=== PATIENT | female | born 1940 | race Caucasian/White ===

== ENCOUNTER → 2018-07-01 09:05 | Outpatient (CLI) | payer OTHER, MEDICAID, SELFPAY ==
[2018-07-01 10:21] LABS: BUN Creatinine Ratio 28.3 (6-22); Blood Urea Nitrogen 17 mg/dL (7-17); Calcium 9.5 mg/dL (8.4-10.2); Carbon Dioxide 27 mmol/L (22-32); Chloride 99 mmol/L (98-107); Estimated Glomerular Filt Rate > 60.0 mL/min (>60); Glucose 92 mg/dL (80-110); HEMOLYSIS < 15 (0-50); Potassium 4.5 mmol/L (3.4-5.1); Sodium 138 mmol/L (137-145)
== END ==
PROVIDERS: PCP Family Medicine; Visit Provider Internal Medicine Cardiovascular Disease
DX: I25.5 Ischemic cardiomyopathy (principal)
CPT/HCPCS: 36415; 80048

== ENCOUNTER → 2018-11-07 07:57 | Outpatient (CLI) | payer OTHER, MEDICAID, SELFPAY ==
[2018-11-07 10:24] LABS: TSH w/ Reflex to FT4 3.47 uIU/mL (0.47-4.68)
== END ==
PROVIDERS: PCP Family Medicine; Visit Provider Family Medicine
DX: R79.89 Other specified abnormal findings of blood chemistry (principal)
CPT/HCPCS: 36415; 84443

== ENCOUNTER → 2018-12-31 06:59 | Outpatient (CLI) | payer OTHER, MEDICAID, SELFPAY ==
[2018-12-31 07:59] LABS: Add Manual Diff / Slide Review NO; Basophils Absolute Auto 0 /uL (0-100); Basophils Percent Auto 0.5 % (0-2); Eosinophils Absolute Auto 100 /uL (0-450); Hematocrit 42.2 % (36-46); Hemoglobin 14.4 g/dL (12.0-16.0); Lymphocytes Absolute Auto 2200 /uL (1100-4500); Lymphocytes Percent Auto 31.4 % (25-40); Mean Corpuscular HGB Conc 34.2 % (30-36); Mean Corpuscular Hemoglobin 31.6 PG (26-34); Mean Corpuscular Volume 92.3 fL (80-100); Monocytes Absolute Auto 500 /uL (0-900); Neutrophils Absolute Auto 4300 /uL (1500-7000); Neutrophils Percent Auto 60.1 % (50-75); Platelet Count 183 X10^3/uL (150-400); Red Blood Cell Count 4.57 X10^6/uL (4.0-5.2); White Blood Cell Count 7.1 X10^3/uL (4.5-11.0)
[2018-12-31 08:35] LABS: Alanine Aminotransferase 16 IU/L (9-52); Albumin Globulin Ratio 1.3 (1.0-2.8); Alkaline Phosphatase 71 U/L (38-126); Aspartate Aminotransferase 23 IU/L (14-36); BUN Creatinine Ratio 26.7 (6-22); Bilirubin Total 0.8 mg/dL (0.2-1.3); Blood Urea Nitrogen 16 mg/dL (7-17); Calcium 9.2 mg/dL (8.4-10.2); Carbon Dioxide 27 mmol/L (22-32); Chloride 98 mmol/L (98-107); Cholesterol 218 mg/dL (140-199); Estimated Glomerular Filt Rate > 60.0 mL/min (>60); Glucose 97 mg/dL (80-110); HDL Cholesterol 73 mg/dL (40-60); HEMOLYSIS < 15 (0-50); LDL Cholesterol Calculated 126 mg/dL (<100); Potassium 4.1 mmol/L (3.4-5.1); Sodium 133 mmol/L (137-145); Triglycerides 94 mg/dL (35-150)
[2018-12-31 10:01] LABS: Creatinine Urine Random 89.6 mg/dL
[2018-12-31 10:02] LABS: Microalbumi Creatinin Ratio Ur 11.1 ug/mg CR (<30)
== END ==
PROVIDERS: PCP Family Medicine; Visit Provider Family Medicine
DX: I10 Essential (primary) hypertension (principal); E03.9 Hypothyroidism, unspecified; E78.00 Pure hypercholesterolemia, unspecified
CPT/HCPCS: 36415; 80053; 80061; 82043; 82570; 85025

== ENCOUNTER → 2019-01-12 11:50 | Outpatient (CLI) | payer OTHER, MEDICAID, SELFPAY ==
[2019-01-12 13:53] LABS: Blood Urea Nitrogen 12 mg/dL (7-17); Calcium 9.2 mg/dL (8.4-10.2); Carbon Dioxide 26 mmol/L (22-32); Chloride 95 mmol/L (98-107); Estimated Glomerular Filt Rate > 60.0 mL/min (>60); Glucose 112 mg/dL (80-110); HEMOLYSIS < 15 (0-50); Potassium 4.1 mmol/L (3.4-5.1); Sodium 129 mmol/L (137-145)
== END ==
PROVIDERS: Family Provider Family Medicine; PCP Family Medicine; Visit Provider Internal Medicine Cardiovascular Disease
DX: I25.5 Ischemic cardiomyopathy (principal); I10 Essential (primary) hypertension
CPT/HCPCS: 36415; 80048

== ENCOUNTER → 2019-01-15 13:20 | Outpatient (CLI) | payer OTHER, MEDICAID, SELFPAY ==
[2019-01-15 14:52] LABS: Blood Urea Nitrogen 15 mg/dL (7-17); Calcium 9.7 mg/dL (8.4-10.2); Carbon Dioxide 26 mmol/L (22-32); Chloride 99 mmol/L (98-107); Estimated Glomerular Filt Rate > 60.0 mL/min (>60); Glucose 90 mg/dL (80-110); HEMOLYSIS < 15 (0-50); Potassium 4.3 mmol/L (3.4-5.1); Sodium 133 mmol/L (137-145)
== END ==
PROVIDERS: PCP Family Medicine; Visit Provider Family Medicine
DX: E87.1 Hypo-osmolality and hyponatremia (principal)
CPT/HCPCS: 36415; 80048

== ENCOUNTER 2019-05-24 08:15 | Outpatient (RCR) | payer OTHER, MEDICAID, SELFPAY ==
--- NOTE | 2019-03-09 08:16 | PT.OIE ---
Current Diagnoses Other symptoms and signs involving the musculoskeletal system (03/18/19) Past Surgical History Status post surgery (10/02/09) Provider Visit Care Team Role Provider Type Debbie Fields DO Attending Provider Non-Staff Primary Care Provider Specialty: Medical Address: [address] [place] [address], [phone] Email: Physical Therapy Initial Evaluation PT-OP-A Visit Information Start: 03/05/19 18:41 Freq: Status: Active Protocol: Document 03/09/19 08:16 LRN (Rec: 03/09/19 08:51 LRN [id number]) Out-Patient Physical Therapy Visit Information Visit Information Visit Type Initial Evaluation Visit Start Time 08:16 Visit Stop Time 08:51 Total Visit Minutes 45 Visit Number 1 Number of WASHER HAND Visits 0 Evaluation Information Evaluation Date 03/09/19 Precautions Precautions Extensive Health history - scoliosis, cystocele with rectocele, ischemic cardiomyopathy, recurrent abdominal hernia (see chart for more details). Pt noted PMH: Arterial disease, chronic back & neck pain, cancer (skin), CHF, history of heart attack, osteopenia, gall bladder surgery, L Hiatal hernia repair with mesh , IBS. PT-OP-B Current Condition Start: 03/05/19 18:41 Freq: Status: Active Protocol: Document 03/09/19 08:16 LRN (Rec: 03/09/19 08:51 LRN [id number]) Current Condition History of Current Condition Onset Date 4 months ago Current Complaints LLE weakness. History of Current Condition Has lost 1.5 in 5 yrs due to scoliosis. Has stopped doing her ex's and her pain has returned and the leg has gotten weak. Had L inguinal hernia surgery with mesh placed ~09/2017, and now has limitations in stretching. Now has bulge to the right of the umbilicus superiorly, denies pain. Ex's in cardiac rehab (uses weights and aerobic ex) 2x/week ujnless having gut problems related to IBS, a couple days per week . Daughter helps with housework. If something drops on the floor she will wait until da comes to clean up. Developmental History Developmental History Progressive worsening of weakness since inguinal hernia repair and mesh placed. Pt thinks because of sacrum going out of place from scoliosis, and core weakness. Treatment Goals Patient/Caregiver Goals Pt goal is to get in/out of the car easier and without assist, and to go up/down stairs holding rail with one hand in stead of 2 hands on a rail sideways. Prior Functional Status Baseline Function- ADL's Modified Independent Baseline Function- Mobility Independent Baseline Function- Gait Independent without assistive device. Baseline Function- Recreation/Hobbies Has done 30' on TM in Cardiac Rehab (1 month ago) Baseline Function- Other Dressing, da helped with socks and shoes. Current Functional Impairments (Reported) Functional Limitations- ADL's Stairs sideways using both hands Assist needed for picking up legs to get into car. Functional Limitations- Mobility/Gait Doesn't walk far because of the feet pain. Personal Factors Other Personal Factors That May Effect Lives alone Therapy/Recovery PT-OP-C Subjective Start: 03/05/19 18:41 Freq: Status: Active Protocol: Document 03/09/19 08:16 LRN (Rec: 03/09/19 08:51 LRN [id number]) Patient Questionnaires Lower Extremity Functional Scale LEFS Score 28 LEFS Impairment 60 to 79% Impaired (Score 17- 31) OP-PT Pain Assessment Location R lateral trunk Pain Location Details R posterolateral trunk Intensity 7 Scale Used Numeric (1 - 10) L upper back Pain Location Details S scapular medial border region Intensity 7 Scale Used Numeric (1 - 10) L sacral region Pain Location Details L SIJ/sacral region Intensity 7 Scale Used Numeric (1 - 10) L groin Pain Location Details L groin Intensity 7 Scale Used Numeric (1 - 10) PT-OP-G Mobility & Gait Start: 03/05/19 18:41 Freq: Status: Active Protocol: Document 03/09/19 08:16 LRN (Rec: 03/10/19 17:47 LRN [id number]) OP Mobility Evaluation Bed Mobility Supine to and from Sit Pt assists L LE with hands. OP Gait Assessment Assistive Devices Assistive Device None Gait Deviations General Gait Pattern Decreased Stride Length Lateral Trunk Lean Narrow Based Gait PT-OP-J Posture/Palpation/Skin Start: 03/05/19 18:41 Freq: Status: Active Protocol: Document 03/09/19 08:16 LRN (Rec: 03/09/19 08:51 LRN [id number]) Posture Evaluation Position Standing Head/C-Spine Posture Forward Head PT-OP-K Range of Motion Start: 03/05/19 18:41 Freq: Status: Active Protocol: Document 03/09/19 08:16 LRN (Rec: 03/10/19 17:47 LRN [id number]) Hip Goniometric Range of Motion Hip Right Passive Testing Position Supine Internal Rotation 45 Left Passive Testing Position Supine Internal Rotation 50 Hip ROM Limitations Hip ROM Limitations Pain Comments Deferred further testing due to back pain following strength testing. PT-OP-M Strength Start: 03/05/19 18:41 Freq: Status: Active Protocol: Document 03/09/19 08:16 LRN (Rec: 03/10/19 17:47 LRN [id number]) Hip Strength Hip Manual Muscle Testing Right Flexion (L2) 1 Trace Extension (S1) 2 Poor Abduction 4 Good Adduction 2 Poor External Rotation 3 Fair Internal Rotation 3 Fair Left Flexion (L2) 4+ Good+ Extension (S1) 2 Poor Abduction 2- Poor- External Rotation 3 Fair Internal Rotation 4 Good Knee Strength Knee Manual Muscle Testing Right Reason Not Measured WFL Left Reason Not Measured WFL Ankle/Foot Strength Ankle and Foot Manual Muscle Testing Right Reason Not Measured WFL Left Reason Not Measured WFL PT-OP-T Assessment and Plan Start: 03/05/19 18:41 Freq: Status: Active Protocol: Document 03/09/19 08:16 LRN (Rec: 03/09/19 08:51 LRN [id number]) Physical Therapy Assessment Rehab Potential Rehabilitation Potential Good Evaluation Complexity Number of Personal Factors/Comorbidities 3 or More Number of Body Systems Impaired 4 or More Clinical Presentation at Evaluation Evolving Impairments Impairments Pain Posture ROM Strength Other Concerns Barriers to Rehabilitation Multiple co-morbidities Goals Three Impairment Pt must descend stairs with side stepping, both hands on same rail Jail Goal (LTG) Pt will be able to descend stairs with step to gait facing forward with use of one hand on a rail. LTG Duration 05/18/19 Two Impairment Decreased hip strength to be able to lift her LLE getting into a car Short Term Goal (STG) Pt will be able to march in place lifting her hip/knee to a 90/90 position. STG Duration 04/19/19 Lehr Stripper Goal (LTG) Pt will be able to lift her LLE independently into a car with mild to moderate difficulty. LTG Duration 05/18/19 One Impairment Pt lacks appropriate self mcfp exercise program (HEP). Jail Goal (LTG) Pt will be independent with a self care HEP. LTG Duration 05/18/19 Assessment Summary Assessment Pt presents with weakness of the hips bilaterally, probably limited due to back. L LE weakness since L inguinal hernia repair. She appears to be having discomfort in the L inguinal region with L leg movement; therefore soft tissue dysfunction is expected . The pt will be limited in her tolerance to exercise due to back pain. I am familiar with this patient and her IBS can be a hindrance to her therapy; therefore progress may be slow. The pt will benefit from skilled physical therapy to improve L hip strength although the right hip demonstrates weakness as well. She will also benefit from core strengthening and manual therapy to the back and L hip in order to progress her in her strengthening program. Physical Therapy Plan Frequency and Duration Frequency of Treatment 2x/Week Plan of Care Start Date 03/09/19 Plan of Care End Date 05/18/19 Therapeutic Interventions Therapeutic Interventions Home Exercise Program Manual Therapy Neuromuscular Re-education Patient/Caregiver Education Self-Care/Home Management Soft Tissue Mobilization Therapeutic Exercises Modalities Cold Pack/Ice Massage Electric Stimulation Hot Packs Next Visit Focus/Plan Next Note Type Treatment Note Next Visit Plan Pt to bring her existing HEP for review. Initiate hip strengthening with caution due to abdominal hernia and s/p L inguinal hernia with mesh. Pt may tolerate standing better than supine due to back pain. Assess hip mobility and address low back/hip pain as needed to facilitate LE strengthening. Use of MH vs cold pack for back pain as needed to end treatment. Minimize use of modalities due to history of cancer, assess use of E-Stim.
--- NOTE | 2019-03-18 17:20 | PT.OTN ---
Current Diagnoses Other symptoms and signs involving the musculoskeletal system (03/18/19) Physical Therapy Treatment Note PT-OP-A Visit Information Start: 03/05/19 18:41 Freq: Status: Active Protocol: Document 03/18/19 17:20 EA (Rec: 03/23/19 13:01 EA [id number]) Out-Patient Physical Therapy Visit Information Visit Information Visit Type Treatment Note Visit Start Time 08:15 Visit Stop Time 09:08 Total Visit Minutes 48 Visit Number 3 PT-OP-B Current Condition Start: 03/05/19 18:41 Freq: Status: Active Protocol: Document 03/09/19 08:16 LRN (Rec: 03/09/19 08:51 LRN [id number]) Current Condition History of Current Condition Onset Date 4 months ago Current Complaints LLE weakness. History of Current Condition Has lost 1.5 in 5 yrs due to scoliosis. Has stopped doing her ex's and her pain has returned and the leg has gotten weak. Had L inguinal hernia surgery with mesh placed ~09/2017, and now has limitations in stretching. Now has bulge to the right of the umbilicus superiorly, denies pain. Ex's in cardiac rehab (uses weights and aerobic ex) 2x/week ujnless having gut problems related to IBS, a couple days per week . Daughter helps with housework. If something drops on the floor she will wait until da comes to clean up. Developmental History Developmental History Progressive worsening of weakness since inguinal hernia repair and mesh placed. Pt thinks because of sacrum going out of place from scoliosis, and core weakness. Treatment Goals Patient/Caregiver Goals Pt goal is to get in/out of the car easier and without assist, and to go up/down stairs holding rail with one hand in stead of 2 hands on a rail sideways. Prior Functional Status Baseline Function- ADL's Modified Independent Baseline Function- Mobility Independent Baseline Function- Gait Independent without assistive device. Baseline Function- Recreation/Hobbies Has done 30' on TM in Cardiac Rehab (1 month ago) Baseline Function- Other Dressing, da helped with socks and shoes. Current Functional Impairments (Reported) Functional Limitations- ADL's Stairs sideways using both hands Assist needed for picking up legs to get into car. Functional Limitations- Mobility/Gait Doesn't walk far because of the feet pain. Personal Factors Other Personal Factors That May Effect Lives alone Therapy/Recovery PT-OP-C Subjective Start: 03/05/19 18:41 Freq: Status: Active Protocol: Document 03/18/19 17:20 EA (Rec: 03/23/19 13:01 EA [id number]) OP-PT Subjective Patient Comments Patient Comments Pt reports compliant with the HEP. PT-OP-G Mobility & Gait Start: 03/05/19 18:41 Freq: Status: Active Protocol: Document 03/09/19 08:16 LRN (Rec: 03/10/19 17:47 LRN [id number]) OP Mobility Evaluation Bed Mobility Supine to and from Sit Pt assists L LE with hands. OP Gait Assessment Assistive Devices Assistive Device None Gait Deviations General Gait Pattern Decreased Stride Length Lateral Trunk Lean Narrow Based Gait PT-OP-J Posture/Palpation/Skin Start: 03/05/19 18:41 Freq: Status: Active Protocol: Document 03/09/19 08:16 LRN (Rec: 03/09/19 08:51 LRN [id number]) Posture Evaluation Position Standing Head/C-Spine Posture Forward Head PT-OP-K Range of Motion Start: 03/05/19 18:41 Freq: Status: Active Protocol: Document 03/09/19 08:16 LRN (Rec: 03/10/19 17:47 LRN [id number]) Hip Goniometric Range of Motion Hip Right Passive Testing Position Supine Internal Rotation 45 Left Passive Testing Position Supine Internal Rotation 50 Hip ROM Limitations Hip ROM Limitations Pain Comments Deferred further testing due to back pain following strength testing. PT-OP-M Strength Start: 03/05/19 18:41 Freq: Status: Active Protocol: Document 03/09/19 08:16 LRN (Rec: 03/10/19 17:47 LRN [id number]) Hip Strength Hip Manual Muscle Testing Right Flexion (L2) 1 Trace Extension (S1) 2 Poor Abduction 4 Good Adduction 2 Poor External Rotation 3 Fair Internal Rotation 3 Fair Left Flexion (L2) 4+ Good+ Extension (S1) 2 Poor Abduction 2- Poor- External Rotation 3 Fair Internal Rotation 4 Good Knee Strength Knee Manual Muscle Testing Right Reason Not Measured WFL Left Reason Not Measured WFL Ankle/Foot Strength Ankle and Foot Manual Muscle Testing Right Reason Not Measured WFL Left Reason Not Measured WFL PT-OP-Q Treatments Start: 03/05/19 18:41 Freq: Status: Active Protocol: Document 03/18/19 17:20 EA (Rec: 03/23/19 13:01 EA [id number]) Cardio Equipment Recumbent Bicycle Duration (Minutes) 5 Resistance 3 Gym Equipment Shuttle Recovery Unilateral Squats Resistance 2.5 cords Reps/Time x 15 reps x 2 Therapeutic Exercises Supine Exercises 4 Supine Exercise Name Bridge with marching Reps/Minutes x 10 reps x 2 sets 3 Supine Exercise Name Partial sit up with SLR Reps/Minutes x 10 reps x 2 sets 2 Supine Exercise Name Bridge with Isomet hip ABD Resistance GTB Reps/Minutes x 10 reps x 2 sets 1 [address] HIP Reps/Minutes x 12 reps x 2 sets Sidelying Exercises 1 Sidelying Exercise Name Clamshell Resistance BTB Reps/Minutes x 15 reps x 2 Standing Exercises 1 Standing Exercise Name Side step squat with heel raises Reps/Minutes x 12 ft length x 2 laps Manual Therapy Treatment Manual Techniques 1 Type Long axis traction Body Position Supine PT-OP-T Assessment and Plan Start: 03/05/19 18:41 Freq: Status: Active Protocol: Document 03/18/19 17:20 EA (Rec: 03/23/19 13:01 EA [id number]) Physical Therapy Assessment Assessment Summary Assessment Pt tolerated exercises well; cues is needed with supine marching and SLR to ensure low back stabilization. Physical Therapy Plan Next Visit Focus/Plan Next Note Type Treatment Note Next Visit Plan cont. with current plan
--- NOTE | 2019-03-22 09:21 | PT.OIE ---
Current Diagnoses Other symptoms and signs involving the musculoskeletal system (03/18/19) Past Surgical History Status post surgery (10/02/09) Provider Visit Care Team Role Provider Type Debbie Fields DO Attending Provider Non-Staff Primary Care Provider Specialty: Medical Address: [address] [place] [address], [phone] Email: Physical Therapy Initial Evaluation PT-OP-A Visit Information Start: 03/05/19 18:41 Freq: Status: Active Protocol: Document 03/09/19 08:16 LRN (Rec: 03/09/19 08:51 LRN [id number]) Out-Patient Physical Therapy Visit Information Visit Information Visit Type Initial Evaluation Visit Start Time 08:16 Visit Stop Time 08:51 Total Visit Minutes 45 Visit Number 1 Number of DIRECTOR OF PUBLIC SAFETY Visits 0 Evaluation Information Evaluation Date 03/09/19 Precautions Precautions Extensive Health history - scoliosis, cystocele with rectocele, ischemic cardiomyopathy, recurrent abdominal hernia (see chart for more details). Pt noted PMH: Arterial disease, chronic back & neck pain, cancer (skin), CHF, history of heart attack, osteopenia, gall bladder surgery, L Hiatal hernia repair with mesh , IBS. PT-OP-B Current Condition Start: 03/05/19 18:41 Freq: Status: Active Protocol: Document 03/09/19 08:16 LRN (Rec: 03/09/19 08:51 LRN [id number]) Current Condition History of Current Condition Onset Date 4 months ago Current Complaints LLE weakness. History of Current Condition Has lost 1.5 in 5 yrs due to scoliosis. Has stopped doing her ex's and her pain has returned and the leg has gotten weak. Had L inguinal hernia surgery with mesh placed ~09/2017, and now has limitations in stretching. Now has bulge to the right of the umbilicus superiorly, denies pain. Ex's in cardiac rehab (uses weights and aerobic ex) 2x/week ujnless having gut problems related to IBS, a couple days per week . Daughter helps with housework. If something drops on the floor she will wait until da comes to clean up. Developmental History Developmental History Progressive worsening of weakness since inguinal hernia repair and mesh placed. Pt thinks because of sacrum going out of place from scoliosis, and core weakness. Treatment Goals Patient/Caregiver Goals Pt goal is to get in/out of the car easier and without assist, and to go up/down stairs holding rail with one hand in stead of 2 hands on a rail sideways. Prior Functional Status Baseline Function- ADL's Modified Independent Baseline Function- Mobility Independent Baseline Function- Gait Independent without assistive device. Baseline Function- Recreation/Hobbies Has done 30' on TM in Cardiac Rehab (1 month ago) Baseline Function- Other Dressing, da helped with socks and shoes. Current Functional Impairments (Reported) Functional Limitations- ADL's Stairs sideways using both hands Assist needed for picking up legs to get into car. Functional Limitations- Mobility/Gait Doesn't walk far because of the feet pain. Personal Factors Other Personal Factors That May Effect Lives alone Therapy/Recovery PT-OP-C Subjective Start: 03/05/19 18:41 Freq: Status: Active Protocol: Document 03/09/19 08:16 LRN (Rec: 03/09/19 08:51 LRN [id number]) Patient Questionnaires Lower Extremity Functional Scale LEFS Score 28 LEFS Impairment 60 to 79% Impaired (Score 17- 31) OP-PT Pain Assessment Location R lateral trunk Pain Location Details R posterolateral trunk Intensity 7 Scale Used Numeric (1 - 10) L upper back Pain Location Details S scapular medial border region Intensity 7 Scale Used Numeric (1 - 10) L sacral region Pain Location Details L SIJ/sacral region Intensity 7 Scale Used Numeric (1 - 10) L groin Pain Location Details L groin Intensity 7 Scale Used Numeric (1 - 10) PT-OP-G Mobility & Gait Start: 03/05/19 18:41 Freq: Status: Active Protocol: Document 03/09/19 08:16 LRN (Rec: 03/10/19 17:47 LRN [id number]) OP Mobility Evaluation Bed Mobility Supine to and from Sit Pt assists L LE with hands. OP Gait Assessment Assistive Devices Assistive Device None Gait Deviations General Gait Pattern Decreased Stride Length Lateral Trunk Lean Narrow Based Gait PT-OP-J Posture/Palpation/Skin Start: 03/05/19 18:41 Freq: Status: Active Protocol: Document 03/09/19 08:16 LRN (Rec: 03/09/19 08:51 LRN [id number]) Posture Evaluation Position Standing Head/C-Spine Posture Forward Head PT-OP-K Range of Motion Start: 03/05/19 18:41 Freq: Status: Active Protocol: Document 03/09/19 08:16 LRN (Rec: 03/10/19 17:47 LRN [id number]) Hip Goniometric Range of Motion Hip Right Passive Testing Position Supine Internal Rotation 45 Left Passive Testing Position Supine Internal Rotation 50 Hip ROM Limitations Hip ROM Limitations Pain Comments Deferred further testing due to back pain following strength testing. PT-OP-M Strength Start: 03/05/19 18:41 Freq: Status: Active Protocol: Document 03/09/19 08:16 LRN (Rec: 03/10/19 17:47 LRN [id number]) Hip Strength Hip Manual Muscle Testing Right Flexion (L2) 1 Trace Extension (S1) 2 Poor Abduction 4 Good Adduction 2 Poor External Rotation 3 Fair Internal Rotation 3 Fair Left Flexion (L2) 4+ Good+ Extension (S1) 2 Poor Abduction 2- Poor- External Rotation 3 Fair Internal Rotation 4 Good Knee Strength Knee Manual Muscle Testing Right Reason Not Measured WFL Left Reason Not Measured WFL Ankle/Foot Strength Ankle and Foot Manual Muscle Testing Right Reason Not Measured WFL Left Reason Not Measured WFL PT-OP-T Assessment and Plan Start: 03/05/19 18:41 Freq: Status: Active Protocol: Document 03/09/19 08:16 LRN (Rec: 03/09/19 08:51 LRN [id number]) Physical Therapy Assessment Rehab Potential Rehabilitation Potential Good Evaluation Complexity Number of Personal Factors/Comorbidities 3 or More Number of Body Systems Impaired 4 or More Clinical Presentation at Evaluation Evolving Impairments Impairments Pain Posture ROM Strength Other Concerns Barriers to Rehabilitation Multiple co-morbidities Goals Three Impairment Pt must descend stairs with side stepping, both hands on same rail Custodial Goal (LTG) Pt will be able to descend stairs with step to gait facing forward with use of one hand on a rail. LTG Duration 05/18/19 Two Impairment Decreased hip strength to be able to lift her LLE getting into a car Short Term Goal (STG) Pt will be able to march in place lifting her hip/knee to a 90/90 position. STG Duration 04/19/19 Oven Unloader Goal (LTG) Pt will be able to lift her LLE independently into a car with mild to moderate difficulty. LTG Duration 05/18/19 One Impairment Pt lacks appropriate self chcf exercise program (HEP). Custodial Goal (LTG) Pt will be independent with a self care HEP. LTG Duration 05/18/19 Assessment Summary Assessment Pt presents with weakness of the hips bilaterally, probably limited due to back. L LE weakness since L inguinal hernia repair. She appears to be having discomfort in the L inguinal region with L leg movement; therefore soft tissue dysfunction is expected . The pt will be limited in her tolerance to exercise due to back pain. I am familiar with this patient and her IBS can be a hindrance to her therapy; therefore progress may be slow. The pt will benefit from skilled physical therapy to improve L hip strength although the right hip demonstrates weakness as well. She will also benefit from core strengthening and manual therapy to the back and L hip in order to progress her in her strengthening program. Physical Therapy Plan Frequency and Duration Frequency of Treatment 2x/Week Plan of Care Start Date 03/09/19 Plan of Care End Date 05/18/19 Therapeutic Interventions Therapeutic Interventions Home Exercise Program Manual Therapy Neuromuscular Re-education Patient/Caregiver Education Self-Care/Home Management Soft Tissue Mobilization Therapeutic Exercises Modalities Cold Pack/Ice Massage Electric Stimulation Hot Packs Next Visit Focus/Plan Next Note Type Treatment Note Next Visit Plan Pt to bring her existing HEP for review. Initiate hip strengthening with caution due to abdominal hernia and s/p L inguinal hernia with mesh. Pt may tolerate standing better than supine due to back pain. Assess hip mobility and address low back/hip pain as needed to facilitate LE strengthening. Use of MH vs cold pack for back pain as needed to end treatment. Minimize use of modalities due to history of cancer, assess use of E-Stim.
--- NOTE | 2019-03-25 13:11 | PT.OTN ---
Current Diagnoses Other symptoms and signs involving the musculoskeletal system (03/25/19) Physical Therapy Treatment Note PT-OP-A Visit Information Start: 03/05/19 18:41 Freq: Status: Active Protocol: Document 03/25/19 10:35 LRN (Rec: 03/25/19 11:30 LRN [id number]) Out-Patient Physical Therapy Visit Information Visit Information Visit Type Treatment Note Visit Start Time 10:35 Visit Stop Time 11:25 Total Visit Minutes 50 Visit Number 4 Evaluation Information Evaluation Date 03/09/19 Precautions Precautions Extensive Health history - scoliosis, cystocele with rectocele, ischemic cardiomyopathy, recurrent abdominal hernia (see chart for more details). Pt noted PMH: Arterial disease, chronic back & neck pain, cancer (skin), CHF, history of heart attack, osteopenia, gall bladder surgery, L Hiatal hernia repair with mesh , IBS. PT-OP-B Current Condition Start: 03/05/19 18:41 Freq: Status: Active Protocol: Document 03/09/19 08:16 LRN (Rec: 03/09/19 08:51 LRN [id number]) Current Condition History of Current Condition Onset Date 4 months ago Current Complaints LLE weakness. History of Current Condition Has lost 1.5 in 5 yrs due to scoliosis. Has stopped doing her ex's and her pain has returned and the leg has gotten weak. Had L inguinal hernia surgery with mesh placed ~09/2017, and now has limitations in stretching. Now has bulge to the right of the umbilicus superiorly, denies pain. Ex's in cardiac rehab (uses weights and aerobic ex) 2x/week ujnless having gut problems related to IBS, a couple days per week . Daughter helps with housework. If something drops on the floor she will wait until da comes to clean up. Developmental History Developmental History Progressive worsening of weakness since inguinal hernia repair and mesh placed. Pt thinks because of sacrum going out of place from scoliosis, and core weakness. Treatment Goals Patient/Caregiver Goals Pt goal is to get in/out of the car easier and without assist, and to go up/down stairs holding rail with one hand in stead of 2 hands on a rail sideways. Prior Functional Status Baseline Function- ADL's Modified Independent Baseline Function- Mobility Independent Baseline Function- Gait Independent without assistive device. Baseline Function- Recreation/Hobbies Has done 30' on TM in Cardiac Rehab (1 month ago) Baseline Function- Other Dressing, da helped with socks and shoes. Current Functional Impairments (Reported) Functional Limitations- ADL's Stairs sideways using both hands Assist needed for picking up legs to get into car. Functional Limitations- Mobility/Gait Doesn't walk far because of the feet pain. Personal Factors Other Personal Factors That May Effect Lives alone Therapy/Recovery PT-OP-C Subjective Start: 03/05/19 18:41 Freq: Status: Active Protocol: Document 03/25/19 10:35 LRN (Rec: 03/25/19 11:30 LRN [id number]) OP-PT Subjective Patient Comments Patient Comments Has gotten a pessary, and had career coordinator; therefore back feels better. PT-OP-G Mobility & Gait Start: 03/05/19 18:41 Freq: Status: Active Protocol: Document 03/09/19 08:16 LRN (Rec: 03/10/19 17:47 LRN [id number]) OP Mobility Evaluation Bed Mobility Supine to and from Sit Pt assists L LE with hands. OP Gait Assessment Assistive Devices Assistive Device None Gait Deviations General Gait Pattern Decreased Stride Length Lateral Trunk Lean Narrow Based Gait PT-OP-J Posture/Palpation/Skin Start: 03/05/19 18:41 Freq: Status: Active Protocol: Document 03/09/19 08:16 LRN (Rec: 03/09/19 08:51 LRN [id number]) Posture Evaluation Position Standing Head/C-Spine Posture Forward Head PT-OP-K Range of Motion Start: 03/05/19 18:41 Freq: Status: Active Protocol: Document 03/25/19 10:35 LRN (Rec: 03/25/19 13:10 LRN [id number]) Hip Goniometric Range of Motion Hip Right Passive Testing Position Supine Internal Rotation 55 External Rotation 85 Left Passive Testing Position Supine Internal Rotation 35 External Rotation 90 PT-OP-M Strength Start: 03/05/19 18:41 Freq: Status: Active Protocol: Document 03/09/19 08:16 LRN (Rec: 03/10/19 17:47 LRN [id number]) Hip Strength Hip Manual Muscle Testing Right Flexion (L2) 1 Trace Extension (S1) 2 Poor Abduction 4 Good Adduction 2 Poor External Rotation 3 Fair Internal Rotation 3 Fair Left Flexion (L2) 4+ Good+ Extension (S1) 2 Poor Abduction 2- Poor- External Rotation 3 Fair Internal Rotation 4 Good Knee Strength Knee Manual Muscle Testing Right Reason Not Measured WFL Left Reason Not Measured WFL Ankle/Foot Strength Ankle and Foot Manual Muscle Testing Right Reason Not Measured WFL Left Reason Not Measured WFL PT-OP-Q Treatments Start: 03/05/19 18:41 Freq: Status: Active Protocol: Document 03/25/19 10:35 LRN (Rec: 03/25/19 11:30 LRN [id number]) Cardio Equipment Recumbent Bicycle Duration (Minutes) 6 Resistance 3 Gym Equipment Shuttle Recovery Bilateral Squats Resistance 75#, 82# Reps/Time 15x, 15x 3 respectively Therapeutic Exercises Supine Exercises 4 Supine Exercise Name Bridge with marching Reps/Minutes x 10 reps x 2 sets 2 Supine Exercise Name Bridge with Isomet hip ABD Resistance GTB Reps/Minutes x 10 reps x 2 sets Sidelying Exercises 1 Sidelying Exercise Name Clamshell Resistance BTB Reps/Minutes x 15 reps x 2 Standing Exercises 1 Standing Exercise Name Side step squat with heel raises Reps/Minutes x 12 ft length x 3 laps Self-Care/Home Management Treatment Education Patient Education Home Exercise Program Activities Self-Care/Home Management Activities HEP Issued & reviewed: Piriformis stretch and I/S written for squat side step ex . PT-OP-T Assessment and Plan Start: 03/05/19 18:41 Freq: Status: Active Protocol: Document 03/25/19 10:35 LRN (Rec: 03/25/19 11:30 LRN [id number]) Physical Therapy Assessment Assessment Summary Assessment Fatigues on bike, but good tolerance on shuttle with legs . Left leg is weaker. Less complaints of back pain with pessary in place. Pt L hip IR mobility is restricted (35 left, 55 right) and very mildly with R hip ER (90 left, 85 right). Not able to complete hip strengthening ex' s due to onset of back pain. Physical Therapy Plan Frequency and Duration Frequency of Treatment 2x/Week Plan of Care Start Date 03/09/19 Plan of Care End Date 05/18/19 Next Visit Focus/Plan Next Note Type Treatment Note Next Visit Plan Cont. with current plans to bring her existing HEP for review & hip strengthening with caution due to abdominal hernia and s/p L inguinal hernia with mesh. Pt may tolerate standing better than supine due to back pain, but currently back pain is well controlled. Address low back/ hip pain as needed to facilitate LE strengthening. Try Long axis LB traction in supine if needed for LBP management. Use of MH vs cold pack for back pain as needed to end treatment. Minimize use of modalities due to history of cancer, assess use of E-Stim.
--- NOTE | 2019-03-30 15:33 | PT.OTN ---
Current Diagnoses Other symptoms and signs involving the musculoskeletal system (03/30/19) Physical Therapy Treatment Note PT-OP-A Visit Information Start: 03/05/19 18:41 Freq: Status: Active Protocol: Document 03/30/19 09:04 LRN (Rec: 03/30/19 09:46 LRN [id number]) Out-Patient Physical Therapy Visit Information Visit Information Visit Type Treatment Note Visit Start Time 09:04 Visit Stop Time 09:43 Total Visit Minutes 39 Visit Number 5 Evaluation Information Evaluation Date 03/09/19 Precautions Precautions Extensive Health history - scoliosis, cystocele with rectocele, ischemic cardiomyopathy, recurrent abdominal hernia (see chart for more details). Pt noted PMH: Arterial disease, chronic back & neck pain, cancer (skin), CHF, history of heart attack, osteopenia, gall bladder surgery, L Hiatal hernia repair with mesh , IBS. PT-OP-B Current Condition Start: 03/05/19 18:41 Freq: Status: Active Protocol: Document 03/09/19 08:16 LRN (Rec: 03/09/19 08:51 LRN [id number]) Current Condition History of Current Condition Onset Date 4 months ago Current Complaints LLE weakness. History of Current Condition Has lost 1.5 in 5 yrs due to scoliosis. Has stopped doing her ex's and her pain has returned and the leg has gotten weak. Had L inguinal hernia surgery with mesh placed ~09/2017, and now has limitations in stretching. Now has bulge to the right of the umbilicus superiorly, denies pain. Ex's in cardiac rehab (uses weights and aerobic ex) 2x/week ujnless having gut problems related to IBS, a couple days per week . Daughter helps with housework. If something drops on the floor she will wait until da comes to clean up. Developmental History Developmental History Progressive worsening of weakness since inguinal hernia repair and mesh placed. Pt thinks because of sacrum going out of place from scoliosis, and core weakness. Treatment Goals Patient/Caregiver Goals Pt goal is to get in/out of the car easier and without assist, and to go up/down stairs holding rail with one hand in stead of 2 hands on a rail sideways. Prior Functional Status Baseline Function- ADL's Modified Independent Baseline Function- Mobility Independent Baseline Function- Gait Independent without assistive device. Baseline Function- Recreation/Hobbies Has done 30' on TM in Cardiac Rehab (1 month ago) Baseline Function- Other Dressing, da helped with socks and shoes. Current Functional Impairments (Reported) Functional Limitations- ADL's Stairs sideways using both hands Assist needed for picking up legs to get into car. Functional Limitations- Mobility/Gait Doesn't walk far because of the feet pain. Personal Factors Other Personal Factors That May Effect Lives alone Therapy/Recovery PT-OP-C Subjective Start: 03/05/19 18:41 Freq: Status: Active Protocol: Document 03/30/19 09:04 LRN (Rec: 03/30/19 09:46 LRN [id number]) OP-PT Subjective Patient Comments Patient Comments Back is feeling better since the pessary was in place and her OMT popped something. PT-OP-G Mobility & Gait Start: 03/05/19 18:41 Freq: Status: Active Protocol: Document 03/09/19 08:16 LRN (Rec: 03/10/19 17:47 LRN [id number]) OP Mobility Evaluation Bed Mobility Supine to and from Sit Pt assists L LE with hands. OP Gait Assessment Assistive Devices Assistive Device None Gait Deviations General Gait Pattern Decreased Stride Length, Lateral Trunk Lean,Narrow Based Gait PT-OP-J Posture/Palpation/Skin Start: 03/05/19 18:41 Freq: Status: Active Protocol: Document 03/09/19 08:16 LRN (Rec: 03/09/19 08:51 LRN [id number]) Posture Evaluation Position Standing Head/C-Spine Posture Forward Head PT-OP-K Range of Motion Start: 03/05/19 18:41 Freq: Status: Active Protocol: Document 03/25/19 10:35 LRN (Rec: 03/25/19 13:10 LRN [id number]) Hip Goniometric Range of Motion Hip Right Passive Testing Position Supine Internal Rotation 55 External Rotation 85 Left Passive Testing Position Supine Internal Rotation 35 External Rotation 90 PT-OP-M Strength Start: 03/05/19 18:41 Freq: Status: Active Protocol: Document 03/09/19 08:16 LRN (Rec: 03/10/19 17:47 LRN [id number]) Hip Strength Hip Manual Muscle Testing Right Flexion (L2) 1 Trace Extension (S1) 2 Poor Abduction 4 Good Adduction 2 Poor External Rotation 3 Fair Internal Rotation 3 Fair Left Flexion (L2) 4+ Good+ Extension (S1) 2 Poor Abduction 2- Poor- External Rotation 3 Fair Internal Rotation 4 Good Knee Strength Knee Manual Muscle Testing Right Reason Not Measured WFL Left Reason Not Measured WFL Ankle/Foot Strength Ankle and Foot Manual Muscle Testing Right Reason Not Measured WFL Left Reason Not Measured WFL PT-OP-Q Treatments Start: 03/05/19 18:41 Freq: Status: Active Protocol: Document 03/30/19 09:04 LRN (Rec: 03/30/19 09:46 LRN [id number]) Cardio Equipment Recumbent Bicycle Duration (Minutes) 7 Resistance 3 Seat Position 1 Gym Equipment Shuttle Recovery Bilateral Squats Resistance 75#, 82#, 100# Reps/Time 15x each respectively Therapeutic Exercises Standing Exercises Step ups Standing Exercise Name 4 step ups front and lateral Side bilateral Equipment Used // bars, 4 step Soleus stretch Standing Exercise Name Soleus stretch on ELVIS Reps/Minutes 10 sec x 6 Ankle DF Standing Exercise Name Ankle DF with feet on ELVIS Reps/Minutes 30x HC stretch on ELVIS Standing Exercise Name Gastroc stretch on ELVIS f/b active ankle DF Forward walking Standing Exercise Name Pushing with toes while walking Equipment Used railing Reps/Minutes 2 lengths of railing Backward walking Standing Exercise Name Backward walking Equipment Used railing Reps/Minutes 2 lengths of railing 1 Standing Exercise Name Side step squat with heel raises Reps/Minutes x 12 ft length x 3 laps PT-OP-T Assessment and Plan Start: 03/05/19 18:41 Freq: Status: Active Protocol: Document 03/30/19 09:04 LRN (Rec: 03/30/19 09:46 LRN [id number]) Physical Therapy Assessment Goals Three Impairment Pt must descend stairs with side stepping, both hands on same rail Utility Gelatin Maker Goal (LTG) Pt will be able to descend stairs with step to gait facing forward with use of one hand on a rail. LTG Duration 05/18/19 Two Impairment Decreased hip strength to be able to lift her LLE getting into a car Short Term Goal (STG) Pt will be able to march in place lifting her hip/knee to a 90/90 position. STG Duration 04/19/19 Utility Gelatin Maker Goal (LTG) Pt will be able to lift her LLE independently into a car with mild to moderate difficulty. LTG Duration 05/18/19 One Impairment Pt lacks appropriate self [facility] exercise program (HEP). Utility Gelatin Maker Goal (LTG) Pt will be independent with a self care HEP. LTG Duration 05/18/19 Assessment Summary Assessment Great tolerance to exercise after pt's OMT practitioner, probably mobilized SIJ in place. Pt had no complaints of back pain after therapy today. She has weakness of the LLE > RLE. Pt tends to look at her feet a lot with ex ; therefore proprioceptive work is needed. Physical Therapy Plan Frequency and Duration Frequency of Treatment 2x/Week Plan of Care Start Date 03/09/19 Plan of Care End Date 05/18/19 Next Visit Focus/Plan Next Note Type Treatment Note Next Visit Plan Add sitting hip flex (and PNF) ex to assist pt in getting in /out of car easier if back pain controlled, and add proprioceptive work with ex's. Review her existing HEP & hip strengthening for appropriate ex to focus and cont, with caution due to abdominal hernia and s/p L inguinal hernia with mesh. Monitor low back/hip pain as needed to facilitate LE strengthening. Minimize use of modalities (heat, ice) due to history of cancer.
--- NOTE | 2019-04-02 11:49 | PT.OTN ---
Current Diagnoses Other symptoms and signs involving the musculoskeletal system (04/02/19) Physical Therapy Treatment Note PT-OP-A Visit Information Start: 03/05/19 18:41 Freq: Status: Active Protocol: Document 04/02/19 10:32 LRN (Rec: 04/02/19 11:16 LRN [id number]) Out-Patient Physical Therapy Visit Information Visit Information Visit Type Treatment Note Visit Start Time 10:33 Visit Stop Time 11:14 Total Visit Minutes 41 Visit Number 6 Number of COMMUNICATION EQUIPMENT MECHANIC Visits 0 Evaluation Information Evaluation Date 03/09/19 Precautions Precautions Extensive Health history - scoliosis, cystocele with rectocele, ischemic cardiomyopathy, recurrent abdominal hernia (see chart for more details). Pt noted PMH: Arterial disease, chronic back & neck pain, cancer (skin), CHF, history of heart attack, osteopenia, gall bladder surgery, L Hiatal hernia repair with mesh , IBS. PT-OP-B Current Condition Start: 03/05/19 18:41 Freq: Status: Active Protocol: Document 03/09/19 08:16 LRN (Rec: 03/09/19 08:51 LRN [id number]) Current Condition History of Current Condition Onset Date 4 months ago Current Complaints LLE weakness. History of Current Condition Has lost 1.5 in 5 yrs due to scoliosis. Has stopped doing her ex's and her pain has returned and the leg has gotten weak. Had L inguinal hernia surgery with mesh placed ~09/2017, and now has limitations in stretching. Now has bulge to the right of the umbilicus superiorly, denies pain. Ex's in cardiac rehab (uses weights and aerobic ex) 2x/week ujnless having gut problems related to IBS, a couple days per week . Daughter helps with housework. If something drops on the floor she will wait until da comes to clean up. Developmental History Developmental History Progressive worsening of weakness since inguinal hernia repair and mesh placed. Pt thinks because of sacrum going out of place from scoliosis, and core weakness. Treatment Goals Patient/Caregiver Goals Pt goal is to get in/out of the car easier and without assist, and to go up/down stairs holding rail with one hand in stead of 2 hands on a rail sideways. Prior Functional Status Baseline Function- ADL's Modified Independent Baseline Function- Mobility Independent Baseline Function- Gait Independent without assistive device. Baseline Function- Recreation/Hobbies Has done 30' on TM in Cardiac Rehab (1 month ago) Baseline Function- Other Dressing, da helped with socks and shoes. Current Functional Impairments (Reported) Functional Limitations- ADL's Stairs sideways using both hands Assist needed for picking up legs to get into car. Functional Limitations- Mobility/Gait Doesn't walk far because of the feet pain. Personal Factors Other Personal Factors That May Effect Lives alone Therapy/Recovery PT-OP-C Subjective Start: 03/05/19 18:41 Freq: Status: Active Protocol: Document 04/02/19 10:32 LRN (Rec: 04/02/19 11:16 LRN [id number]) OP-PT Subjective Patient Comments Patient Comments R hip is feeling good. Having trouble with L shoulder. PT-OP-G Mobility & Gait Start: 03/05/19 18:41 Freq: Status: Active Protocol: Document 03/09/19 08:16 LRN (Rec: 03/10/19 17:47 LRN [id number]) OP Mobility Evaluation Bed Mobility Supine to and from Sit Pt assists L LE with hands. OP Gait Assessment Assistive Devices Assistive Device None Gait Deviations General Gait Pattern Decreased Stride Length, Lateral Trunk Lean,Narrow Based Gait PT-OP-J Posture/Palpation/Skin Start: 03/05/19 18:41 Freq: Status: Active Protocol: Document 03/09/19 08:16 LRN (Rec: 03/09/19 08:51 LRN [id number]) Posture Evaluation Position Standing Head/C-Spine Posture Forward Head PT-OP-K Range of Motion Start: 03/05/19 18:41 Freq: Status: Active Protocol: Document 03/25/19 10:35 LRN (Rec: 03/25/19 13:10 LRN [id number]) Hip Goniometric Range of Motion Hip Right Passive Testing Position Supine Internal Rotation 55 External Rotation 85 Left Passive Testing Position Supine Internal Rotation 35 External Rotation 90 PT-OP-M Strength Start: 03/05/19 18:41 Freq: Status: Active Protocol: Document 03/09/19 08:16 LRN (Rec: 03/10/19 17:47 LRN [id number]) Hip Strength Hip Manual Muscle Testing Right Flexion (L2) 1 Trace Extension (S1) 2 Poor Abduction 4 Good Adduction 2 Poor External Rotation 3 Fair Internal Rotation 3 Fair Left Flexion (L2) 4+ Good+ Extension (S1) 2 Poor Abduction 2- Poor- External Rotation 3 Fair Internal Rotation 4 Good Knee Strength Knee Manual Muscle Testing Right Reason Not Measured WFL Left Reason Not Measured WFL Ankle/Foot Strength Ankle and Foot Manual Muscle Testing Right Reason Not Measured WFL Left Reason Not Measured WFL PT-OP-Q Treatments Start: 03/05/19 18:41 Freq: Status: Active Protocol: Document 04/02/19 10:32 LRN (Rec: 04/02/19 11:16 LRN [id number]) Cardio Equipment Recumbent Bicycle Duration (Minutes) 8 Resistance 3 Seat Position 1 Gym Equipment Shuttle Recovery Bilateral Squats Resistance 100# Reps/Time 10 x 3 Therapeutic Exercises Supine Exercises TA Supine Exercise Name TA training and for reflexive contraction Comments In supine x 2, sidelie. Standing with ex 2 Supine Exercise Name Bridge Reps/Minutes 3 Comments Checked Pelvic alignment Standing Exercises Trunk rotation Standing Exercise Name Trunk rotation Side bilateral Resistance Lev 2 T-Band Manual Therapy Treatment Joint Mobilizations SIJ Joint R SIJ Direction PA Grade II Body Position Prone Self-Care/Home Management Treatment Activities Self-Care/Home Management Activities Reviewed and updated pt's HEP. PT-OP-T Assessment and Plan Start: 03/05/19 18:41 Freq: Status: Active Protocol: Document 04/02/19 10:32 LRN (Rec: 04/02/19 11:16 LRN [id number]) Physical Therapy Assessment Assessment Summary Assessment Much improved tolerance to ex. Pt does not draw in her TA reflexively. Further review of her stretch HEP is needed. Pt doesn't need SIJ correction HEP; therefore removed from her HEP. Physical Therapy Plan Frequency and Duration Frequency of Treatment 2x/Week Plan of Care Start Date 03/09/19 Plan of Care End Date 05/18/19 Therapeutic Interventions Therapeutic Interventions Home Exercise Program,Manual Therapy,Neuromuscular Re- education,Patient/Caregiver Education,Self-Care/Home Management,Soft Tissue Mobilization,Therapeutic Exercises Modalities Cold Pack/Ice Massage,Electric Stimulation,Hot Packs Next Visit Focus/Plan Next Note Type Treatment Note Next Visit Plan Review pt's stretch HEP & work on TA to be reflexive. Add sitting hip flex (and PNF) ex to assist pt in getting in/out of car easier if back pain controlled, and add proprioceptive work with ex's. Review her existing HEP & hip strengthening for appropriate ex to focus and cont, with caution due to abdominal hernia and s/p L inguinal hernia with mesh. Monitor low back/hip pain as needed to facilitate LE strengthening. Minimize use of modalities (heat, ice) due to history of cancer.
--- NOTE | 2019-04-09 10:52 | PT.OTN ---
Current Diagnoses Other symptoms and signs involving the musculoskeletal system (04/09/19) Physical Therapy Treatment Note PT-OP-A Visit Information Start: 03/05/19 18:41 Freq: Status: Active Protocol: Document 04/09/19 09:54 LRN (Rec: 04/09/19 10:47 LRN [id number]) Out-Patient Physical Therapy Visit Information Visit Information Visit Type Treatment Note Visit Start Time 09:54 Visit Stop Time 10:39 Total Visit Minutes 45 Visit Number 7 Number of HOLISTIC SPECIALIST Visits 0 Evaluation Information Evaluation Date 03/09/19 Precautions Precautions Extensive Health history - scoliosis, cystocele with rectocele, ischemic cardiomyopathy, recurrent abdominal hernia (see chart for more details). Pt noted PMH: Arterial disease, chronic back & neck pain, cancer (skin), CHF, history of heart attack, osteopenia, gall bladder surgery, L Hiatal hernia repair with mesh , IBS. PT-OP-B Current Condition Start: 03/05/19 18:41 Freq: Status: Active Protocol: Document 03/09/19 08:16 LRN (Rec: 03/09/19 08:51 LRN [id number]) Current Condition History of Current Condition Onset Date 4 months ago Current Complaints LLE weakness. History of Current Condition Has lost 1.5 in 5 yrs due to scoliosis. Has stopped doing her ex's and her pain has returned and the leg has gotten weak. Had L inguinal hernia surgery with mesh placed ~09/2017, and now has limitations in stretching. Now has bulge to the right of the umbilicus superiorly, denies pain. Ex's in cardiac rehab (uses weights and aerobic ex) 2x/week ujnless having gut problems related to IBS, a couple days per week . Daughter helps with housework. If something drops on the floor she will wait until da comes to clean up. Developmental History Developmental History Progressive worsening of weakness since inguinal hernia repair and mesh placed. Pt thinks because of sacrum going out of place from scoliosis, and core weakness. Treatment Goals Patient/Caregiver Goals Pt goal is to get in/out of the car easier and without assist, and to go up/down stairs holding rail with one hand in stead of 2 hands on a rail sideways. Prior Functional Status Baseline Function- ADL's Modified Independent Baseline Function- Mobility Independent Baseline Function- Gait Independent without assistive device. Baseline Function- Recreation/Hobbies Has done 30' on TM in Cardiac Rehab (1 month ago) Baseline Function- Other Dressing, da helped with socks and shoes. Current Functional Impairments (Reported) Functional Limitations- ADL's Stairs sideways using both hands Assist needed for picking up legs to get into car. Functional Limitations- Mobility/Gait Doesn't walk far because of the feet pain. Personal Factors Other Personal Factors That May Effect Lives alone Therapy/Recovery PT-OP-C Subjective Start: 03/05/19 18:41 Freq: Status: Active Protocol: Document 04/09/19 09:54 LRN (Rec: 04/09/19 10:47 LRN [id number]) OP-PT Subjective Patient Comments Patient Comments Pt reports her pessary is out of position and has more back pain today. OK to do therapy and ex's. PT-OP-G Mobility & Gait Start: 03/05/19 18:41 Freq: Status: Active Protocol: Document 03/09/19 08:16 LRN (Rec: 03/10/19 17:47 LRN [id number]) OP Mobility Evaluation Bed Mobility Supine to and from Sit Pt assists L LE with hands. OP Gait Assessment Assistive Devices Assistive Device None Gait Deviations General Gait Pattern Decreased Stride Length, Lateral Trunk Lean,Narrow Based Gait PT-OP-J Posture/Palpation/Skin Start: 03/05/19 18:41 Freq: Status: Active Protocol: Document 03/09/19 08:16 LRN (Rec: 03/09/19 08:51 LRN [id number]) Posture Evaluation Position Standing Head/C-Spine Posture Forward Head PT-OP-K Range of Motion Start: 03/05/19 18:41 Freq: Status: Active Protocol: Document 03/25/19 10:35 LRN (Rec: 03/25/19 13:10 LRN [id number]) Hip Goniometric Range of Motion Hip Right Passive Testing Position Supine Internal Rotation 55 External Rotation 85 Left Passive Testing Position Supine Internal Rotation 35 External Rotation 90 PT-OP-M Strength Start: 03/05/19 18:41 Freq: Status: Active Protocol: Document 03/09/19 08:16 LRN (Rec: 03/10/19 17:47 LRN [id number]) Hip Strength Hip Manual Muscle Testing Right Flexion (L2) 1 Trace Extension (S1) 2 Poor Abduction 4 Good Adduction 2 Poor External Rotation 3 Fair Internal Rotation 3 Fair Left Flexion (L2) 4+ Good+ Extension (S1) 2 Poor Abduction 2- Poor- External Rotation 3 Fair Internal Rotation 4 Good Knee Strength Knee Manual Muscle Testing Right Reason Not Measured WFL Left Reason Not Measured WFL Ankle/Foot Strength Ankle and Foot Manual Muscle Testing Right Reason Not Measured WFL Left Reason Not Measured WFL PT-OP-Q Treatments Start: 03/05/19 18:41 Freq: Status: Active Protocol: Document 04/09/19 09:54 LRN (Rec: 04/09/19 10:47 LRN [id number]) Therapeutic Exercises Supine Exercises Lateral Hip stretch Supine Exercise Name Lateral hip stretch Side bilateral Reps/Minutes 3' Fig 4 stretch Supine Exercise Name Fig 4 stretch Side bilateral Reps/Minutes 4' BKFO Supine Exercise Name BKFO Side bilateral Reps/Minutes 15x SAQ Supine Exercise Name SAQ Side bilateral Reps/Minutes 15 x 2 TA Supine Exercise Name TA training and for reflexive contraction Reps/Minutes 15' Comments Practiced in sup, sidelie, standing 3 Supine Exercise Name Hip flex (SLR) Reps/Minutes x 10 reps x 2 sets 1 Supine Exercise Name Hip AD Side bilateral Reps/Minutes 10x Sidelying Exercises Lateral hip stretch Sidelying Exercise Name TFL/Lateral hip stretch with foot behind other foot Side bilateral 1 Sidelying Exercise Name Clamshell Reps/Minutes 10x Standing Exercises TA reflexive ex Standing Exercise Name Burns ex for reflexive TA contraction Reps/Minutes 2' Self-Care/Home Management Treatment Education Patient Education Home Exercise Program Activities Self-Care/Home Management Activities Reviewed and reissued updated ex's of all of pt's HEP except for hands/knees. PT-OP-T Assessment and Plan Start: 03/05/19 18:41 Freq: Status: Active Protocol: Document 04/09/19 09:54 LRN (Rec: 04/09/19 10:47 LRN [id number]) Physical Therapy Assessment Assessment Summary Assessment Pt is not able to draw in her TA reflexively in supine, but is able in sidelie and standing, possibly due to weakness in shortened range. Pt having more difficulty moving due to sharp SI/back pain. Physical Therapy Plan Frequency and Duration Frequency of Treatment 2x/Week Plan of Care Start Date 03/09/19 Plan of Care End Date 05/18/19 Next Visit Focus/Plan Next Note Type Treatment Note Next Visit Plan Review 4 pt HEP for appropriateness. Work on TA to be reflexive. Add sitting hip flex (and PNF) ex to assist pt in getting in/out of car easier if back pain controlled, and add proprioceptive work with ex's. Cont, with caution due to abdominal hernia and s/p L inguinal hernia with mesh. Monitor low back/hip pain as needed to facilitate LE strengthening. Minimize use of modalities (heat, ice) due to history of cancer.
--- NOTE | 2019-04-22 14:44 | PT.OTN ---
Current Diagnoses Other symptoms and signs involving the musculoskeletal system (04/22/19) Physical Therapy Treatment Note PT-OP-A Visit Information Start: 03/05/19 18:41 Freq: Status: Active Protocol: Document 04/22/19 13:32 LRN (Rec: 04/22/19 14:22 LRN [id number]) Out-Patient Physical Therapy Visit Information Visit Information Visit Type Treatment Note Visit Start Time 13:30 Visit Stop Time 14:22 Total Visit Minutes 52 Visit Number 8 Evaluation Information Evaluation Date 03/09/19 Precautions Precautions Extensive Health history - scoliosis, cystocele with rectocele, ischemic cardiomyopathy, recurrent abdominal hernia (see chart for more details). Pt noted PMH: Arterial disease, chronic back & neck pain, cancer (skin), CHF, history of heart attack, osteopenia, gall bladder surgery, L Hiatal hernia repair with mesh , IBS. PT-OP-B Current Condition Start: 03/05/19 18:41 Freq: Status: Active Protocol: Document 03/09/19 08:16 LRN (Rec: 03/09/19 08:51 LRN [id number]) Current Condition History of Current Condition Onset Date 4 months ago Current Complaints LLE weakness. History of Current Condition Has lost 1.5 in 5 yrs due to scoliosis. Has stopped doing her ex's and her pain has returned and the leg has gotten weak. Had L inguinal hernia surgery with mesh placed ~09/2017, and now has limitations in stretching. Now has bulge to the right of the umbilicus superiorly, denies pain. Ex's in cardiac rehab (uses weights and aerobic ex) 2x/week ujnless having gut problems related to IBS, a couple days per week . Daughter helps with housework. If something drops on the floor she will wait until da comes to clean up. Developmental History Developmental History Progressive worsening of weakness since inguinal hernia repair and mesh placed. Pt thinks because of sacrum going out of place from scoliosis, and core weakness. Treatment Goals Patient/Caregiver Goals Pt goal is to get in/out of the car easier and without assist, and to go up/down stairs holding rail with one hand in stead of 2 hands on a rail sideways. Prior Functional Status Baseline Function- ADL's Modified Independent Baseline Function- Mobility Independent Baseline Function- Gait Independent without assistive device. Baseline Function- Recreation/Hobbies Has done 30' on TM in Cardiac Rehab (1 month ago) Baseline Function- Other Dressing, da helped with socks and shoes. Current Functional Impairments (Reported) Functional Limitations- ADL's Stairs sideways using both hands Assist needed for picking up legs to get into car. Functional Limitations- Mobility/Gait Doesn't walk far because of the feet pain. Personal Factors Other Personal Factors That May Effect Lives alone Therapy/Recovery PT-OP-C Subjective Start: 03/05/19 18:41 Freq: Status: Active Protocol: Document 04/22/19 13:32 LRN (Rec: 04/22/19 14:22 LRN [id number]) OP-PT Subjective Patient Comments Patient Comments States her pain isn't too bad today. She wants to be able to stabilize her L LB/SIJ to get rid of her intermittent pain with moving, especially after lying supine. PT-OP-G Mobility & Gait Start: 03/05/19 18:41 Freq: Status: Active Protocol: Document 03/09/19 08:16 LRN (Rec: 03/10/19 17:47 LRN [id number]) OP Mobility Evaluation Bed Mobility Supine to and from Sit Pt assists L LE with hands. OP Gait Assessment Assistive Devices Assistive Device None Gait Deviations General Gait Pattern Decreased Stride Length, Lateral Trunk Lean,Narrow Based Gait PT-OP-J Posture/Palpation/Skin Start: 03/05/19 18:41 Freq: Status: Active Protocol: Document 03/09/19 08:16 LRN (Rec: 03/09/19 08:51 LRN [id number]) Posture Evaluation Position Standing Head/C-Spine Posture Forward Head PT-OP-K Range of Motion Start: 03/05/19 18:41 Freq: Status: Active Protocol: Document 03/25/19 10:35 LRN (Rec: 03/25/19 13:10 LRN [id number]) Hip Goniometric Range of Motion Hip Right Passive Testing Position Supine Internal Rotation 55 External Rotation 85 Left Passive Testing Position Supine Internal Rotation 35 External Rotation 90 PT-OP-M Strength Start: 03/05/19 18:41 Freq: Status: Active Protocol: Document 03/09/19 08:16 LRN (Rec: 03/10/19 17:47 LRN [id number]) Hip Strength Hip Manual Muscle Testing Right Flexion (L2) 1 Trace Extension (S1) 2 Poor Abduction 4 Good Adduction 2 Poor External Rotation 3 Fair Internal Rotation 3 Fair Left Flexion (L2) 4+ Good+ Extension (S1) 2 Poor Abduction 2- Poor- External Rotation 3 Fair Internal Rotation 4 Good Knee Strength Knee Manual Muscle Testing Right Reason Not Measured WFL Left Reason Not Measured WFL Ankle/Foot Strength Ankle and Foot Manual Muscle Testing Right Reason Not Measured WFL Left Reason Not Measured WFL PT-OP-Q Treatments Start: 03/05/19 18:41 Freq: Status: Active Protocol: Document 04/22/19 13:32 LRN (Rec: 04/22/19 14:22 LRN [id number]) Therapeutic Exercises Supine Exercises Lateral Hip stretch Supine Exercise Name Lateral hip stretch Side bilateral Reps/Minutes 3' Fig 4 stretch Supine Exercise Name Fig 4 stretch Side bilateral Reps/Minutes 4' Sidelying Exercises Hip AB Sidelying Exercise Name Small hip AB lifts Reps/Minutes 12x right, TA contraction Sidelying Exercise Name TA Side bilateral Reps/Minutes 10x holding 10 secs 1 Sidelying Exercise Name Clamshell Side bilateral Reps/Minutes 15x Sitting Exercises Hip flex in 90/90 Sitting Exercise Name Lifting foot onto a step stool for training of getting into a car from R. Side bilateral Equipment Used Step stool while in sitting Reps/Minutes 10 x 3 Other Exercises Modified Hands/knees (on elbows) Other Exercise Name On Elbows/Knees Reps/Minutes 9x holding 10 sec's Gait Training Gait Activity Gait on stairs Description Up/down w/1 rail/cane/SBA Device Used SPC Level of Assistance CGA Distance/Duration 4 & 6 steps Treatment Focus Reciprical gait pattern safely . Comments Pain complaints towards end of therapy on the R side (SIJ region). PT-OP-T Assessment and Plan Start: 03/05/19 18:41 Freq: Status: Active Protocol: Document 04/22/19 13:32 LRN (Rec: 04/22/19 14:22 LRN [id number]) Physical Therapy Assessment Goals Three Impairment Pt must descend stairs with side stepping, both hands on same rail Fdc Goal (LTG) Pt will be able to descend stairs with step to gait facing forward with use of one hand on a rail. LTG Duration 05/18/19 Two Impairment Decreased hip strength to be able to lift her LLE getting into a car Short Term Goal (STG) Pt will be able to march in place lifting her hip/knee to a 90/90 position. STG Duration 04/19/19 Rigging Supervisor Goal (LTG) Pt will be able to lift her LLE independently into a car with mild to moderate difficulty. LTG Duration 05/18/19 One Impairment Pt lacks appropriate self mcc exercise program (HEP). Fdc Goal (LTG) Pt will be independent with a self care HEP. LTG Duration 05/18/19 Progress Towards Goals Progress Towards Goals Progressing Toward Goals Progress Comments Goal #1: HEP progressing. Goal #2: Pt has difficulty getting into [employer] car on passenger side, possibly due to her short stature requiring use of a step stool to get in . Pain in L SIJ with lifting of leg. Goal #3: Pt is able to descend stairs with 1 rail and SPC. Assessment Summary Assessment Pt appeared to be doing her 4 pt ex well, although the ex needed modifying due to wrist pain. Able to feel a TA contraction in sidelie and supine. She demonstrates improved control of her TA. Today she was having less complaints of pain in her L SIJ. Physical Therapy Plan Frequency and Duration Frequency of Treatment 2x/Week Plan of Care Start Date 03/09/19 Plan of Care End Date 05/18/19 Next Visit Focus/Plan Next Note Type Treatment Note Next Visit Plan Work on TA to be reflexive and strengthen core (flexors> extensors). Cont sitting hip flex (and PNF) ex to assist pt in getting in/out of car easier if back pain controlled , and add proprioceptive work with ex's. Cont, with caution due to abdominal hernia and s /p L inguinal hernia with mesh . Monitor low back/hip pain as needed to facilitate LE strengthening. Minimize use of modalities (heat, ice) due to history of cancer. PN in 2 visits.
--- NOTE | 2019-04-26 09:03 | PT.OTN ---
Current Diagnoses Other symptoms and signs involving the musculoskeletal system (04/26/19) Physical Therapy Treatment Note PT-OP-A Visit Information Start: 03/05/19 18:41 Freq: Status: Active Protocol: Document 04/26/19 08:15 LRN (Rec: 04/26/19 09:03 LRN [id number]) Out-Patient Physical Therapy Visit Information Visit Information Visit Type Treatment Note Visit Start Time 08:15 Visit Stop Time 08:57 Total Visit Minutes 42 Visit Number 9 Number of COMPUTATIONAL MATHEMATICIAN Visits 0 Evaluation Information Evaluation Date 03/09/19 Precautions Precautions Extensive Health history - scoliosis, cystocele with rectocele, ischemic cardiomyopathy, recurrent abdominal hernia (see chart for more details). Pt noted PMH: Arterial disease, chronic back & neck pain, cancer (skin), CHF, history of heart attack, osteopenia, gall bladder surgery, L Hiatal hernia repair with mesh , IBS. PT-OP-B Current Condition Start: 03/05/19 18:41 Freq: Status: Active Protocol: Document 03/09/19 08:16 LRN (Rec: 03/09/19 08:51 LRN [id number]) Current Condition History of Current Condition Onset Date 4 months ago Current Complaints LLE weakness. History of Current Condition Has lost 1.5 in 5 yrs due to scoliosis. Has stopped doing her ex's and her pain has returned and the leg has gotten weak. Had L inguinal hernia surgery with mesh placed ~09/2017, and now has limitations in stretching. Now has bulge to the right of the umbilicus superiorly, denies pain. Ex's in cardiac rehab (uses weights and aerobic ex) 2x/week ujnless having gut problems related to IBS, a couple days per week . Daughter helps with housework. If something drops on the floor she will wait until da comes to clean up. Developmental History Developmental History Progressive worsening of weakness since inguinal hernia repair and mesh placed. Pt thinks because of sacrum going out of place from scoliosis, and core weakness. Treatment Goals Patient/Caregiver Goals Pt goal is to get in/out of the car easier and without assist, and to go up/down stairs holding rail with one hand in stead of 2 hands on a rail sideways. Prior Functional Status Baseline Function- ADL's Modified Independent Baseline Function- Mobility Independent Baseline Function- Gait Independent without assistive device. Baseline Function- Recreation/Hobbies Has done 30' on TM in Cardiac Rehab (1 month ago) Baseline Function- Other Dressing, da helped with socks and shoes. Current Functional Impairments (Reported) Functional Limitations- ADL's Stairs sideways using both hands Assist needed for picking up legs to get into car. Functional Limitations- Mobility/Gait Doesn't walk far because of the feet pain. Personal Factors Other Personal Factors That May Effect Lives alone Therapy/Recovery PT-OP-C Subjective Start: 03/05/19 18:41 Freq: Status: Active Protocol: Document 04/26/19 08:15 LRN (Rec: 04/26/19 09:03 LRN [id number]) OP-PT Subjective Patient Comments Patient Comments ................ PT-OP-G Mobility & Gait Start: 03/05/19 18:41 Freq: Status: Active Protocol: Document 03/09/19 08:16 LRN (Rec: 03/10/19 17:47 LRN [id number]) OP Mobility Evaluation Bed Mobility Supine to and from Sit Pt assists L LE with hands. OP Gait Assessment Assistive Devices Assistive Device None Gait Deviations General Gait Pattern Decreased Stride Length, Lateral Trunk Lean,Narrow Based Gait PT-OP-J Posture/Palpation/Skin Start: 03/05/19 18:41 Freq: Status: Active Protocol: Document 03/09/19 08:16 LRN (Rec: 03/09/19 08:51 LRN [id number]) Posture Evaluation Position Standing Head/C-Spine Posture Forward Head PT-OP-K Range of Motion Start: 03/05/19 18:41 Freq: Status: Active Protocol: Document 03/25/19 10:35 LRN (Rec: 03/25/19 13:10 LRN [id number]) Hip Goniometric Range of Motion Hip Right Passive Testing Position Supine Internal Rotation 55 External Rotation 85 Left Passive Testing Position Supine Internal Rotation 35 External Rotation 90 PT-OP-M Strength Start: 03/05/19 18:41 Freq: Status: Active Protocol: Document 03/09/19 08:16 LRN (Rec: 03/10/19 17:47 LRN [id number]) Hip Strength Hip Manual Muscle Testing Right Flexion (L2) 1 Trace Extension (S1) 2 Poor Abduction 4 Good Adduction 2 Poor External Rotation 3 Fair Internal Rotation 3 Fair Left Flexion (L2) 4+ Good+ Extension (S1) 2 Poor Abduction 2- Poor- External Rotation 3 Fair Internal Rotation 4 Good Knee Strength Knee Manual Muscle Testing Right Reason Not Measured WFL Left Reason Not Measured WFL Ankle/Foot Strength Ankle and Foot Manual Muscle Testing Right Reason Not Measured WFL Left Reason Not Measured WFL PT-OP-Q Treatments Start: 03/05/19 18:41 Freq: Status: Active Protocol: Document 04/26/19 08:15 LRN (Rec: 04/26/19 09:03 LRN [id number]) Gym Equipment Cable Column (Body Solid) Leg Curl Details Seat 5. TA engaged. Resistance 10# Reps/Time 10 x 2 Leg Extension Details Seat 5. TA engaged. Resistance 10# Reps/Time 10 x 2 Hip Adduction Details Seat 5. TA engaged, vc's for slow Resistance 10# Reps/Time 10 x 2 Hip Abduction Details Seat 5. TA engaged Resistance 10# Reps/Time 20 x 2 Therapeutic Exercises Supine Exercises TA Supine Exercise Name TA w/BAll squeeze Reps/Minutes 4' Sidelying Exercises Hip AB Sidelying Exercise Name Small hip AB lifts Reps/Minutes 12x right, TA contraction Sidelying Exercise Name TA Side bilateral Reps/Minutes 5x holding 30 secs 1 Sidelying Exercise Name Clamshell Side bilateral Reps/Minutes 10x2 Sitting Exercises Trunk rotation Sitting Exercise Name Awareness training Side bilateral Reps/Minutes 10 x 2 Standing Exercises Hip ext w/toe off push Standing Exercise Name Motor relearning for hip ext w /toe off push Side bilateral Reps/Minutes 8' PT-OP-T Assessment and Plan Start: 03/05/19 18:41 Freq: Status: Active Protocol: Document 04/26/19 08:15 LRN (Rec: 04/26/19 09:03 LRN [id number]) Physical Therapy Assessment Assessment Summary Assessment Pt was able to eng age gluteals with gait with much training, but not reflexive. TA contraction is much better and reflexive with Burns. Pt did not have her pessary in because it fell out; therefore she is having increased Sacral level & L sided pain with mobility. Physical Therapy Plan Frequency and Duration Frequency of Treatment 2x/Week Plan of Care Start Date 03/09/19 Plan of Care End Date 05/18/19 Next Visit Focus/Plan Next Note Type Progress Note Next Visit Plan Recheck for Progress Note. Progress TA to be reflexive with mobility (gait) and strengthen core (flexors> extensors). Cont sitting hip flex (and PNF) ex to assist pt in getting in/out of car easier if back pain controlled , and cont proprioceptive work with ex's. Cont, with caution due to abdominal hernia and s/p L inguinal hernia with mesh. Monitor low back/hip pain as needed to facilitate LE strengthening. Minimize use of modalities ( heat, ice) due to history of cancer.
--- NOTE | 2019-04-26 10:16 | PT.OTN ---
Current Diagnoses Other symptoms and signs involving the musculoskeletal system (04/26/19) Physical Therapy Treatment Note PT-OP-A Visit Information Start: 03/05/19 18:41 Freq: Status: Active Protocol: Document 04/26/19 08:15 LRN (Rec: 04/26/19 09:03 LRN [id number]) Out-Patient Physical Therapy Visit Information Visit Information Visit Type Treatment Note Visit Start Time 08:15 Visit Stop Time 08:57 Total Visit Minutes 42 Visit Number 9 Number of REHABILITATION ASSISTANT Visits 0 Evaluation Information Evaluation Date 03/09/19 Precautions Precautions Extensive Health history - scoliosis, cystocele with rectocele, ischemic cardiomyopathy, recurrent abdominal hernia (see chart for more details). Pt noted PMH: Arterial disease, chronic back & neck pain, cancer (skin), CHF, history of heart attack, osteopenia, gall bladder surgery, L Hiatal hernia repair with mesh , IBS. PT-OP-B Current Condition Start: 03/05/19 18:41 Freq: Status: Active Protocol: Document 03/09/19 08:16 LRN (Rec: 03/09/19 08:51 LRN [id number]) Current Condition History of Current Condition Onset Date 4 months ago Current Complaints LLE weakness. History of Current Condition Has lost 1.5 in 5 yrs due to scoliosis. Has stopped doing her ex's and her pain has returned and the leg has gotten weak. Had L inguinal hernia surgery with mesh placed ~09/2017, and now has limitations in stretching. Now has bulge to the right of the umbilicus superiorly, denies pain. Ex's in cardiac rehab (uses weights and aerobic ex) 2x/week ujnless having gut problems related to IBS, a couple days per week . Daughter helps with housework. If something drops on the floor she will wait until da comes to clean up. Developmental History Developmental History Progressive worsening of weakness since inguinal hernia repair and mesh placed. Pt thinks because of sacrum going out of place from scoliosis, and core weakness. Treatment Goals Patient/Caregiver Goals Pt goal is to get in/out of the car easier and without assist, and to go up/down stairs holding rail with one hand in stead of 2 hands on a rail sideways. Prior Functional Status Baseline Function- ADL's Modified Independent Baseline Function- Mobility Independent Baseline Function- Gait Independent without assistive device. Baseline Function- Recreation/Hobbies Has done 30' on TM in Cardiac Rehab (1 month ago) Baseline Function- Other Dressing, da helped with socks and shoes. Current Functional Impairments (Reported) Functional Limitations- ADL's Stairs sideways using both hands Assist needed for picking up legs to get into car. Functional Limitations- Mobility/Gait Doesn't walk far because of the feet pain. Personal Factors Other Personal Factors That May Effect Lives alone Therapy/Recovery PT-OP-C Subjective Start: 03/05/19 18:41 Freq: Status: Active Protocol: Document 04/26/19 08:15 LRN (Rec: 04/26/19 09:03 LRN [id number]) OP-PT Subjective Patient Comments Patient Comments States mike fell out and she needs to make an appt to have Dr put it back in. She will be seeing her OMT this week and hopefully it will help. She states she is working her core. PT-OP-G Mobility & Gait Start: 03/05/19 18:41 Freq: Status: Active Protocol: Document 03/09/19 08:16 LRN (Rec: 03/10/19 17:47 LRN [id number]) OP Mobility Evaluation Bed Mobility Supine to and from Sit Pt assists L LE with hands. OP Gait Assessment Assistive Devices Assistive Device None Gait Deviations General Gait Pattern Decreased Stride Length, Lateral Trunk Lean,Narrow Based Gait PT-OP-J Posture/Palpation/Skin Start: 03/05/19 18:41 Freq: Status: Active Protocol: Document 03/09/19 08:16 LRN (Rec: 03/09/19 08:51 LRN [id number]) Posture Evaluation Position Standing Head/C-Spine Posture Forward Head PT-OP-K Range of Motion Start: 03/05/19 18:41 Freq: Status: Active Protocol: Document 03/25/19 10:35 LRN (Rec: 03/25/19 13:10 LRN [id number]) Hip Goniometric Range of Motion Hip Right Passive Testing Position Supine Internal Rotation 55 External Rotation 85 Left Passive Testing Position Supine Internal Rotation 35 External Rotation 90 PT-OP-M Strength Start: 03/05/19 18:41 Freq: Status: Active Protocol: Document 03/09/19 08:16 LRN (Rec: 03/10/19 17:47 LRN [id number]) Hip Strength Hip Manual Muscle Testing Right Flexion (L2) 1 Trace Extension (S1) 2 Poor Abduction 4 Good Adduction 2 Poor External Rotation 3 Fair Internal Rotation 3 Fair Left Flexion (L2) 4+ Good+ Extension (S1) 2 Poor Abduction 2- Poor- External Rotation 3 Fair Internal Rotation 4 Good Knee Strength Knee Manual Muscle Testing Right Reason Not Measured WFL Left Reason Not Measured WFL Ankle/Foot Strength Ankle and Foot Manual Muscle Testing Right Reason Not Measured WFL Left Reason Not Measured WFL PT-OP-Q Treatments Start: 03/05/19 18:41 Freq: Status: Active Protocol: Document 04/26/19 08:15 LRN (Rec: 04/26/19 09:03 LRN [id number]) Gym Equipment Cable Column (Body Solid) Leg Curl Details Seat 5. TA engaged. Resistance 10# Reps/Time 10 x 2 Leg Extension Details Seat 5. TA engaged. Resistance 10# Reps/Time 10 x 2 Hip Adduction Details Seat 5. TA engaged, vc's for slow Resistance 10# Reps/Time 10 x 2 Hip Abduction Details Seat 5. TA engaged Resistance 10# Reps/Time 20 x 2 Therapeutic Exercises Supine Exercises TA Supine Exercise Name TA w/BAll squeeze Reps/Minutes 4' Sidelying Exercises Hip AB Sidelying Exercise Name Small hip AB lifts Reps/Minutes 12x right, TA contraction Sidelying Exercise Name TA Side bilateral Reps/Minutes 5x holding 30 secs 1 Sidelying Exercise Name Clamshell Side bilateral Reps/Minutes 10x2 Sitting Exercises Trunk rotation Sitting Exercise Name Awareness training Side bilateral Reps/Minutes 10 x 2 Standing Exercises Hip ext w/toe off push Standing Exercise Name Motor relearning for hip ext w /toe off push Side bilateral Reps/Minutes 8' PT-OP-T Assessment and Plan Start: 03/05/19 18:41 Freq: Status: Active Protocol: Document 04/26/19 08:15 LRN (Rec: 04/26/19 09:03 LRN [id number]) Physical Therapy Assessment Assessment Summary Assessment Pt was able to engage gluteals with gait with much training, but not reflexive. TA contraction is much better and reflexive with Burns. Pt is having increased Sacral level & L sided pain with mobility with pessary not in place; less pelvic stability. Physical Therapy Plan Frequency and Duration Frequency of Treatment 2x/Week Plan of Care Start Date 03/09/19 Plan of Care End Date 05/18/19 Next Visit Focus/Plan Next Note Type Progress Note Next Visit Plan Recheck for Progress Note. Progress TA to be reflexive with mobility (gait) and strengthen core (flexors> extensors). Cont sitting hip flex (and PNF) ex to assist pt in getting in/out of car easier if back pain controlled , and cont proprioceptive work with ex's. Cont, with caution due to abdominal hernia and s/p L inguinal hernia with mesh. Monitor low back/hip pain as needed to facilitate LE strengthening. Minimize use of modalities ( heat, ice) due to history of cancer.
--- NOTE | 2019-04-29 16:19 | PT.OTN ---
Current Diagnoses Other symptoms and signs involving the musculoskeletal system (04/29/19) Physical Therapy Treatment Note PT-OP-A Visit Information Start: 03/05/19 18:41 Freq: Status: Active Protocol: Document 04/29/19 11:30 LRN (Rec: 04/29/19 16:11 LRN [id number]) Out-Patient Physical Therapy Visit Information Visit Information Visit Type Progress Note Visit Start Time 11:30 Visit Stop Time 12:10 Total Visit Minutes 40 Visit Number 10 Evaluation Information Evaluation Date 03/09/19 Precautions Precautions Extensive Health history - scoliosis, cystocele with rectocele, ischemic cardiomyopathy, recurrent abdominal hernia (see chart for more details). Pt noted PMH: Arterial disease, chronic back & neck pain, cancer (skin), CHF, history of heart attack, osteopenia, gall bladder surgery, L Hiatal hernia repair with mesh , IBS. PT-OP-B Current Condition Start: 03/05/19 18:41 Freq: Status: Active Protocol: Document 03/09/19 08:16 LRN (Rec: 03/09/19 08:51 LRN [id number]) Current Condition History of Current Condition Onset Date 4 months ago Current Complaints LLE weakness. History of Current Condition Has lost 1.5 in 5 yrs due to scoliosis. Has stopped doing her ex's and her pain has returned and the leg has gotten weak. Had L inguinal hernia surgery with mesh placed ~09/2017, and now has limitations in stretching. Now has bulge to the right of the umbilicus superiorly, denies pain. Ex's in cardiac rehab (uses weights and aerobic ex) 2x/week ujnless having gut problems related to IBS, a couple days per week . Daughter helps with housework. If something drops on the floor she will wait until da comes to clean up. Developmental History Developmental History Progressive worsening of weakness since inguinal hernia repair and mesh placed. Pt thinks because of sacrum going out of place from scoliosis, and core weakness. Treatment Goals Patient/Caregiver Goals Pt goal is to get in/out of the car easier and without assist, and to go up/down stairs holding rail with one hand in stead of 2 hands on a rail sideways. Prior Functional Status Baseline Function- ADL's Modified Independent Baseline Function- Mobility Independent Baseline Function- Gait Independent without assistive device. Baseline Function- Recreation/Hobbies Has done 30' on TM in Cardiac Rehab (1 month ago) Baseline Function- Other Dressing, da helped with socks and shoes. Current Functional Impairments (Reported) Functional Limitations- ADL's Stairs sideways using both hands Assist needed for picking up legs to get into car. Functional Limitations- Mobility/Gait Doesn't walk far because of the feet pain. Personal Factors Other Personal Factors That May Effect Lives alone Therapy/Recovery PT-OP-C Subjective Start: 03/05/19 18:41 Freq: Status: Active Protocol: Document 04/29/19 11:30 LRN (Rec: 04/29/19 16:11 LRN [id number]) OP-PT Subjective Patient Comments Patient Comments States her pessary fell out this morning; therefore is not in. States she had an OMT treatment yesterday so she does not have L lateral hip pain. She is having back pain with stair ambulation. PT-OP-G Mobility & Gait Start: 03/05/19 18:41 Freq: Status: Active Protocol: Document 03/09/19 08:16 LRN (Rec: 03/10/19 17:47 LRN [id number]) OP Mobility Evaluation Bed Mobility Supine to and from Sit Pt assists L LE with hands. OP Gait Assessment Assistive Devices Assistive Device None Gait Deviations General Gait Pattern Decreased Stride Length, Lateral Trunk Lean,Narrow Based Gait PT-OP-J Posture/Palpation/Skin Start: 03/05/19 18:41 Freq: Status: Active Protocol: Document 03/09/19 08:16 LRN (Rec: 03/09/19 08:51 LRN [id number]) Posture Evaluation Position Standing Head/C-Spine Posture Forward Head PT-OP-K Range of Motion Start: 03/05/19 18:41 Freq: Status: Active Protocol: Document 03/25/19 10:35 LRN (Rec: 03/25/19 13:10 LRN [id number]) Hip Goniometric Range of Motion Hip Right Passive Testing Position Supine Internal Rotation 55 External Rotation 85 Left Passive Testing Position Supine Internal Rotation 35 External Rotation 90 PT-OP-M Strength Start: 03/05/19 18:41 Freq: Status: Active Protocol: Document 03/09/19 08:16 LRN (Rec: 03/10/19 17:47 LRN [id number]) Hip Strength Hip Manual Muscle Testing Right Flexion (L2) 1 Trace Extension (S1) 2 Poor Abduction 4 Good Adduction 2 Poor External Rotation 3 Fair Internal Rotation 3 Fair Left Flexion (L2) 4+ Good+ Extension (S1) 2 Poor Abduction 2- Poor- External Rotation 3 Fair Internal Rotation 4 Good Knee Strength Knee Manual Muscle Testing Right Reason Not Measured WFL Left Reason Not Measured WFL Ankle/Foot Strength Ankle and Foot Manual Muscle Testing Right Reason Not Measured WFL Left Reason Not Measured WFL PT-OP-Q Treatments Start: 03/05/19 18:41 Freq: Status: Active Protocol: Document 04/29/19 11:30 LRN (Rec: 04/29/19 16:11 LRN [id number]) Therapeutic Exercises Standing Exercises Hip Flex Standing Exercise Name Hip flex with assist 80-90 deg 's on left Side bilateral Trunk rotation Standing Exercise Name Trunk rotation Side bilateral Resistance Lev 2 T-Band Gait Training Gait Activity Gait on stairs Description Up/down w/1 rail/cane/SBA Device Used SPC Level of Assistance CGA Distance/Duration 4 & 6 steps Treatment Focus Reciprocal gait pattern safely . Comments Pain complaints towards end of therapy on the R side (SIJ region). Manual Therapy Treatment Soft Tissue Mobilization 1 Body Location Left HIP & Low Back Mobilization Type Myofascial Release,Rolling, Sustained Pressure Intensity/Depth Moderate Body Position Sidelying PT-OP-T Assessment and Plan Start: 03/05/19 18:41 Freq: Status: Active Protocol: Document 04/29/19 11:30 LRN (Rec: 04/29/19 16:11 LRN [id number]) Physical Therapy Assessment Goals Three Impairment Pt must descend stairs with side stepping, both hands on same rail Residential Goal (LTG) Pt will be able to descend stairs with step to gait facing forward with use of one hand on a rail. LTG Duration 05/18/19 (04/29/19: Goal met, although tolerance is variable ) Two Impairment Decreased hip strength to be able to lift her LLE getting into a car Short Term Goal (STG) Pt will be able to march in place lifting her hip/knee to a 90/90 position. STG Duration 04/19/19 (04/29/19: Pt is able to lift but with limiting pain ) Raw Sampler Goal (LTG) Pt will be able to lift her LLE independently into a car with mild to moderate difficulty. LTG Duration 06/18/19 (04/29/19: Goal not met) One Impairment Pt lacks appropriate self custodial exercise program (HEP). Raw Sampler Goal (LTG) Pt will be independent with a self care HEP. LTG Duration 06/18/19 (04/29/19: Pt HEP progression is being limited by back pain) Assessment Summary Assessment Pt is making slow progress. She has a pessary that when in place, has less overall back pain with movement. She has been able to progress in strengthening of her core, but progress is slow. Pt is now able to demonstrate ability to contract her upper TA reflexively now, but has minimal to no tone in the lower TA. Today she was having a lot of complaints of L low back pain with movement after stair training and assessment. Her OMT treatments have been beneficial in progressing her with exercises. Further skilled physical therapy would be beneficial for the pt to maximize her core strength potential to minimize her back pain and overall functional ability. I will try to focus her remaining therapy on core stabilization to improve the pt's ability to getting in/out of her daughter's car. Physical Therapy Plan Frequency and Duration Frequency of Treatment 2x/Week Plan of Care Start Date 03/09/19 Plan of Care End Date 06/18/19 Next Visit Focus/Plan Next Note Type Treatment Note Next Visit Plan Progress hip ext to be reflexive with mobility (gait) and to improve lower TA tightening and core strength( flexors>extensors). Cont sitting & standing hip flex ( and PNF) ex (hip flex to 90 degs) to assist pt in getting in/out of her daughter's car easier (controlling back pain ). Cont, with caution due to abdominal hernia and s/p L inguinal hernia with mesh. Monitor low back/hip pain as needed to facilitate LE strengthening. Minimize use of modalities (heat, ice) due to history of cancer.
--- NOTE | 2019-04-29 16:22 | PT.OPPN ---
Current Diagnoses Other symptoms and signs involving the musculoskeletal system (04/29/19) Physical Therapy Progress Note PT-OP-A Visit Information Start: 03/05/19 18:41 Freq: Status: Active Protocol: Document 04/29/19 11:30 LRN (Rec: 04/29/19 16:11 LRN [id number]) Out-Patient Physical Therapy Visit Information Visit Information Visit Type Progress Note Visit Start Time 11:30 Visit Stop Time 12:10 Total Visit Minutes 40 Visit Number 10 Evaluation Information Evaluation Date 03/09/19 Precautions Precautions Extensive Health history - scoliosis, cystocele with rectocele, ischemic cardiomyopathy, recurrent abdominal hernia (see chart for more details). Pt noted PMH: Arterial disease, chronic back & neck pain, cancer (skin), CHF, history of heart attack, osteopenia, gall bladder surgery, L Hiatal hernia repair with mesh , IBS. PT-OP-B Current Condition Start: 03/05/19 18:41 Freq: Status: Active Protocol: Document 03/09/19 08:16 LRN (Rec: 03/09/19 08:51 LRN [id number]) Current Condition History of Current Condition Onset Date 4 months ago Current Complaints LLE weakness. History of Current Condition Has lost 1.5 in 5 yrs due to scoliosis. Has stopped doing her ex's and her pain has returned and the leg has gotten weak. Had L inguinal hernia surgery with mesh placed ~09/2017, and now has limitations in stretching. Now has bulge to the right of the umbilicus superiorly, denies pain. Ex's in cardiac rehab (uses weights and aerobic ex) 2x/week ujnless having gut problems related to IBS, a couple days per week . Daughter helps with housework. If something drops on the floor she will wait until da comes to clean up. Developmental History Developmental History Progressive worsening of weakness since inguinal hernia repair and mesh placed. Pt thinks because of sacrum going out of place from scoliosis, and core weakness. Treatment Goals Patient/Caregiver Goals Pt goal is to get in/out of the car easier and without assist, and to go up/down stairs holding rail with one hand in stead of 2 hands on a rail sideways. Prior Functional Status Baseline Function- ADL's Modified Independent Baseline Function- Mobility Independent Baseline Function- Gait Independent without assistive device. Baseline Function- Recreation/Hobbies Has done 30' on TM in Cardiac Rehab (1 month ago) Baseline Function- Other Dressing, da helped with socks and shoes. Current Functional Impairments (Reported) Functional Limitations- ADL's Stairs sideways using both hands Assist needed for picking up legs to get into car. Functional Limitations- Mobility/Gait Doesn't walk far because of the feet pain. Personal Factors Other Personal Factors That May Effect Lives alone Therapy/Recovery PT-OP-C Subjective Start: 03/05/19 18:41 Freq: Status: Active Protocol: Document 04/29/19 11:30 LRN (Rec: 04/29/19 16:11 LRN [id number]) OP-PT Subjective Patient Comments Patient Comments States her pessary fell out this morning; therefore is not in. States she had an OMT treatment yesterday so she does not have L lateral hip pain. She is having back pain with stair ambulation. Patient Questionnaires Lower Extremity Functional Scale LEFS Score 24 LEFS Impairment 60 to 79% Impaired (Score 17- 31) OP-PT Pain Assessment Location R lateral trunk Pain Location Details R posterolateral trunk Intensity 4 Scale Used Numeric (1 - 10) L upper back Pain Location Details S scapular medial border region Intensity 0 Scale Used Numeric (1 - 10) L sacral region Pain Location Details L SIJ/sacral region Intensity 3 Scale Used Numeric (1 - 10) L groin Pain Location Details L groin Intensity 0 Scale Used Numeric (1 - 10) PT-OP-G Mobility & Gait Start: 03/05/19 18:41 Freq: Status: Active Protocol: Document 03/09/19 08:16 LRN (Rec: 03/10/19 17:47 LRN [id number]) OP Mobility Evaluation Bed Mobility Supine to and from Sit Pt assists L LE with hands. OP Gait Assessment Assistive Devices Assistive Device None Gait Deviations General Gait Pattern Decreased Stride Length, Lateral Trunk Lean,Narrow Based Gait PT-OP-J Posture/Palpation/Skin Start: 03/05/19 18:41 Freq: Status: Active Protocol: Document 03/09/19 08:16 LRN (Rec: 03/09/19 08:51 LRN [id number]) Posture Evaluation Position Standing Head/C-Spine Posture Forward Head PT-OP-K Range of Motion Start: 03/05/19 18:41 Freq: Status: Active Protocol: Document 03/25/19 10:35 LRN (Rec: 03/25/19 13:10 LRN [id number]) Hip Goniometric Range of Motion Hip Measured in Degrees Right Passive Testing Position Supine Internal Rotation 55 External Rotation 85 Left Passive Testing Position Supine Internal Rotation 35 External Rotation 90 PT-OP-M Strength Start: 03/05/19 18:41 Freq: Status: Active Protocol: Document 03/09/19 08:16 LRN (Rec: 03/10/19 17:47 LRN [id number]) Hip Strength Hip Manual Muscle Testing Right Flexion (L2) 1 Trace Extension (S1) 2 Poor Abduction 4 Good Adduction 2 Poor External Rotation 3 Fair Internal Rotation 3 Fair Left Flexion (L2) 4+ Good+ Extension (S1) 2 Poor Abduction 2- Poor- External Rotation 3 Fair Internal Rotation 4 Good Knee Strength Knee Manual Muscle Testing Right Reason Not Measured WFL Left Reason Not Measured WFL Ankle/Foot Strength Ankle and Foot Manual Muscle Testing Right Reason Not Measured WFL Left Reason Not Measured WFL PT-OP-T Assessment and Plan Start: 03/05/19 18:41 Freq: Status: Active Protocol: Document 04/29/19 11:30 LRN (Rec: 04/29/19 16:11 LRN [id number]) Physical Therapy Assessment Goals Three Impairment Pt must descend stairs with side stepping, both hands on same rail Relief Mate Goal (LTG) Pt will be able to descend stairs with step to gait facing forward with use of one hand on a rail. LTG Duration 05/18/19 (04/29/19: Goal met, although tolerance is variable ) Two Impairment Decreased hip strength to be able to lift her LLE getting into a car Short Term Goal (STG) Pt will be able to march in place lifting her hip/knee to a 90/90 position. STG Duration 04/19/19 (04/29/19: Pt is able to lift but with limiting pain ) Relief Mate Goal (LTG) Pt will be able to lift her LLE independently into a car with mild to moderate difficulty. LTG Duration 06/18/19 (04/29/19: Goal not met) One Impairment Pt lacks appropriate self prison exercise program (HEP). Relief Mate Goal (LTG) Pt will be independent with a self care HEP. LTG Duration 06/18/19 (04/29/19: Pt HEP progression is being limited by back pain) Assessment Summary Assessment Pt is making slow progress. She has a pessary that when in place, has less overall back pain with movement. She has been able to progress in strengthening of her core, but progress is slow. Pt is now able to demonstrate ability to contract her upper TA reflexively now, but has minimal to no tone in the lower TA. Today she was having a lot of complaints of L low back pain with movement after stair training and assessment. Her OMT treatments have been beneficial in progressing her with exercises. Further skilled physical therapy would be beneficial for the pt to maximize her core strength potential to minimize her back pain and overall functional ability. I will try to focus her remaining therapy on core stabilization to improve the pt's ability to getting in/out of her daughter's car. Physical Therapy Plan Frequency and Duration Frequency of Treatment 2x/Week Plan of Care Start Date 03/09/19 Plan of Care End Date 06/18/19 Next Visit Focus/Plan Next Note Type Treatment Note Next Visit Plan Progress hip ext to be reflexive with mobility (gait) and to improve lower TA tightening and core strength( flexors>extensors). Cont sitting & standing hip flex ( and PNF) ex (hip flex to 90 degs) to assist pt in getting in/out of her daughter's car easier (controlling back pain ). Cont, with caution due to abdominal hernia and s/p L inguinal hernia with mesh. Monitor low back/hip pain as needed to facilitate LE strengthening. Minimize use of modalities (heat, ice) due to history of cancer.
--- NOTE | 2019-05-10 16:50 | PT.OTN ---
Current Diagnoses Other symptoms and signs involving the musculoskeletal system (05/10/19) Physical Therapy Treatment Note PT-OP-A Visit Information Start: 03/05/19 18:41 Freq: Status: Active Protocol: Document 05/10/19 08:16 LRN (Rec: 05/10/19 09:01 LRN [id number]) Out-Patient Physical Therapy Visit Information Visit Information Visit Type Treatment Note Visit Start Time 08:17 Visit Stop Time 08:58 Total Visit Minutes 41 Visit Number 11 Evaluation Information Evaluation Date 03/09/19 Precautions Precautions Extensive Health history - scoliosis, cystocele with rectocele, ischemic cardiomyopathy, recurrent abdominal hernia (see chart for more details). Pt noted PMH: Arterial disease, chronic back & neck pain, cancer (skin), CHF, history of heart attack, osteopenia, gall bladder surgery, L Hiatal hernia repair with mesh , IBS. PT-OP-B Current Condition Start: 03/05/19 18:41 Freq: Status: Active Protocol: Document 03/09/19 08:16 LRN (Rec: 03/09/19 08:51 LRN [id number]) Current Condition History of Current Condition Onset Date 4 months ago Current Complaints LLE weakness. History of Current Condition Has lost 1.5 in 5 yrs due to scoliosis. Has stopped doing her ex's and her pain has returned and the leg has gotten weak. Had L inguinal hernia surgery with mesh placed ~09/2017, and now has limitations in stretching. Now has bulge to the right of the umbilicus superiorly, denies pain. Ex's in cardiac rehab (uses weights and aerobic ex) 2x/week ujnless having gut problems related to IBS, a couple days per week . Daughter helps with housework. If something drops on the floor she will wait until da comes to clean up. Developmental History Developmental History Progressive worsening of weakness since inguinal hernia repair and mesh placed. Pt thinks because of sacrum going out of place from scoliosis, and core weakness. Treatment Goals Patient/Caregiver Goals Pt goal is to get in/out of the car easier and without assist, and to go up/down stairs holding rail with one hand in stead of 2 hands on a rail sideways. Prior Functional Status Baseline Function- ADL's Modified Independent Baseline Function- Mobility Independent Baseline Function- Gait Independent without assistive device. Baseline Function- Recreation/Hobbies Has done 30' on TM in Cardiac Rehab (1 month ago) Baseline Function- Other Dressing, da helped with socks and shoes. Current Functional Impairments (Reported) Functional Limitations- ADL's Stairs sideways using both hands Assist needed for picking up legs to get into car. Functional Limitations- Mobility/Gait Doesn't walk far because of the feet pain. Personal Factors Other Personal Factors That May Effect Lives alone Therapy/Recovery PT-OP-C Subjective Start: 03/05/19 18:41 Freq: Status: Active Protocol: Document 05/10/19 08:16 LRN (Rec: 05/10/19 09:01 LRN [id number]) OP-PT Subjective Patient Comments Patient Comments States, today able to lift L leg into daughters car. Can lift L leg to cross leg over knee. States she has been sick because of her abdomen and IBS. Today doing well. Able to feel her hip muscle with gait. Has noticed that when she tightens her abdominal muscle her back pain goes away. PT-OP-G Mobility & Gait Start: 03/05/19 18:41 Freq: Status: Active Protocol: Document 03/09/19 08:16 LRN (Rec: 03/10/19 17:47 LRN [id number]) OP Mobility Evaluation Bed Mobility Supine to and from Sit Pt assists L LE with hands. OP Gait Assessment Assistive Devices Assistive Device None Gait Deviations General Gait Pattern Decreased Stride Length, Lateral Trunk Lean,Narrow Based Gait PT-OP-J Posture/Palpation/Skin Start: 03/05/19 18:41 Freq: Status: Active Protocol: Document 03/09/19 08:16 LRN (Rec: 03/09/19 08:51 LRN [id number]) Posture Evaluation Position Standing Head/C-Spine Posture Forward Head PT-OP-K Range of Motion Start: 03/05/19 18:41 Freq: Status: Active Protocol: Document 03/25/19 10:35 LRN (Rec: 03/25/19 13:10 LRN [id number]) Hip Goniometric Range of Motion Hip Right Passive Testing Position Supine Internal Rotation 55 External Rotation 85 Left Passive Testing Position Supine Internal Rotation 35 External Rotation 90 PT-OP-M Strength Start: 03/05/19 18:41 Freq: Status: Active Protocol: Document 03/09/19 08:16 LRN (Rec: 03/10/19 17:47 LRN [id number]) Hip Strength Hip Manual Muscle Testing Right Flexion (L2) 1 Trace Extension (S1) 2 Poor Abduction 4 Good Adduction 2 Poor External Rotation 3 Fair Internal Rotation 3 Fair Left Flexion (L2) 4+ Good+ Extension (S1) 2 Poor Abduction 2- Poor- External Rotation 3 Fair Internal Rotation 4 Good Knee Strength Knee Manual Muscle Testing Right Reason Not Measured WFL Left Reason Not Measured WFL Ankle/Foot Strength Ankle and Foot Manual Muscle Testing Right Reason Not Measured WFL Left Reason Not Measured WFL PT-OP-Q Treatments Start: 03/05/19 18:41 Freq: Status: Active Protocol: Document 05/10/19 08:16 LRN (Rec: 05/10/19 09:01 LRN [id number]) Gym Equipment Cable Column (Body Solid) Leg Curl Details Seat 5. TA engaged. Resistance 10# Reps/Time 10 x 3 Leg Extension Details Seat 5. TA engaged. Resistance 10# Reps/Time 10 x 3 Hip Adduction Details Seat 5. TA engaged, vc's for slow Resistance 15# Reps/Time 15 x 2 Hip Abduction Details Seat 5. TA engaged Resistance 15# Reps/Time 15 x 2 Therapeutic Exercises Sitting Exercises Hip flex in 90/90 Sitting Exercise Name Lifting foot as if getting into a car, alternating legs. Side bilateral Reps/Minutes 10 x 3 Standing Exercises Trunk Flex Standing Exercise Name Trunk Flex Side bilateral Equipment Used Lev 2 T-Band Reps/Minutes 3' Trunk strengthening Standing Exercise Name T-Band trunk flex Resistance Lev 2 Equipment Used T-Band Reps/Minutes 5' //Bars step ups Standing Exercise Name 8, 6, 2 step up/down fwd & bkwd onto step Side bilateral Equipment Used // bars, portable steps Reps/Minutes 10' Hip ext w/toe off push Standing Exercise Name Motor relearning for hip ext w /toe off push Side bilateral Reps/Minutes 8' PT-OP-T Assessment and Plan Start: 03/05/19 18:41 Freq: Status: Active Protocol: Document 05/10/19 08:16 LRN (Rec: 05/10/19 09:01 LRN [id number]) Physical Therapy Assessment Goals Three Impairment Pt must descend stairs with side stepping, both hands on same rail Community Board Member Goal (LTG) Pt will be able to descend stairs with step to gait facing forward with use of one hand on a rail. LTG Duration 05/18/19 (04/29/19: Goal met, although tolerance is variable ) Two Impairment Decreased hip strength to be able to lift her LLE getting into a car Short Term Goal (STG) Pt will be able to march in place lifting her hip/knee to a 90/90 position. STG Duration 04/19/19 (04/29/19: Pt is able to lift but with limiting pain ) Nursing Home Goal (LTG) Pt will be able to lift her LLE independently into a car with mild to moderate difficulty. LTG Duration 06/18/19 (: GOAL MET) One Impairment Pt lacks appropriate self correction exercise program (HEP). Community Board Member Goal (LTG) Pt will be independent with a self care HEP. LTG Duration 06/18/19 (04/29/19: Pt HEP progression is being limited by back pain) Assessment Summary Assessment Pt presents today with improved painfree mobility for getting in/out of her DA's car and shows good presentation of posture with TA contracted and with gait activation of her gluteals. She appears to have L Quad pain probably due to weakness with ECC contraction (going down stairs). Little discomfort if step is 2 or less in height. Physical Therapy Plan Frequency and Duration Frequency of Treatment 2x/Week Plan of Care Start Date 03/09/19 Plan of Care End Date 06/18/19 Next Visit Focus/Plan Next Note Type Treatment Note Next Visit Plan Start Quad strengthening, primarily ECC contractions. Cont, with caution due to abdominal hernia and s/p L inguinal hernia with mesh. Monitor low back/hip pain as needed to facilitate LE strengthening. Minimize use of modalities (heat, ice) due to history of cancer.
--- NOTE | 2019-05-17 09:05 | PT.OTN ---
Current Diagnoses Other symptoms and signs involving the musculoskeletal system (05/17/19) Physical Therapy Treatment Note PT-OP-A Visit Information Start: 03/05/19 18:41 Freq: Status: Active Protocol: Document 05/17/19 08:17 LRN (Rec: 05/17/19 09:04 LRN [id number]) Out-Patient Physical Therapy Visit Information Visit Information Visit Type Treatment Note Visit Start Time 08:17 Visit Stop Time 08:59 Total Visit Minutes 42 Visit Number 12 Evaluation Information Evaluation Date 03/09/19 Precautions Precautions Extensive Health history - scoliosis, cystocele with rectocele, ischemic cardiomyopathy, recurrent abdominal hernia (see chart for more details). Pt noted PMH: Arterial disease, chronic back & neck pain, cancer (skin), CHF, history of heart attack, osteopenia, gall bladder surgery, L Hiatal hernia repair with mesh , IBS. PT-OP-B Current Condition Start: 03/05/19 18:41 Freq: Status: Active Protocol: Document 03/09/19 08:16 LRN (Rec: 03/09/19 08:51 LRN [id number]) Current Condition History of Current Condition Onset Date 4 months ago Current Complaints LLE weakness. History of Current Condition Has lost 1.5 in 5 yrs due to scoliosis. Has stopped doing her ex's and her pain has returned and the leg has gotten weak. Had L inguinal hernia surgery with mesh placed ~09/2017, and now has limitations in stretching. Now has bulge to the right of the umbilicus superiorly, denies pain. Ex's in cardiac rehab (uses weights and aerobic ex) 2x/week ujnless having gut problems related to IBS, a couple days per week . Daughter helps with housework. If something drops on the floor she will wait until da comes to clean up. Developmental History Developmental History Progressive worsening of weakness since inguinal hernia repair and mesh placed. Pt thinks because of sacrum going out of place from scoliosis, and core weakness. Treatment Goals Patient/Caregiver Goals Pt goal is to get in/out of the car easier and without assist, and to go up/down stairs holding rail with one hand in stead of 2 hands on a rail sideways. Prior Functional Status Baseline Function- ADL's Modified Independent Baseline Function- Mobility Independent Baseline Function- Gait Independent without assistive device. Baseline Function- Recreation/Hobbies Has done 30' on TM in Cardiac Rehab (1 month ago) Baseline Function- Other Dressing, da helped with socks and shoes. Current Functional Impairments (Reported) Functional Limitations- ADL's Stairs sideways using both hands Assist needed for picking up legs to get into car. Functional Limitations- Mobility/Gait Doesn't walk far because of the feet pain. Personal Factors Other Personal Factors That May Effect Lives alone Therapy/Recovery PT-OP-C Subjective Start: 03/05/19 18:41 Freq: Status: Active Protocol: Document 05/17/19 08:17 LRN (Rec: 05/17/19 09:04 LRN [id number]) OP-PT Subjective Patient Comments Patient Comments Had IBS. Today okay, back is okay. PT-OP-G Mobility & Gait Start: 03/05/19 18:41 Freq: Status: Active Protocol: Document 03/09/19 08:16 LRN (Rec: 03/10/19 17:47 LRN [id number]) OP Mobility Evaluation Bed Mobility Supine to and from Sit Pt assists L LE with hands. OP Gait Assessment Assistive Devices Assistive Device None Gait Deviations General Gait Pattern Decreased Stride Length, Lateral Trunk Lean,Narrow Based Gait PT-OP-J Posture/Palpation/Skin Start: 03/05/19 18:41 Freq: Status: Active Protocol: Document 03/09/19 08:16 LRN (Rec: 03/09/19 08:51 LRN [id number]) Posture Evaluation Position Standing Head/C-Spine Posture Forward Head PT-OP-K Range of Motion Start: 03/05/19 18:41 Freq: Status: Active Protocol: Document 03/25/19 10:35 LRN (Rec: 03/25/19 13:10 LRN [id number]) Hip Goniometric Range of Motion Hip Right Passive Testing Position Supine Internal Rotation 55 External Rotation 85 Left Passive Testing Position Supine Internal Rotation 35 External Rotation 90 PT-OP-M Strength Start: 03/05/19 18:41 Freq: Status: Active Protocol: Document 03/09/19 08:16 LRN (Rec: 03/10/19 17:47 LRN [id number]) Hip Strength Hip Manual Muscle Testing Right Flexion (L2) 1 Trace Extension (S1) 2 Poor Abduction 4 Good Adduction 2 Poor External Rotation 3 Fair Internal Rotation 3 Fair Left Flexion (L2) 4+ Good+ Extension (S1) 2 Poor Abduction 2- Poor- External Rotation 3 Fair Internal Rotation 4 Good Knee Strength Knee Manual Muscle Testing Right Reason Not Measured WFL Left Reason Not Measured WFL Ankle/Foot Strength Ankle and Foot Manual Muscle Testing Right Reason Not Measured WFL Left Reason Not Measured WFL PT-OP-Q Treatments Start: 03/05/19 18:41 Freq: Status: Active Protocol: Document 05/17/19 08:17 LRN (Rec: 05/17/19 09:04 LRN [id number]) Gym Equipment Cable Column (Body Solid) Leg Curl Details Seat 5. TA engaged. Resistance 20# Reps/Time 10 x 3 Leg Extension Details Seat 5. TA engaged. Resistance 15#, 10# Reps/Time 10 x 2, 10x Hip Adduction Details Seat 5. TA engaged, vc's for slow Resistance 25# Reps/Time 12x, 10x2 Hip Abduction Details Seat 5. TA engaged Resistance 25# Reps/Time 10 x Shuttle Recovery Bilateral Squats Details Focus on ECC contraction Resistance 75# Reps/Time 10 x 3 Therapeutic Exercises Standing Exercises //Bars step ups Standing Exercise Name 8, 6, 4, 2 step up/down fwd & bkwd onto step Side bilateral Equipment Used // bars, portable steps Reps/Minutes 10' Comments ECC strengthening L Quad Hip Flex Standing Exercise Name Marching walk Side bilateral Hip ext w/toe off push Standing Exercise Name Walk with toe p Self-Care/Home Management Treatment Education Patient Education Home Exercise Program Activities Self-Care/Home Management Activities Reviewed and educated pt in self SIJ dysfunction correction. PT-OP-T Assessment and Plan Start: 03/05/19 18:41 Freq: Status: Active Protocol: Document 05/17/19 08:17 LRN (Rec: 05/17/19 09:04 LRN [id number]) Physical Therapy Assessment Goals Three Impairment Pt must descend stairs with side stepping, both hands on same rail Residential Goal (LTG) Pt will be able to descend stairs with step to gait facing forward with use of one hand on a rail. LTG Duration 05/18/19 (04/29/19: Goal met, although tolerance is variable ) Two Impairment Decreased hip strength to be able to lift her LLE getting into a car Short Term Goal (STG) Pt will be able to march in place lifting her hip/knee to a 90/90 position. STG Duration 04/19/19 (04/29/19: Pt is able to lift but with limiting pain ) Customer Service Representative Goal (LTG) Pt will be able to lift her LLE independently into a car with mild to moderate difficulty. LTG Duration 06/18/19 (: GOAL MET) One Impairment Pt lacks appropriate self shelter exercise program (HEP). Residential Goal (LTG) Pt will be independent with a self care HEP. LTG Duration 06/18/19 (04/29/19: Pt HEP progression is being limited by back pain) Progress Towards Goals Progress Towards Goals Progressing Toward Goals Progress Comments Goal #1: HEP progressing. Goal #2: STG: Pain in L SIJ with lifting of leg to 90 deg's. LTG: Goal met for getting into car independently without pain. Goal #3: Pt is able to descend stairs normally part of the time. Assessment Summary Assessment Pt demonstrates weak L Quads and pain in back only with transfers from supine. Pt is able to lift and march with mild LBP. Pt has fair understanding of SIJ self correction for self care HEP; therefore further education and review is needed. Physical Therapy Plan Frequency and Duration Frequency of Treatment 2x/Week Plan of Care Start Date 03/09/19 Plan of Care End Date 06/18/19 Therapeutic Interventions Therapeutic Interventions Home Exercise Program,Manual Therapy,Neuromuscular Re- education,Patient/Caregiver Education,Self-Care/Home Management,Soft Tissue Mobilization,Therapeutic Exercises Modalities Cold Pack/Ice Massage,Electric Stimulation,Hot Packs Next Visit Focus/Plan Next Note Type Treatment Note Next Visit Plan Cont L Quad strengthening, primarily ECC contractions, and review of self SIJ dysfunction correction for home self care program. Cont, with caution due to abdominal hernia and s/p L inguinal hernia with mesh. Monitor low back/hip pain as needed to facilitate LE strengthening. Minimize use of modalities ( heat, ice) due to history of cancer.
--- NOTE | 2019-05-20 09:12 | PT.OTN ---
Current Diagnoses Other symptoms and signs involving the musculoskeletal system (05/20/19) Physical Therapy Treatment Note PT-OP-A Visit Information Start: 03/05/19 18:41 Freq: Status: Active Protocol: Document 05/20/19 08:16 LRN (Rec: 05/20/19 09:04 LRN [id number]) Out-Patient Physical Therapy Visit Information Visit Information Visit Type Treatment Note Visit Start Time 08:16 Visit Stop Time 08:56 Total Visit Minutes 40 Visit Number 13 Number of BUSINESS SOLUTION ANALYST Visits 0 Evaluation Information Evaluation Date 03/09/19 Precautions Precautions Extensive Health history - scoliosis, cystocele with rectocele, ischemic cardiomyopathy, recurrent abdominal hernia (see chart for more details). Pt noted PMH: Arterial disease, chronic back & neck pain, cancer (skin), CHF, history of heart attack, osteopenia, gall bladder surgery, L Hiatal hernia repair with mesh , IBS. PT-OP-B Current Condition Start: 03/05/19 18:41 Freq: Status: Active Protocol: Document 03/09/19 08:16 LRN (Rec: 03/09/19 08:51 LRN [id number]) Current Condition History of Current Condition Onset Date 4 months ago Current Complaints LLE weakness. History of Current Condition Has lost 1.5 in 5 yrs due to scoliosis. Has stopped doing her ex's and her pain has returned and the leg has gotten weak. Had L inguinal hernia surgery with mesh placed ~09/2017, and now has limitations in stretching. Now has bulge to the right of the umbilicus superiorly, denies pain. Ex's in cardiac rehab (uses weights and aerobic ex) 2x/week ujnless having gut problems related to IBS, a couple days per week . Daughter helps with housework. If something drops on the floor she will wait until da comes to clean up. Developmental History Developmental History Progressive worsening of weakness since inguinal hernia repair and mesh placed. Pt thinks because of sacrum going out of place from scoliosis, and core weakness. Treatment Goals Patient/Caregiver Goals Pt goal is to get in/out of the car easier and without assist, and to go up/down stairs holding rail with one hand in stead of 2 hands on a rail sideways. Prior Functional Status Baseline Function- ADL's Modified Independent Baseline Function- Mobility Independent Baseline Function- Gait Independent without assistive device. Baseline Function- Recreation/Hobbies Has done 30' on TM in Cardiac Rehab (1 month ago) Baseline Function- Other Dressing, da helped with socks and shoes. Current Functional Impairments (Reported) Functional Limitations- ADL's Stairs sideways using both hands Assist needed for picking up legs to get into car. Functional Limitations- Mobility/Gait Doesn't walk far because of the feet pain. Personal Factors Other Personal Factors That May Effect Lives alone Therapy/Recovery PT-OP-C Subjective Start: 03/05/19 18:41 Freq: Status: Active Protocol: Document 05/20/19 08:16 LRN (Rec: 05/20/19 09:04 LRN [id number]) OP-PT Subjective Patient Comments Patient Comments States ate something she shouldn't so is having IBS symptoms. Having less pain in L Quad with step ups. PT-OP-G Mobility & Gait Start: 03/05/19 18:41 Freq: Status: Active Protocol: Document 03/09/19 08:16 LRN (Rec: 03/10/19 17:47 LRN [id number]) OP Mobility Evaluation Bed Mobility Supine to and from Sit Pt assists L LE with hands. OP Gait Assessment Assistive Devices Assistive Device None Gait Deviations General Gait Pattern Decreased Stride Length, Lateral Trunk Lean,Narrow Based Gait PT-OP-J Posture/Palpation/Skin Start: 03/05/19 18:41 Freq: Status: Active Protocol: Document 03/09/19 08:16 LRN (Rec: 03/09/19 08:51 LRN [id number]) Posture Evaluation Position Standing Head/C-Spine Posture Forward Head PT-OP-K Range of Motion Start: 03/05/19 18:41 Freq: Status: Active Protocol: Document 03/25/19 10:35 LRN (Rec: 03/25/19 13:10 LRN [id number]) Hip Goniometric Range of Motion Hip Right Passive Testing Position Supine Internal Rotation 55 External Rotation 85 Left Passive Testing Position Supine Internal Rotation 35 External Rotation 90 PT-OP-M Strength Start: 03/05/19 18:41 Freq: Status: Active Protocol: Document 03/09/19 08:16 LRN (Rec: 03/10/19 17:47 LRN [id number]) Hip Strength Hip Manual Muscle Testing Right Flexion (L2) 1 Trace Extension (S1) 2 Poor Abduction 4 Good Adduction 2 Poor External Rotation 3 Fair Internal Rotation 3 Fair Left Flexion (L2) 4+ Good+ Extension (S1) 2 Poor Abduction 2- Poor- External Rotation 3 Fair Internal Rotation 4 Good Knee Strength Knee Manual Muscle Testing Right Reason Not Measured WFL Left Reason Not Measured WFL Ankle/Foot Strength Ankle and Foot Manual Muscle Testing Right Reason Not Measured WFL Left Reason Not Measured WFL PT-OP-Q Treatments Start: 03/05/19 18:41 Freq: Status: Active Protocol: Document 05/20/19 08:16 LRN (Rec: 05/20/19 09:04 LRN [id number]) Gym Equipment Cable Column (Body Solid) Leg Curl Details Seat 5. TA engaged. Resistance 25#, 20# Reps/Time 15 x each Leg Extension Details Seat 5. TA engaged. Resistance 15#, 10# Reps/Time 15 x 1, 10x1, respectively Hip Adduction Details Seat 5. TA engaged, vc's for slow Resistance 20#, 25#, Reps/Time 15x, 15x Hip Abduction Details Seat 5. TA engaged Resistance 20#, 25# Reps/Time 20x, 15x respectively Therapeutic Exercises Sitting Exercises Trunk rotation Sitting Exercise Name Awareness training Side bilateral Reps/Minutes 10 x 2 Standing Exercises Trunk Flex Standing Exercise Name Trunk Flex Equipment Used Lev 3 T-Band Reps/Minutes 3' //Bars step ups Standing Exercise Name 8, 6, 4, 2 step up/down fwd & bkwd onto step Side bilateral Equipment Used // bars, portable steps Reps/Minutes 10' Comments ECC strengthening L Quad Self-Care/Home Management Treatment Education Patient Education Home Exercise Program Activities Self-Care/Home Management Activities Reviewed and educated pt in self SIJ dysfunction correction with added I/S for inflare/outflare correction. PT-OP-T Assessment and Plan Start: 03/05/19 18:41 Freq: Status: Active Protocol: Document 05/20/19 08:16 LRN (Rec: 05/20/19 09:04 N [id number]) Physical Therapy Assessment Goals Three Impairment Pt must descend stairs with side stepping, both hands on same rail Repairer Welding Equipment Goal (LTG) Pt will be able to descend stairs with step to gait facing forward with use of one hand on a rail. LTG Duration 05/18/19 (04/29/19: Goal met, although tolerance is variable ) Two Impairment Decreased hip strength to be able to lift her LLE getting into a car Short Term Goal (STG) Pt will be able to march in place lifting her hip/knee to a 90/90 position. STG Duration 04/19/19 (04/29/19: Pt is able to lift but with limiting pain ) Repairer Welding Equipment Goal (LTG) Pt will be able to lift her LLE independently into a car with mild to moderate difficulty. LTG Duration 06/18/19 (: GOAL MET) One Impairment Pt lacks appropriate self [facility]ci exercise program (HEP). Fci Goal (LTG) Pt will be independent with a self care HEP. LTG Duration 06/18/19 (04/29/19: Pt HEP progression is being limited by back pain) Assessment Summary Assessment Less pain in L Quads with step ups. Pt progressing well. Fair recall of self correction technique. Further training neede. Physical Therapy Plan Frequency and Duration Frequency of Treatment 2x/Week Plan of Care Start Date 03/09/19 Plan of Care End Date 06/18/19 Next Visit Focus/Plan Next Note Type Treatment Note Next Visit Plan Add strengthening for marching stability. Cont L Quad strengthening/Conc), and training for self SIJ dysfunction correction for home self care program. Cont, with caution due to abdominal hernia and s/p L inguinal hernia with mesh. Monitor low back/hip pain as needed to facilitate LE strengthening. Minimize use of modalities ( heat, ice) due to history of cancer.
--- NOTE | 2019-05-24 10:20 | PT.OTN ---
Current Diagnoses Other symptoms and signs involving the musculoskeletal system (05/24/19) Physical Therapy Treatment Note PT-OP-A Visit Information Start: 03/05/19 18:41 Freq: Status: Active Protocol: Document 05/24/19 08:17 LRN (Rec: 05/24/19 09:03 LRN [id number]) Out-Patient Physical Therapy Visit Information Visit Information Visit Type Treatment Note Visit Start Time 08:18 Visit Stop Time 09:02 Total Visit Minutes 44 Visit Number 14 Number of ANALYTICS LEADER Visits 0 Evaluation Information Evaluation Date 03/09/19 Precautions Precautions Extensive Health history - scoliosis, cystocele with rectocele, ischemic cardiomyopathy, recurrent abdominal hernia (see chart for more details). Pt noted PMH: Arterial disease, chronic back & neck pain, cancer (skin), CHF, history of heart attack, osteopenia, gall bladder surgery, L Hiatal hernia repair with mesh , IBS. PT-OP-B Current Condition Start: 03/05/19 18:41 Freq: Status: Active Protocol: Document 03/09/19 08:16 LRN (Rec: 03/09/19 08:51 LRN [id number]) Current Condition History of Current Condition Onset Date 4 months ago Current Complaints LLE weakness. History of Current Condition Has lost 1.5 in 5 yrs due to scoliosis. Has stopped doing her ex's and her pain has returned and the leg has gotten weak. Had L inguinal hernia surgery with mesh placed ~09/2017, and now has limitations in stretching. Now has bulge to the right of the umbilicus superiorly, denies pain. Ex's in cardiac rehab (uses weights and aerobic ex) 2x/week ujnless having gut problems related to IBS, a couple days per week . Daughter helps with housework. If something drops on the floor she will wait until da comes to clean up. Developmental History Developmental History Progressive worsening of weakness since inguinal hernia repair and mesh placed. Pt thinks because of sacrum going out of place from scoliosis, and core weakness. Treatment Goals Patient/Caregiver Goals Pt goal is to get in/out of the car easier and without assist, and to go up/down stairs holding rail with one hand in stead of 2 hands on a rail sideways. Prior Functional Status Baseline Function- ADL's Modified Independent Baseline Function- Mobility Independent Baseline Function- Gait Independent without assistive device. Baseline Function- Recreation/Hobbies Has done 30' on TM in Cardiac Rehab (1 month ago) Baseline Function- Other Dressing, da helped with socks and shoes. Current Functional Impairments (Reported) Functional Limitations- ADL's Stairs sideways using both hands Assist needed for picking up legs to get into car. Functional Limitations- Mobility/Gait Doesn't walk far because of the feet pain. Personal Factors Other Personal Factors That May Effect Lives alone Therapy/Recovery PT-OP-C Subjective Start: 03/05/19 18:41 Freq: Status: Active Protocol: Document 05/24/19 08:17 LRN (Rec: 05/24/19 09:03 LRN [id number]) OP-PT Subjective Patient Comments Patient Comments Back is good, IBS problem right now. Seeing gynocologist today to hopefully get a pessary fit. PT-OP-G Mobility & Gait Start: 03/05/19 18:41 Freq: Status: Active Protocol: Document 03/09/19 08:16 LRN (Rec: 03/10/19 17:47 LRN [id number]) OP Mobility Evaluation Bed Mobility Supine to and from Sit Pt assists L LE with hands. OP Gait Assessment Assistive Devices Assistive Device None Gait Deviations General Gait Pattern Decreased Stride Length, Lateral Trunk Lean,Narrow Based Gait PT-OP-J Posture/Palpation/Skin Start: 03/05/19 18:41 Freq: Status: Active Protocol: Document 03/09/19 08:16 LRN (Rec: 03/09/19 08:51 LRN [id number]) Posture Evaluation Position Standing Head/C-Spine Posture Forward Head PT-OP-K Range of Motion Start: 03/05/19 18:41 Freq: Status: Active Protocol: Document 03/25/19 10:35 LRN (Rec: 03/25/19 13:10 LRN [id number]) Hip Goniometric Range of Motion Hip Right Passive Testing Position Supine Internal Rotation 55 External Rotation 85 Left Passive Testing Position Supine Internal Rotation 35 External Rotation 90 PT-OP-M Strength Start: 03/05/19 18:41 Freq: Status: Active Protocol: Document 03/09/19 08:16 LRN (Rec: 03/10/19 17:47 LRN [id number]) Hip Strength Hip Manual Muscle Testing Right Flexion (L2) 1 Trace Extension (S1) 2 Poor Abduction 4 Good Adduction 2 Poor External Rotation 3 Fair Internal Rotation 3 Fair Left Flexion (L2) 4+ Good+ Extension (S1) 2 Poor Abduction 2- Poor- External Rotation 3 Fair Internal Rotation 4 Good Knee Strength Knee Manual Muscle Testing Right Reason Not Measured WFL Left Reason Not Measured WFL Ankle/Foot Strength Ankle and Foot Manual Muscle Testing Right Reason Not Measured WFL Left Reason Not Measured WFL PT-OP-Q Treatments Start: 03/05/19 18:41 Freq: Status: Active Protocol: Document 05/24/19 08:17 LRN (Rec: 05/24/19 09:03 LR [id number]) Gym Equipment Cable Column (Body Solid) Leg Curl Details Seat 5. TA engaged. Resistance 25# Reps/Time 15 x Leg Extension Details Seat 5. TA engaged. Resistance 25# Reps/Time 15x, 12x Hip Adduction Details Seat 5. TA engaged, vc's for slow Resistance 25#, Reps/Time 15x 2 Hip Abduction Details Seat 5. TA engaged Resistance 25# Reps/Time 15x2 respectively Therapeutic Exercises Sitting Exercises Knee ext/ECC Sitting Exercise Name Knee ext Side left Resistance 9#, 8# Reps/Minutes 7x, 8x respectively Standing Exercises March ups Standing Exercise Name Lifting foot up/down on platform Side bilateral Equipment Used 14 tall step Reps/Minutes 10 x 3 each //Bars step ups Standing Exercise Name 5, 6, 8 step up/down fwd & bkwd onto step Side bilateral Equipment Used // bars, portable steps Reps/Minutes 10x each Comments ECC strengthening L Quad Self-Care/Home Management Treatment Education Patient Education Home Exercise Program Activities Self-Care/Home Management Activities Issued handout & reviewed and educated pt in self SIJ dysfunction correction with added I/S for inflare/outflare correction. PT-OP-T Assessment and Plan Start: 03/05/19 18:41 Freq: Status: Active Protocol: Document 05/24/19 08:17 LRN (Rec: 05/24/19 09:03 [facility] [id number]) Physical Therapy Assessment Goals Three Impairment Pt must descend stairs with side stepping, both hands on same rail Senior Living Goal (LTG) Pt will be able to descend stairs with step to gait facing forward with use of one hand on a rail. LTG Duration 05/18/19 (04/29/19: Goal met, although tolerance is variable ) Two Impairment Decreased hip strength to be able to lift her LLE getting into a car Short Term Goal (STG) Pt will be able to march in place lifting her hip/knee to a 90/90 position. STG Duration 04/19/19 (04/29/19: Pt is able to lift but with limiting pain ) Senior Living Goal (LTG) Pt will be able to lift her LLE independently into a car with mild to moderate difficulty. LTG Duration 06/18/19 (: GOAL MET) One Impairment Pt lacks appropriate self senior living exercise program (HEP). Senior Living Goal (LTG) Pt will be independent with a self care HEP. LTG Duration 06/18/19 (04/29/19: Pt HEP progression is being limited by back pain) Assessment Summary Assessment Improved recall of self care SIJ correction. Pt not recalling inflare/outflare correction. L Quad strength is improving, less pain with ex. Physical Therapy Plan Frequency and Duration Frequency of Treatment 2x/Week Plan of Care Start Date 03/09/19 Plan of Care End Date 06/18/19 Next Visit Focus/Plan Next Note Type Treatment Note Next Visit Plan Carefully add core strengthening for stability and painfree marching. Cont L Quad strengthening/ECC), and training for self SIJ dysfunction correction for home self care program. Cont, with caution due to abdominal hernia and s/p L inguinal hernia with mesh. Monitor low back/hip pain as needed to facilitate LE strengthening. Minimize use of modalities ( heat, ice) due to history of cancer.
--- NOTE | 2019-08-05 16:32 | PT.OPDS ---
Current Diagnoses Other symptoms and signs involving the musculoskeletal system (05/24/19) Visit Care Team Role Provider Type Debbie Fields DO Attending Provider Non-Staff Primary Care Provider Specialty: Medical Address: [address] [place] [address], [place], [address] Email: Visit Number Visit Number 14 Discharge Summary PT-OP-B Current Condition Start: 03/05/19 18:41 Freq: Status: Active Protocol: Document 03/09/19 08:16 LRN (Rec: 03/09/19 08:51 LRN [id number]) Current Condition History of Current Condition Onset Date 4 months ago Current Complaints LLE weakness. History of Current Condition Has lost 1.5 in 5 yrs due to scoliosis. Has stopped doing her ex's and her pain has returned and the leg has gotten weak. Had L inguinal hernia surgery with mesh placed ~09/2017, and now has limitations in stretching. Now has bulge to the right of the umbilicus superiorly, denies pain. Ex's in cardiac rehab (uses weights and aerobic ex) 2x/week ujnless having gut problems related to IBS, a couple days per week . Daughter helps with housework. If something drops on the floor she will wait until da comes to clean up. Developmental History Developmental History Progressive worsening of weakness since inguinal hernia repair and mesh placed. Pt thinks because of sacrum going out of place from scoliosis, and core weakness. Treatment Goals Patient/Caregiver Goals Pt goal is to get in/out of the car easier and without assist, and to go up/down stairs holding rail with one hand in stead of 2 hands on a rail sideways. Prior Functional Status Baseline Function- ADL's Modified Independent Baseline Function- Mobility Independent Baseline Function- Gait Independent without assistive device. Baseline Function- Recreation/Hobbies Has done 30' on TM in Cardiac Rehab (1 month ago) Baseline Function- Other Dressing, da helped with socks and shoes. Current Functional Impairments (Reported) Functional Limitations- ADL's Stairs sideways using both hands Assist needed for picking up legs to get into car. Functional Limitations- Mobility/Gait Doesn't walk far because of the feet pain. Personal Factors Other Personal Factors That May Effect Lives alone Therapy/Recovery PT-OP-T Assessment and Plan Start: 03/05/19 18:41 Freq: Status: Active Protocol: Document 08/05/19 16:25 LRN (Rec: 08/05/19 16:32 LRN [id number]) Physical Therapy Assessment Goals Three Impairment Pt must descend stairs with side stepping, both hands on same rail Alf Goal (LTG) Pt will be able to descend stairs with step to gait facing forward with use of one hand on a rail. LTG Duration 05/18/19 (04/29/19: Goal met, although tolerance is variable ) Two Impairment Decreased hip strength to be able to lift her LLE getting into a car Short Term Goal (STG) Pt will be able to march in place lifting her hip/knee to a 90/90 position. STG Duration 04/19/19 (04/29/19: Pt is able to lift but with limiting pain ) Power Grader Operator Goal (LTG) Pt will be able to lift her LLE independently into a car with mild to moderate difficulty. LTG Duration 06/18/19 (: GOAL MET) One Impairment Pt lacks appropriate self long term exercise program (HEP). Power Grader Operator Goal (LTG) Pt will be independent with a self care HEP. LTG Duration 06/18/19 (04/29/19: Pt HEP progression is being limited by back pain) Progress Towards Goals Progress Comments Goal 1: Pt was being progressed on her HEP. Goal 2: STG: Was being progressed. LTG: Met. Goal 3: Met, although variable pain onset. Assessment Summary Assessment Pt was last seen 05/24/19. She was doing quite well on the day of her last visit and was being progressed in core strengthening. The pt is being discharged due to lack of attendance. It is beyond her Plan of Care date; therefore a new referral will be needed to return to therapy . Physical Therapy Plan Discharge Physical Therapy Discharge Reasons No Longer Attending PT Discharge Comments Pt is being discharged due to lack of attendance. Thank you for your referral.
== END 2019-05-25 12:59 ==
LOC: PHYS 08:15
PROVIDERS: PCP Family Medicine; Visit Provider Family Medicine
DX: R29.898 Other symptoms and signs involving the musculoskeletal system (principal)
CPT/HCPCS: 97110; 97116; 97140; 97162; 97535

== ENCOUNTER → 2019-09-18 11:57 | Outpatient (CLI) | payer OTHER, MEDICAID, SELFPAY ==
[2019-09-18 12:28] LABS: Add Manual Diff / Slide Review NO; Basophils Absolute Auto 0 /uL (0-100); Basophils Percent Auto 0.4 % (0-2); Eosinophils Absolute Auto 100 /uL (0-450); Eosinophils Percent Auto 1.1 % (2-4); Hematocrit 40.5 % (36-46); Hemoglobin 13.9 g/dL (12.0-16.0); Lymphocytes Absolute Auto 2100 /uL (1100-4500); Lymphocytes Percent Auto 35.9 % (25-40); Mean Corpuscular HGB Conc 34.4 % (30-36); Mean Corpuscular Hemoglobin 32.8 PG (26-34); Mean Corpuscular Volume 95.2 fL (80-100); Monocytes Absolute Auto 400 /uL (0-900); Monocytes Percent Auto 7.6 % (3-14); Neutrophils Absolute Auto 3200 /uL (1500-7000); Platelet Count 189 X10^3/uL (150-400); Red Blood Cell Count 4.25 X10^6/uL (4.0-5.2); Red Cell Distribution Width 12.7 % (11.6-14.8); White Blood Cell Count 5.9 X10^3/uL (4.5-11.0)
[2019-09-18 13:02] LABS: HEMOLYSIS < 15 (0-50); Iron 155 ug/dL (37-170)
[2019-09-18 13:04] LABS: BUN Creatinine Ratio 18.3 (6-22); Blood Urea Nitrogen 11 mg/dL (7-17); Calcium 9.7 mg/dL (8.4-10.2); Carbon Dioxide 27 mmol/L (22-32); Chloride 97 mmol/L (98-107); Cholesterol 214 mg/dL (140-199); Estimated Glomerular Filt Rate > 60.0 mL/min (>60); Glucose 99 mg/dL (80-110); HDL Cholesterol 63 mg/dL (40-60); HEMOLYSIS < 15 (0-50); LDL Cholesterol Calculated 129 mg/dL (<100); Potassium 4.7 mmol/L (3.4-5.1); Sodium 131 mmol/L (137-145); Triglycerides 109 mg/dL (35-150)
[2019-09-18 13:13] LABS: Percent Iron Saturation 49 % (15-50); Total Iron Binding Capacity 317 ug/dL (265-497); Transferrin 276 mg/dL (206-381)
== END ==
PROVIDERS: PCP Family Medicine; Referring Provider Family Medicine; Visit Provider Family Medicine
DX: D50.8 Other iron deficiency anemias (principal); E87.1 Hypo-osmolality and hyponatremia; E78.5 Hyperlipidemia, unspecified
CPT/HCPCS: 36415; 80048; 80061; 83540; 83550; 85025

== ENCOUNTER → 2020-02-17 07:05 | Outpatient (CLI) | payer OTHER, MEDICAID, SELFPAY ==
[2020-02-17 10:36] LABS: Thyroid Stimulating Hormone 6.55 uIU/mL (0.47-4.68)
== END ==
PROVIDERS: PCP Family Medicine; Referring Provider Family Medicine; Visit Provider Family Medicine
DX: E03.9 Hypothyroidism, unspecified (principal)
CPT/HCPCS: 36415; 84439; 84443

== ENCOUNTER → 2020-06-16 06:58 | Outpatient (CLI) | payer OTHER, MEDICAID, SELFPAY ==
[2020-06-16 08:04] LABS: Add Manual Diff / Slide Review NO; Basophils Absolute Auto 100 /uL (0-100); Basophils Percent Auto 0.8 % (0-2); Eosinophils Absolute Auto 100 /uL (0-450); Eosinophils Percent Auto 1.9 % (2-4); Hematocrit 41.9 % (36-46); Hemoglobin 14.2 g/dL (12.0-16.0); Lymphocytes Absolute Auto 1900 /uL (1100-4500); Lymphocytes Percent Auto 31.7 % (25-40); Mean Corpuscular Hemoglobin 31.9 PG (26-34); Mean Corpuscular Volume 93.9 fL (80-100); Monocytes Absolute Auto 500 /uL (0-900); Monocytes Percent Auto 7.9 % (3-14); Neutrophils Absolute Auto 3500 /uL (1500-7000); Neutrophils Percent Auto 57.7 % (50-75); Platelet Count 198 X10^3/uL (150-400); Red Blood Cell Count 4.47 X10^6/uL (4.0-5.2); Red Cell Distribution Width 12.6 % (11.6-14.8); White Blood Cell Count 6.1 X10^3/uL (4.5-11.0)
[2020-06-16 08:45] LABS: Alanine Aminotransferase 16 IU/L (<35); Albumin 4.1 g/dL (3.5-5.0); Albumin Globulin Ratio 1.4 (1.0-2.8); Alkaline Phosphatase 60 U/L (38-126); Aspartate Aminotransferase 20 IU/L (14-36); BUN Creatinine Ratio 21.4 (6-22); Blood Urea Nitrogen 12 mg/dL (7-17); Calcium 9.6 mg/dL (8.4-10.2); Carbon Dioxide 24 mmol/L (22-32); Chloride 98 mmol/L (98-107); Cholesterol 169 mg/dL (140-199); Estimated Glomerular Filt Rate > 60.0 mL/min (>60); Globulin 2.9 g/dL (1.7-4.1); Glucose 110 mg/dL (80-110); HDL Cholesterol 69 mg/dL (40-60); HEMOLYSIS < 15 (0-50); LDL Cholesterol Calculated 81 mg/dL (<100); Lipase 99 U/L (23-300); Potassium 4.5 mmol/L (3.4-5.1); Sodium 128 mmol/L (137-145); Triglycerides 93 mg/dL (35-150)
[2020-06-16 09:12] LABS: Thyroid Stimulating Hormone 5.25 uIU/mL (0.47-4.68)
== END ==
PROVIDERS: PCP Family Medicine; Referring Provider Internal Medicine Cardiovascular Disease; Visit Provider Family Medicine
DX: R53.1 Weakness (principal); R19.4 Change in bowel habit; Z12.11 Encounter for screening for malignant neoplasm of colon; E78.5 Hyperlipidemia, unspecified
CPT/HCPCS: 36415; 80053; 80061; 83690; 84443; 85025

== ENCOUNTER → 2020-07-03 07:02 | Outpatient (CLI) | payer OTHER, MEDICAID, SELFPAY ==
[2020-07-03 08:41] LABS: Alanine Aminotransferase 18 IU/L (<35); Albumin 4.1 g/dL (3.5-5.0); Albumin Globulin Ratio 1.2 (1.0-2.8); Alkaline Phosphatase 55 U/L (38-126); Aspartate Aminotransferase 22 IU/L (14-36); BUN Creatinine Ratio 23.7 (6-22); Blood Urea Nitrogen 14 mg/dL (7-17); Calcium 9.5 mg/dL (8.4-10.2); Carbon Dioxide 28 mmol/L (22-32); Chloride 98 mmol/L (98-107); Cholesterol 215 mg/dL (140-199); Estimated Glomerular Filt Rate > 60.0 mL/min (>60); Globulin 3.4 g/dL (1.7-4.1); Glucose 106 mg/dL (80-110); HDL Cholesterol 62 mg/dL (40-60); HEMOLYSIS < 15 (0-50); LDL Cholesterol Calculated 133 mg/dL (<100); Potassium 3.9 mmol/L (3.4-5.1); Sodium 130 mmol/L (137-145); Total Protein 7.5 g/dL (6.3-8.2); Triglycerides 98 mg/dL (35-150)
[2020-07-04 12:28] LABS: Osmolality, Serum 281 mOsmol/kg (280-301)
[2020-07-06 13:12] LABS: Osmolality Urine 663 mOsmol/kg (.)
== END ==
PROVIDERS: PCP Family Medicine; Referring Provider Internal Medicine Cardiovascular Disease; Visit Provider Internal Medicine Cardiovascular Disease
DX: I10 Essential (primary) hypertension (principal); E87.1 Hypo-osmolality and hyponatremia
CPT/HCPCS: 36415; 80053; 80061; 83930; 83935

== ENCOUNTER → 2020-07-21 07:01 | Outpatient (CLI) | payer OTHER, MEDICAID, SELFPAY ==
[2020-07-24 16:07] LABS: Osmolality, Serum 270 mOsmol/kg (280-301)
== END ==
PROVIDERS: PCP Family Medicine; Referring Provider Internal Medicine Cardiovascular Disease; Visit Provider Internal Medicine Cardiovascular Disease
DX: E87.1 Hypo-osmolality and hyponatremia (principal)
CPT/HCPCS: 36415; 83930

== ENCOUNTER → 2020-11-18 07:59 | Outpatient (CLI) | payer OTHER, MEDICAID, SELFPAY ==
[2020-11-18 08:19] LABS: Add Manual Diff / Slide Review NO; Basophils Absolute Auto 0 /uL (0-100); Basophils Percent Auto 0.6 % (0-2); Eosinophils Absolute Auto 100 /uL (0-450); Eosinophils Percent Auto 2.1 % (2-4); Hematocrit 42.2 % (36-46); Hemoglobin 14.1 g/dL (12.0-16.0); Lymphocytes Absolute Auto 2500 /uL (1100-4500); Lymphocytes Percent Auto 39.1 % (25-40); Mean Corpuscular HGB Conc 33.4 % (30-36); Mean Corpuscular Hemoglobin 31.4 PG (26-34); Mean Corpuscular Volume 94.1 fL (80-100); Monocytes Absolute Auto 500 /uL (0-900); Monocytes Percent Auto 7.6 % (3-14); Neutrophils Absolute Auto 3200 /uL (1500-7000); Neutrophils Percent Auto 50.6 % (50-75); Platelet Count 194 X10^3/uL (150-400); Red Blood Cell Count 4.48 X10^6/uL (4.0-5.2); Red Cell Distribution Width 12.5 % (11.6-14.8); White Blood Cell Count 6.3 X10^3/uL (4.5-11.0)
[2020-11-18 08:48] LABS: Alanine Aminotransferase 17 IU/L (<35); Albumin 4.1 g/dL (3.5-5.0); Albumin Globulin Ratio 1.3 (1.0-2.8); Alkaline Phosphatase 59 U/L (38-126); Aspartate Aminotransferase 24 IU/L (14-36); BUN Creatinine Ratio 24.3 (6-22); Bilirubin Total 0.8 mg/dL (0.2-1.3); Blood Urea Nitrogen 17 mg/dL (7-17); Calcium 9.4 mg/dL (8.4-10.2); Carbon Dioxide 23 mmol/L (22-32); Chloride 104 mmol/L (98-107); Cholesterol 211 mg/dL (140-199); Estimated Glomerular Filt Rate > 60.0 mL/min (>60); Globulin 3.2 g/dL (1.7-4.1); Glucose 113 mg/dL (80-110); HDL Cholesterol 74 mg/dL (40-60); HEMOLYSIS < 15 (0-50); LDL Cholesterol Calculated 121 mg/dL (<100); Potassium 4.2 mmol/L (3.4-5.1); Sodium 135 mmol/L (137-145); Total Protein 7.3 g/dL (6.3-8.2); Triglycerides 81 mg/dL (35-150)
[2020-11-18 09:16] LABS: Thyroid Stimulating Hormone 3.28 uIU/mL (0.47-4.68)
== END ==
PROVIDERS: PCP Family Medicine; Referring Provider Family Medicine; Visit Provider Family Medicine
DX: K21.9 Gastro-esophageal reflux disease without esophagitis (principal); E78.5 Hyperlipidemia, unspecified; E03.9 Hypothyroidism, unspecified
CPT/HCPCS: 36415; 80053; 80061; 84443; 85025

== ENCOUNTER → 2020-12-16 08:03 | Outpatient (CLI) | payer OTHER, MEDICAID, SELFPAY ==
[2020-12-16 09:34] LABS: Sodium Urine Random 79 mmol/L (30-90)
[2020-12-16 09:42] LABS: BUN Creatinine Ratio 35.9 (6-22); Blood Urea Nitrogen 23 mg/dL (7-17); Calcium 9.7 mg/dL (8.4-10.2); Carbon Dioxide 25 mmol/L (22-32); Chloride 105 mmol/L (98-107); Estimated Glomerular Filt Rate > 60.0 mL/min (>60); Glucose 103 mg/dL (80-110); HEMOLYSIS < 15 (0-50); Potassium 4.1 mmol/L (3.4-5.1); Sodium 137 mmol/L (137-145); Uric Acid 4.8 mg/dL (2.5-6.2)
[2020-12-16 10:08] LABS: Cortisol AM (Before 10AM) 10.1 ug/dL (4.46-22.7)
[2020-12-18 15:36] LABS: Osmolality Urine 966 mOsmol/kg (.)
== END ==
PROVIDERS: PCP Family Medicine; Referring Provider Internal Medicine Nephrology; Visit Provider Internal Medicine Nephrology
DX: E87.1 Hypo-osmolality and hyponatremia (principal)
CPT/HCPCS: 36415; 80048; 82533; 83935; 84300; 84550

== ENCOUNTER → 2021-02-17 07:54 | Outpatient (CLI) | payer OTHER, MEDICAID, SELFPAY ==
[2021-02-17 08:42] LABS: Appearance Urine UA CLEAR; Bilirubin Urine UA NEGATIVE (NEGATIVE); Color Urine UA YELLOW; Glucose Urine UA NEGATIVE (Negative); Ketones Urine UA NEGATIVE (NEGATIVE); Leukocyte Esterase Urine UA TRACE (NEGATIVE); Nitrite Urine UA NEGATIVE (Negative); Occult Blood Urine UA TRACE-INTACT (Negative); Protein Urine UA 1+ (Negative)
[2021-02-17 08:51] LABS: Bacteria Urine Many (>30); RBC Urine 0-1/HPF (0-5/HPF); Squamous Epithelial Cell Urine >30 /HPF (0-5/HPF); WBC Urine 0-1/HPF (0-5/HPF)
== END ==
PROVIDERS: PCP Family Medicine; Referring Provider Family Medicine; Visit Provider Family Medicine
DX: R35.0 Frequency of micturition (principal)
CPT/HCPCS: 81001

== ENCOUNTER → 2021-04-04 07:03 | Outpatient (CLI) | payer OTHER, MEDICAID, SELFPAY ==
[2021-04-04 08:47] LABS: BUN Creatinine Ratio 27.3 (6-22); Blood Urea Nitrogen 15 mg/dL (7-17); Calcium 9.3 mg/dL (8.4-10.2); Carbon Dioxide 25 mmol/L (22-32); Chloride 103 mmol/L (98-107); Estimated Glomerular Filt Rate > 60.0 mL/min (>60); Glucose 102 mg/dL (80-110); HEMOLYSIS < 15 (0-50); Sodium 132 mmol/L (137-145)
[2021-04-04 09:16] LABS: Sodium Urine Random 94 mmol/L (30-90)
[2021-04-05 12:11] LABS: Osmolality Urine 473 mOsmol/kg (.)
== END ==
PROVIDERS: PCP Family Medicine; Referring Provider Internal Medicine Nephrology; Visit Provider Internal Medicine Nephrology
DX: E87.1 Hypo-osmolality and hyponatremia (principal)
CPT/HCPCS: 36415; 80048; 83935; 84300

== ENCOUNTER → 2021-07-03 07:08 | Outpatient (CLI) | payer OTHER, MEDICAID, SELFPAY ==
[2021-07-03 08:30] LABS: Add Manual Diff / Slide Review NO; Basophils Absolute Auto 0 /uL (0-100); Basophils Percent Auto 0.8 % (0-2); Eosinophils Absolute Auto 100 /uL (0-450); Eosinophils Percent Auto 1.5 % (2-4); Hematocrit 41.2 % (36-46); Hemoglobin 13.9 g/dL (12.0-16.0); Lymphocytes Absolute Auto 2300 /uL (1100-4500); Lymphocytes Percent Auto 42.4 % (25-40); Mean Corpuscular HGB Conc 33.7 % (30-36); Mean Corpuscular Hemoglobin 32.1 PG (26-34); Mean Corpuscular Volume 95.1 fL (80-100); Monocytes Absolute Auto 400 /uL (0-900); Monocytes Percent Auto 7.8 % (3-14); Neutrophils Absolute Auto 2500 /uL (1500-7000); Neutrophils Percent Auto 47.5 % (50-75); Platelet Count 178 X10^3/uL (150-400); Red Blood Cell Count 4.33 X10^6/uL (4.0-5.2); Red Cell Distribution Width 12.2 % (11.6-14.8); White Blood Cell Count 5.3 X10^3/uL (4.5-11.0)
[2021-07-03 08:58] LABS: Alanine Aminotransferase 19 IU/L (<35); Albumin 4.2 g/dL (3.5-5.0); Albumin Globulin Ratio 1.4 (1.0-2.8); Alkaline Phosphatase 53 U/L (38-126); Aspartate Aminotransferase 25 IU/L (14-36); BUN Creatinine Ratio 22.9 (6-22); Bilirubin Total 1.4 mg/dL (0.2-1.3); Blood Urea Nitrogen 16 mg/dL (7-17); Calcium 9.3 mg/dL (8.4-10.2); Carbon Dioxide 24 mmol/L (22-32); Chloride 102 mmol/L (98-107); Estimated Glomerular Filt Rate > 60.0 mL/min (>60); Glucose 102 mg/dL (80-110); HEMOLYSIS < 15 (0-50); Potassium 3.9 mmol/L (3.4-5.1); Sodium 136 mmol/L (137-145); Total Protein 7.2 g/dL (6.3-8.2)
[2021-07-03 08:59] LABS: NT-proBNP (BNP-Adult 18+) 518 pg/mL (<450)
[2021-07-03 09:23] LABS: Thyroid Stimulating Hormone 4.58 uIU/mL (0.47-4.68)
== END ==
PROVIDERS: PCP Family Medicine; Referring Provider Internal Medicine Cardiovascular Disease; Visit Provider Internal Medicine Cardiovascular Disease
DX: I10 Essential (primary) hypertension (principal); R06.00 Dyspnea, unspecified
CPT/HCPCS: 36415; 80053; 83880; 84443; 85025

== ENCOUNTER → 2021-10-01 06:59 | Outpatient (CLI) | payer OTHER, MEDICAID, SELFPAY ==
[2021-10-01 08:37] LABS: BUN Creatinine Ratio 21.5 (6-22); Blood Urea Nitrogen 14 mg/dL (7-17); Calcium 9.4 mg/dL (8.4-10.2); Carbon Dioxide 25 mmol/L (22-32); Chloride 106 mmol/L (98-107); Estimated Glomerular Filt Rate > 60.0 mL/min (>60); Glucose 114 mg/dL (80-110); HEMOLYSIS < 15 (0-50); Potassium 4.1 mmol/L (3.4-5.1); Sodium 135 mmol/L (137-145)
[2021-10-01 08:49] LABS: Sodium Urine Random 77 mmol/L (30-90)
[2021-10-02 13:10] LABS: Osmolality Urine 816 mOsmol/kg (.)
== END ==
PROVIDERS: PCP Family Medicine; Referring Provider Internal Medicine Nephrology; Visit Provider Internal Medicine Nephrology
DX: E87.1 Hypo-osmolality and hyponatremia (principal)
CPT/HCPCS: 36415; 80048; 83935; 84300

== ENCOUNTER → 2022-01-05 07:56 | Outpatient (CLI) | payer OTHER, MEDICAID, SELFPAY ==
[2022-01-05 09:52] LABS: BUN Creatinine Ratio 22.6 (6-22); Blood Urea Nitrogen 14 mg/dL (7-17); Calcium 8.9 mg/dL (8.4-10.2); Carbon Dioxide 23 mmol/L (22-32); Chloride 105 mmol/L (98-107); Estimated Glomerular Filt Rate > 60 mL/min (>60); Glucose 108 mg/dL (80-110); HEMOLYSIS 34 (0-50); Potassium 4.2 mmol/L (3.4-5.1); Sodium 137 mmol/L (137-145)
== END ==
PROVIDERS: PCP Family Medicine; Referring Provider Internal Medicine Cardiovascular Disease; Visit Provider Internal Medicine Cardiovascular Disease
DX: I50.20 Unspecified systolic (congestive) heart failure (principal)
CPT/HCPCS: 36415; 80048

== ENCOUNTER → 2022-04-03 06:51 | Outpatient (CLI) | payer OTHER, MEDICAID, SELFPAY ==
[2022-04-03 09:05] LABS: BUN Creatinine Ratio 18.6 (6-22); Blood Urea Nitrogen 13 mg/dL (7-17); Calcium 8.8 mg/dL (8.4-10.2); Carbon Dioxide 21 mmol/L (22-32); Chloride 100 mmol/L (98-107); Estimated Glomerular Filt Rate > 60 mL/min (>60); Glucose 152 mg/dL (80-110); HEMOLYSIS < 15 (0-50); Sodium 131 mmol/L (137-145)
== END ==
PROVIDERS: PCP Family Medicine; Referring Provider Internal Medicine Cardiovascular Disease; Visit Provider Internal Medicine Cardiovascular Disease
DX: I50.20 Unspecified systolic (congestive) heart failure (principal)
CPT/HCPCS: 36415; 80048

== ENCOUNTER → 2022-04-26 07:00 | Outpatient (CLI) | payer OTHER, MEDICAID, SELFPAY ==
[2022-04-26 09:06] LABS: BUN Creatinine Ratio 19.4 (6-22); Blood Urea Nitrogen 14 mg/dL (7-17); Calcium 8.9 mg/dL (8.4-10.2); Carbon Dioxide 21 mmol/L (22-32); Chloride 99 mmol/L (98-107); Estimated Glomerular Filt Rate > 60 mL/min (>60); Glucose 101 mg/dL (80-110); HEMOLYSIS < 15 (0-50); Potassium 4.4 mmol/L (3.4-5.1); Sodium 131 mmol/L (137-145)
[2022-04-26 09:19] LABS: Sodium Urine Random 18 mmol/L (30-90)
[2022-04-29 13:36] LABS: Osmolality Urine 618 mOsmol/kg (.)
== END ==
PROVIDERS: PCP Family Medicine; Referring Provider Internal Medicine Nephrology; Visit Provider Internal Medicine Nephrology
DX: E87.1 Hypo-osmolality and hyponatremia (principal)
CPT/HCPCS: 36415; 80048; 83935; 84300

== ENCOUNTER 2022-06-19 14:15 | Outpatient (RCR) | payer OTHER, MEDICAID, SELFPAY | END 2022-06-19 17:15 | LOC: CAR 14:15 | PROVIDERS: PCP Family Medicine; Referring Provider Internal Medicine Cardiovascular Disease; Visit Provider Internal Medicine Cardiovascular Disease | DX: I50.20 Unspecified systolic (congestive) heart failure (principal) | CPT/HCPCS: 93798 ==

== ENCOUNTER → 2022-08-19 07:15 | Outpatient (CLI) | payer OTHER, MEDICAID, SELFPAY ==
[2022-08-19 07:56] LABS: Add Manual Diff / Slide Review NO; Basophils Absolute Auto 100 /uL (0-100); Basophils Percent Auto 0.8 % (0-2); Eosinophils Absolute Auto 100 /uL (0-450); Eosinophils Percent Auto 1.8 % (2-4); Hematocrit 42.8 % (36-46); Hemoglobin 14.4 g/dL (12.0-16.0); Lymphocytes Absolute Auto 2300 /uL (1100-4500); Lymphocytes Percent Auto 36.7 % (25-40); Mean Corpuscular HGB Conc 33.6 % (30-36); Mean Corpuscular Hemoglobin 31.9 PG (26-34); Mean Corpuscular Volume 94.9 fL (80-100); Monocytes Absolute Auto 400 /uL (0-900); Monocytes Percent Auto 6.6 % (3-14); Neutrophils Absolute Auto 3400 /uL (1500-7000); Neutrophils Percent Auto 54.1 % (50-75); Platelet Count 180 X10^3/uL (150-400); Red Cell Distribution Width 12.9 % (11.6-14.8); White Blood Cell Count 6.3 X10^3/uL (4.5-11.0)
[2022-08-19 08:03] LABS: Iron 148 ug/dL (37-170)
[2022-08-19 08:07] LABS: Alanine Aminotransferase 21 IU/L (<35); Alkaline Phosphatase 55 U/L (38-126); Aspartate Aminotransferase 21 IU/L (14-36); BUN Creatinine Ratio 25.8 (6-22); Bilirubin Total 1.1 mg/dL (0.2-1.3); Bilirubin Unconjugated 0.8 mg/dL (0.0-1.1); Blood Urea Nitrogen 16 mg/dL (7-17); Calcium 8.9 mg/dL (8.4-10.2); Carbon Dioxide 21 mmol/L (22-32); Chloride 103 mmol/L (98-107); Estimated Glomerular Filt Rate > 60 mL/min (>60); Glucose 107 mg/dL (80-110); Potassium 4.2 mmol/L (3.4-5.1); Sodium 134 mmol/L (137-145); Total Protein 7.3 g/dL (6.3-8.2)
[2022-08-19 08:14] LABS: Percent Iron Saturation 42 % (15-50); Total Iron Binding Capacity 352 ug/dL (265-497); Transferrin 264 mg/dL (206-381)
[2022-08-19 08:21] LABS: Vitamin D 25 Hydroxy (D3) 36.1 ng/mL (30.0-100.0)
[2022-08-19 08:34] LABS: TSH w/ Reflex to FT4 6.16 uIU/mL (0.47-4.68)
[2022-08-19 09:15] LABS: Free T4, Direct Thyroxine 1.16 ng/dL (0.78-2.19); HEMOLYSIS 23 (0-50)
[2022-08-23 15:41] LABS: Albumin Globulin Ratio 1.2 (1.0-2.8); Globulin 3.3 g/dL (1.7-4.1); HEMOLYSIS 22 (0-50)
== END ==
PROVIDERS: PCP Family Medicine; Referring Provider Internal Medicine Cardiovascular Disease; Visit Provider Internal Medicine Cardiovascular Disease
DX: I50.20 Unspecified systolic (congestive) heart failure (principal); Z86.2 Personal history of diseases of the blood and blood-forming organs and certain disorders involving the immune mechanism; E55.9 Vitamin D deficiency, unspecified; K58.2 Mixed irritable bowel syndrome; Z13.29 Encounter for screening for other suspected endocrine disorder
CPT/HCPCS: 36415; 80048; 80076; 82306; 83540; 83550; 84439; 84443; 85025

== ENCOUNTER → 2023-01-13 06:54 | Outpatient (CLI) | payer OTHER, MEDICAID, SELFPAY ==
[2023-01-13 08:42] LABS: BUN Creatinine Ratio 24.6 (6-22); Blood Urea Nitrogen 16 mg/dL (7-17); Calcium 9.3 mg/dL (8.4-10.2); Carbon Dioxide 23 mmol/L (22-32); Chloride 98 mmol/L (98-107); Estimated Glomerular Filt Rate > 60 mL/min (>60); Glucose 110 mg/dL (80-110); HEMOLYSIS < 15 (0-50); Potassium 4.4 mmol/L (3.4-5.1); Sodium 130 mmol/L (137-145)
== END ==
PROVIDERS: Referring Provider Internal Medicine Cardiovascular Disease; Visit Provider Internal Medicine Cardiovascular Disease
DX: I50.20 Unspecified systolic (congestive) heart failure (principal)
CPT/HCPCS: 36415; 80048

== ENCOUNTER → 2023-02-07 06:44 | Outpatient (CLI) | payer OTHER, MEDICAID, SELFPAY ==
[2023-02-07 08:09] LABS: Add Manual Diff / Slide Review NO; Basophils Absolute Auto 0 /uL (0-100); Basophils Percent Auto 0.6 % (0-2); Eosinophils Absolute Auto 100 /uL (0-450); Eosinophils Percent Auto 1.5 % (2-4); Hematocrit 39.2 % (36-46); Hemoglobin 13.4 g/dL (12.0-16.0); Lymphocytes Absolute Auto 2500 /uL (1100-4500); Lymphocytes Percent Auto 35.1 % (25-40); Mean Corpuscular HGB Conc 34.2 % (30-36); Mean Corpuscular Hemoglobin 32.4 PG (26-34); Mean Corpuscular Volume 94.8 fL (80-100); Monocytes Absolute Auto 600 /uL (0-900); Monocytes Percent Auto 7.7 % (3-14); Neutrophils Absolute Auto 3900 /uL (1500-7000); Neutrophils Percent Auto 55.1 % (50-75); Platelet Count 196 X10^3/uL (150-400); Red Blood Cell Count 4.13 X10^6/uL (4.0-5.2); Red Cell Distribution Width 12.6 % (11.6-14.8); White Blood Cell Count 7.1 X10^3/uL (4.5-11.0)
[2023-02-07 09:01] LABS: Alanine Aminotransferase 15 IU/L (<35); Albumin 3.7 g/dL (3.5-5.0); Albumin Globulin Ratio 1.3 (1.0-2.8); Alkaline Phosphatase 51 U/L (38-126); Aspartate Aminotransferase 18 IU/L (14-36); BUN Creatinine Ratio 23.8 (6-22); Blood Urea Nitrogen 15 mg/dL (7-17); Calcium 8.9 mg/dL (8.4-10.2); Carbon Dioxide 23 mmol/L (22-32); Chloride 99 mmol/L (98-107); Estimated Glomerular Filt Rate > 60 mL/min (>60); Globulin 2.8 g/dL (1.7-4.1); Glucose 104 mg/dL (80-110); HEMOLYSIS < 15 (0-50); Potassium 4.5 mmol/L (3.4-5.1); Sodium 131 mmol/L (137-145); Total Protein 6.5 g/dL (6.3-8.2)
== END ==
PROVIDERS: Referring Provider Family Medicine; Visit Provider Family Medicine
DX: R10.10 Upper abdominal pain, unspecified (principal)
CPT/HCPCS: 80053; 85025

== ENCOUNTER → 2023-04-17 06:47 | Outpatient (CLI) | payer OTHER, MEDICAID, SELFPAY ==
[2023-04-17 09:44] LABS: BUN Creatinine Ratio 21.9 (6-22); Blood Urea Nitrogen 14 mg/dL (7-17); Calcium 9.1 mg/dL (8.4-10.2); Carbon Dioxide 21 mmol/L (22-32); Chloride 98 mmol/L (98-107); Estimated Glomerular Filt Rate > 60 mL/min (>60); Glucose 108 mg/dL (80-110); HEMOLYSIS < 15 (0-50); Potassium 4.1 mmol/L (3.4-5.1); Sodium 129 mmol/L (137-145)
[2023-04-17 10:06] LABS: Sodium Urine Random 29 mmol/L (30-90)
[2023-04-18 16:13] LABS: Osmolality, Serum 271 mOsmol/kg (280-301)
== END ==
PROVIDERS: Family Provider Family Medicine; Referring Provider Internal Medicine Nephrology; Visit Provider Internal Medicine Nephrology
DX: E87.1 Hypo-osmolality and hyponatremia (principal)
CPT/HCPCS: 36415; 80048; 83930; 84300

== ENCOUNTER → 2023-05-02 06:49 | Outpatient (CLI) | payer OTHER, MEDICAID, SELFPAY ==
[2023-05-02 08:29] LABS: BUN Creatinine Ratio 20.5 (6-22); Blood Urea Nitrogen 15 mg/dL (7-17); Calcium 9.6 mg/dL (8.4-10.2); Carbon Dioxide 21 mmol/L (22-32); Chloride 102 mmol/L (98-107); Estimated Glomerular Filt Rate > 60 mL/min (>60); Glucose 116 mg/dL (80-110); HEMOLYSIS < 15 (0-50); Potassium 4.2 mmol/L (3.4-5.1); Sodium 132 mmol/L (137-145)
[2023-05-02 09:34] LABS: Sodium Urine Random 58 mmol/L (30-90)
[2023-05-05 20:29] LABS: Osmolality Urine 691 mOsmol/kg (.)
== END ==
PROVIDERS: Family Provider Family Medicine; PCP Family Medicine; Referring Provider Internal Medicine Nephrology; Visit Provider Internal Medicine Nephrology
DX: E87.1 Hypo-osmolality and hyponatremia (principal)
CPT/HCPCS: 36415; 80048; 83935; 84300

== ENCOUNTER 2023-06-25 13:45 | Outpatient (RCR) | payer OTHER, MEDICAID, SELFPAY ==
--- NOTE | 2023-04-23 14:50 | PT.OIE ---
Current Diagnoses Pain in left knee (04/23/23) Other bursitis of knee, unspecified knee (04/23/23) Past Medical History (Last Updated 04/10/22 @ 09:17 by Tahir Brown RN) GERD (gastroesophageal reflux disease) (11/04/11) Hypertension Menopause Polymyalgia rheumatica Uterine fibroid Past Surgical History Status post surgery (10/02/09) Visit Care Team Role Provider Type Scarlett Soler DO Attending Provider Non-Staff Family Provider Primary Care Provider Referring Provider Specialty: Family Practice Address: [address] [place] [address], [id number] Email: Physical Therapy Initial Evaluation PT-OP-A Visit Information Start: 04/23/23 10:59 Freq: Status: Active Protocol: Document 04/23/23 10:59 AB (Rec: 04/23/23 14:50 AB [id number]) Out-Patient Physical Therapy Visit Information Visit Information Visit Type Initial Evaluation Visit Start Time 11:00 Visit Stop Time 11:45 Total Visit Minutes 45 Visit Number 1 PT-OP-B Current Condition Start: 04/23/23 10:59 Freq: Status: Active Protocol: Document 04/23/23 10:59 AB (Rec: 04/23/23 14:50 AB [id number]) Current Condition History of Current Condition Current Complaints Left knee pain 7/10 at worst and 3/10 at best History of Current Condition Pt reports she was doing down the stairs sideways, then felt like something tore in her knee.She had to hope off the stairs, and reports that she was not able to do much for a week. Now that she is 3 months later, she continues to have pain and difficulty walking. She has avoided stairs since that injury, and avoids standing for prolonged periods . She reports being unable to participate in her exercise routine due to her symptoms. Prior Treatments and Tests None PT-OP-C Subjective Start: 04/23/23 10:59 Freq: Status: Active Protocol: Document 04/23/23 10:59 AB (Rec: 04/23/23 14:50 AB [id number]) OP-PT Subjective Patient Comments Patient Comments See hx of current condition PT-OP-E Functional Tests Start: 04/23/23 10:59 Freq: Status: Active Protocol: Document 04/23/23 10:59 AB (Rec: 04/23/23 14:50 AB [id number]) Functional Tests Squat Test Comments Pt has poor squatting mechanics- excessive trunk lean, lacks hip hinge PT-OP-G Mobility & Gait Start: 04/23/23 10:59 Freq: Status: Active Protocol: Document 04/23/23 10:59 AB (Rec: 04/23/23 14:50 AB [id number]) OP Gait Assessment Gait Deviations General Gait Pattern Antalgic,Decreased Stride Length Factors Limiting Gait Function Factors Limiting Gait Function Decreased Strength,Pain Stair Climbing Evaluation Evaluation Level of Assist On Stairs Independent Devices Stair Climbing Assistive Devices Left Railing,Right Railing Technique/Endurance Stair Climbing Direction Ascend and Descend Stair Climbing Technique Step Over Step,Step to Step Number of Steps Climbed 3 Stair Climbing Set # Repetitions (reps) 2 Comments Stair Climbing Comments Pt is able to ascend and descend 4 steps with step over step technique but has increased pain when performing with 6 steps, which required her to switch to step to step technique. Mild dynamic knee valgus noted bilaterally. PT-OP-J Posture/Palpation/Skin Start: 04/23/23 10:59 Freq: Status: Active Protocol: Document 04/23/23 10:59 AB (Rec: 04/23/23 14:50 AB [id number]) Palpation Assessment Location Left knee Palpation Location left knee Palpation Findings None/Normal Palpation Details denies TTP PT-OP-K Range of Motion Start: 04/23/23 10:59 Freq: Status: Active Protocol: Document 04/23/23 10:59 AB (Rec: 04/23/23 14:50 AB [id number]) Knee Goniometric Range of Motion Knee Right Knee ROM WFL Yes Flexion Active (degrees) 140 Extension Active (degrees) 0 Left Knee ROM WFL Yes Patient Position Supine Flexion Active (degrees) 140 Extension Active (degrees) 0 Comments Pain with end range ext PT-OP-L Special Tests Start: 04/23/23 10:59 Freq: Status: Active Protocol: Document 04/23/23 10:59 AB (Rec: 04/23/23 14:50 AB [id number]) Special Tests Knee Special Tests Varus- 25 Degrees Test Results negative Varus- 0 Degrees Test Results negative Valgus- 25 Degrees Test Results positive Comments reproduction of symptoms over medial knee Valgus- 0 Degrees Test Results negative Thessaly Test 5 Degrees Test Results negative Lily Test Test Results negative Posterior Draw Test Results negative Anterior Draw Test Results negative PT-OP-M Strength Start: 04/23/23 10:59 Freq: Status: Active Protocol: Document 04/23/23 10:59 AB (Rec: 04/23/23 14:50 AB [id number]) Hip Strength Hip Manual Muscle Testing Right Flexion (L2) 4 Good Abduction 4 Good Adduction 4- Good- External Rotation 4- Good- Internal Rotation 3+ Fair+ Comments Pain with ER at knee Left Flexion (L2) 4 Good Abduction 4 Good Adduction 4- Good- External Rotation 4- Good- Internal Rotation 3+ Fair+ Knee Strength Knee Manual Muscle Testing Right Flexion (S2) 4 Good Extension (L3) 4- Good- Left Flexion (S2) 4 Good Extension (L3) 4- Good- PT-OP-Q Treatments Start: 04/23/23 10:59 Freq: Status: Active Protocol: Document 04/23/23 10:59 AB (Rec: 04/23/23 14:50 AB [id number]) Cardio Equipment Recumbent Bicycle Duration (Minutes) 5 Seat Position 1 Therapeutic Exercises Sitting Exercises LAQ Side left Reps/Minutes 1x15 Comments to be performed bilaterally Standing Exercises HS curl Side left Reps/Minutes 1x15 Comments to be performed bilaterally Heel raises Side bilateral Reps/Minutes 1x15 PT-OP-T Assessment and Plan Start: 04/23/23 10:59 Freq: Status: Active Protocol: Document 04/23/23 10:59 AB (Rec: 04/23/23 14:50 AB [id number]) Physical Therapy Assessment Rehab Potential Rehabilitation Potential Good Evaluation Complexity Number of Personal Factors/Comorbidities 1-2 Number of Body Systems Impaired 1-2 Clinical Presentation at Evaluation Stable Impairments Impairments Balance,Functional Activities, Functional Mobility,Integument ,Pain,Strength Goals Five Impairment HEP Short Term Goal (STG) Pt to be able to recall 50% of HEP with good form and minimal cues in order to progress in therapy. STG Duration 4 Detention Goal (LTG) Pt to be able to recall 100% of HEP with good form and minimal cues in order to discharge to independent HEP. LTG Duration 6 Four Impairment Biomechanics Short Term Goal (STG) Pt to show mild dynamic knee valgus with squatting to show improving LE strength and neuromuscular control to improve ability to perform functional mobility. STG Duration 4 Monitor Car Operator Goal (LTG) Pt to show no dynamic knee valgus with squatting or descending stairs to show improving LE strength and neuromuscular control to improve ability to perform functional mobility. LTG Duration 6 Three Impairment Questionnaire Short Term Goal (STG) Pt's LEFS score to improve to 25/80 or better to show improving subjective report of symptoms and QOL. STG Duration 4 Detention Goal (LTG) Pt's LEFS score to improve to 25/80 or better to show improving subjective report of symptoms and QOL. LTG Duration 6 Two Impairment Pain symptoms Short Term Goal (STG) Pt to report pain levels of 4/ 10 pain or better with activity to show improving symptoms to demonstrate pt is returning to PLOF. STG Duration 4 Monitor Car Operator Goal (LTG) Pt to report pain levels of 2/ 10 pain or better with activity to show improving symptoms to demonstrate pt is returning to PLOF. LTG Duration 6 One Impairment Strength Short Term Goal (STG) Pt's gross LE MMT scores to improve to 4/5 or better to show improving strength in order to improve ability to perform functional mobility and tasks. STG Duration 4 Detention Goal (LTG) Pt's gross LE MMT scores to improve to 4+/5 or better to show improving strength in order to improve ability to perform functional mobility and tasks. LTG Duration 6 Assessment Summary Assessment Ashleigh Lynne is an 83 year old female patient who presents to outpatient PT clinic with complaints of left knee pain after an incident 3 months ago on her stairs. Today's PT evaluation revealed LE muscular weakness and medial knee pain that was reproduced with knee valgus stress testing, and when descending stairs due to mild dynamic valgus noted when descending. The pt also demonstrates gait deviations and abnormal squatting mechanics. Bases on these findings, the pt would benefit from a trial of skilled PT to improve her symptoms and deficits in order to help the pt return to her PLOF, including participating in recreational activities. Physical Therapy Plan Frequency and Duration Frequency of Treatment 2x/Week Duration of treatment (weeks) 6 Plan of Care Start Date 04/23/23 Plan of Care End Date 06/04/23 Therapeutic Interventions Therapeutic Interventions Balance Training,Coordination Training,Gait Training,Home Exercise Program,Joint Mobilizations,Manual Therapy, Neuromuscular Re-education, Patient/Caregiver Education, Self-Care/Home Management,Soft Tissue Mobilization,Taping, Therapeutic Activities, Therapeutic Exercises Modalities Cold Pack/Ice Massage,Electric Stimulation,Hot Packs Next Visit Focus/Plan Next Note Type Treatment Note Next Visit Plan Review HEP. Add LE strengthening exercises for hip and knee musculature. Add manual therapy and modalities as indicated.
--- NOTE | 2023-04-23 14:52 | PT.OPPOC ---
Physical, Occupational & Speech Therapy At [facility] Current Diagnoses Pain in left knee (04/23/23) Other bursitis of knee, unspecified knee (04/23/23) Visit Care Team Role Provider Type Scarlett Soler DO Attending Provider Non-Staff Family Provider Primary Care Provider Referring Provider Specialty: Family Practice Address: [address] [place] [address], [id number] Email: Plan Of Care PT-OP-T Assessment and Plan Start: 04/23/23 10:59 Freq: Status: Active Protocol: Document 04/23/23 10:59 AB (Rec: 04/23/23 14:50 AB [id number]) Physical Therapy Assessment Rehab Potential Rehabilitation Potential Good Evaluation Complexity Number of Personal Factors/Comorbidities 1-2 Number of Body Systems Impaired 1-2 Clinical Presentation at Evaluation Stable Impairments Impairments Balance,Functional Activities, Functional Mobility,Integument ,Pain,Strength Goals Five Impairment HEP Short Term Goal (STG) Pt to be able to recall 50% of HEP with good form and minimal cues in order to progress in therapy. STG Duration 4 Retirement Goal (LTG) Pt to be able to recall 100% of HEP with good form and minimal cues in order to discharge to independent HEP. LTG Duration 6 Four Impairment Biomechanics Short Term Goal (STG) Pt to show mild dynamic knee valgus with squatting to show improving LE strength and neuromuscular control to improve ability to perform functional mobility. STG Duration 4 Retirement Goal (LTG) Pt to show no dynamic knee valgus with squatting or descending stairs to show improving LE strength and neuromuscular control to improve ability to perform functional mobility. LTG Duration 6 Three Impairment Questionnaire Short Term Goal (STG) Pt's LEFS score to improve to 25/80 or better to show improving subjective report of symptoms and QOL. STG Duration 4 Retirement Goal (LTG) Pt's LEFS score to improve to 25/80 or better to show improving subjective report of symptoms and QOL. LTG Duration 6 Two Impairment Pain symptoms Short Term Goal (STG) Pt to report pain levels of 4/ 10 pain or better with activity to show improving symptoms to demonstrate pt is returning to PLOF. STG Duration 4 Compound Coating Machine Offbearer Goal (LTG) Pt to report pain levels of 2/ 10 pain or better with activity to show improving symptoms to demonstrate pt is returning to PLOF. LTG Duration 6 One Impairment Strength Short Term Goal (STG) Pt's gross LE MMT scores to improve to 4/5 or better to show improving strength in order to improve ability to perform functional mobility and tasks. STG Duration 4 Compound Coating Machine Offbearer Goal (LTG) Pt's gross LE MMT scores to improve to 4+/5 or better to show improving strength in order to improve ability to perform functional mobility and tasks. LTG Duration 6 Assessment Summary Assessment Ashleigh Lynne is an 83 year old female patient who presents to outpatient PT clinic with complaints of left knee pain after an incident 3 months ago on her stairs. Today's PT evaluation revealed LE muscular weakness and medial knee pain that was reproduced with knee valgus stress testing, and when descending stairs due to mild dynamic valgus noted when descending. The pt also demonstrates gait deviations and abnormal squatting mechanics. Bases on these findings, the pt would benefit from a trial of skilled PT to improve her symptoms and deficits in order to help the pt return to her PLOF, including participating in recreational activities. Physical Therapy Plan Frequency and Duration Frequency of Treatment 2x/Week Duration of treatment (weeks) 6 Plan of Care Start Date 04/23/23 Plan of Care End Date 06/04/23 Therapeutic Interventions Therapeutic Interventions Balance Training,Coordination Training,Gait Training,Home Exercise Program,Joint Mobilizations,Manual Therapy, Neuromuscular Re-education, Patient/Caregiver Education, Self-Care/Home Management,Soft Tissue Mobilization,Taping, Therapeutic Activities, Therapeutic Exercises Modalities Cold Pack/Ice Massage,Electric Stimulation,Hot Packs Next Visit Focus/Plan Next Note Type Treatment Note Next Visit Plan Review HEP. Add LE strengthening exercises for hip and knee musculature. Add manual therapy and modalities as indicated. Plan of Care Dates Plan of Care Start Date 04/23/23 Plan of Care End Date 06/04/23 Electronically Signed by: Alon Billingsley, PT 04/23/23 4269 If you are in agreement with this Plan of Care, please return a signed and dated copy. I have reviewed this Plan of Care and certify that the skilled therapy services above are required to meet the patient?s needs. Physician Signature Date Printed Name and Credentials Clinical Instructor Signature Printed Name and Credentials
--- NOTE | 2023-04-28 13:28 | PT.OTN ---
Current Diagnoses Pain in left knee (04/28/23) Other bursitis of knee, unspecified knee (04/28/23) Physical Therapy Treatment Note PT-OP-A Visit Information Start: 04/23/23 10:59 Freq: Status: Active Protocol: Document 04/28/23 11:49 AB (Rec: 04/28/23 13:28 AB [id number]) Out-Patient Physical Therapy Visit Information Visit Information Visit Type Treatment Note Visit Start Time 11:47 Visit Stop Time 12:30 Total Visit Minutes 43 Visit Number 2 PT-OP-B Current Condition Start: 04/23/23 10:59 Freq: Status: Active Protocol: Document 04/23/23 10:59 AB (Rec: 04/23/23 14:50 AB [id number]) Current Condition History of Current Condition Current Complaints Left knee pain 7/10 at worst and 3/10 at best History of Current Condition Pt reports she was doing down the stairs sideways, then felt like something tore in her knee.She had to hope off the stairs, and reports that she was not able to do much for a week. Now that she is 3 months later, she continues to have pain and difficulty walking. She has avoided stairs since that injury, and avoids standing for prolonged periods . She reports being unable to participate in her exercise routine due to her symptoms. Prior Treatments and Tests None PT-OP-C Subjective Start: 04/23/23 10:59 Freq: Status: Active Protocol: Document 04/28/23 11:49 AB (Rec: 04/28/23 13:28 AB [id number]) OP-PT Subjective Patient Comments Patient Comments Pt reports she is having some pain with standing hamstring curl, but denies any symptoms otherwise. PT-OP-E Functional Tests Start: 04/23/23 10:59 Freq: Status: Active Protocol: Document 04/23/23 10:59 AB (Rec: 04/23/23 14:50 AB [id number]) Functional Tests Squat Test Comments Pt has poor squatting mechanics- excessive trunk lean, lacks hip hinge PT-OP-G Mobility & Gait Start: 04/23/23 10:59 Freq: Status: Active Protocol: Document 04/23/23 10:59 AB (Rec: 04/23/23 14:50 AB [id number]) OP Gait Assessment Gait Deviations General Gait Pattern Antalgic,Decreased Stride Length Factors Limiting Gait Function Factors Limiting Gait Function Decreased Strength,Pain Stair Climbing Evaluation Evaluation Level of Assist On Stairs Independent Devices Stair Climbing Assistive Devices Left Railing,Right Railing Technique/Endurance Stair Climbing Direction Ascend and Descend Stair Climbing Technique Step Over Step,Step to Step Number of Steps Climbed 3 Stair Climbing Set # Repetitions (reps) 2 Comments Stair Climbing Comments Pt is able to ascend and descend 4 steps with step over step technique but has increased pain when performing with 6 steps, which required her to switch to step to step technique. Mild dynamic knee valgus noted bilaterally. PT-OP-J Posture/Palpation/Skin Start: 04/23/23 10:59 Freq: Status: Active Protocol: Document 04/23/23 10:59 AB (Rec: 04/23/23 14:50 AB [id number]) Palpation Assessment Location Left knee Palpation Location left knee Palpation Findings None/Normal Palpation Details denies TTP PT-OP-K Range of Motion Start: 04/23/23 10:59 Freq: Status: Active Protocol: Document 04/23/23 10:59 AB (Rec: 04/23/23 14:50 AB [id number]) Knee Goniometric Range of Motion Knee Right Knee ROM WFL Yes Flexion Active (degrees) 140 Extension Active (degrees) 0 Left Knee ROM WFL Yes Patient Position Supine Flexion Active (degrees) 140 Extension Active (degrees) 0 Comments Pain with end range ext PT-OP-L Special Tests Start: 04/23/23 10:59 Freq: Status: Active Protocol: Document 04/23/23 10:59 AB (Rec: 04/23/23 14:50 AB [id number]) Special Tests Knee Special Tests Varus- 25 Degrees Test Results negative Varus- 0 Degrees Test Results negative Valgus- 25 Degrees Test Results positive Comments reproduction of symptoms over medial knee Valgus- 0 Degrees Test Results negative Thessaly Test 5 Degrees Test Results negative Lily Test Test Results negative Posterior Draw Test Results negative Anterior Draw Test Results negative PT-OP-M Strength Start: 04/23/23 10:59 Freq: Status: Active Protocol: Document 04/23/23 10:59 AB (Rec: 04/23/23 14:50 AB [id number]) Hip Strength Hip Manual Muscle Testing Right Flexion (L2) 4 Good Abduction 4 Good Adduction 4- Good- External Rotation 4- Good- Internal Rotation 3+ Fair+ Comments Pain with ER at knee Left Flexion (L2) 4 Good Abduction 4 Good Adduction 4- Good- External Rotation 4- Good- Internal Rotation 3+ Fair+ Knee Strength Knee Manual Muscle Testing Right Flexion (S2) 4 Good Extension (L3) 4- Good- Left Flexion (S2) 4 Good Extension (L3) 4- Good- PT-OP-Q Treatments Start: 04/23/23 10:59 Freq: Status: Active Protocol: Document 04/28/23 11:49 AB (Rec: 04/28/23 13:28 AB [id number]) Cardio Equipment Recumbent Bicycle Duration (Minutes) 5 Seat Position 1 Gym Equipment Shuttle Rebound SL press Reps/Duration 2x10 ea Comments 12# DL press Exercise Details double leg press Reps/Duration 2x15 Comments 37# Therapeutic Exercises Supine Exercises SLR Side bilateral Reps/Minutes 2x10 Bridge Reps/Minutes 2x10 Sidelying Exercises Reverse Clamshells Side bilateral Reps/Minutes 1x10 ea Clamshells Side bilateral Reps/Minutes 1x15 ea Sitting Exercises Seated HS curls Side bilateral Resistance peach TB Reps/Minutes 2x15 Comments pt denies pain LAQ Side bilateral Resistance peach TB Reps/Minutes 2x15 Comments pt given orange TB for HEP Standing Exercises HS curl Standing Exercise Name discontinued from HEP due to pain Side bilateral Reps/Minutes 1x10 Heel raises Side bilateral Reps/Minutes 1x15 PT-OP-T Assessment and Plan Start: 04/23/23 10:59 Freq: Status: Active Protocol: Document 04/28/23 11:49 AB (Rec: 04/28/23 13:28 AB [id number]) Physical Therapy Assessment Goals Five Impairment HEP Short Term Goal (STG) Pt to be able to recall 50% of HEP with good form and minimal cues in order to progress in therapy. STG Duration 4 Deck Builder Goal (LTG) Pt to be able to recall 100% of HEP with good form and minimal cues in order to discharge to independent HEP. LTG Duration 6 Four Impairment Biomechanics Short Term Goal (STG) Pt to show mild dynamic knee valgus with squatting to show improving LE strength and neuromuscular control to improve ability to perform functional mobility. STG Duration 4 Deck Builder Goal (LTG) Pt to show no dynamic knee valgus with squatting or descending stairs to show improving LE strength and neuromuscular control to improve ability to perform functional mobility. LTG Duration 6 Three Impairment Questionnaire Short Term Goal (STG) Pt's LEFS score to improve to 25/80 or better to show improving subjective report of symptoms and QOL. STG Duration 4 Fci Goal (LTG) Pt's LEFS score to improve to 25/80 or better to show improving subjective report of symptoms and QOL. LTG Duration 6 Two Impairment Pain symptoms Short Term Goal (STG) Pt to report pain levels of 4/ 10 pain or better with activity to show improving symptoms to demonstrate pt is returning to PLOF. STG Duration 4 Deck Builder Goal (LTG) Pt to report pain levels of 2/ 10 pain or better with activity to show improving symptoms to demonstrate pt is returning to PLOF. LTG Duration 6 One Impairment Strength Short Term Goal (STG) Pt's gross LE MMT scores to improve to 4/5 or better to show improving strength in order to improve ability to perform functional mobility and tasks. STG Duration 4 Deck Builder Goal (LTG) Pt's gross LE MMT scores to improve to 4+/5 or better to show improving strength in order to improve ability to perform functional mobility and tasks. LTG Duration 6 Assessment Summary Assessment Due to reports of anterior knee when performing standing HS curls, these were replaced with seated HS curls, with the pt reporting no pain with these. Additional LE strengthening exercises were added to improve the pt's deficits. She demonstrates decreased right hip IR AROM when compared to left side but denies pain, as demonstrated by reverse clamshells. The pt would benefit from further progression as tolerated. Physical Therapy Plan Frequency and Duration Frequency of Treatment 2x/Week Duration of treatment (weeks) 6 Plan of Care Start Date 04/23/23 Plan of Care End Date 06/04/23 Therapeutic Interventions Therapeutic Interventions Balance Training,Coordination Training,Gait Training,Home Exercise Program,Joint Mobilizations,Manual Therapy, Neuromuscular Re-education, Patient/Caregiver Education, Self-Care/Home Management,Soft Tissue Mobilization,Taping, Therapeutic Activities, Therapeutic Exercises Modalities Cold Pack/Ice Massage,Electric Stimulation,Hot Packs Next Visit Focus/Plan Next Note Type Treatment Note Next Visit Plan Add LE strengthening exercises for hip and knee musculature. Add manual therapy and modalities as indicated.
--- NOTE | 2023-04-30 14:08 | PT.OTN ---
Current Diagnoses Pain in left knee (04/30/23) Other bursitis of knee, unspecified knee (04/30/23) Physical Therapy Treatment Note PT-OP-A Visit Information Start: 04/23/23 10:59 Freq: Status: Active Protocol: Document 04/30/23 11:51 AB (Rec: 04/30/23 14:08 AB [id number]) Out-Patient Physical Therapy Visit Information Visit Information Visit Type Treatment Note Visit Start Time 11:49 Visit Stop Time 12:30 Total Visit Minutes 41 Visit Number 3 PT-OP-B Current Condition Start: 04/23/23 10:59 Freq: Status: Active Protocol: Document 04/23/23 10:59 AB (Rec: 04/23/23 14:50 AB [id number]) Current Condition History of Current Condition Current Complaints Left knee pain 7/10 at worst and 3/10 at best History of Current Condition Pt reports she was doing down the stairs sideways, then felt like something tore in her knee.She had to hope off the stairs, and reports that she was not able to do much for a week. Now that she is 3 months later, she continues to have pain and difficulty walking. She has avoided stairs since that injury, and avoids standing for prolonged periods . She reports being unable to participate in her exercise routine due to her symptoms. Prior Treatments and Tests None PT-OP-C Subjective Start: 04/23/23 10:59 Freq: Status: Active Protocol: Document 04/30/23 11:51 AB (Rec: 04/30/23 14:08 AB [id number]) OP-PT Subjective Patient Comments Patient Comments The pt reports she was able to perform modified HEP without any symptoms. Overall, she reports feeling like her left knee pain is a little better. PT-OP-E Functional Tests Start: 04/23/23 10:59 Freq: Status: Active Protocol: Document 04/23/23 10:59 AB (Rec: 04/23/23 14:50 AB [id number]) Functional Tests Squat Test Comments Pt has poor squatting mechanics- excessive trunk lean, lacks hip hinge PT-OP-G Mobility & Gait Start: 04/23/23 10:59 Freq: Status: Active Protocol: Document 04/23/23 10:59 AB (Rec: 04/23/23 14:50 AB [id number]) OP Gait Assessment Gait Deviations General Gait Pattern Antalgic,Decreased Stride Length Factors Limiting Gait Function Factors Limiting Gait Function Decreased Strength,Pain Stair Climbing Evaluation Evaluation Level of Assist On Stairs Independent Devices Stair Climbing Assistive Devices Left Railing,Right Railing Technique/Endurance Stair Climbing Direction Ascend and Descend Stair Climbing Technique Step Over Step,Step to Step Number of Steps Climbed 3 Stair Climbing Set # Repetitions (reps) 2 Comments Stair Climbing Comments Pt is able to ascend and descend 4 steps with step over step technique but has increased pain when performing with 6 steps, which required her to switch to step to step technique. Mild dynamic knee valgus noted bilaterally. PT-OP-J Posture/Palpation/Skin Start: 04/23/23 10:59 Freq: Status: Active Protocol: Document 04/23/23 10:59 AB (Rec: 04/23/23 14:50 AB [id number]) Palpation Assessment Location Left knee Palpation Location left knee Palpation Findings None/Normal Palpation Details denies TTP PT-OP-K Range of Motion Start: 04/23/23 10:59 Freq: Status: Active Protocol: Document 04/23/23 10:59 AB (Rec: 04/23/23 14:50 AB [id number]) Knee Goniometric Range of Motion Knee Right Knee ROM WFL Yes Flexion Active (degrees) 140 Extension Active (degrees) 0 Left Knee ROM WFL Yes Patient Position Supine Flexion Active (degrees) 140 Extension Active (degrees) 0 Comments Pain with end range ext PT-OP-L Special Tests Start: 04/23/23 10:59 Freq: Status: Active Protocol: Document 04/23/23 10:59 AB (Rec: 04/23/23 14:50 AB [id number]) Special Tests Knee Special Tests Varus- 25 Degrees Test Results negative Varus- 0 Degrees Test Results negative Valgus- 25 Degrees Test Results positive Comments reproduction of symptoms over medial knee Valgus- 0 Degrees Test Results negative Thessaly Test 5 Degrees Test Results negative Lily Test Test Results negative Posterior Draw Test Results negative Anterior Draw Test Results negative PT-OP-M Strength Start: 04/23/23 10:59 Freq: Status: Active Protocol: Document 04/23/23 10:59 AB (Rec: 04/23/23 14:50 AB [id number]) Hip Strength Hip Manual Muscle Testing Right Flexion (L2) 4 Good Abduction 4 Good Adduction 4- Good- External Rotation 4- Good- Internal Rotation 3+ Fair+ Comments Pain with ER at knee Left Flexion (L2) 4 Good Abduction 4 Good Adduction 4- Good- External Rotation 4- Good- Internal Rotation 3+ Fair+ Knee Strength Knee Manual Muscle Testing Right Flexion (S2) 4 Good Extension (L3) 4- Good- Left Flexion (S2) 4 Good Extension (L3) 4- Good- PT-OP-Q Treatments Start: 04/23/23 10:59 Freq: Status: Active Protocol: Document 04/30/23 11:51 AB (Rec: 04/30/23 14:08 AB [id number]) Cardio Equipment Bicycle (Upright) Duration (Minutes) 5 Gym Equipment Shuttle Recovery SL press Details single leg press Resistance 12# Reps/Time 2x10 ea DL press Details double leg press Resistance 37# Reps/Time 2x15 Shuttle Rebound SL press Reps/Duration 2x10 ea Comments 12# DL press Exercise Details double leg press Reps/Duration 2x15 Comments 37# Therapeutic Exercises Supine Exercises SLR Side bilateral Reps/Minutes 2x10 Comments lacks TKE on LLE Bridge Reps/Minutes 2x10 Sidelying Exercises Hip ABD Side bilateral Reps/Minutes 2x10 ea Comments required assistance on RLE d/t weakness Reverse Clamshells Side bilateral Reps/Minutes 2x10 ea Clamshells Side bilateral Reps/Minutes 2x15 ea Comments add TB next visit Standing Exercises TKE Side left Resistance orange TB Reps/Minutes 2x15 Crab walks Side bilateral Resistance none Reps/Minutes 2 laps Comments performed along bar PT-OP-T Assessment and Plan Start: 04/23/23 10:59 Freq: Status: Active Protocol: Document 04/30/23 11:51 AB (Rec: 04/30/23 14:08 AB [id number]) Physical Therapy Assessment Goals Five Impairment HEP Short Term Goal (STG) Pt to be able to recall 50% of HEP with good form and minimal cues in order to progress in therapy. STG Duration 4 Alf Goal (LTG) Pt to be able to recall 100% of HEP with good form and minimal cues in order to discharge to independent HEP. LTG Duration 6 Four Impairment Biomechanics Short Term Goal (STG) Pt to show mild dynamic knee valgus with squatting to show improving LE strength and neuromuscular control to improve ability to perform functional mobility. STG Duration 4 Alf Goal (LTG) Pt to show no dynamic knee valgus with squatting or descending stairs to show improving LE strength and neuromuscular control to improve ability to perform functional mobility. LTG Duration 6 Three Impairment Questionnaire Short Term Goal (STG) Pt's LEFS score to improve to 25/80 or better to show improving subjective report of symptoms and QOL. STG Duration 4 Social Media Assistant Goal (LTG) Pt's LEFS score to improve to 25/80 or better to show improving subjective report of symptoms and QOL. LTG Duration 6 Two Impairment Pain symptoms Short Term Goal (STG) Pt to report pain levels of 4/ 10 pain or better with activity to show improving symptoms to demonstrate pt is returning to PLOF. STG Duration 4 Alf Goal (LTG) Pt to report pain levels of 2/ 10 pain or better with activity to show improving symptoms to demonstrate pt is returning to PLOF. LTG Duration 6 One Impairment Strength Short Term Goal (STG) Pt's gross LE MMT scores to improve to 4/5 or better to show improving strength in order to improve ability to perform functional mobility and tasks. STG Duration 4 Alf Goal (LTG) Pt's gross LE MMT scores to improve to 4+/5 or better to show improving strength in order to improve ability to perform functional mobility and tasks. LTG Duration 6 Assessment Summary Assessment Due to good tolerance of last session, the pt was progressed by adding reps/sets to exercises, as well as addition of new exercises. The pt demonstrates improved right hip ER with reverse clamshells . However, she has significant weakness of right hip abductors, as demonstrated by needing assistance to perform sidelying hip ABD, compared to her left. Forward step ups were trialed however, the pt is unable to perform this way when RLE. The pt would benefit from additional LE strengthening exercises to improve her symptoms. Physical Therapy Plan Frequency and Duration Frequency of Treatment 2x/Week Duration of treatment (weeks) 6 Plan of Care Start Date 04/23/23 Plan of Care End Date 06/04/23 Therapeutic Interventions Therapeutic Interventions Balance Training,Coordination Training,Gait Training,Home Exercise Program,Joint Mobilizations,Manual Therapy, Neuromuscular Re-education, Patient/Caregiver Education, Self-Care/Home Management,Soft Tissue Mobilization,Taping, Therapeutic Activities, Therapeutic Exercises Modalities Cold Pack/Ice Massage,Electric Stimulation,Hot Packs Next Visit Focus/Plan Next Note Type Treatment Note Next Visit Plan Add LE strengthening exercises for hip and knee musculature. Add manual therapy and modalities as indicated.
--- NOTE | 2023-05-06 09:00 | PT.OTN ---
Current Diagnoses Pain in left knee (05/06/23) Other bursitis of knee, unspecified knee (05/06/23) Physical Therapy Treatment Note PT-OP-A Visit Information Start: 04/23/23 10:59 Freq: Status: Active Protocol: Document 05/06/23 08:20 SP (Rec: 05/06/23 09:05 SP [id number]) Out-Patient Physical Therapy Visit Information Visit Information Visit Type Treatment Note Visit Start Time 08:20 Visit Stop Time 09:00 Total Visit Minutes 40 Visit Number 4 Number of DIRECTOR OF HUMAN RESOURCES Visits 1 PT-OP-B Current Condition Start: 04/23/23 10:59 Freq: Status: Active Protocol: Document 04/23/23 10:59 AB (Rec: 04/23/23 14:50 AB [id number]) Current Condition History of Current Condition Current Complaints Left knee pain 7/10 at worst and 3/10 at best History of Current Condition Pt reports she was doing down the stairs sideways, then felt like something tore in her knee.She had to hope off the stairs, and reports that she was not able to do much for a week. Now that she is 3 months later, she continues to have pain and difficulty walking. She has avoided stairs since that injury, and avoids standing for prolonged periods . She reports being unable to participate in her exercise routine due to her symptoms. Prior Treatments and Tests None PT-OP-C Subjective Start: 04/23/23 10:59 Freq: Status: Active Protocol: Document 05/06/23 08:20 SP (Rec: 05/06/23 09:05 SP [id number]) OP-PT Subjective Patient Comments Patient Comments Pt reports doing well, knees feeling better and compliant with HEP. She states still hard time going down stairs. PT-OP-E Functional Tests Start: 04/23/23 10:59 Freq: Status: Active Protocol: Document 04/23/23 10:59 AB (Rec: 04/23/23 14:50 AB [id number]) Functional Tests Squat Test Comments Pt has poor squatting mechanics- excessive trunk lean, lacks hip hinge PT-OP-G Mobility & Gait Start: 04/23/23 10:59 Freq: Status: Active Protocol: Document 04/23/23 10:59 AB (Rec: 04/23/23 14:50 AB [id number]) OP Gait Assessment Gait Deviations General Gait Pattern Antalgic,Decreased Stride Length Factors Limiting Gait Function Factors Limiting Gait Function Decreased Strength,Pain Stair Climbing Evaluation Evaluation Level of Assist On Stairs Independent Devices Stair Climbing Assistive Devices Left Railing,Right Railing Technique/Endurance Stair Climbing Direction Ascend and Descend Stair Climbing Technique Step Over Step,Step to Step Number of Steps Climbed 3 Stair Climbing Set # Repetitions (reps) 2 Comments Stair Climbing Comments Pt is able to ascend and descend 4 steps with step over step technique but has increased pain when performing with 6 steps, which required her to switch to step to step technique. Mild dynamic knee valgus noted bilaterally. PT-OP-J Posture/Palpation/Skin Start: 04/23/23 10:59 Freq: Status: Active Protocol: Document 04/23/23 10:59 AB (Rec: 04/23/23 14:50 AB [id number]) Palpation Assessment Location Left knee Palpation Location left knee Palpation Findings None/Normal Palpation Details denies TTP PT-OP-K Range of Motion Start: 04/23/23 10:59 Freq: Status: Active Protocol: Document 04/23/23 10:59 AB (Rec: 04/23/23 14:50 AB [id number]) Knee Goniometric Range of Motion Knee Right Knee ROM WFL Yes Flexion Active (degrees) 140 Extension Active (degrees) 0 Left Knee ROM WFL Yes Patient Position Supine Flexion Active (degrees) 140 Extension Active (degrees) 0 Comments Pain with end range ext PT-OP-L Special Tests Start: 04/23/23 10:59 Freq: Status: Active Protocol: Document 04/23/23 10:59 AB (Rec: 04/23/23 14:50 AB [id number]) Special Tests Knee Special Tests Varus- 25 Degrees Test Results negative Varus- 0 Degrees Test Results negative Valgus- 25 Degrees Test Results positive Comments reproduction of symptoms over medial knee Valgus- 0 Degrees Test Results negative Thessaly Test 5 Degrees Test Results negative Lily Test Test Results negative Posterior Draw Test Results negative Anterior Draw Test Results negative PT-OP-M Strength Start: 04/23/23 10:59 Freq: Status: Active Protocol: Document 04/23/23 10:59 AB (Rec: 04/23/23 14:50 AB [id number]) Hip Strength Hip Manual Muscle Testing Right Flexion (L2) 4 Good Abduction 4 Good Adduction 4- Good- External Rotation 4- Good- Internal Rotation 3+ Fair+ Comments Pain with ER at knee Left Flexion (L2) 4 Good Abduction 4 Good Adduction 4- Good- External Rotation 4- Good- Internal Rotation 3+ Fair+ Knee Strength Knee Manual Muscle Testing Right Flexion (S2) 4 Good Extension (L3) 4- Good- Left Flexion (S2) 4 Good Extension (L3) 4- Good- PT-OP-Q Treatments Start: 04/23/23 10:59 Freq: Status: Active Protocol: Document 05/06/23 08:20 SP (Rec: 05/06/23 09:05 SP [id number]) Cardio Equipment Recumbent Elliptical (Biodex) Duration (Minutes) 5 Resistance 2 Seat Position 4 Other LEs mostly, 432 steps Bicycle (Upright) Duration (Minutes) 1 Other caused R knee pain so stopped Gym Equipment Shuttle Recovery SL press Details single leg press Resistance 12#> 25# (old band) Reps/Time 2x12 ea DL press Details double leg press Resistance 37#>50# (old bands) Reps/Time 10> 15 x2 reps Therapeutic Exercises Sidelying Exercises Reverse Clamshells Side left Reps/Minutes 2x10 ea Comments unable to lift RLE. Clamshells Side bilateral Resistance TB #1 peach Reps/Minutes 15, 10 rep Comments good slow pacing, height and stacked alignment Sitting Exercises eccentric sit<>stand Sitting Exercise Name reviewed self HEP Equipment Used chair taps Reps/Minutes x8 reps Comments good form, painfree LAQ Sitting Exercise Name HEP reviewed Side bilateral Resistance orange TB Reps/Minutes 2x15 reps Comments pt given orange TB for HEP Standing Exercises TKE Side left Resistance orange TB Reps/Minutes 2x15 Crab walks Side bilateral Resistance AROM easy, initiated [place] TB Equipment Used facing rail Reps/Minutes 10ft x2 laps Comments cued posture, Other Exercises STMs Other Exercise Name seated: quad, adductor, ITB, HS, calf Side bilateral Equipment Used added to HEP as needed Reps/Minutes 2 min Comments good feedback response muscle relaxing PT-OP-T Assessment and Plan Start: 04/23/23 10:59 Freq: Status: Active Protocol: Document 05/06/23 08:20 SP (Rec: 05/06/23 09:05 SP [id number]) Physical Therapy Assessment Goals Five Impairment HEP Short Term Goal (STG) Pt to be able to recall 50% of HEP with good form and minimal cues in order to progress in therapy. STG Duration 4 Mcc Goal (LTG) Pt to be able to recall 100% of HEP with good form and minimal cues in order to discharge to independent HEP. LTG Duration 6 Four Impairment Biomechanics Short Term Goal (STG) Pt to show mild dynamic knee valgus with squatting to show improving LE strength and neuromuscular control to improve ability to perform functional mobility. STG Duration 4 Cloth Hauler Goal (LTG) Pt to show no dynamic knee valgus with squatting or descending stairs to show improving LE strength and neuromuscular control to improve ability to perform functional mobility. LTG Duration 6 Three Impairment Questionnaire Short Term Goal (STG) Pt's LEFS score to improve to 25/80 or better to show improving subjective report of symptoms and QOL. STG Duration 4 Mcc Goal (LTG) Pt's LEFS score to improve to 25/80 or better to show improving subjective report of symptoms and QOL. LTG Duration 6 Two Impairment Pain symptoms Short Term Goal (STG) Pt to report pain levels of 4/ 10 pain or better with activity to show improving symptoms to demonstrate pt is returning to PLOF. STG Duration 4 Cloth Hauler Goal (LTG) Pt to report pain levels of 2/ 10 pain or better with activity to show improving symptoms to demonstrate pt is returning to PLOF. LTG Duration 6 One Impairment Strength Short Term Goal (STG) Pt's gross LE MMT scores to improve to 4/5 or better to show improving strength in order to improve ability to perform functional mobility and tasks. STG Duration 4 Mcc Goal (LTG) Pt's gross LE MMT scores to improve to 4+/5 or better to show improving strength in order to improve ability to perform functional mobility and tasks. LTG Duration 6 Assessment Summary Assessment Pt good effort during ther ex. ABle to increase resistance on shuttle press today. Cues for trail LE clearance during initiated band walk today. Good form and effort painfree with added resistance to clamshell. Unable to perform RLE reverseclamshell due to weakness. Physical Therapy Plan Frequency and Duration Frequency of Treatment 2x/Week Duration of treatment (weeks) 6 Plan of Care Start Date 04/23/23 Plan of Care End Date 06/04/23 Therapeutic Interventions Therapeutic Interventions Balance Training,Coordination Training,Gait Training,Home Exercise Program,Joint Mobilizations,Manual Therapy, Neuromuscular Re-education, Patient/Caregiver Education, Self-Care/Home Management,Soft Tissue Mobilization,Taping, Therapeutic Activities, Therapeutic Exercises Modalities Cold Pack/Ice Massage,Electric Stimulation,Hot Packs Next Visit Focus/Plan Next Note Type Treatment Note Next Visit Plan Add LE strengthening exercises for hip and knee musculature. Add manual therapy and modalities as indicated.
--- NOTE | 2023-05-13 09:00 | PT.OTN ---
Current Diagnoses Pain in left knee (05/13/23) Other bursitis of knee, unspecified knee (05/13/23) Physical Therapy Treatment Note PT-OP-A Visit Information Start: 04/23/23 10:59 Freq: Status: Active Protocol: Document 05/13/23 08:22 SP (Rec: 05/13/23 09:05 SP [id number]) Out-Patient Physical Therapy Visit Information Visit Information Visit Type Treatment Note Visit Start Time 08:22 Visit Stop Time 09:00 Total Visit Minutes 38 Visit Number 5 Number of LACQUER MAKER Visits 2 PT-OP-B Current Condition Start: 04/23/23 10:59 Freq: Status: Active Protocol: Document 04/23/23 10:59 AB (Rec: 04/23/23 14:50 AB [id number]) Current Condition History of Current Condition Current Complaints Left knee pain 7/10 at worst and 3/10 at best History of Current Condition Pt reports she was doing down the stairs sideways, then felt like something tore in her knee.She had to hope off the stairs, and reports that she was not able to do much for a week. Now that she is 3 months later, she continues to have pain and difficulty walking. She has avoided stairs since that injury, and avoids standing for prolonged periods . She reports being unable to participate in her exercise routine due to her symptoms. Prior Treatments and Tests None PT-OP-C Subjective Start: 04/23/23 10:59 Freq: Status: Active Protocol: Document 05/13/23 08:22 SP (Rec: 05/13/23 09:05 SP [id number]) OP-PT Subjective Patient Comments Patient Comments Pt reports compliant with HEP but only did Fri and Friday. Pt reports would like to get back to riding her outdoor bike. Is nervous but and activity used to do miles. PT-OP-E Functional Tests Start: 04/23/23 10:59 Freq: Status: Active Protocol: Document 04/23/23 10:59 AB (Rec: 04/23/23 14:50 AB [id number]) Functional Tests Squat Test Comments Pt has poor squatting mechanics- excessive trunk lean, lacks hip hinge PT-OP-G Mobility & Gait Start: 04/23/23 10:59 Freq: Status: Active Protocol: Document 04/23/23 10:59 AB (Rec: 04/23/23 14:50 AB [id number]) OP Gait Assessment Gait Deviations General Gait Pattern Antalgic,Decreased Stride Length Factors Limiting Gait Function Factors Limiting Gait Function Decreased Strength,Pain Stair Climbing Evaluation Evaluation Level of Assist On Stairs Independent Devices Stair Climbing Assistive Devices Left Railing,Right Railing Technique/Endurance Stair Climbing Direction Ascend and Descend Stair Climbing Technique Step Over Step,Step to Step Number of Steps Climbed 3 Stair Climbing Set # Repetitions (reps) 2 Comments Stair Climbing Comments Pt is able to ascend and descend 4 steps with step over step technique but has increased pain when performing with 6 steps, which required her to switch to step to step technique. Mild dynamic knee valgus noted bilaterally. PT-OP-J Posture/Palpation/Skin Start: 04/23/23 10:59 Freq: Status: Active Protocol: Document 04/23/23 10:59 AB (Rec: 04/23/23 14:50 AB [id number]) Palpation Assessment Location Left knee Palpation Location left knee Palpation Findings None/Normal Palpation Details denies TTP PT-OP-K Range of Motion Start: 04/23/23 10:59 Freq: Status: Active Protocol: Document 04/23/23 10:59 AB (Rec: 04/23/23 14:50 AB [id number]) Knee Goniometric Range of Motion Knee Right Knee ROM WFL Yes Flexion Active (degrees) 140 Extension Active (degrees) 0 Left Knee ROM WFL Yes Patient Position Supine Flexion Active (degrees) 140 Extension Active (degrees) 0 Comments Pain with end range ext PT-OP-L Special Tests Start: 04/23/23 10:59 Freq: Status: Active Protocol: Document 04/23/23 10:59 AB (Rec: 04/23/23 14:50 AB [id number]) Special Tests Knee Special Tests Varus- 25 Degrees Test Results negative Varus- 0 Degrees Test Results negative Valgus- 25 Degrees Test Results positive Comments reproduction of symptoms over medial knee Valgus- 0 Degrees Test Results negative Thessaly Test 5 Degrees Test Results negative Lily Test Test Results negative Posterior Draw Test Results negative Anterior Draw Test Results negative PT-OP-M Strength Start: 04/23/23 10:59 Freq: Status: Active Protocol: Document 04/23/23 10:59 AB (Rec: 04/23/23 14:50 AB [id number]) Hip Strength Hip Manual Muscle Testing Right Flexion (L2) 4 Good Abduction 4 Good Adduction 4- Good- External Rotation 4- Good- Internal Rotation 3+ Fair+ Comments Pain with ER at knee Left Flexion (L2) 4 Good Abduction 4 Good Adduction 4- Good- External Rotation 4- Good- Internal Rotation 3+ Fair+ Knee Strength Knee Manual Muscle Testing Right Flexion (S2) 4 Good Extension (L3) 4- Good- Left Flexion (S2) 4 Good Extension (L3) 4- Good- PT-OP-Q Treatments Start: 04/23/23 10:59 Freq: Status: Active Protocol: Document 05/13/23 08:22 SP (Rec: 05/13/23 09:05 SP [id number]) Cardio Equipment Recumbent Elliptical ([place]) Duration (Minutes) 6 Resistance 2 Seat Position 5 Other LEs mostly, 432 steps Therapeutic Exercises Sitting Exercises LAQ Sitting Exercise Name HEP reviewed Side bilateral Resistance 4# leg wt, orange TB (home, also has 5# leg wt home) Reps/Minutes 2x15 reps Comments cued eccentric control Standing Exercises Crab walks Side bilateral Resistance AROM Equipment Used facing rail Reps/Minutes 10ft x2 laps Comments cued posture, soft stepping improved TA and foot clearance HS curl Standing Exercise Name retrial for progress HS strength Side bilateral Resistance AROM Equipment Used rail support Reps/Minutes 10 RLE, 5 reps LLE (before started little pain L knee) Comments painfree today 10/10 Heel raises Standing Exercise Name HEP reviewed Side bilateral Resistance 5# leg wt Equipment Used near rail (prn as needed) Reps/Minutes 2x15 Comments occ cue eccentric return Therapeutic Activity Therapeutic Activity normalizing gait in mirror Reps/Minutes 10 min Comments cued elongated posture, TA, L hip/knee flexion heel toe patterning, keep feet away from each other, imagine balance pacheco bag on head. Neuro Re-Education Treatment Balance Activities hurdles Details 1. single f/b 2. step to patterning 3. receiprocal stepping Equipment 6 hurdles, 1 HR> Min A STAPLE CUTTER support Reps/Duration 2 laps x2 Comments cued L hip/knee flexion front and back LE. PT-OP-T Assessment and Plan Start: 04/23/23 10:59 Freq: Status: Active Protocol: Document 05/13/23 08:22 SP (Rec: 05/13/23 09:05 SP [id number]) Physical Therapy Assessment Goals Five Impairment HEP Short Term Goal (STG) Pt to be able to recall 50% of HEP with good form and minimal cues in order to progress in therapy. STG Duration 4 Career Technical Education Teacher Goal (LTG) Pt to be able to recall 100% of HEP with good form and minimal cues in order to discharge to independent HEP. LTG Duration 6 Four Impairment Biomechanics Short Term Goal (STG) Pt to show mild dynamic knee valgus with squatting to show improving LE strength and neuromuscular control to improve ability to perform functional mobility. STG Duration 4 Career Technical Education Teacher Goal (LTG) Pt to show no dynamic knee valgus with squatting or descending stairs to show improving LE strength and neuromuscular control to improve ability to perform functional mobility. LTG Duration 6 Three Impairment Questionnaire Short Term Goal (STG) Pt's LEFS score to improve to 25/80 or better to show improving subjective report of symptoms and QOL. STG Duration 4 Career Technical Education Teacher Goal (LTG) Pt's LEFS score to improve to 25/80 or better to show improving subjective report of symptoms and QOL. LTG Duration 6 Two Impairment Pain symptoms Short Term Goal (STG) Pt to report pain levels of 4/ 10 pain or better with activity to show improving symptoms to demonstrate pt is returning to PLOF. STG Duration 4 Career Technical Education Teacher Goal (LTG) Pt to report pain levels of 2/ 10 pain or better with activity to show improving symptoms to demonstrate pt is returning to PLOF. LTG Duration 6 One Impairment Strength Short Term Goal (STG) Pt's gross LE MMT scores to improve to 4/5 or better to show improving strength in order to improve ability to perform functional mobility and tasks. STG Duration 4 Career Technical Education Teacher Goal (LTG) Pt's gross LE MMT scores to improve to 4+/5 or better to show improving strength in order to improve ability to perform functional mobility and tasks. LTG Duration 6 Assessment Summary Assessment Pt improved LE time with hip abd, glut fac centering trunk COG over JUNIE post side step, yesica stepping and noted demonstration better in mirror for self awarness corrections . She had less lateral wt shift leaving. Physical Therapy Plan Frequency and Duration Frequency of Treatment 2x/Week Duration of treatment (weeks) 6 Plan of Care Start Date 04/23/23 Plan of Care End Date 06/04/23 Therapeutic Interventions Therapeutic Interventions Balance Training,Coordination Training,Gait Training,Home Exercise Program,Joint Mobilizations,Manual Therapy, Neuromuscular Re-education, Patient/Caregiver Education, Self-Care/Home Management,Soft Tissue Mobilization,Taping, Therapeutic Activities, Therapeutic Exercises Modalities Cold Pack/Ice Massage,Electric Stimulation,Hot Packs Next Visit Focus/Plan Next Note Type Treatment Note Next Visit Plan Add LE strengthening exercises for hip and knee musculature. Add manual therapy and modalities as indicated.
--- NOTE | 2023-05-26 15:40 | PT.OTN ---
Current Diagnoses Pain in left knee (05/26/23) Other bursitis of knee, unspecified knee (05/26/23) Physical Therapy Treatment Note PT-OP-A Visit Information Start: 04/23/23 10:59 Freq: Status: Active Protocol: Document 05/26/23 13:47 AB (Rec: 05/26/23 15:40 AB [id number]) Out-Patient Physical Therapy Visit Information Visit Information Visit Type Treatment Note Visit Start Time 13:45 Visit Stop Time 14:30 Total Visit Minutes 45 Visit Number 6 PT-OP-B Current Condition Start: 04/23/23 10:59 Freq: Status: Active Protocol: Document 04/23/23 10:59 AB (Rec: 04/23/23 14:50 AB [id number]) Current Condition History of Current Condition Current Complaints Left knee pain 7/10 at worst and 3/10 at best History of Current Condition Pt reports she was doing down the stairs sideways, then felt like something tore in her knee.She had to hope off the stairs, and reports that she was not able to do much for a week. Now that she is 3 months later, she continues to have pain and difficulty walking. She has avoided stairs since that injury, and avoids standing for prolonged periods . She reports being unable to participate in her exercise routine due to her symptoms. Prior Treatments and Tests None PT-OP-C Subjective Start: 04/23/23 10:59 Freq: Status: Active Protocol: Document 05/26/23 13:47 AB (Rec: 05/26/23 15:40 AB [id number]) OP-PT Subjective Patient Comments Patient Comments Ashleigh states her left knee pain is improving, however other health issues have been impacting her tolerance to activities. PT-OP-E Functional Tests Start: 04/23/23 10:59 Freq: Status: Active Protocol: Document 04/23/23 10:59 AB (Rec: 04/23/23 14:50 AB [id number]) Functional Tests Squat Test Comments Pt has poor squatting mechanics- excessive trunk lean, lacks hip hinge PT-OP-G Mobility & Gait Start: 04/23/23 10:59 Freq: Status: Active Protocol: Document 04/23/23 10:59 AB (Rec: 04/23/23 14:50 AB [id number]) OP Gait Assessment Gait Deviations General Gait Pattern Antalgic,Decreased Stride Length Factors Limiting Gait Function Factors Limiting Gait Function Decreased Strength,Pain Stair Climbing Evaluation Evaluation Level of Assist On Stairs Independent Devices Stair Climbing Assistive Devices Left Railing,Right Railing Technique/Endurance Stair Climbing Direction Ascend and Descend Stair Climbing Technique Step Over Step,Step to Step Number of Steps Climbed 3 Stair Climbing Set # Repetitions (reps) 2 Comments Stair Climbing Comments Pt is able to ascend and descend 4 steps with step over step technique but has increased pain when performing with 6 steps, which required her to switch to step to step technique. Mild dynamic knee valgus noted bilaterally. PT-OP-J Posture/Palpation/Skin Start: 04/23/23 10:59 Freq: Status: Active Protocol: Document 04/23/23 10:59 AB (Rec: 04/23/23 14:50 AB [id number]) Palpation Assessment Location Left knee Palpation Location left knee Palpation Findings None/Normal Palpation Details denies TTP PT-OP-K Range of Motion Start: 04/23/23 10:59 Freq: Status: Active Protocol: Document 04/23/23 10:59 AB (Rec: 04/23/23 14:50 AB [id number]) Knee Goniometric Range of Motion Knee Right Knee ROM WFL Yes Flexion Active (degrees) 140 Extension Active (degrees) 0 Left Knee ROM WFL Yes Patient Position Supine Flexion Active (degrees) 140 Extension Active (degrees) 0 Comments Pain with end range ext PT-OP-L Special Tests Start: 04/23/23 10:59 Freq: Status: Active Protocol: Document 04/23/23 10:59 AB (Rec: 04/23/23 14:50 AB [id number]) Special Tests Knee Special Tests Varus- 25 Degrees Test Results negative Varus- 0 Degrees Test Results negative Valgus- 25 Degrees Test Results positive Comments reproduction of symptoms over medial knee Valgus- 0 Degrees Test Results negative Thessaly Test 5 Degrees Test Results negative Lily Test Test Results negative Posterior Draw Test Results negative Anterior Draw Test Results negative PT-OP-M Strength Start: 04/23/23 10:59 Freq: Status: Active Protocol: Document 04/23/23 10:59 AB (Rec: 04/23/23 14:50 AB [id number]) Hip Strength Hip Manual Muscle Testing Right Flexion (L2) 4 Good Abduction 4 Good Adduction 4- Good- External Rotation 4- Good- Internal Rotation 3+ Fair+ Comments Pain with ER at knee Left Flexion (L2) 4 Good Abduction 4 Good Adduction 4- Good- External Rotation 4- Good- Internal Rotation 3+ Fair+ Knee Strength Knee Manual Muscle Testing Right Flexion (S2) 4 Good Extension (L3) 4- Good- Left Flexion (S2) 4 Good Extension (L3) 4- Good- PT-OP-Q Treatments Start: 04/23/23 10:59 Freq: Status: Active Protocol: Document 05/26/23 13:47 AB (Rec: 05/26/23 15:40 AB [id number]) Cardio Equipment Recumbent Bicycle Duration (Minutes) 5 Seat Position 1 Bicycle (Upright) Duration (Minutes) 4 Other stopped d/t fatigue Therapeutic Exercises Supine Exercises SLR Side bilateral Reps/Minutes 2x10 Comments cues to touch down with calf before heel Bridge Supine Exercise Name regular>stag stance Side bilateral Reps/Minutes 1x10 reg, 2x8 ea stag stance Sidelying Exercises Hip ABD Side bilateral Reps/Minutes 2x10 ea Comments required assistance on RLE d/t weakness Standing Exercises Step ups Side bilateral Equipment Used 4 step Reps/Minutes 1x5, 1x8 ea Comments BUE support TKE Side bilateral Resistance orange TB Reps/Minutes 2x15 ea Crab walks Side bilateral Resistance peach TB Equipment Used facing rail Reps/Minutes 10ft x2 laps Comments cued posture, soft stepping improved TA and foot clearance HS curl Side bilateral Resistance AROM Equipment Used rail support Reps/Minutes 2x10 Comments painfree today PT-OP-T Assessment and Plan Start: 04/23/23 10:59 Freq: Status: Active Protocol: Document 05/26/23 13:47 AB (Rec: 05/26/23 15:40 AB [id number]) Physical Therapy Assessment Goals Five Impairment HEP Short Term Goal (STG) Pt to be able to recall 50% of HEP with good form and minimal cues in order to progress in therapy. STG Duration 4 Jail Goal (LTG) Pt to be able to recall 100% of HEP with good form and minimal cues in order to discharge to independent HEP. LTG Duration 6 Four Impairment Biomechanics Short Term Goal (STG) Pt to show mild dynamic knee valgus with squatting to show improving LE strength and neuromuscular control to improve ability to perform functional mobility. STG Duration 4 Fixed Route Operator Goal (LTG) Pt to show no dynamic knee valgus with squatting or descending stairs to show improving LE strength and neuromuscular control to improve ability to perform functional mobility. LTG Duration 6 Three Impairment Questionnaire Short Term Goal (STG) Pt's LEFS score to improve to 25/80 or better to show improving subjective report of symptoms and QOL. STG Duration 4 Fixed Route Operator Goal (LTG) Pt's LEFS score to improve to 25/80 or better to show improving subjective report of symptoms and QOL. LTG Duration 6 Two Impairment Pain symptoms Short Term Goal (STG) Pt to report pain levels of 4/ 10 pain or better with activity to show improving symptoms to demonstrate pt is returning to PLOF. STG Duration 4 Jail Goal (LTG) Pt to report pain levels of 2/ 10 pain or better with activity to show improving symptoms to demonstrate pt is returning to PLOF. LTG Duration 6 One Impairment Strength Short Term Goal (STG) Pt's gross LE MMT scores to improve to 4/5 or better to show improving strength in order to improve ability to perform functional mobility and tasks. STG Duration 4 Fixed Route Operator Goal (LTG) Pt's gross LE MMT scores to improve to 4+/5 or better to show improving strength in order to improve ability to perform functional mobility and tasks. LTG Duration 6 Assessment Summary Assessment The pt required extended rest breaks due to fatigue and endurance deficits, not due to pain. The pt denied pain throughout the session, but notes a difference in strength in bilateral LEs. She was progressed today by adding step ups, which she was able to successfully perform without pain for the first time. She does require verbal cues to control both concentric and eccentric portions of the exercise in order to avoid knee hyperextension with step up and to avoid use of momentum to step down. The pt continues to benefit from skilled PT to improve her symptoms and return to PLOF. Physical Therapy Plan Frequency and Duration Frequency of Treatment 2x/Week Duration of treatment (weeks) 6 Plan of Care Start Date 04/23/23 Plan of Care End Date 06/04/23 Therapeutic Interventions Therapeutic Interventions Balance Training,Coordination Training,Gait Training,Home Exercise Program,Joint Mobilizations,Manual Therapy, Neuromuscular Re-education, Patient/Caregiver Education, Self-Care/Home Management,Soft Tissue Mobilization,Taping, Therapeutic Activities, Therapeutic Exercises Modalities Cold Pack/Ice Massage,Electric Stimulation,Hot Packs Next Visit Focus/Plan Next Note Type Treatment Note Next Visit Plan Add LE strengthening exercises for hip and knee musculature. Add manual therapy and modalities as indicated.
--- NOTE | 2023-05-28 10:53 | PT.OTN ---
Current Diagnoses Pain in left knee (05/28/23) Other bursitis of knee, unspecified knee (05/28/23) Physical Therapy Treatment Note PT-OP-A Visit Information Start: 04/23/23 10:59 Freq: Status: Active Protocol: Document 05/28/23 08:32 AB (Rec: 05/28/23 10:52 AB [id number]) Out-Patient Physical Therapy Visit Information Visit Information Visit Type Treatment Note Visit Start Time 08:34 Visit Stop Time 09:15 Total Visit Minutes 41 Visit Number 7 Evaluation Information Evaluation Date 04/23/23 PT-OP-B Current Condition Start: 04/23/23 10:59 Freq: Status: Active Protocol: Document 04/23/23 10:59 AB (Rec: 04/23/23 14:50 AB [id number]) Current Condition History of Current Condition Current Complaints Left knee pain 7/10 at worst and 3/10 at best History of Current Condition Pt reports she was doing down the stairs sideways, then felt like something tore in her knee.She had to hope off the stairs, and reports that she was not able to do much for a week. Now that she is 3 months later, she continues to have pain and difficulty walking. She has avoided stairs since that injury, and avoids standing for prolonged periods . She reports being unable to participate in her exercise routine due to her symptoms. Prior Treatments and Tests None PT-OP-C Subjective Start: 04/23/23 10:59 Freq: Status: Active Protocol: Document 05/28/23 08:32 AB (Rec: 05/28/23 10:52 AB [id number]) OP-PT Subjective Patient Comments Patient Comments The pt reports her right hip and both knees are bothering her this morning, she believes as a result from last session . PT-OP-E Functional Tests Start: 04/23/23 10:59 Freq: Status: Active Protocol: Document 04/23/23 10:59 AB (Rec: 04/23/23 14:50 AB [id number]) Functional Tests Squat Test Comments Pt has poor squatting mechanics- excessive trunk lean, lacks hip hinge PT-OP-G Mobility & Gait Start: 04/23/23 10:59 Freq: Status: Active Protocol: Document 04/23/23 10:59 AB (Rec: 04/23/23 14:50 AB [id number]) OP Gait Assessment Gait Deviations General Gait Pattern Antalgic,Decreased Stride Length Factors Limiting Gait Function Factors Limiting Gait Function Decreased Strength,Pain Stair Climbing Evaluation Evaluation Level of Assist On Stairs Independent Devices Stair Climbing Assistive Devices Left Railing,Right Railing Technique/Endurance Stair Climbing Direction Ascend and Descend Stair Climbing Technique Step Over Step,Step to Step Number of Steps Climbed 3 Stair Climbing Set # Repetitions (reps) 2 Comments Stair Climbing Comments Pt is able to ascend and descend 4 steps with step over step technique but has increased pain when performing with 6 steps, which required her to switch to step to step technique. Mild dynamic knee valgus noted bilaterally. PT-OP-J Posture/Palpation/Skin Start: 04/23/23 10:59 Freq: Status: Active Protocol: Document 04/23/23 10:59 AB (Rec: 04/23/23 14:50 AB [id number]) Palpation Assessment Location Left knee Palpation Location left knee Palpation Findings None/Normal Palpation Details denies TTP PT-OP-K Range of Motion Start: 04/23/23 10:59 Freq: Status: Active Protocol: Document 04/23/23 10:59 AB (Rec: 04/23/23 14:50 AB [id number]) Knee Goniometric Range of Motion Knee Right Knee ROM WFL Yes Flexion Active (degrees) 140 Extension Active (degrees) 0 Left Knee ROM WFL Yes Patient Position Supine Flexion Active (degrees) 140 Extension Active (degrees) 0 Comments Pain with end range ext PT-OP-L Special Tests Start: 04/23/23 10:59 Freq: Status: Active Protocol: Document 04/23/23 10:59 AB (Rec: 04/23/23 14:50 AB [id number]) Special Tests Knee Special Tests Varus- 25 Degrees Test Results negative Varus- 0 Degrees Test Results negative Valgus- 25 Degrees Test Results positive Comments reproduction of symptoms over medial knee Valgus- 0 Degrees Test Results negative Thessaly Test 5 Degrees Test Results negative Lily Test Test Results negative Posterior Draw Test Results negative Anterior Draw Test Results negative PT-OP-M Strength Start: 04/23/23 10:59 Freq: Status: Active Protocol: Document 04/23/23 10:59 AB (Rec: 04/23/23 14:50 AB [id number]) Hip Strength Hip Manual Muscle Testing Right Flexion (L2) 4 Good Abduction 4 Good Adduction 4- Good- External Rotation 4- Good- Internal Rotation 3+ Fair+ Comments Pain with ER at knee Left Flexion (L2) 4 Good Abduction 4 Good Adduction 4- Good- External Rotation 4- Good- Internal Rotation 3+ Fair+ Knee Strength Knee Manual Muscle Testing Right Flexion (S2) 4 Good Extension (L3) 4- Good- Left Flexion (S2) 4 Good Extension (L3) 4- Good- PT-OP-Q Treatments Start: 04/23/23 10:59 Freq: Status: Active Protocol: Document 05/28/23 08:32 AB (Rec: 05/28/23 10:52 AB [id number]) Cardio Equipment Bicycle (Upright) Duration (Minutes) 5 Therapeutic Exercises Supine Exercises SLR Supine Exercise Name progressed standing Side bilateral Reps/Minutes 2x10 Comments cues to touch down with calf before heel Sidelying Exercises Clamshells Sidelying Exercise Name performed sitting Side bilateral Resistance TB #1 peach Reps/Minutes 1x15, 1x20 Comments good slow pacing, height and stacked alignment Standing Exercises SLS Side bilateral Reps/Minutes 2x20 sec ea Step ups Side bilateral Equipment Used 4 step Reps/Minutes 2x8 ea Comments BUE support TKE Side bilateral Resistance orange TB Reps/Minutes 2x15 ea Crab walks Side bilateral Resistance peach TB Equipment Used facing rail Reps/Minutes 10ft x2 laps Comments cued posture, soft stepping improved TA and foot clearance HS curl Side bilateral Resistance AROM Equipment Used rail support Reps/Minutes 2x10 Comments painfree today PT-OP-T Assessment and Plan Start: 04/23/23 10:59 Freq: Status: Active Protocol: Document 05/28/23 08:32 AB (Rec: 05/28/23 10:52 AB [id number]) Physical Therapy Assessment Goals Five Impairment HEP Short Term Goal (STG) Pt to be able to recall 50% of HEP with good form and minimal cues in order to progress in therapy. STG Duration 4 Mosaic Floor Layer Goal (LTG) Pt to be able to recall 100% of HEP with good form and minimal cues in order to discharge to independent HEP. LTG Duration 6 Four Impairment Biomechanics Short Term Goal (STG) Pt to show mild dynamic knee valgus with squatting to show improving LE strength and neuromuscular control to improve ability to perform functional mobility. STG Duration 4 Long-Term Goal (LTG) Pt to show no dynamic knee valgus with squatting or descending stairs to show improving LE strength and neuromuscular control to improve ability to perform functional mobility. LTG Duration 6 Three Impairment Questionnaire Short Term Goal (STG) Pt's LEFS score to improve to 25/80 or better to show improving subjective report of symptoms and QOL. STG Duration 4 Mosaic Floor Layer Goal (LTG) Pt's LEFS score to improve to 25/80 or better to show improving subjective report of symptoms and QOL. LTG Duration 6 Two Impairment Pain symptoms Short Term Goal (STG) Pt to report pain levels of 4/ 10 pain or better with activity to show improving symptoms to demonstrate pt is returning to PLOF. STG Duration 4 Mosaic Floor Layer Goal (LTG) Pt to report pain levels of 2/ 10 pain or better with activity to show improving symptoms to demonstrate pt is returning to PLOF. LTG Duration 6 One Impairment Strength Short Term Goal (STG) Pt's gross LE MMT scores to improve to 4/5 or better to show improving strength in order to improve ability to perform functional mobility and tasks. STG Duration 4 Long-Term Goal (LTG) Pt's gross LE MMT scores to improve to 4+/5 or better to show improving strength in order to improve ability to perform functional mobility and tasks. LTG Duration 6 Assessment Summary Assessment The pt continues to require extended rest breaks between sets and exercises due to cardiovascular endurance deficits. During rest breaks she was educated on the importance of participating in cardiovascular exercise for cardiovascular health. The pt demonstrated improvement in her step ups, as she had much improved control of LLE through the full motion. Hip strengthening exercises were limited today due to hip pain symptoms, but should be reintroduced as able. Physical Therapy Plan Frequency and Duration Frequency of Treatment 2x/Week Duration of treatment (weeks) 6 Plan of Care Start Date 04/23/23 Plan of Care End Date 06/04/23 Therapeutic Interventions Therapeutic Interventions Balance Training,Coordination Training,Gait Training,Home Exercise Program,Joint Mobilizations,Manual Therapy, Neuromuscular Re-education, Patient/Caregiver Education, Self-Care/Home Management,Soft Tissue Mobilization,Taping, Therapeutic Activities, Therapeutic Exercises Modalities Cold Pack/Ice Massage,Electric Stimulation,Hot Packs
--- NOTE | 2023-06-04 10:19 | PT.OTN ---
Current Diagnoses Pain in left knee (06/04/23) Other bursitis of knee, unspecified knee (06/04/23) Physical Therapy Treatment Note PT-OP-A Visit Information Start: 04/23/23 10:59 Freq: Status: Active Protocol: Document 06/04/23 08:48 AB (Rec: 06/04/23 10:18 AB [id number]) Out-Patient Physical Therapy Visit Information Visit Information Visit Type Progress Note Visit Start Time 08:30 Visit Stop Time 09:15 Total Visit Minutes 45 Visit Number 8 Evaluation Information Evaluation Date 04/23/23 PT-OP-B Current Condition Start: 04/23/23 10:59 Freq: Status: Active Protocol: Document 06/04/23 08:48 AB (Rec: 06/04/23 10:18 AB [id number]) Current Condition History of Current Condition Current Complaints Left knee pain 7/10 at worst and 3/10 at best History of Current Condition Pt reports she was doing down the stairs sideways, then felt like something tore in her knee.She had to hope off the stairs, and reports that she was not able to do much for a week. Now that she is 3 months later, she continues to have pain and difficulty walking. She has avoided stairs since that injury, and avoids standing for prolonged periods . She reports being unable to participate in her exercise routine due to her symptoms. Prior Treatments and Tests None PT-OP-C Subjective Start: 04/23/23 10:59 Freq: Status: Active Protocol: Document 06/04/23 08:48 AB (Rec: 06/04/23 10:18 AB [id number]) OP-PT Subjective Patient Comments Patient Comments The pt reports that over the last week, her left knee has not been bothering her at all. She states her right knee has been feeling like it moved out of place when she goes to stand up after sitting for a while. She does state she can tolerate longer time standing. Patient Questionnaires Lower Extremity Functional Scale LEFS Score 50/80 LEFS Impairment 20 to 39% Impaired (Score 48- 62) PT-OP-E Functional Tests Start: 04/23/23 10:59 Freq: Status: Active Protocol: Document 06/04/23 08:48 AB (Rec: 06/04/23 10:18 AB [id number]) Functional Tests Squat Test Comments Improved squatting mechanics, but continues with dynamic knee valgus (R>L) PT-OP-G Mobility & Gait Start: 04/23/23 10:59 Freq: Status: Active Protocol: Document 06/04/23 08:48 AB (Rec: 06/04/23 10:18 AB [id number]) OP Gait Assessment Gait Deviations General Gait Pattern Antalgic,Decreased Stride Length Factors Limiting Gait Function Factors Limiting Gait Function Decreased Strength,Pain Stair Climbing Evaluation Evaluation Level of Assist On Stairs Independent Devices Stair Climbing Assistive Devices Left Railing Technique/Endurance Stair Climbing Direction Ascend and Descend Stair Climbing Technique Step Over Step,Step to Step Number of Steps Climbed 3 Stair Climbing Set # Repetitions (reps) 2 Comments Stair Climbing Comments Pt ascends 1st set with step over step technique, but then reports increased right knee pain. She then performs second set with step to step technique. PT-OP-J Posture/Palpation/Skin Start: 04/23/23 10:59 Freq: Status: Active Protocol: Document 06/04/23 08:48 AB (Rec: 06/04/23 10:18 AB [id number]) Palpation Assessment Location Left knee Palpation Location left knee Palpation Findings None/Normal Palpation Details denies TTP PT-OP-K Range of Motion Start: 04/23/23 10:59 Freq: Status: Active Protocol: Document 06/04/23 08:48 AB (Rec: 06/04/23 10:18 AB [id number]) Knee Goniometric Range of Motion Knee Right Knee ROM WFL Yes Flexion Active (degrees) 140 Extension Active (degrees) 0 Left Knee ROM WFL Yes Patient Position Supine Flexion Active (degrees) 140 Extension Active (degrees) 0 Comments Denies pain PT-OP-L Special Tests Start: 04/23/23 10:59 Freq: Status: Active Protocol: Document 06/04/23 08:48 AB (Rec: 06/04/23 10:18 AB [id number]) Special Tests Knee Special Tests Varus- 25 Degrees Test Results negative Varus- 0 Degrees Test Results negative Valgus- 25 Degrees Test Results negative Valgus- 0 Degrees Test Results negative Thessaly Test 5 Degrees Test Results negative Lily Test Test Results negative Posterior Draw Test Results negative Anterior Draw Test Results negative PT-OP-M Strength Start: 04/23/23 10:59 Freq: Status: Active Protocol: Document 06/04/23 08:48 AB (Rec: 06/04/23 10:18 AB [id number]) Hip Strength Hip Manual Muscle Testing Right Flexion (L2) 4+ Good+ Abduction 4 Good Adduction 4 Good External Rotation 4 Good Internal Rotation 4- Good- Comments Denies pain, but has some popping in knee with ER Left Flexion (L2) 4+ Good+ Abduction 4 Good Adduction 4 Good External Rotation 4 Good Internal Rotation 4- Good- Knee Strength Knee Manual Muscle Testing Right Flexion (S2) 4 Good Extension (L3) 4 Good Left Flexion (S2) 4 Good Extension (L3) 4 Good PT-OP-Q Treatments Start: 04/23/23 10:59 Freq: Status: Active Protocol: Document 06/04/23 08:48 AB (Rec: 06/04/23 10:18 AB [id number]) Gym Equipment Shuttle Recovery DL press Details double leg press Resistance 50# (old bands); +12# for 2nd set Reps/Time 2x15 Therapeutic Exercises Standing Exercises Step ups Side bilateral Equipment Used 6 step Reps/Minutes 2x4 ea Comments BUE support Self-Care/Home Management Treatment Education Patient Education Body Mechanics,Home Exercise Program,Pain Management PT-OP-T Assessment and Plan Start: 04/23/23 10:59 Freq: Status: Active Protocol: Document 06/04/23 08:48 AB (Rec: 06/04/23 10:18 AB [id number]) Physical Therapy Assessment Goals Five Impairment HEP Short Term Goal (STG) Pt to be able to recall 50% of HEP with good form and minimal cues in order to progress in therapy. STG Duration 4 Lab Support Service Tech Goal (LTG) Pt to be able to recall 100% of HEP with good form and minimal cues in order to discharge to independent HEP. LTG Duration 6 Four Impairment Biomechanics Short Term Goal (STG) Pt to show mild dynamic knee valgus with squatting to show improving LE strength and neuromuscular control to improve ability to perform functional mobility. STG Duration 4 Correction Goal (LTG) Pt to show no dynamic knee valgus with squatting or descending stairs to show improving LE strength and neuromuscular control to improve ability to perform functional mobility. LTG Duration 6 Three Impairment Questionnaire Short Term Goal (STG) Pt's LEFS score to improve to 25/80 or better to show improving subjective report of symptoms and QOL. STG Duration 4 Correction Goal (LTG) Pt's LEFS score to improve to 25/80 or better to show improving subjective report of symptoms and QOL. LTG Duration 6 Two Impairment Pain symptoms Short Term Goal (STG) Pt to report pain levels of 4/ 10 pain or better with activity to show improving symptoms to demonstrate pt is returning to PLOF. STG Duration 4 Correction Goal (LTG) Pt to report pain levels of 2/ 10 pain or better with activity to show improving symptoms to demonstrate pt is returning to PLOF. LTG Duration 6 One Impairment Strength Short Term Goal (STG) Pt's gross LE MMT scores to improve to 4/5 or better to show improving strength in order to improve ability to perform functional mobility and tasks. STG Duration 4 Correction Goal (LTG) Pt's gross LE MMT scores to improve to 4+/5 or better to show improving strength in order to improve ability to perform functional mobility and tasks. LTG Duration 6 Assessment Summary Assessment Ashleigh has completed 8 visits of skilled PT to address complaints of left knee pain and difficulty standing, walking and going up/down stairs. Currently she demonstrates improvement in her LE strength and ability to ascend/descend steps. She also shows improved squatting mechanics. All special tests were negative today. However, she continues with poor tolerance to descending stairs . Based on her improvements but remaining limitations of pain, load tolerance and body mechanics, the pt would benefit from continued skilled PT to improve these impairments as per her updated POC. Physical Therapy Plan Frequency and Duration Frequency of Treatment 1-2x/week Duration of treatment (weeks) 6 Plan of Care Start Date 06/04/23 Plan of Care End Date 07/23/23
--- NOTE | 2023-06-04 10:19 | PT.OPPOC ---
Physical, Occupational & Speech Therapy At [facility] Current Diagnoses Pain in left knee (06/04/23) Other bursitis of knee, unspecified knee (06/04/23) Visit Care Team Role Provider Type Scarlett Soler DO Attending Provider Non-Staff Family Provider Primary Care Provider Referring Provider Specialty: Family Practice Address: [address] [place] [address], [id number] Email: Plan Of Care PT-OP-T Assessment and Plan Start: 04/23/23 10:59 Freq: Status: Active Protocol: Document 06/04/23 08:48 AB (Rec: 06/04/23 10:18 AB [id number]) Physical Therapy Assessment Goals Five Impairment HEP Short Term Goal (STG) Pt to be able to recall 50% of HEP with good form and minimal cues in order to progress in therapy. STG Duration 4 Offset Press Assistant Goal (LTG) Pt to be able to recall 100% of HEP with good form and minimal cues in order to discharge to independent HEP. LTG Duration 6 Four Impairment Biomechanics Short Term Goal (STG) Pt to show mild dynamic knee valgus with squatting to show improving LE strength and neuromuscular control to improve ability to perform functional mobility. STG Duration 4 Offset Press Assistant Goal (LTG) Pt to show no dynamic knee valgus with squatting or descending stairs to show improving LE strength and neuromuscular control to improve ability to perform functional mobility. LTG Duration 6 Three Impairment Questionnaire Short Term Goal (STG) Pt's LEFS score to improve to 25/80 or better to show improving subjective report of symptoms and QOL. STG Duration 4 Offset Press Assistant Goal (LTG) Pt's LEFS score to improve to 25/80 or better to show improving subjective report of symptoms and QOL. LTG Duration 6 Two Impairment Pain symptoms Short Term Goal (STG) Pt to report pain levels of 4/ 10 pain or better with activity to show improving symptoms to demonstrate pt is returning to PLOF. STG Duration 4 Offset Press Assistant Goal (LTG) Pt to report pain levels of 2/ 10 pain or better with activity to show improving symptoms to demonstrate pt is returning to PLOF. LTG Duration 6 One Impairment Strength Short Term Goal (STG) Pt's gross LE MMT scores to improve to 4/5 or better to show improving strength in order to improve ability to perform functional mobility and tasks. STG Duration 4 Penitentiary Goal (LTG) Pt's gross LE MMT scores to improve to 4+/5 or better to show improving strength in order to improve ability to perform functional mobility and tasks. LTG Duration 6 Assessment Summary Assessment Ashleigh has completed 8 visits of skilled PT to address complaints of left knee pain and difficulty standing, walking and going up/down stairs. Currently she demonstrates improvement in her LE strength and ability to ascend/descend steps. She also shows improved squatting mechanics. All special tests were negative today. However, she continues with poor tolerance to descending stairs . Based on her improvements but remaining limitations of pain, load tolerance and body mechanics, the pt would benefit from continued skilled PT to improve these impairments as per her updated POC. Physical Therapy Plan Frequency and Duration Frequency of Treatment 1-2x/week Duration of treatment (weeks) 6 Plan of Care Start Date 06/04/23 Plan of Care End Date 07/23/23 Plan of Care Dates Plan of Care Start Date 06/04/23 Plan of Care End Date 07/23/23 Electronically Signed by: Alon Billingsley, PT 06/04/23 1019 If you are in agreement with this Plan of Care, please return a signed and dated copy. I have reviewed this Plan of Care and certify that the skilled therapy services above are required to meet the patient?s needs. Physician Signature Date Printed Name and Credentials Clinical Instructor Signature Printed Name and Credentials
--- NOTE | 2023-06-11 15:02 | PT.OPPOC ---
Physical, Occupational & Speech Therapy At [facility] Current Diagnoses Pain in left knee (06/11/23) Other bursitis of knee, unspecified knee (06/11/23) Visit Care Team Role Provider Type Scarlett Soler DO Attending Provider Non-Staff Family Provider Primary Care Provider Referring Provider Specialty: Family Practice Address: [address] [place] [address], [id number] Email: Plan Of Care PT-OP-T Assessment and Plan Start: 04/23/23 10:59 Freq: Status: Active Protocol: Document 06/04/23 08:48 AB (Rec: 06/04/23 10:18 AB [id number]) Physical Therapy Assessment Goals Five Impairment HEP Short Term Goal (STG) Pt to be able to recall 50% of HEP with good form and minimal cues in order to progress in therapy. STG Duration 4 Tours Captain Goal (LTG) Pt to be able to recall 100% of HEP with good form and minimal cues in order to discharge to independent HEP. LTG Duration 6 Four Impairment Biomechanics Short Term Goal (STG) Pt to show mild dynamic knee valgus with squatting to show improving LE strength and neuromuscular control to improve ability to perform functional mobility. STG Duration 4 Tours Captain Goal (LTG) Pt to show no dynamic knee valgus with squatting or descending stairs to show improving LE strength and neuromuscular control to improve ability to perform functional mobility. LTG Duration 6 Three Impairment Questionnaire Short Term Goal (STG) Pt's LEFS score to improve to 25/80 or better to show improving subjective report of symptoms and QOL. STG Duration 4 Tours Captain Goal (LTG) Pt's LEFS score to improve to 25/80 or better to show improving subjective report of symptoms and QOL. LTG Duration 6 Two Impairment Pain symptoms Short Term Goal (STG) Pt to report pain levels of 4/ 10 pain or better with activity to show improving symptoms to demonstrate pt is returning to PLOF. STG Duration 4 Tours Captain Goal (LTG) Pt to report pain levels of 2/ 10 pain or better with activity to show improving symptoms to demonstrate pt is returning to PLOF. LTG Duration 6 One Impairment Strength Short Term Goal (STG) Pt's gross LE MMT scores to improve to 4/5 or better to show improving strength in order to improve ability to perform functional mobility and tasks. STG Duration 4 Shelter Goal (LTG) Pt's gross LE MMT scores to improve to 4+/5 or better to show improving strength in order to improve ability to perform functional mobility and tasks. LTG Duration 6 Assessment Summary Assessment Ashleigh has completed 8 visits of skilled PT to address complaints of left knee pain and difficulty standing, walking and going up/down stairs. Currently she demonstrates improvement in her LE strength and ability to ascend/descend steps. She also shows improved squatting mechanics. All special tests were negative today. However, she continues with poor tolerance to descending stairs . Based on her improvements but remaining limitations of pain, load tolerance and body mechanics, the pt would benefit from continued skilled PT to improve these impairments as per her updated POC. Physical Therapy Plan Frequency and Duration Frequency of Treatment 1-2x/week Duration of treatment (weeks) 6 Plan of Care Start Date 06/04/23 Plan of Care End Date 07/23/23 Plan of Care Dates Plan of Care Start Date 06/04/23 Plan of Care End Date 07/23/23 Electronically Signed by: Alon Billingsley, PT 06/11/23 7201 If you are in agreement with this Plan of Care, please return a signed and dated copy. I have reviewed this Plan of Care and certify that the skilled therapy services above are required to meet the patient?s needs. Physician Signature Date Printed Name and Credentials Clinical Instructor Signature Printed Name and Credentials
--- NOTE | 2023-06-11 15:02 | PT.OTN ---
Current Diagnoses Pain in left knee (06/11/23) Other bursitis of knee, unspecified knee (06/11/23) Physical Therapy Treatment Note PT-OP-A Visit Information Start: 04/23/23 10:59 Freq: Status: Active Protocol: Document 06/04/23 08:48 AB (Rec: 06/04/23 10:18 AB [id number]) Out-Patient Physical Therapy Visit Information Visit Information Visit Type Progress Note Visit Start Time 08:30 Visit Stop Time 09:15 Total Visit Minutes 45 Visit Number 8 Evaluation Information Evaluation Date 04/23/23 PT-OP-B Current Condition Start: 04/23/23 10:59 Freq: Status: Active Protocol: Document 06/04/23 08:48 AB (Rec: 06/04/23 10:18 AB [id number]) Current Condition History of Current Condition Current Complaints Left knee pain 7/10 at worst and 3/10 at best History of Current Condition Pt reports she was doing down the stairs sideways, then felt like something tore in her knee.She had to hope off the stairs, and reports that she was not able to do much for a week. Now that she is 3 months later, she continues to have pain and difficulty walking. She has avoided stairs since that injury, and avoids standing for prolonged periods . She reports being unable to participate in her exercise routine due to her symptoms. Prior Treatments and Tests None PT-OP-C Subjective Start: 04/23/23 10:59 Freq: Status: Active Protocol: Document 06/04/23 08:48 AB (Rec: 06/04/23 10:18 AB [id number]) OP-PT Subjective Patient Comments Patient Comments The pt reports that over the last week, her left knee has not been bothering her at all. She states her right knee has been feeling like it moved out of place when she goes to stand up after sitting for a while. She does state she can tolerate longer time standing. Patient Questionnaires Lower Extremity Functional Scale LEFS Score 50/80 LEFS Impairment 20 to 39% Impaired (Score 48- 62) PT-OP-E Functional Tests Start: 04/23/23 10:59 Freq: Status: Active Protocol: Document 06/04/23 08:48 AB (Rec: 06/04/23 10:18 AB [id number]) Functional Tests Squat Test Comments Improved squatting mechanics, but continues with dynamic knee valgus (R>L) PT-OP-G Mobility & Gait Start: 04/23/23 10:59 Freq: Status: Active Protocol: Document 06/04/23 08:48 AB (Rec: 06/04/23 10:18 AB [id number]) OP Gait Assessment Gait Deviations General Gait Pattern Antalgic,Decreased Stride Length Factors Limiting Gait Function Factors Limiting Gait Function Decreased Strength,Pain Stair Climbing Evaluation Evaluation Level of Assist On Stairs Independent Devices Stair Climbing Assistive Devices Left Railing Technique/Endurance Stair Climbing Direction Ascend and Descend Stair Climbing Technique Step Over Step,Step to Step Number of Steps Climbed 3 Stair Climbing Set # Repetitions (reps) 2 Comments Stair Climbing Comments Pt ascends 1st set with step over step technique, but then reports increased right knee pain. She then performs second set with step to step technique. PT-OP-J Posture/Palpation/Skin Start: 04/23/23 10:59 Freq: Status: Active Protocol: Document 06/04/23 08:48 AB (Rec: 06/04/23 10:18 AB [id number]) Palpation Assessment Location Left knee Palpation Location left knee Palpation Findings None/Normal Palpation Details denies TTP PT-OP-K Range of Motion Start: 04/23/23 10:59 Freq: Status: Active Protocol: Document 06/04/23 08:48 AB (Rec: 06/04/23 10:18 AB [id number]) Knee Goniometric Range of Motion Knee Right Knee ROM WFL Yes Flexion Active (degrees) 140 Extension Active (degrees) 0 Left Knee ROM WFL Yes Patient Position Supine Flexion Active (degrees) 140 Extension Active (degrees) 0 Comments Denies pain PT-OP-L Special Tests Start: 04/23/23 10:59 Freq: Status: Active Protocol: Document 06/04/23 08:48 AB (Rec: 06/04/23 10:18 AB [id number]) Special Tests Knee Special Tests Varus- 25 Degrees Test Results negative Varus- 0 Degrees Test Results negative Valgus- 25 Degrees Test Results negative Valgus- 0 Degrees Test Results negative Thessaly Test 5 Degrees Test Results negative Lily Test Test Results negative Posterior Draw Test Results negative Anterior Draw Test Results negative PT-OP-M Strength Start: 04/23/23 10:59 Freq: Status: Active Protocol: Document 06/04/23 08:48 AB (Rec: 06/04/23 10:18 AB [id number]) Hip Strength Hip Manual Muscle Testing Right Flexion (L2) 4+ Good+ Abduction 4 Good Adduction 4 Good External Rotation 4 Good Internal Rotation 4- Good- Comments Denies pain, but has some popping in knee with ER Left Flexion (L2) 4+ Good+ Abduction 4 Good Adduction 4 Good External Rotation 4 Good Internal Rotation 4- Good- Knee Strength Knee Manual Muscle Testing Right Flexion (S2) 4 Good Extension (L3) 4 Good Left Flexion (S2) 4 Good Extension (L3) 4 Good PT-OP-Q Treatments Start: 04/23/23 10:59 Freq: Status: Active Protocol: Document 06/04/23 08:48 AB (Rec: 06/04/23 10:18 AB [id number]) Gym Equipment Shuttle Recovery DL press Details double leg press Resistance 50# (old bands); +12# for 2nd set Reps/Time 2x15 Therapeutic Exercises Standing Exercises Step ups Side bilateral Equipment Used 6 step Reps/Minutes 2x4 ea Comments BUE support Self-Care/Home Management Treatment Education Patient Education Body Mechanics,Home Exercise Program,Pain Management PT-OP-T Assessment and Plan Start: 04/23/23 10:59 Freq: Status: Active Protocol: Document 06/04/23 08:48 AB (Rec: 06/04/23 10:18 AB [id number]) Physical Therapy Assessment Goals Five Impairment HEP Short Term Goal (STG) Pt to be able to recall 50% of HEP with good form and minimal cues in order to progress in therapy. STG Duration 4 Employment Director Goal (LTG) Pt to be able to recall 100% of HEP with good form and minimal cues in order to discharge to independent HEP. LTG Duration 6 Four Impairment Biomechanics Short Term Goal (STG) Pt to show mild dynamic knee valgus with squatting to show improving LE strength and neuromuscular control to improve ability to perform functional mobility. STG Duration 4 Longterm Goal (LTG) Pt to show no dynamic knee valgus with squatting or descending stairs to show improving LE strength and neuromuscular control to improve ability to perform functional mobility. LTG Duration 6 Three Impairment Questionnaire Short Term Goal (STG) Pt's LEFS score to improve to 25/80 or better to show improving subjective report of symptoms and QOL. STG Duration 4 Longterm Goal (LTG) Pt's LEFS score to improve to 25/80 or better to show improving subjective report of symptoms and QOL. LTG Duration 6 Two Impairment Pain symptoms Short Term Goal (STG) Pt to report pain levels of 4/ 10 pain or better with activity to show improving symptoms to demonstrate pt is returning to PLOF. STG Duration 4 Longterm Goal (LTG) Pt to report pain levels of 2/ 10 pain or better with activity to show improving symptoms to demonstrate pt is returning to PLOF. LTG Duration 6 One Impairment Strength Short Term Goal (STG) Pt's gross LE MMT scores to improve to 4/5 or better to show improving strength in order to improve ability to perform functional mobility and tasks. STG Duration 4 Longterm Goal (LTG) Pt's gross LE MMT scores to improve to 4+/5 or better to show improving strength in order to improve ability to perform functional mobility and tasks. LTG Duration 6 Assessment Summary Assessment Ashleigh has completed 8 visits of skilled PT to address complaints of left knee pain and difficulty standing, walking and going up/down stairs. Currently she demonstrates improvement in her LE strength and ability to ascend/descend steps. She also shows improved squatting mechanics. All special tests were negative today. However, she continues with poor tolerance to descending stairs . Based on her improvements but remaining limitations of pain, load tolerance and body mechanics, the pt would benefit from continued skilled PT to improve these impairments as per her updated POC. Physical Therapy Plan Frequency and Duration Frequency of Treatment 1-2x/week Duration of treatment (weeks) 6 Plan of Care Start Date 06/04/23 Plan of Care End Date 07/23/23
--- NOTE | 2023-06-11 15:14 | PT.OTN ---
Current Diagnoses Pain in left knee (06/11/23) Other bursitis of knee, unspecified knee (06/11/23) Physical Therapy Treatment Note PT-OP-A Visit Information Start: 04/23/23 10:59 Freq: Status: Active Protocol: Document 06/11/23 13:54 AB (Rec: 06/11/23 15:14 AB [id number]) Out-Patient Physical Therapy Visit Information Visit Information Visit Type Treatment Note Visit Start Time 13:50 Visit Stop Time 14:30 Total Visit Minutes 40 Visit Number 9 Evaluation Information Evaluation Date 04/23/23 PT-OP-B Current Condition Start: 04/23/23 10:59 Freq: Status: Active Protocol: Document 06/04/23 08:48 AB (Rec: 06/04/23 10:18 AB [id number]) Current Condition History of Current Condition Current Complaints Left knee pain 7/10 at worst and 3/10 at best History of Current Condition Pt reports she was doing down the stairs sideways, then felt like something tore in her knee.She had to hope off the stairs, and reports that she was not able to do much for a week. Now that she is 3 months later, she continues to have pain and difficulty walking. She has avoided stairs since that injury, and avoids standing for prolonged periods . She reports being unable to participate in her exercise routine due to her symptoms. Prior Treatments and Tests None PT-OP-C Subjective Start: 04/23/23 10:59 Freq: Status: Active Protocol: Document 06/11/23 13:54 AB (Rec: 06/11/23 15:14 AB [id number]) OP-PT Subjective Patient Comments Patient Comments The pt reports she ascended and descended her stair case twice last week, which she had not at all before. However yesterday she began to have increased knee pain, which she attributes to stairs but it started 2 days after the last time she did stairs. PT-OP-E Functional Tests Start: 04/23/23 10:59 Freq: Status: Active Protocol: Document 06/04/23 08:48 AB (Rec: 06/04/23 10:18 AB [id number]) Functional Tests Squat Test Comments Improved squatting mechanics, but continues with dynamic knee valgus (R>L) PT-OP-G Mobility & Gait Start: 04/23/23 10:59 Freq: Status: Active Protocol: Document 06/04/23 08:48 AB (Rec: 06/04/23 10:18 AB [id number]) OP Gait Assessment Gait Deviations General Gait Pattern Antalgic,Decreased Stride Length Factors Limiting Gait Function Factors Limiting Gait Function Decreased Strength,Pain Stair Climbing Evaluation Evaluation Level of Assist On Stairs Independent Devices Stair Climbing Assistive Devices Left Railing Technique/Endurance Stair Climbing Direction Ascend and Descend Stair Climbing Technique Step Over Step,Step to Step Number of Steps Climbed 3 Stair Climbing Set # Repetitions (reps) 2 Comments Stair Climbing Comments Pt ascends 1st set with step over step technique, but then reports increased right knee pain. She then performs second set with step to step technique. PT-OP-J Posture/Palpation/Skin Start: 04/23/23 10:59 Freq: Status: Active Protocol: Document 06/04/23 08:48 AB (Rec: 06/04/23 10:18 AB [id number]) Palpation Assessment Location Left knee Palpation Location left knee Palpation Findings None/Normal Palpation Details denies TTP PT-OP-K Range of Motion Start: 04/23/23 10:59 Freq: Status: Active Protocol: Document 06/04/23 08:48 AB (Rec: 06/04/23 10:18 AB [id number]) Knee Goniometric Range of Motion Knee Right Knee ROM WFL Yes Flexion Active (degrees) 140 Extension Active (degrees) 0 Left Knee ROM WFL Yes Patient Position Supine Flexion Active (degrees) 140 Extension Active (degrees) 0 Comments Denies pain PT-OP-L Special Tests Start: 04/23/23 10:59 Freq: Status: Active Protocol: Document 06/04/23 08:48 AB (Rec: 06/04/23 10:18 AB [id number]) Special Tests Knee Special Tests Varus- 25 Degrees Test Results negative Varus- 0 Degrees Test Results negative Valgus- 25 Degrees Test Results negative Valgus- 0 Degrees Test Results negative Thessaly Test 5 Degrees Test Results negative Lily Test Test Results negative Posterior Draw Test Results negative Anterior Draw Test Results negative PT-OP-M Strength Start: 04/23/23 10:59 Freq: Status: Active Protocol: Document 06/04/23 08:48 AB (Rec: 06/04/23 10:18 AB [id number]) Hip Strength Hip Manual Muscle Testing Right Flexion (L2) 4+ Good+ Abduction 4 Good Adduction 4 Good External Rotation 4 Good Internal Rotation 4- Good- Comments Denies pain, but has some popping in knee with ER Left Flexion (L2) 4+ Good+ Abduction 4 Good Adduction 4 Good External Rotation 4 Good Internal Rotation 4- Good- Knee Strength Knee Manual Muscle Testing Right Flexion (S2) 4 Good Extension (L3) 4 Good Left Flexion (S2) 4 Good Extension (L3) 4 Good PT-OP-Q Treatments Start: 04/23/23 10:59 Freq: Status: Active Protocol: Document 06/11/23 13:54 AB (Rec: 06/11/23 15:14 AB [id number]) Cardio Equipment Recumbent Bicycle Duration (Minutes) 5 Gym Equipment Shuttle Recovery DL press Details double leg press Resistance 50# (old bands); +12# for 2nd set Reps/Time 2x15 Shuttle Rebound DL press Exercise Details double leg press Reps/Duration 2x15 Comments 37# Therapeutic Exercises Sidelying Exercises SL quad strap stretch Sidelying Exercise Name sidelying quad stretch Side right Equipment Used gait belt Reps/Minutes [id number] Comments discontinued due to hip pain Sitting Exercises Chair quad stretch Sitting Exercise Name seated quad stretch Side bilateral Reps/Minutes [id number] ea Standing Exercises TKE Side bilateral Resistance orange TB Reps/Minutes 2x15 ea Crab walks Side bilateral Resistance peach TB around ankles Equipment Used facing rail Reps/Minutes 20ft x2 laps Comments cued posture, soft stepping improved TA and foot clearance HS curl Side bilateral Resistance AROM Equipment Used rail support Reps/Minutes 2x10 Comments painfree today PT-OP-T Assessment and Plan Start: 04/23/23 10:59 Freq: Status: Active Protocol: Document 06/11/23 13:54 AB (Rec: 06/11/23 15:14 AB [id number]) Physical Therapy Assessment Goals Five Impairment HEP Short Term Goal (STG) Pt to be able to recall 50% of HEP with good form and minimal cues in order to progress in therapy. STG Duration 4 Energy Specialist Goal (LTG) Pt to be able to recall 100% of HEP with good form and minimal cues in order to discharge to independent HEP. LTG Duration 6 Four Impairment Biomechanics Short Term Goal (STG) Pt to show mild dynamic knee valgus with squatting to show improving LE strength and neuromuscular control to improve ability to perform functional mobility. STG Duration 4 Correction Goal (LTG) Pt to show no dynamic knee valgus with squatting or descending stairs to show improving LE strength and neuromuscular control to improve ability to perform functional mobility. LTG Duration 6 Three Impairment Questionnaire Short Term Goal (STG) Pt's LEFS score to improve to 25/80 or better to show improving subjective report of symptoms and QOL. STG Duration 4 Correction Goal (LTG) Pt's LEFS score to improve to 25/80 or better to show improving subjective report of symptoms and QOL. LTG Duration 6 Two Impairment Pain symptoms Short Term Goal (STG) Pt to report pain levels of 4/ 10 pain or better with activity to show improving symptoms to demonstrate pt is returning to PLOF. STG Duration 4 Energy Specialist Goal (LTG) Pt to report pain levels of 2/ 10 pain or better with activity to show improving symptoms to demonstrate pt is returning to PLOF. LTG Duration 6 One Impairment Strength Short Term Goal (STG) Pt's gross LE MMT scores to improve to 4/5 or better to show improving strength in order to improve ability to perform functional mobility and tasks. STG Duration 4 Correction Goal (LTG) Pt's gross LE MMT scores to improve to 4+/5 or better to show improving strength in order to improve ability to perform functional mobility and tasks. LTG Duration 6 Assessment Summary Assessment The pt was able to tolerate her therex program without increasing her knee pain. Quad stretch was introduced, initially in side lying with a strap, however this increased her symptoms. Therefore this was modified to be performed in sitting, which the pt reports did not cause symptoms and feels like a good stretch . The pt continues to require verbal cues throughout session to control eccentric portion of all exercises in order to improve LE strength and neuromuscular control. The pt would benefit from continued progression next visit as tolerated. Physical Therapy Plan Frequency and Duration Frequency of Treatment 1-2x/week Duration of treatment (weeks) 6 Plan of Care Start Date 06/04/23 Plan of Care End Date 07/23/23 Therapeutic Interventions Therapeutic Interventions Balance Training,Coordination Training,Gait Training,Home Exercise Program,Joint Mobilizations,Manual Therapy, Neuromuscular Re-education, Patient/Caregiver Education, Self-Care/Home Management,Soft Tissue Mobilization,Taping, Therapeutic Activities, Therapeutic Exercises Modalities Cold Pack/Ice Massage,Electric Stimulation,Hot Packs Next Visit Focus/Plan Next Note Type Treatment Note Next Visit Plan Continue with LE strengthening focusing on major muscle groups of hips and knees.
--- NOTE | 2023-06-18 14:41 | PT.OTN ---
Current Diagnoses Pain in left knee (06/18/23) Other bursitis of knee, unspecified knee (06/18/23) Physical Therapy Treatment Note PT-OP-A Visit Information Start: 04/23/23 10:59 Freq: Status: Active Protocol: Document 06/18/23 14:18 AB (Rec: 06/18/23 14:37 AB [id number]) Out-Patient Physical Therapy Visit Information Visit Information Visit Type Treatment Note Visit Start Time 13:47 Visit Stop Time 14:27 Total Visit Minutes 40 Visit Number 10 Evaluation Information Evaluation Date 04/23/23 PT-OP-B Current Condition Start: 04/23/23 10:59 Freq: Status: Active Protocol: Document 06/04/23 08:48 AB (Rec: 06/04/23 10:18 AB [id number]) Current Condition History of Current Condition Current Complaints Left knee pain 7/10 at worst and 3/10 at best History of Current Condition Pt reports she was doing down the stairs sideways, then felt like something tore in her knee.She had to hope off the stairs, and reports that she was not able to do much for a week. Now that she is 3 months later, she continues to have pain and difficulty walking. She has avoided stairs since that injury, and avoids standing for prolonged periods . She reports being unable to participate in her exercise routine due to her symptoms. Prior Treatments and Tests None PT-OP-C Subjective Start: 04/23/23 10:59 Freq: Status: Active Protocol: Document 06/18/23 14:18 AB (Rec: 06/18/23 14:37 AB [id number]) OP-PT Subjective Patient Comments Patient Comments The pt reports she has been trying to walk and use her bike more to improve her endurance. Otherwise, she states she is doing okay. PT-OP-E Functional Tests Start: 04/23/23 10:59 Freq: Status: Active Protocol: Document 06/04/23 08:48 AB (Rec: 06/04/23 10:18 AB [id number]) Functional Tests Squat Test Comments Improved squatting mechanics, but continues with dynamic knee valgus (R>L) PT-OP-G Mobility & Gait Start: 04/23/23 10:59 Freq: Status: Active Protocol: Document 06/04/23 08:48 AB (Rec: 06/04/23 10:18 AB [id number]) OP Gait Assessment Gait Deviations General Gait Pattern Antalgic,Decreased Stride Length Factors Limiting Gait Function Factors Limiting Gait Function Decreased Strength,Pain Stair Climbing Evaluation Evaluation Level of Assist On Stairs Independent Devices Stair Climbing Assistive Devices Left Railing Technique/Endurance Stair Climbing Direction Ascend and Descend Stair Climbing Technique Step Over Step,Step to Step Number of Steps Climbed 3 Stair Climbing Set # Repetitions (reps) 2 Comments Stair Climbing Comments Pt ascends 1st set with step over step technique, but then reports increased right knee pain. She then performs second set with step to step technique. PT-OP-J Posture/Palpation/Skin Start: 04/23/23 10:59 Freq: Status: Active Protocol: Document 06/04/23 08:48 AB (Rec: 06/04/23 10:18 AB [id number]) Palpation Assessment Location Left knee Palpation Location left knee Palpation Findings None/Normal Palpation Details denies TTP PT-OP-K Range of Motion Start: 04/23/23 10:59 Freq: Status: Active Protocol: Document 06/04/23 08:48 AB (Rec: 06/04/23 10:18 AB [id number]) Knee Goniometric Range of Motion Knee Right Knee ROM WFL Yes Flexion Active (degrees) 140 Extension Active (degrees) 0 Left Knee ROM WFL Yes Patient Position Supine Flexion Active (degrees) 140 Extension Active (degrees) 0 Comments Denies pain PT-OP-L Special Tests Start: 04/23/23 10:59 Freq: Status: Active Protocol: Document 06/04/23 08:48 AB (Rec: 06/04/23 10:18 AB [id number]) Special Tests Knee Special Tests Varus- 25 Degrees Test Results negative Varus- 0 Degrees Test Results negative Valgus- 25 Degrees Test Results negative Valgus- 0 Degrees Test Results negative Thessaly Test 5 Degrees Test Results negative Lily Test Test Results negative Posterior Draw Test Results negative Anterior Draw Test Results negative PT-OP-M Strength Start: 04/23/23 10:59 Freq: Status: Active Protocol: Document 06/04/23 08:48 AB (Rec: 06/04/23 10:18 AB [id number]) Hip Strength Hip Manual Muscle Testing Right Flexion (L2) 4+ Good+ Abduction 4 Good Adduction 4 Good External Rotation 4 Good Internal Rotation 4- Good- Comments Denies pain, but has some popping in knee with ER Left Flexion (L2) 4+ Good+ Abduction 4 Good Adduction 4 Good External Rotation 4 Good Internal Rotation 4- Good- Knee Strength Knee Manual Muscle Testing Right Flexion (S2) 4 Good Extension (L3) 4 Good Left Flexion (S2) 4 Good Extension (L3) 4 Good PT-OP-Q Treatments Start: 04/23/23 10:59 Freq: Status: Active Protocol: Document 06/18/23 14:18 AB (Rec: 06/18/23 14:37 AB [id number]) Cardio Equipment Recumbent Bicycle Duration (Minutes) 5 Therapeutic Exercises Supine Exercises Bridge Supine Exercise Name regular + band around knees Side bilateral Resistance orange TB Reps/Minutes 2x10 Sitting Exercises Chair quad stretch Sitting Exercise Name seated quad stretch Side bilateral Reps/Minutes [id number] ea LAQ Side bilateral Resistance orange TB Reps/Minutes 2x15 reps Comments cued eccentric control Standing Exercises Hip ext/ABD Standing Exercise Name hip ext at 45D of ABD Side bilateral Resistance AROM Reps/Minutes 2x15ea Step ups Side bilateral Equipment Used 4 step Reps/Minutes 1x5, 1x10 Comments BUE support TKE Side bilateral Resistance orange TB Reps/Minutes 2x15 ea Comments cued to hold longer HS curl Side bilateral Resistance orange TB Equipment Used rail support Reps/Minutes 2x10 PT-OP-T Assessment and Plan Start: 04/23/23 10:59 Freq: Status: Active Protocol: Document 06/18/23 14:18 AB (Rec: 06/18/23 14:37 AB [id number]) Physical Therapy Assessment Goals Five Impairment HEP Short Term Goal (STG) Pt to be able to recall 50% of HEP with good form and minimal cues in order to progress in therapy. STG Duration 4 Fdc Goal (LTG) Pt to be able to recall 100% of HEP with good form and minimal cues in order to discharge to independent HEP. LTG Duration 6 Four Impairment Biomechanics Short Term Goal (STG) Pt to show mild dynamic knee valgus with squatting to show improving LE strength and neuromuscular control to improve ability to perform functional mobility. STG Duration 4 Fdc Goal (LTG) Pt to show no dynamic knee valgus with squatting or descending stairs to show improving LE strength and neuromuscular control to improve ability to perform functional mobility. LTG Duration 6 Three Impairment Questionnaire Short Term Goal (STG) Pt's LEFS score to improve to 25/80 or better to show improving subjective report of symptoms and QOL. STG Duration 4 Voice Systems Engineer Goal (LTG) Pt's LEFS score to improve to 25/80 or better to show improving subjective report of symptoms and QOL. LTG Duration 6 Two Impairment Pain symptoms Short Term Goal (STG) Pt to report pain levels of 4/ 10 pain or better with activity to show improving symptoms to demonstrate pt is returning to PLOF. STG Duration 4 Fdc Goal (LTG) Pt to report pain levels of 2/ 10 pain or better with activity to show improving symptoms to demonstrate pt is returning to PLOF. LTG Duration 6 One Impairment Strength Short Term Goal (STG) Pt's gross LE MMT scores to improve to 4/5 or better to show improving strength in order to improve ability to perform functional mobility and tasks. STG Duration 4 Fdc Goal (LTG) Pt's gross LE MMT scores to improve to 4+/5 or better to show improving strength in order to improve ability to perform functional mobility and tasks. LTG Duration 6 Assessment Summary Assessment The pt demonstrated improved tolerance to PT session today, as she was able to progress to adding resistance to standing exercises exercises. Additional hip strengthening exercises were also performed to improve knee pain. However, she continues with difficulty with eccentric control of step ups due to weakness and pain symptoms. The pt continues ot benefit from skilled PT at this time to improve her deficits. Physical Therapy Plan Frequency and Duration Frequency of Treatment 1-2x/week Duration of treatment (weeks) 6 Plan of Care Start Date 06/04/23 Plan of Care End Date 07/23/23 Therapeutic Interventions Therapeutic Interventions Balance Training,Coordination Training,Gait Training,Home Exercise Program,Joint Mobilizations,Manual Therapy, Neuromuscular Re-education, Patient/Caregiver Education, Self-Care/Home Management,Soft Tissue Mobilization,Taping, Therapeutic Activities, Therapeutic Exercises Modalities Cold Pack/Ice Massage,Electric Stimulation,Hot Packs Next Visit Focus/Plan Next Note Type Treatment Note Next Visit Plan Continue with LE strengthening focusing on major muscle groups of hips and knees.
--- NOTE | 2023-06-25 14:50 | PT.OTN ---
Current Diagnoses Pain in left knee (06/25/23) Other bursitis of knee, unspecified knee (06/25/23) Physical Therapy Treatment Note PT-OP-A Visit Information Start: 04/23/23 10:59 Freq: Status: Active Protocol: Document 06/25/23 13:49 AB (Rec: 06/25/23 14:50 AB [id number]) Out-Patient Physical Therapy Visit Information Visit Information Visit Type Discharge Summary Visit Start Time 13:45 Visit Stop Time 14:25 Total Visit Minutes 40 Visit Number 11 Evaluation Information Evaluation Date 04/23/23 PT-OP-B Current Condition Start: 04/23/23 10:59 Freq: Status: Active Protocol: Document 06/04/23 08:48 AB (Rec: 06/04/23 10:18 AB [id number]) Current Condition History of Current Condition Current Complaints Left knee pain 7/10 at worst and 3/10 at best History of Current Condition Pt reports she was doing down the stairs sideways, then felt like something tore in her knee.She had to hope off the stairs, and reports that she was not able to do much for a week. Now that she is 3 months later, she continues to have pain and difficulty walking. She has avoided stairs since that injury, and avoids standing for prolonged periods . She reports being unable to participate in her exercise routine due to her symptoms. Prior Treatments and Tests None PT-OP-C Subjective Start: 04/23/23 10:59 Freq: Status: Active Protocol: Document 06/25/23 13:49 AB (Rec: 06/25/23 14:50 AB [id number]) OP-PT Subjective Patient Comments Patient Comments The pt reports her left knee pain has mostly resolved since beginning PT. She has been able to ascend and descend stairs without knee pain, and is trying to incorporate more daily walking. Currently, what is more bothersome is her low back and right hip pain, which can sometimes affect her right knee. Patient Questionnaires Lower Extremity Functional Scale LEFS Score 55/80 LEFS Impairment 20 to 39% Impaired (Score 48- 62) PT-OP-E Functional Tests Start: 04/23/23 10:59 Freq: Status: Active Protocol: Document 06/25/23 13:49 AB (Rec: 06/25/23 14:50 AB [id number]) Functional Tests Squat Test Comments Improved squatting mechanics, but continues with dynamic knee valgus (R>L) PT-OP-G Mobility & Gait Start: 04/23/23 10:59 Freq: Status: Active Protocol: Document 06/25/23 13:49 AB (Rec: 06/25/23 14:50 AB [id number]) OP Gait Assessment Gait Deviations General Gait Pattern Antalgic Factors Limiting Gait Function Factors Limiting Gait Function Decreased Strength,Pain Comments Gait Comments Pt ambulates with mildly antalgic gait due to low back and right hip pain today, not due to left knee pain. Stair Climbing Evaluation Evaluation Level of Assist On Stairs Independent Devices Stair Climbing Assistive Devices Left Railing Technique/Endurance Stair Climbing Direction Ascend and Descend Stair Climbing Technique Step Over Step,Step to Step Number of Steps Climbed 3 Stair Climbing Set # Repetitions (reps) 2 Comments Stair Climbing Comments Pt ascends 1st set with step over step technique, but then reports increased right knee pain. She then performs second set with step to step technique. Overall, she feels like she has gained the knowledge to continue with independent HEP and would like to discharge today. PT-OP-J Posture/Palpation/Skin Start: 04/23/23 10:59 Freq: Status: Active Protocol: Document 06/04/23 08:48 AB (Rec: 06/04/23 10:18 AB [id number]) Palpation Assessment Location Left knee Palpation Location left knee Palpation Findings None/Normal Palpation Details denies TTP PT-OP-K Range of Motion Start: 04/23/23 10:59 Freq: Status: Active Protocol: Document 06/25/23 13:49 AB (Rec: 06/25/23 14:50 AB [id number]) Knee Goniometric Range of Motion Knee Right Knee ROM WFL Yes Flexion Active (degrees) 140 Extension Active (degrees) 0 Left Knee ROM WFL Yes Patient Position Supine Flexion Active (degrees) 140 Extension Active (degrees) 0 Comments Denies pain PT-OP-L Special Tests Start: 04/23/23 10:59 Freq: Status: Active Protocol: Document 06/25/23 13:49 AB (Rec: 06/25/23 14:50 AB [id number]) Special Tests Knee Special Tests Varus- 25 Degrees Test Results negative Varus- 0 Degrees Test Results negative Valgus- 25 Degrees Test Results negative Valgus- 0 Degrees Test Results negative Thessaly Test 5 Degrees Test Results negative Lily Test Test Results negative Posterior Draw Test Results negative Anterior Draw Test Results negative PT-OP-M Strength Start: 04/23/23 10:59 Freq: Status: Active Protocol: Document 06/25/23 13:49 AB (Rec: 06/25/23 14:50 AB [id number]) Hip Strength Hip Manual Muscle Testing Right Flexion (L2) 4+ Good+ Abduction 4 Good Adduction 4 Good External Rotation 4 Good Internal Rotation 4- Good- Comments Denies pain Left Flexion (L2) 4+ Good+ Abduction 4 Good Adduction 4 Good External Rotation 4+ Good+ Internal Rotation 4+ Good+ Comments Denies pain Knee Strength Knee Manual Muscle Testing Right Flexion (S2) 4+ Good+ Extension (L3) 5 Normal Left Flexion (S2) 4+ Good+ Extension (L3) 5 Normal PT-OP-Q Treatments Start: 04/23/23 10:59 Freq: Status: Active Protocol: Document 06/25/23 13:49 AB (Rec: 06/25/23 14:50 AB [id number]) Cardio Equipment Recumbent Bicycle Duration (Minutes) 5 Therapeutic Exercises Supine Exercises Bridge Supine Exercise Name regular + band around knees Side bilateral Resistance orange TB Reps/Minutes 2x10 Sitting Exercises eccentric sit<>stand Equipment Used chair taps Reps/Minutes x8 reps Comments good form, painfree Standing Exercises Stool hip IR/ER Standing Exercise Name Stool hip IR/ER Side bilateral Equipment Used swivel stool Reps/Minutes 1x10 ea Hip ext/ABD Standing Exercise Name hip ext at 45D of ABD Side bilateral Resistance AROM Reps/Minutes 2x15ea Step ups Side left Equipment Used 4 step Reps/Minutes 3x8 Comments BUE support HS curl Side bilateral Resistance orange TB Equipment Used rail support Reps/Minutes 2x10 Self-Care/Home Management Treatment Education Patient Education Body Mechanics,Home Exercise Program,Pain Management PT-OP-T Assessment and Plan Start: 04/23/23 10:59 Freq: Status: Active Protocol: Document 06/25/23 13:49 AB (Rec: 06/25/23 14:50 AB [id number]) Physical Therapy Assessment Goals Five Impairment HEP Short Term Goal (STG) Pt to be able to recall 50% of HEP with good form and minimal cues in order to progress in therapy. STG Duration 4 Correction Goal (LTG) Pt to be able to recall 100% of HEP with good form and minimal cues in order to discharge to independent HEP. LTG Duration 6 Four Impairment Biomechanics Short Term Goal (STG) Pt to show mild dynamic knee valgus with squatting to show improving LE strength and neuromuscular control to improve ability to perform functional mobility. STG Duration 4 Airport Electrician Goal (LTG) Pt to show no dynamic knee valgus with squatting or descending stairs to show improving LE strength and neuromuscular control to improve ability to perform functional mobility. LTG Duration 6 Three Impairment Questionnaire Short Term Goal (STG) Pt's LEFS score to improve to 25/80 or better to show improving subjective report of symptoms and QOL. STG Duration 4 Airport Electrician Goal (LTG) Pt's LEFS score to improve to 25/80 or better to show improving subjective report of symptoms and QOL. LTG Duration 6 Two Impairment Pain symptoms Short Term Goal (STG) Pt to report pain levels of 4/ 10 pain or better with activity to show improving symptoms to demonstrate pt is returning to PLOF. STG Duration 4 Airport Electrician Goal (LTG) Pt to report pain levels of 2/ 10 pain or better with activity to show improving symptoms to demonstrate pt is returning to PLOF. LTG Duration 6 One Impairment Strength Short Term Goal (STG) Pt's gross LE MMT scores to improve to 4/5 or better to show improving strength in order to improve ability to perform functional mobility and tasks. STG Duration 4 Correction Goal (LTG) Pt's gross LE MMT scores to improve to 4+/5 or better to show improving strength in order to improve ability to perform functional mobility and tasks. LTG Duration 6 Assessment Summary Assessment Ashleigh has completed 11 visits of skilled PT to address left knee pain. The pt demonstrates good improvement in gross LE strength, no loss of ROM, improvements in gait and ability to ascend/descend stairs. The pt also demonstrates good recall of HEP and education provided. Due to the pt meeting her goals, the pt is being discharged from skilled PT at this time. The pt was educated on returning to PT with new referral if symptoms return, with pt verbalizing understanding. Physical Therapy Plan Therapeutic Interventions Therapeutic Interventions Balance Training,Coordination Training,Gait Training,Home Exercise Program,Joint Mobilizations,Manual Therapy, Neuromuscular Re-education, Patient/Caregiver Education, Self-Care/Home Management,Soft Tissue Mobilization,Taping, Therapeutic Activities, Therapeutic Exercises Modalities Cold Pack/Ice Massage,Electric Stimulation,Hot Packs Discharge Physical Therapy Discharge Reasons Goals Met Next Visit Focus/Plan Next Visit Plan Pt is being discharged.
== END 2023-07-02 13:02 | disposition home or self-care (01) ==
LOC: PHYS 13:45
PROVIDERS: Family Provider Family Medicine; PCP Family Medicine; Referring Provider Family Medicine; Visit Provider Family Medicine
DX: M25.562 Pain in left knee (principal); M70.50 Other bursitis of knee, unspecified knee
CPT/HCPCS: 97110; 97112; 97116; 97161; 97535

== ENCOUNTER 2023-12-01 16:45 | Outpatient (RCR) | payer OTHER, MEDICAID, SELFPAY ==
--- NOTE | 2023-09-03 17:30 | PT.OPPOC ---
Physical, Occupational & Speech Therapy At [facility] Current Diagnoses Other chronic pain (09/03/23) Stiffness of right hip, not elsewhere classified (09/03/23) Stiffness of other specified joint, not elsewhere classified (09/03/23) Scoliosis, unspecified (09/03/23) Low back pain, unspecified (09/03/23) Visit Care Team Role Provider Type Other Providers Specialty: Address: Phone: Fax: Email: Doctor Sang MD Family Provider Non-Staff Primary Care Provider Specialty: Medical Address: Phone: Fax: Email: Sarah Carrasquillo DO Attending Provider Non-Staff Referring Provider Specialty: Family Practice Address: [address] [place] [address], [place], [address] Email: Plan Of Care PT-OP-T Assessment and Plan Start: 09/03/23 17:34 Freq: Status: Active Protocol: Document 09/03/23 16:45 DCW (Rec: 09/04/23 09:43 DCW [id number]) Physical Therapy Assessment Rehab Potential Rehabilitation Potential Fair Evaluation Complexity Number of Personal Factors/Comorbidities 3 or More Number of Body Systems Impaired 4 or More Clinical Presentation at Evaluation Evolving Impairments Impairments Functional Activities, Functional Mobility,Pain, Posture,ROM,Soft Tissue Mobility,Strength,Tone Goals Three Impairment Pt unable to stand for 15+' secondary to low back pain Aerial Photographer Goal (LTG) Pt to exhibit ability to stand for longer than 30 minutes without increased back pain in order to improve ability to prepare and cook meals. LTG Duration 12/02/23 Two Impairment Pt experiences interrupted sleep secondary to hip pain Jail Goal (LTG) Pt to report ability to sleep with waking up fewer than 3 times throughout the night secondary to hip pain over one full week. LTG Duration 12/02/23 One Impairment Pt does not have an appropriate home exercise program Short Term Goal (STG) Pt to be independent and compliant with an appropriate HEP STG Duration 10/02/23 Assessment Summary Assessment Pt presents with signs and symptoms consistent with referring diagnosis. Pt lumbar pain and immobility impacted by pt's history of degenerative changes and long- standing history of scoliosis. Pt notes recent worsening of symptoms, especially when standing or sleeping. Does demonstrate some core weakness , as well as increased muscle tone along lumbar paraspinals and bilateral hip musculature. Should benefit from skilled physical therapy focusing on improving lumbar mobility, core and hip strengthening, and increased flexibility in order to return pt to prior functional levels. Physical Therapy Plan Frequency and Duration Frequency of Treatment 2x/Week Plan of Care Start Date 09/03/23 Plan of Care End Date 12/02/23 Therapeutic Interventions Therapeutic Interventions Balance Training,Gait Training ,Home Exercise Program,Joint Mobilizations,Manual Therapy, Neuromuscular Re-education, Patient/Caregiver Education, Self-Care/Home Management,Soft Tissue Mobilization, Therapeutic Activities, Therapeutic Exercises Modalities Cold Pack/Ice Massage,Electric Stimulation,Hot Packs, Ultrasound Next Visit Focus/Plan Next Note Type Treatment Note Next Visit Plan STM, stretching, core/hip strengthening Plan of Care Dates Plan of Care Start Date 09/03/23 Plan of Care End Date 12/02/23 Electronically Signed by: Bam Huizar, PT 09/04/23 0945 If you are in agreement with this Plan of Care, please return a signed and dated copy. I have reviewed this Plan of Care and certify that the skilled therapy services above are required to meet the patient?s needs. Physician Signature Date Printed Name and Credentials Clinical Instructor Signature Printed Name and Credentials
--- NOTE | 2023-09-03 17:30 | PT.OIE ---
Current Diagnoses Other chronic pain (09/03/23) Stiffness of right hip, not elsewhere classified (09/03/23) Stiffness of other specified joint, not elsewhere classified (09/03/23) Scoliosis, unspecified (09/03/23) Low back pain, unspecified (09/03/23) Past Medical History (Last Updated 04/10/22 @ 09:17 by Tahir Brown RN) GERD (gastroesophageal reflux disease) (11/04/11) Hypertension Menopause Polymyalgia rheumatica Uterine fibroid Past Surgical History Status post surgery (10/02/09) Visit Care Team Role Provider Type Other Providers Specialty: Address: Phone: Fax: Email: Doctor Sang MD Family Provider Non-Staff Primary Care Provider Specialty: Medical Address: Phone: Fax: Email: Sarah Carrasquillo DO Attending Provider Non-Staff Referring Provider Specialty: Family Practice Address: [address] [place] [address], [place], [address] Email: Physical Therapy Initial Evaluation PT-OP-A Visit Information Start: 09/03/23 17:34 Freq: Status: Active Protocol: Document 09/03/23 16:45 DCW (Rec: 09/03/23 17:42 DCW [id number]) Out-Patient Physical Therapy Visit Information Visit Information Visit Type Initial Evaluation Visit Start Time 16:45 Visit Stop Time 17:30 Visit Number 1 Number of POLYMERIZATION KETTLE OPERATOR Visits 0 Evaluation Information Evaluation Date 09/03/23 PT-OP-B Current Condition Start: 09/03/23 17:34 Freq: Status: Active Protocol: Document 09/03/23 16:45 DCW (Rec: 09/03/23 17:42 DCW [id number]) Current Condition History of Current Condition Onset Date Long-standing history Current Complaints Low back pain, scoliosis, right hip and leg pain History of Current Condition Pt is an 83 year old female presenting with a long- standing history of low back pain, secondary to scoliosis and degenerative changes. Pt has been previously been treated for this same complaint at this clinic many years ago, which helped at the time, however has slowly continued to get worse, to the point now where she is no longer able to ignore it. OMT in the past has been helpful, but pt admits she has not been noticing any improvement recently. Admits pain is worse at night, tried to sleep on her side, but can only tolerate it for so long before needing to roll over to the other side due to hip and back pain. Also notes worsening pain when standing longer than 10-15 minutes. Notes difficulty with stairs, cannot tolerate using her stationary bike due to pain. PT-OP-C Subjective Start: 09/03/23 17:34 Freq: Status: Active Protocol: Document 09/03/23 16:45 DCW (Rec: 09/03/23 17:57 DCW [id number]) OP-PT Subjective Patient Comments Patient Comments I just can't really ignore it anymore. Patient Reported Progress Worse PT-OP-F Manual Assessment Start: 09/03/23 17:34 Freq: Status: Active Protocol: Document 09/03/23 16:45 DCW (Rec: 09/03/23 17:57 DCW [id number]) Manual Assessments Soft Tissue Assessment Soft Tissue Mobility Assessment increased R-sided lumbar tone, increased left-sided thoracic tone Joint Mobility Assessment Joint Mobility Assessment reverse S-curve scoliosis PT-OP-J Posture/Palpation/Skin Start: 09/03/23 17:34 Freq: Status: Active Protocol: Document 09/03/23 16:45 DCW (Rec: 09/04/23 09:35 DCW [id number]) Posture Evaluation Position Standing Evaluation View Posterior T-Spine Posture Fixed Scoliosis on (L) L-Spine Posture Fixed Scoliosis on (R) PT-OP-K Range of Motion Start: 09/03/23 17:34 Freq: Status: Active Protocol: Document 09/03/23 16:45 DCW (Rec: 09/04/23 09:35 DCW [id number]) Lumbar Spine Range of Motion Lumbar Spine Active Degrees Testing Position Standing Flexion 40 Extension 5 Lateral Flexion Left 47 Lateral Flexion Right 52 Comments Lateral flexion measured in cm from fingertip to floor PT-OP-L Special Tests Start: 09/03/23 17:34 Freq: Status: Active Protocol: Document 09/03/23 16:45 DCW (Rec: 09/04/23 09:35 DCW [id number]) Special Tests Lumbar Spine Special Tests Vertical Spine Loading Test Results Negative Straight Leg Raise Test Results Negative Compression Test Results Negative A-P Shearing Test Results Negative Hip Special Tests Piriformis Test Results C/o tightness RALPH Test Results Negative PT-OP-M Strength Start: 09/03/23 17:34 Freq: Status: Active Protocol: Document 09/03/23 16:45 DCW (Rec: 09/04/23 09:35 DCW [id number]) Trunk Strength Trunk Manual Muscle Testing Core Stabilization 4-/5: Good TrA contraction, difficulty holding longer than 5 PT-OP-Q Treatments Start: 09/03/23 17:34 Freq: Status: Active Protocol: Document 09/03/23 16:45 DCW (Rec: 09/03/23 17:42 DCW [id number]) Gym Equipment Therapeutic Ball LTR Exercise Details LTR Ball Size/Color Blue - 45 cm Body Position Supine Therapeutic Exercises Supine Exercises Marching Supine Exercise Name PPT /c supine marching PPT Supine Exercise Name PPT /c TrA contraction Reps/Minutes 5 hold Sitting Exercises Piriformis Sitting Exercise Name Seated figure-4 Side right Manual Therapy Treatment Soft Tissue Mobilization Lumbar Body Location Lumbar paraspinals Mobilization Type Sustained Pressure,Trigger Point Release Intensity/Depth Moderate Body Position Sidelying PT-OP-T Assessment and Plan Start: 09/03/23 17:34 Freq: Status: Active Protocol: Document 09/03/23 16:45 DCW (Rec: 09/04/23 09:43 DCW [id number]) Physical Therapy Assessment Rehab Potential Rehabilitation Potential Fair Evaluation Complexity Number of Personal Factors/Comorbidities 3 or More Number of Body Systems Impaired 4 or More Clinical Presentation at Evaluation Evolving Impairments Impairments Functional Activities, Functional Mobility,Pain, Posture,ROM,Soft Tissue Mobility,Strength,Tone Goals Three Impairment Pt unable to stand for 15+' secondary to low back pain [facility] Goal (LTG) Pt to exhibit ability to stand for longer than 30 minutes without increased back pain in order to improve ability to prepare and cook meals. LTG Duration 12/02/23 Two Impairment Pt experiences interrupted sleep secondary to hip pain [facility] Goal (LTG) Pt to report ability to sleep with waking up fewer than 3 times throughout the night secondary to hip pain over one full week. LTG Duration 12/02/23 One Impairment Pt does not have an appropriate home exercise program Short Term Goal (STG) Pt to be independent and compliant with an appropriate HEP STG Duration 10/02/23 Assessment Summary Assessment Pt presents with signs and symptoms consistent with referring diagnosis. Pt lumbar pain and immobility impacted by pt's history of degenerative changes and long- standing history of scoliosis. Pt notes recent worsening of symptoms, especially when standing or sleeping. Does demonstrate some core weakness , as well as increased muscle tone along lumbar paraspinals and bilateral hip musculature. Should benefit from skilled physical therapy focusing on improving lumbar mobility, core and hip strengthening, and increased flexibility in order to return pt to prior functional levels. Physical Therapy Plan Frequency and Duration Frequency of Treatment 2x/Week Plan of Care Start Date 09/03/23 Plan of Care End Date 12/02/23 Therapeutic Interventions Therapeutic Interventions Balance Training,Gait Training ,Home Exercise Program,Joint Mobilizations,Manual Therapy, Neuromuscular Re-education, Patient/Caregiver Education, Self-Care/Home Management,Soft Tissue Mobilization, Therapeutic Activities, Therapeutic Exercises Modalities Cold Pack/Ice Massage,Electric Stimulation,Hot Packs, Ultrasound Next Visit Focus/Plan Next Note Type Treatment Note Next Visit Plan STM, stretching, core/hip strengthening
--- NOTE | 2023-09-08 11:17 | PT.OTN ---
Current Diagnoses Other chronic pain (09/08/23) Stiffness of right hip, not elsewhere classified (09/08/23) Stiffness of other specified joint, not elsewhere classified (09/08/23) Scoliosis, unspecified (09/08/23) Low back pain, unspecified (09/08/23) Physical Therapy Treatment Note PT-OP-A Visit Information Start: 09/03/23 17:34 Freq: Status: Active Protocol: Document 09/08/23 10:32 DCW (Rec: 09/08/23 11:16 DCW [id number]) Out-Patient Physical Therapy Visit Information Visit Information Visit Type Treatment Note Visit Start Time 10:32 Visit Stop Time 11:15 Visit Number 2 Number of EARLY CHILDHOOD LEAD TEACHER Visits 0 Evaluation Information Evaluation Date 09/03/23 PT-OP-B Current Condition Start: 09/03/23 17:34 Freq: Status: Active Protocol: Document 09/03/23 16:45 DCW (Rec: 09/03/23 17:42 DCW [id number]) Current Condition History of Current Condition Onset Date Long-standing history Current Complaints Low back pain, scoliosis, right hip and leg pain History of Current Condition Pt is an 83 year old female presenting with a long- standing history of low back pain, secondary to scoliosis and degenerative changes. Pt has been previously been treated for this same complaint at this clinic many years ago, which helped at the time, however has slowly continued to get worse, to the point now where she is no longer able to ignore it. OMT in the past has been helpful, but pt admits she has not been noticing any improvement recently. Admits pain is worse at night, tried to sleep on her side, but can only tolerate it for so long before needing to roll over to the other side due to hip and back pain. Also notes worsening pain when standing longer than 10-15 minutes. Notes difficulty with stairs, cannot tolerate using her stationary bike due to pain. PT-OP-C Subjective Start: 09/03/23 17:34 Freq: Status: Active Protocol: Document 09/08/23 10:32 DCW (Rec: 09/08/23 11:16 DCW [id number]) OP-PT Subjective Patient Comments Patient Comments Pt notes her arm and hands were bothering her over the weekend. Also slept poorly last night. PT-OP-F Manual Assessment Start: 09/03/23 17:34 Freq: Status: Active Protocol: Document 09/03/23 16:45 DCW (Rec: 09/03/23 17:57 DCW [place] [id number]) Manual Assessments Soft Tissue Assessment Soft Tissue Mobility Assessment increased R-sided lumbar tone, increased left-sided thoracic tone Joint Mobility Assessment Joint Mobility Assessment reverse S-curve scoliosis PT-OP-J Posture/Palpation/Skin Start: 09/03/23 17:34 Freq: Status: Active Protocol: Document 09/03/23 16:45 DCW (Rec: 09/04/23 09:35 DCW [place] [id number]) Posture Evaluation Position Standing Evaluation View Posterior T-Spine Posture Fixed Scoliosis on (L) L-Spine Posture Fixed Scoliosis on (R) PT-OP-K Range of Motion Start: 09/03/23 17:34 Freq: Status: Active Protocol: Document 09/03/23 16:45 DCW (Rec: 09/04/23 09:35 DCW [place] [id number]) Lumbar Spine Range of Motion Lumbar Spine Active Degrees Testing Position Standing Flexion 40 Extension 5 Lateral Flexion Left 47 Lateral Flexion Right 52 Comments Lateral flexion measured in cm from fingertip to floor PT-OP-L Special Tests Start: 09/03/23 17:34 Freq: Status: Active Protocol: Document 09/03/23 16:45 DCW (Rec: 09/04/23 09:35 DCW [place] [id number]) Special Tests Lumbar Spine Special Tests Vertical Spine Loading Test Results Negative Straight Leg Raise Test Results Negative Compression Test Results Negative A-P Shearing Test Results Negative Hip Special Tests Piriformis Test Results C/o tightness RALPH Test Results Negative PT-OP-M Strength Start: 09/03/23 17:34 Freq: Status: Active Protocol: Document 09/03/23 16:45 DCW (Rec: 09/04/23 09:35 DCW [id number]) Trunk Strength Trunk Manual Muscle Testing Core Stabilization 4-/5: Good TrA contraction, difficulty holding longer than 5 PT-OP-Q Treatments Start: 09/03/23 17:34 Freq: Status: Active Protocol: Document 09/08/23 10:32 DCW (Rec: 09/08/23 11:16 DCW [id number]) Cardio Equipment Recumbent Elliptical ([employer]) Duration (Minutes) 5 Resistance 5 Seat Position 7 Gym Equipment Therapeutic Ball Pelvic Circles Exercise Details Pelvic circles/tilts Ball Size/Color Red - 55 cm Body Position Sitting Resisted Rotation Exercise Details Resisted trunk rotation Ball Size/Color Red - 55 cm Lv 2 T-band Body Position Sitting Therapeutic Exercises Supine Exercises SLR Supine Exercise Name PPT /c SLR Side bilateral Reps/Minutes 5 hold Marching Supine Exercise Name PPT /c supine marching PPT Supine Exercise Name PPT /c TrA contraction Reps/Minutes 5 hold Sidelying Exercises Hip Abduction Sidelying Exercise Name Attempted - pt unable to lift leg secondary to pain Manual Therapy Treatment Soft Tissue Mobilization Lumbar Body Location Lumbar paraspinals Mobilization Type Sustained Pressure,Trigger Point Release Intensity/Depth Moderate Body Position Sidelying PT-OP-T Assessment and Plan Start: 09/03/23 17:34 Freq: Status: Active Protocol: Document 09/08/23 10:32 DCW (Rec: 09/08/23 11:16 DCW [id number]) Physical Therapy Assessment Impairments Impairments Functional Activities, Functional Mobility,Pain, Posture,ROM,Soft Tissue Mobility,Strength,Tone Goals Three Impairment Pt unable to stand for 15+' secondary to low back pain Alf Goal (LTG) Pt to exhibit ability to stand for longer than 30 minutes without increased back pain in order to improve ability to prepare and cook meals. LTG Duration 12/02/23 Two Impairment Pt experiences interrupted sleep secondary to hip pain Alf Goal (LTG) Pt to report ability to sleep with waking up fewer than 3 times throughout the night secondary to hip pain over one full week. LTG Duration 12/02/23 One Impairment Pt does not have an appropriate home exercise program Short Term Goal (STG) Pt to be independent and compliant with an appropriate HEP STG Duration 10/02/23 Assessment Summary Assessment good response to treatment today, able to perform nearly all TherEx without increased pain, did struggle with side- lying hip abduction secondary to increased hip pain. Will plan on adding standing hip abduction next time. Physical Therapy Plan Frequency and Duration Frequency of Treatment 2x/Week Plan of Care Start Date 09/03/23 Plan of Care End Date 12/02/23 Therapeutic Interventions Therapeutic Interventions Balance Training,Gait Training ,Home Exercise Program,Joint Mobilizations,Manual Therapy, Neuromuscular Re-education, Patient/Caregiver Education, Self-Care/Home Management,Soft Tissue Mobilization, Therapeutic Activities, Therapeutic Exercises Modalities Cold Pack/Ice Massage,Electric Stimulation,Hot Packs, Ultrasound Next Visit Focus/Plan Next Note Type Treatment Note Next Visit Plan STM, stretching, core/hip strengthening
--- NOTE | 2023-09-10 12:35 | PT.OTN ---
Current Diagnoses Other chronic pain (09/10/23) Stiffness of right hip, not elsewhere classified (09/10/23) Stiffness of other specified joint, not elsewhere classified (09/10/23) Scoliosis, unspecified (09/10/23) Low back pain, unspecified (09/10/23) Physical Therapy Treatment Note PT-OP-A Visit Information Start: 09/03/23 17:34 Freq: Status: Active Protocol: Document 09/10/23 09:43 SW (Rec: 09/10/23 10:31 SW [id number]) Out-Patient Physical Therapy Visit Information Visit Information Visit Type Treatment Note Visit Start Time 09:45 Visit Stop Time 10:25 Visit Number 3 Number of CAST IRON DIPPER Visits 1 PT-OP-B Current Condition Start: 09/03/23 17:34 Freq: Status: Active Protocol: Document 09/03/23 16:45 DCW (Rec: 09/03/23 17:42 DCW [id number]) Current Condition History of Current Condition Onset Date Long-standing history Current Complaints Low back pain, scoliosis, right hip and leg pain History of Current Condition Pt is an 83 year old female presenting with a long- standing history of low back pain, secondary to scoliosis and degenerative changes. Pt has been previously been treated for this same complaint at this clinic many years ago, which helped at the time, however has slowly continued to get worse, to the point now where she is no longer able to ignore it. OMT in the past has been helpful, but pt admits she has not been noticing any improvement recently. Admits pain is worse at night, tried to sleep on her side, but can only tolerate it for so long before needing to roll over to the other side due to hip and back pain. Also notes worsening pain when standing longer than 10-15 minutes. Notes difficulty with stairs, cannot tolerate using her stationary bike due to pain. PT-OP-C Subjective Start: 09/03/23 17:34 Freq: Status: Active Protocol: Document 09/10/23 09:43 SW (Rec: 09/10/23 10:31 SW [id number]) OP-PT Subjective Patient Comments Patient Comments Pt reports problem with hand, waiting for OT. PT-OP-F Manual Assessment Start: 09/03/23 17:34 Freq: Status: Active Protocol: Document 09/03/23 16:45 DCW (Rec: 09/03/23 17:57 DCW [id number]) Manual Assessments Soft Tissue Assessment Soft Tissue Mobility Assessment increased R-sided lumbar tone, increased left-sided thoracic tone Joint Mobility Assessment Joint Mobility Assessment reverse S-curve scoliosis PT-OP-J Posture/Palpation/Skin Start: 09/03/23 17:34 Freq: Status: Active Protocol: Document 09/03/23 16:45 DCW (Rec: 09/04/23 09:35 DCW [id number]) Posture Evaluation Position Standing Evaluation View Posterior T-Spine Posture Fixed Scoliosis on (L) L-Spine Posture Fixed Scoliosis on (R) PT-OP-K Range of Motion Start: 09/03/23 17:34 Freq: Status: Active Protocol: Document 09/03/23 16:45 DCW (Rec: 09/04/23 09:35 DCW [id number]) Lumbar Spine Range of Motion Lumbar Spine Active Degrees Testing Position Standing Flexion 40 Extension 5 Lateral Flexion Left 47 Lateral Flexion Right 52 Comments Lateral flexion measured in cm from fingertip to floor PT-OP-L Special Tests Start: 09/03/23 17:34 Freq: Status: Active Protocol: Document 09/03/23 16:45 DCW (Rec: 09/04/23 09:35 DCW [id number]) Special Tests Lumbar Spine Special Tests Vertical Spine Loading Test Results Negative Straight Leg Raise Test Results Negative Compression Test Results Negative A-P Shearing Test Results Negative Hip Special Tests Piriformis Test Results C/o tightness RALPH Test Results Negative PT-OP-M Strength Start: 09/03/23 17:34 Freq: Status: Active Protocol: Document 09/03/23 16:45 DCW (Rec: 09/04/23 09:35 DCW [id number]) Trunk Strength Trunk Manual Muscle Testing Core Stabilization 4-/5: Good TrA contraction, difficulty holding longer than 5 PT-OP-Q Treatments Start: 09/03/23 17:34 Freq: Status: Active Protocol: Document 09/10/23 09:43 SW (Rec: 09/10/23 10:31 SW [id number]) Gym Equipment Therapeutic Ball Pelvic Circles Exercise Details Pelvic circles/tilts Ball Size/Color Red - 55 cm Body Position Sitting Resisted Rotation Exercise Details Resisted trunk rotation Ball Size/Color Red - 55 cm Lv 2 T-band Body Position Sitting Therapeutic Exercises Supine Exercises Figure 4 Supine Exercise Name Figure 4 stretch Side bilateral Reps/Minutes 2x20 Bridge Supine Exercise Name Bridge Side bilateral Reps/Minutes x10 SLR Supine Exercise Name PPT /c SLR Side bilateral Reps/Minutes 5 hold Marching Supine Exercise Name PPT /c supine marching PPT Supine Exercise Name PPT /c TrA contraction Reps/Minutes 5 hold Standing Exercises Hip Abd Standing Exercise Name Hip abd Side bilateral Reps/Minutes x10 ea Comments vc for eccentric control, correct execution Manual Therapy Treatment Soft Tissue Mobilization Lumbar Body Location Lumbar paraspinals Mobilization Type Sustained Pressure,Trigger Point Release Intensity/Depth Moderate Body Position Sidelying PT-OP-T Assessment and Plan Start: 09/03/23 17:34 Freq: Status: Active Protocol: Document 09/10/23 09:43 SW (Rec: 09/10/23 10:31 SW [id number]) Physical Therapy Assessment Goals Three Impairment Pt unable to stand for 15+' secondary to low back pain Park Keeper Goal (LTG) Pt to exhibit ability to stand for longer than 30 minutes without increased back pain in order to improve ability to prepare and cook meals. LTG Duration 12/02/23 Two Impairment Pt experiences interrupted sleep secondary to hip pain [facility] Goal (LTG) Pt to report ability to sleep with waking up fewer than 3 times throughout the night secondary to hip pain over one full week. LTG Duration 12/02/23 One Impairment Pt does not have an appropriate home exercise program Short Term Goal (STG) Pt to be independent and compliant with an appropriate HEP STG Duration 10/02/23 Assessment Summary Assessment Pt tolerated exercises well today, without increase in pain. Initiated supine bridge and standing hip abduction, mod verbal cues for slow controlled movement and execution, good response no increase in pain. Plan to followup on pt tolerance next session and progress as able. Physical Therapy Plan Frequency and Duration Frequency of Treatment 2x/Week Plan of Care Start Date 09/03/23 Plan of Care End Date 12/02/23 Therapeutic Interventions Therapeutic Interventions Balance Training,Gait Training ,Home Exercise Program,Joint Mobilizations,Manual Therapy, Neuromuscular Re-education, Patient/Caregiver Education, Self-Care/Home Management,Soft Tissue Mobilization, Therapeutic Activities, Therapeutic Exercises Modalities Cold Pack/Ice Massage,Electric Stimulation,Hot Packs, Ultrasound Next Visit Focus/Plan Next Note Type Treatment Note Next Visit Plan STM, stretching, core/hip strengthening
--- NOTE | 2023-09-17 11:59 | PT.OTN ---
Current Diagnoses Other chronic pain (09/17/23) Stiffness of right hip, not elsewhere classified (09/17/23) Stiffness of other specified joint, not elsewhere classified (09/17/23) Scoliosis, unspecified (09/17/23) Low back pain, unspecified (09/17/23) Physical Therapy Treatment Note PT-OP-A Visit Information Start: 09/03/23 17:34 Freq: Status: Active Protocol: Document 09/17/23 09:45 SW (Rec: 09/17/23 10:35 SW [id number]) Out-Patient Physical Therapy Visit Information Visit Information Visit Type Treatment Note Visit Start Time 09:45 Visit Stop Time 10:25 Visit Number 4 Number of ACCOUNTS PAYABLE ASSISTANT Visits 1 PT-OP-B Current Condition Start: 09/03/23 17:34 Freq: Status: Active Protocol: Document 09/03/23 16:45 DCW (Rec: 09/03/23 17:42 DCW [id number]) Current Condition History of Current Condition Onset Date Long-standing history Current Complaints Low back pain, scoliosis, right hip and leg pain History of Current Condition Pt is an 83 year old female presenting with a long- standing history of low back pain, secondary to scoliosis and degenerative changes. Pt has been previously been treated for this same complaint at this clinic many years ago, which helped at the time, however has slowly continued to get worse, to the point now where she is no longer able to ignore it. OMT in the past has been helpful, but pt admits she has not been noticing any improvement recently. Admits pain is worse at night, tried to sleep on her side, but can only tolerate it for so long before needing to roll over to the other side due to hip and back pain. Also notes worsening pain when standing longer than 10-15 minutes. Notes difficulty with stairs, cannot tolerate using her stationary bike due to pain. PT-OP-C Subjective Start: 09/03/23 17:34 Freq: Status: Active Protocol: Document 09/17/23 09:45 SW (Rec: 09/17/23 10:35 SW [id number]) OP-PT Subjective Patient Comments Patient Comments Pt reports can not use hand d/ t pain. Day before yesterday pt got a dizzy episode, had to do the tahir maneuver. Pt tried sleeping on opposite side, which seemed to help. Pt reports getting a therapy ball for HEP, but it is too large. PT-OP-F Manual Assessment Start: 09/03/23 17:34 Freq: Status: Active Protocol: Document 09/03/23 16:45 DCW (Rec: 09/03/23 17:57 DCW [id number]) Manual Assessments Soft Tissue Assessment Soft Tissue Mobility Assessment increased R-sided lumbar tone, increased left-sided thoracic tone Joint Mobility Assessment Joint Mobility Assessment reverse S-curve scoliosis PT-OP-J Posture/Palpation/Skin Start: 09/03/23 17:34 Freq: Status: Active Protocol: Document 09/03/23 16:45 DCW (Rec: 09/04/23 09:35 DCW [id number]) Posture Evaluation Position Standing Evaluation View Posterior T-Spine Posture Fixed Scoliosis on (L) L-Spine Posture Fixed Scoliosis on (R) PT-OP-K Range of Motion Start: 09/03/23 17:34 Freq: Status: Active Protocol: Document 09/03/23 16:45 DCW (Rec: 09/04/23 09:35 DCW [id number]) Lumbar Spine Range of Motion Lumbar Spine Active Degrees Testing Position Standing Flexion 40 Extension 5 Lateral Flexion Left 47 Lateral Flexion Right 52 Comments Lateral flexion measured in cm from fingertip to floor PT-OP-L Special Tests Start: 09/03/23 17:34 Freq: Status: Active Protocol: Document 09/03/23 16:45 DCW (Rec: 09/04/23 09:35 DCW [id number]) Special Tests Lumbar Spine Special Tests Vertical Spine Loading Test Results Negative Straight Leg Raise Test Results Negative Compression Test Results Negative A-P Shearing Test Results Negative Hip Special Tests Piriformis Test Results C/o tightness RALPH Test Results Negative PT-OP-M Strength Start: 09/03/23 17:34 Freq: Status: Active Protocol: Document 09/03/23 16:45 DCW (Rec: 09/04/23 09:35 DCW [id number]) Trunk Strength Trunk Manual Muscle Testing Core Stabilization 4-/5: Good TrA contraction, difficulty holding longer than 5 PT-OP-Q Treatments Start: 09/03/23 17:34 Freq: Status: Active Protocol: Document 09/17/23 09:45 SW (Rec: 09/17/23 10:35 SW [id number]) Cardio Equipment Recumbent Elliptical ([employer]) Duration (Minutes) 5 Resistance 5 Seat Position 7 Gym Equipment Therapeutic Ball Lumbar Stretch Exercise Details Lumbar flex stretch Ball Size/Color Red 75cm Pelvic Circles Exercise Details Pelvic circles/tilts Ball Size/Color Red - 55 cm Body Position Sitting Therapeutic Exercises Supine Exercises Clamshell Supine Exercise Name Clamshell Side bilateral Resistance lvl 1>lvl 3 Bridge Supine Exercise Name Bridge Side bilateral Reps/Minutes 2x10 SLR Supine Exercise Name PPT /c SLR Side bilateral Reps/Minutes 5 hold Sitting Exercises Lumbar ext Sitting Exercise Name seated Lumbar ext stretch Side bilateral Equipment Used bilateral hands behind head Comments next session add small ball for tactile facilitation PT-OP-T Assessment and Plan Start: 09/03/23 17:34 Freq: Status: Active Protocol: Document 09/17/23 09:45 SW (Rec: 09/17/23 10:35 SW [id number]) Physical Therapy Assessment Goals Three Impairment Pt unable to stand for 15+' secondary to low back pain Slot Host Goal (LTG) Pt to exhibit ability to stand for longer than 30 minutes without increased back pain in order to improve ability to prepare and cook meals. LTG Duration 12/02/23 Two Impairment Pt experiences interrupted sleep secondary to hip pain Slot Host Goal (LTG) Pt to report ability to sleep with waking up fewer than 3 times throughout the night secondary to hip pain over one full week. LTG Duration 12/02/23 One Impairment Pt does not have an appropriate home exercise program Short Term Goal (STG) Pt to be independent and compliant with an appropriate HEP STG Duration 10/02/23 Assessment Summary Assessment Progressed pt today with seated lumbar flexion/ext exercises. Discontinued standing hip abduction initiated last session d/t pt tolerance in bilateral hands, initiated supine clams for hip strengthening d/t positional tolerance with exercises, pt tolerated well good feedback, plan to follow up next session and progress as able. Physical Therapy Plan Frequency and Duration Frequency of Treatment 2x/Week Plan of Care Start Date 09/03/23 Plan of Care End Date 12/02/23 Therapeutic Interventions Therapeutic Interventions Balance Training,Gait Training ,Home Exercise Program,Joint Mobilizations,Manual Therapy, Neuromuscular Re-education, Patient/Caregiver Education, Self-Care/Home Management,Soft Tissue Mobilization, Therapeutic Activities, Therapeutic Exercises Modalities Cold Pack/Ice Massage,Electric Stimulation,Hot Packs, Ultrasound Next Visit Focus/Plan Next Note Type Treatment Note Next Visit Plan STM, stretching, core/hip strengthening
--- NOTE | 2023-09-22 16:46 | PT.OTN ---
Current Diagnoses Other chronic pain (09/22/23) Stiffness of right hip, not elsewhere classified (09/22/23) Stiffness of other specified joint, not elsewhere classified (09/22/23) Scoliosis, unspecified (09/22/23) Low back pain, unspecified (09/22/23) Physical Therapy Treatment Note PT-OP-A Visit Information Start: 09/03/23 17:34 Freq: Status: Active Protocol: Document 09/22/23 16:03 DCW (Rec: 09/22/23 16:46 DCW [id number]) Out-Patient Physical Therapy Visit Information Visit Information Visit Type Treatment Note Visit Start Time 16:03 Visit Stop Time 16:45 Visit Number 5 Number of ACCOUNT RECEIVABLE CLERK Visits 0 Evaluation Information Evaluation Date 09/03/23 PT-OP-B Current Condition Start: 09/03/23 17:34 Freq: Status: Active Protocol: Document 09/03/23 16:45 DCW (Rec: 09/03/23 17:42 DCW [id number]) Current Condition History of Current Condition Onset Date Long-standing history Current Complaints Low back pain, scoliosis, right hip and leg pain History of Current Condition Pt is an 83 year old female presenting with a long- standing history of low back pain, secondary to scoliosis and degenerative changes. Pt has been previously been treated for this same complaint at this clinic many years ago, which helped at the time, however has slowly continued to get worse, to the point now where she is no longer able to ignore it. OMT in the past has been helpful, but pt admits she has not been noticing any improvement recently. Admits pain is worse at night, tried to sleep on her side, but can only tolerate it for so long before needing to roll over to the other side due to hip and back pain. Also notes worsening pain when standing longer than 10-15 minutes. Notes difficulty with stairs, cannot tolerate using her stationary bike due to pain. PT-OP-C Subjective Start: 09/03/23 17:34 Freq: Status: Active Protocol: Document 09/22/23 16:03 DCW (Rec: 09/22/23 16:46 DCW [id number]) OP-PT Subjective Patient Comments Patient Comments I was up moving around a lot today because my back was so sore. PT-OP-F Manual Assessment Start: 09/03/23 17:34 Freq: Status: Active Protocol: Document 09/03/23 16:45 DCW (Rec: 09/03/23 17:57 DCW [id number]) Manual Assessments Soft Tissue Assessment Soft Tissue Mobility Assessment increased R-sided lumbar tone, increased left-sided thoracic tone Joint Mobility Assessment Joint Mobility Assessment reverse S-curve scoliosis PT-OP-J Posture/Palpation/Skin Start: 09/03/23 17:34 Freq: Status: Active Protocol: Document 09/03/23 16:45 DCW (Rec: 09/04/23 09:35 DCW [place] [id number]) Posture Evaluation Position Standing Evaluation View Posterior T-Spine Posture Fixed Scoliosis on (L) L-Spine Posture Fixed Scoliosis on (R) PT-OP-K Range of Motion Start: 09/03/23 17:34 Freq: Status: Active Protocol: Document 09/03/23 16:45 DCW (Rec: 09/04/23 09:35 DCW [place] [id number]) Lumbar Spine Range of Motion Lumbar Spine Active Degrees Testing Position Standing Flexion 40 Extension 5 Lateral Flexion Left 47 Lateral Flexion Right 52 Comments Lateral flexion measured in cm from fingertip to floor PT-OP-L Special Tests Start: 09/03/23 17:34 Freq: Status: Active Protocol: Document 09/03/23 16:45 DCW (Rec: 09/04/23 09:35 DCW [place] [id number]) Special Tests Lumbar Spine Special Tests Vertical Spine Loading Test Results Negative Straight Leg Raise Test Results Negative Compression Test Results Negative A-P Shearing Test Results Negative Hip Special Tests Piriformis Test Results C/o tightness RALPH Test Results Negative PT-OP-M Strength Start: 09/03/23 17:34 Freq: Status: Active Protocol: Document 09/03/23 16:45 DCW (Rec: 09/04/23 09:35 DCW [id number]) Trunk Strength Trunk Manual Muscle Testing Core Stabilization 4-/5: Good TrA contraction, difficulty holding longer than 5 PT-OP-Q Treatments Start: 09/03/23 17:34 Freq: Status: Active Protocol: Document 09/22/23 16:03 DCW (Rec: 09/22/23 16:46 DCW [id number]) Cardio Equipment Recumbent Elliptical ([employer]) Duration (Minutes) 5 Resistance 5 Seat Position 7 Therapeutic Exercises Standing Exercises Heel raises Standing Exercise Name Heel raises Side bilateral Hip Ext Standing Exercise Name Hip ext Side bilateral Reps/Minutes x15 Hip Abd Standing Exercise Name Hip abd Side bilateral Reps/Minutes x15 ea Comments vc for eccentric control, correct execution Manual Therapy Treatment Soft Tissue Mobilization Lumbar Body Location Lumbar paraspinals Mobilization Type Sustained Pressure,Trigger Point Release Intensity/Depth Moderate Body Position Sidelying PT-OP-T Assessment and Plan Start: 09/03/23 17:34 Freq: Status: Active Protocol: Document 09/22/23 16:03 DCW (Rec: 09/22/23 16:46 DCW [id number]) Physical Therapy Assessment Goals Three Impairment Pt unable to stand for 15+' secondary to low back pain [employer] Goal (LTG) Pt to exhibit ability to stand for longer than 30 minutes without increased back pain in order to improve ability to prepare and cook meals. LTG Duration 12/02/23 Two Impairment Pt experiences interrupted sleep secondary to hip pain [facility] Goal (LTG) Pt to report ability to sleep with waking up fewer than 3 times throughout the night secondary to hip pain over one full week. LTG Duration 12/02/23 One Impairment Pt does not have an appropriate home exercise program Short Term Goal (STG) Pt to be independent and compliant with an appropriate HEP STG Duration 10/02/23 Assessment Summary Assessment Good response to STM today, purchased a T-ball for HEP. Pt demonstrating improvement with gait and standing tolerance. Physical Therapy Plan Frequency and Duration Frequency of Treatment 2x/Week Plan of Care Start Date 09/03/23 Plan of Care End Date 12/02/23 Therapeutic Interventions Therapeutic Interventions Balance Training,Gait Training ,Home Exercise Program,Joint Mobilizations,Manual Therapy, Neuromuscular Re-education, Patient/Caregiver Education, Self-Care/Home Management,Soft Tissue Mobilization, Therapeutic Activities, Therapeutic Exercises Modalities Cold Pack/Ice Massage,Electric Stimulation,Hot Packs, Ultrasound Next Visit Focus/Plan Next Note Type Treatment Note Next Visit Plan STM, stretching, core/hip strengthening
--- NOTE | 2023-09-25 16:13 | PT.OTN ---
Current Diagnoses Other chronic pain (09/25/23) Stiffness of right hip, not elsewhere classified (09/25/23) Stiffness of other specified joint, not elsewhere classified (09/25/23) Scoliosis, unspecified (09/25/23) Low back pain, unspecified (09/25/23) Physical Therapy Treatment Note PT-OP-A Visit Information Start: 09/03/23 17:34 Freq: Status: Active Protocol: Document 09/25/23 15:21 SW (Rec: 09/25/23 16:13 SW [id number]) Out-Patient Physical Therapy Visit Information Visit Information Visit Type Treatment Note Visit Start Time 15:17 Visit Stop Time 15:57 Visit Number 6 Number of ASBESTOS REMOVER Visits 1 PT-OP-B Current Condition Start: 09/03/23 17:34 Freq: Status: Active Protocol: Document 09/03/23 16:45 DCW (Rec: 09/03/23 17:42 DCW [id number]) Current Condition History of Current Condition Onset Date Long-standing history Current Complaints Low back pain, scoliosis, right hip and leg pain History of Current Condition Pt is an 83 year old female presenting with a long- standing history of low back pain, secondary to scoliosis and degenerative changes. Pt has been previously been treated for this same complaint at this clinic many years ago, which helped at the time, however has slowly continued to get worse, to the point now where she is no longer able to ignore it. OMT in the past has been helpful, but pt admits she has not been noticing any improvement recently. Admits pain is worse at night, tried to sleep on her side, but can only tolerate it for so long before needing to roll over to the other side due to hip and back pain. Also notes worsening pain when standing longer than 10-15 minutes. Notes difficulty with stairs, cannot tolerate using her stationary bike due to pain. PT-OP-C Subjective Start: 09/03/23 17:34 Freq: Status: Active Protocol: Document 09/25/23 15:21 SW (Rec: 09/25/23 16:13 SW [id number]) OP-PT Subjective Patient Comments Patient Comments Pt reports waking up dizzy today, had to do tahir maneuver a few time PT-OP-F Manual Assessment Start: 09/03/23 17:34 Freq: Status: Active Protocol: Document 09/03/23 16:45 DCW (Rec: 09/03/23 17:57 DCW [id number]) Manual Assessments Soft Tissue Assessment Soft Tissue Mobility Assessment increased R-sided lumbar tone, increased left-sided thoracic tone Joint Mobility Assessment Joint Mobility Assessment reverse S-curve scoliosis PT-OP-J Posture/Palpation/Skin Start: 09/03/23 17:34 Freq: Status: Active Protocol: Document 09/03/23 16:45 DCW (Rec: 09/04/23 09:35 DCW [id number]) Posture Evaluation Position Standing Evaluation View Posterior T-Spine Posture Fixed Scoliosis on (L) L-Spine Posture Fixed Scoliosis on (R) PT-OP-K Range of Motion Start: 09/03/23 17:34 Freq: Status: Active Protocol: Document 09/03/23 16:45 DCW (Rec: 09/04/23 09:35 DCW [id number]) Lumbar Spine Range of Motion Lumbar Spine Active Degrees Testing Position Standing Flexion 40 Extension 5 Lateral Flexion Left 47 Lateral Flexion Right 52 Comments Lateral flexion measured in cm from fingertip to floor PT-OP-L Special Tests Start: 09/03/23 17:34 Freq: Status: Active Protocol: Document 09/03/23 16:45 DCW (Rec: 09/04/23 09:35 DCW [id number]) Special Tests Lumbar Spine Special Tests Vertical Spine Loading Test Results Negative Straight Leg Raise Test Results Negative Compression Test Results Negative A-P Shearing Test Results Negative Hip Special Tests Piriformis Test Results C/o tightness RALPH Test Results Negative PT-OP-M Strength Start: 09/03/23 17:34 Freq: Status: Active Protocol: Document 09/03/23 16:45 DCW (Rec: 09/04/23 09:35 DCW [id number]) Trunk Strength Trunk Manual Muscle Testing Core Stabilization 4-/5: Good TrA contraction, difficulty holding longer than 5 PT-OP-Q Treatments Start: 09/03/23 17:34 Freq: Status: Active Protocol: Document 09/25/23 15:21 SW (Rec: 09/25/23 16:13 SW [id number]) Gym Equipment Therapeutic Ball Core Stabilization Exercise Details Marches Ball Size/Color Red 55cm Body Position Sitting Comments cues for slow, controlled marches, close SBA Therapeutic Exercises Standing Exercises Heel raises Standing Exercise Name Heel raises Side bilateral Resistance 2# Hip Ext Standing Exercise Name Hip ext Side bilateral Reps/Minutes x15 Hip Abd Standing Exercise Name Hip abd Side bilateral Reps/Minutes x15 ea Comments vc for eccentric control, correct execution Other Exercises STS Other Exercise Name STS Resistance AROM Comments cued for glute activation/ erect posture Manual Therapy Treatment Soft Tissue Mobilization Lumbar Body Location Lumbar paraspinals Mobilization Type Sustained Pressure,Trigger Point Release Intensity/Depth Moderate Body Position Sidelying PT-OP-T Assessment and Plan Start: 09/03/23 17:34 Freq: Status: Active Protocol: Document 09/25/23 15:21 SW (Rec: 09/25/23 16:13 [id number]) Physical Therapy Assessment Goals Three Impairment Pt unable to stand for 15+' secondary to low back pain [facility] Goal (LTG) Pt to exhibit ability to stand for longer than 30 minutes without increased back pain in order to improve ability to prepare and cook meals. LTG Duration 12/02/23 Two Impairment Pt experiences interrupted sleep secondary to hip pain Rn Clinical Coordinator Goal (LTG) Pt to report ability to sleep with waking up fewer than 3 times throughout the night secondary to hip pain over one full week. LTG Duration 12/02/23 One Impairment Pt does not have an appropriate home exercise program Short Term Goal (STG) Pt to be independent and compliant with an appropriate HEP STG Duration 10/02/23 Assessment Summary Assessment Pt reports heel raises are feeling easier, progressed pt with addition of 2# weight, tolerated well and was able to achieve appropriate muscle fatigue. Pt reports doing squats everyday, initiated STS this session to review squat form, VC for mechanics, engaging glutes and for posture upon ascending. Verbal cues required throughout session for core stabilization to prevent compensation during ther ex. Initiated brown for core strengthening this session on therapeutic ball. Physical Therapy Plan Frequency and Duration Frequency of Treatment 2x/Week Plan of Care Start Date 09/03/23 Plan of Care End Date 12/02/23 Therapeutic Interventions Therapeutic Interventions Balance Training,Gait Training ,Home Exercise Program,Joint Mobilizations,Manual Therapy, Neuromuscular Re-education, Patient/Caregiver Education, Self-Care/Home Management,Soft Tissue Mobilization, Therapeutic Activities, Therapeutic Exercises Modalities Cold Pack/Ice Massage,Electric Stimulation,Hot Packs, Ultrasound Next Visit Focus/Plan Next Note Type Treatment Note Next Visit Plan STM, stretching, core/hip strengthening
--- NOTE | 2023-09-30 11:10 | PT.OTN ---
Current Diagnoses Other chronic pain (09/30/23) Stiffness of right hip, not elsewhere classified (09/30/23) Stiffness of other specified joint, not elsewhere classified (09/30/23) Scoliosis, unspecified (09/30/23) Low back pain, unspecified (09/30/23) Physical Therapy Treatment Note PT-OP-A Visit Information Start: 09/03/23 17:34 Freq: Status: Active Protocol: Document 09/30/23 08:10 AB (Rec: 09/30/23 11:09 AB [id number]) Out-Patient Physical Therapy Visit Information Visit Information Visit Type Treatment Note Visit Note Access Code: [email or web address] Visit Start Time 09:47 Visit Stop Time 10:34 Visit Number 7 Number of KEYSMITH Visits 2 Evaluation Information Evaluation Date 09/03/23 PT-OP-B Current Condition Start: 09/03/23 17:34 Freq: Status: Active Protocol: Document 09/03/23 16:45 DCW (Rec: 09/03/23 17:42 DCW [id number]) Current Condition History of Current Condition Onset Date Long-standing history Current Complaints Low back pain, scoliosis, right hip and leg pain History of Current Condition Pt is an 83 year old female presenting with a long- standing history of low back pain, secondary to scoliosis and degenerative changes. Pt has been previously been treated for this same complaint at this clinic many years ago, which helped at the time, however has slowly continued to get worse, to the point now where she is no longer able to ignore it. OMT in the past has been helpful, but pt admits she has not been noticing any improvement recently. Admits pain is worse at night, tried to sleep on her side, but can only tolerate it for so long before needing to roll over to the other side due to hip and back pain. Also notes worsening pain when standing longer than 10-15 minutes. Notes difficulty with stairs, cannot tolerate using her stationary bike due to pain. PT-OP-C Subjective Start: 09/03/23 17:34 Freq: Status: Active Protocol: Document 09/30/23 08:10 AB (Rec: 09/30/23 11:09 AB [id number]) OP-PT Subjective Patient Comments Patient Comments Patient reports the back is getting better. Patient reports walking is not any better, comments the exercises are easier than they were. PT-OP-F Manual Assessment Start: 09/03/23 17:34 Freq: Status: Active Protocol: Document 09/03/23 16:45 DCW (Rec: 09/03/23 17:57 DCW [id number]) Manual Assessments Soft Tissue Assessment Soft Tissue Mobility Assessment increased R-sided lumbar tone, increased left-sided thoracic tone Joint Mobility Assessment Joint Mobility Assessment reverse S-curve scoliosis PT-OP-J Posture/Palpation/Skin Start: 09/03/23 17:34 Freq: Status: Active Protocol: Document 09/03/23 16:45 DCW (Rec: 09/04/23 09:35 DCW [id number]) Posture Evaluation Position Standing Evaluation View Posterior T-Spine Posture Fixed Scoliosis on (L) L-Spine Posture Fixed Scoliosis on (R) PT-OP-K Range of Motion Start: 09/03/23 17:34 Freq: Status: Active Protocol: Document 09/03/23 16:45 DCW (Rec: 09/04/23 09:35 DCW [id number]) Lumbar Spine Range of Motion Lumbar Spine Active Degrees Testing Position Standing Flexion 40 Extension 5 Lateral Flexion Left 47 Lateral Flexion Right 52 Comments Lateral flexion measured in cm from fingertip to floor PT-OP-L Special Tests Start: 09/03/23 17:34 Freq: Status: Active Protocol: Document 09/03/23 16:45 DCW (Rec: 09/04/23 09:35 DCW [id number]) Special Tests Lumbar Spine Special Tests Vertical Spine Loading Test Results Negative Straight Leg Raise Test Results Negative Compression Test Results Negative A-P Shearing Test Results Negative Hip Special Tests Piriformis Test Results C/o tightness RALPH Test Results Negative PT-OP-M Strength Start: 09/03/23 17:34 Freq: Status: Active Protocol: Document 09/03/23 16:45 DCW (Rec: 09/04/23 09:35 DCW [id number]) Trunk Strength Trunk Manual Muscle Testing Core Stabilization 4-/5: Good TrA contraction, difficulty holding longer than 5 PT-OP-Q Treatments Start: 09/03/23 17:34 Freq: Status: Active Protocol: Document 09/30/23 08:10 AB (Rec: 09/30/23 11:09 AB [id number]) Therapeutic Exercises Supine Exercises glute med activation Supine Exercise Name hooklying hip abduction with band Side bilateral Resistance level 3 green band Reps/Minutes one minute X 1 Comments Verbal cues for one minute hold for activation bent knee fall out Side bilateral Resistance level 3 green band Reps/Minutes X10 Comments Verbal cues to brace as LE moves away from core abdominal bracing with LE extension Side bilateral Reps/Minutes X10 Comments VC to brace as LE moves away from core lower trunk rotation Side bilateral Reps/Minutes 2 min hip flexor stretch edg of bed Side bilateral Reps/Minutes one minute right not tolerated left Comments attempted to modifly with bolster to mat on left with reports of no stretch Sitting Exercises glute med activation Sitting Exercise Name seated hip abduction with band Side bilateral Resistance level 3 light green band Reps/Minutes one minute X 1 Comments Verbal cues Other Exercises squats Side bilateral Reps/Minutes X2 then X 8 Comments improved post hip hinge training, but increased cues required. Therapeutic Activity Therapeutic Activity sit to stand Name hip hinge focus Reps/Minutes X3 Comments Patient ed mechanics of sit to stand and use of self tactile cues for hip hinge. Repeated trials for carryover to squats . supine to sit Name supine to sit and side sit to upright Reps/Minutes X 1 each Comments Verbal cues to bend knees and keep shoulder and hip aligned when rolling, to push into heels and avoid holding breath with scooting, and for timing with sidelying to sit ie sit up immediately after LE's are pushed off mat. verbal cues to use core to lower trunk to side and return to upright while seated. Manual Therapy Treatment Soft Tissue Mobilization hip flexor at groin Body Location bilateral hips Mobilization Type Cross-Friction,Rolling Body Position Hooklying Comments monitored for pain piriformis/glute Body Location bilateral Mobilization Type Cross-Friction,Rolling Intensity/Depth Moderate Body Position Sidelying Comments monitored for pain Lumbar Body Location Lumbar paraspinals Mobilization Type Sustained Pressure,Other Intensity/Depth Moderate Body Position Sidelying Comments left and right side Self-Care/Home Management Treatment Education Other Education Patient reported performing squats at home, and has been advised to hold off on squats at this time due to more training for hip hinge would be beneficial. Activities Self-Care/Home Management Activities added bent knee fall out with band, seated hip abduction/ glute med activation with band , and abdominal bracing with LE extension to HEP. PT-OP-T Assessment and Plan Start: 09/03/23 17:34 Freq: Status: Active Protocol: Document 09/30/23 08:10 AB (Rec: 09/30/23 11:09 AB [id number]) Physical Therapy Assessment Goals Three Impairment Pt unable to stand for 15+' secondary to low back pain [facility] Goal (LTG) Pt to exhibit ability to stand for longer than 30 minutes without increased back pain in order to improve ability to prepare and cook meals. LTG Duration 12/02/23 Two Impairment Pt experiences interrupted sleep secondary to hip pain [facility] Goal (LTG) Pt to report ability to sleep with waking up fewer than 3 times throughout the night secondary to hip pain over one full week. LTG Duration 12/02/23 One Impairment Pt does not have an appropriate home exercise program Short Term Goal (STG) Pt to be independent and compliant with an appropriate HEP STG Duration 10/02/23 Assessment Summary Assessment Patient reports no change in back pain end of session. Increased difficulty with hip hinge during sit to stand and squat, and unable to transfer sidelying to sitting without assist. Decreased tolerance to Hong stretch on left LE this session. LE muscle stiffness and core weakness continues to impact functional mobility. Physical Therapy Plan Frequency and Duration Frequency of Treatment 2x/Week Plan of Care Start Date 09/03/23 Plan of Care End Date 12/02/23 Next Visit Focus/Plan Next Note Type Treatment Note Next Visit Plan STM, stretching (trial of seated hip flexor stretch vs hip extension), core/hip strengthening. Possibly side sit to upright to increase core strength for sidelying to sit. Revisit hip hinge.
--- NOTE | 2023-10-02 16:39 | PT.OTN ---
Current Diagnoses Other chronic pain (10/02/23) Stiffness of right hip, not elsewhere classified (10/02/23) Stiffness of other specified joint, not elsewhere classified (10/02/23) Scoliosis, unspecified (10/02/23) Low back pain, unspecified (10/02/23) Physical Therapy Treatment Note PT-OP-A Visit Information Start: 09/03/23 17:34 Freq: Status: Active Protocol: Document 10/02/23 13:51 SW (Rec: 10/02/23 14:30 SW [id number]) Out-Patient Physical Therapy Visit Information Visit Information Visit Type Treatment Note Visit Start Time 13:46 Visit Stop Time 14:25 Visit Number 8 Number of LICENSED FUNERAL DIRECTOR AND EMBALMER Visits 3 PT-OP-B Current Condition Start: 09/03/23 17:34 Freq: Status: Active Protocol: Document 09/03/23 16:45 DCW (Rec: 09/03/23 17:42 DCW [id number]) Current Condition History of Current Condition Onset Date Long-standing history Current Complaints Low back pain, scoliosis, right hip and leg pain History of Current Condition Pt is an 83 year old female presenting with a long- standing history of low back pain, secondary to scoliosis and degenerative changes. Pt has been previously been treated for this same complaint at this clinic many years ago, which helped at the time, however has slowly continued to get worse, to the point now where she is no longer able to ignore it. OMT in the past has been helpful, but pt admits she has not been noticing any improvement recently. Admits pain is worse at night, tried to sleep on her side, but can only tolerate it for so long before needing to roll over to the other side due to hip and back pain. Also notes worsening pain when standing longer than 10-15 minutes. Notes difficulty with stairs, cannot tolerate using her stationary bike due to pain. PT-OP-C Subjective Start: 09/03/23 17:34 Freq: Status: Active Protocol: Document 10/02/23 13:51 SW (Rec: 10/02/23 14:30 SW [id number]) OP-PT Subjective Patient Comments Patient Comments Pt reports dizziness for the last few days, plans to visit doctor because tahir does not seem to be working, pt reports may not be doing it correctly . Pt reports has not been doing as many squats as pt usually does, but still doing ~30 a day. PT-OP-F Manual Assessment Start: 09/03/23 17:34 Freq: Status: Active Protocol: Document 09/03/23 16:45 DCW (Rec: 09/03/23 17:57 DCW [id number]) Manual Assessments Soft Tissue Assessment Soft Tissue Mobility Assessment increased R-sided lumbar tone, increased left-sided thoracic tone Joint Mobility Assessment Joint Mobility Assessment reverse S-curve scoliosis PT-OP-J Posture/Palpation/Skin Start: 09/03/23 17:34 Freq: Status: Active Protocol: Document 09/03/23 16:45 DCW (Rec: 09/04/23 09:35 DCW [id number]) Posture Evaluation Position Standing Evaluation View Posterior T-Spine Posture Fixed Scoliosis on (L) L-Spine Posture Fixed Scoliosis on (R) PT-OP-K Range of Motion Start: 09/03/23 17:34 Freq: Status: Active Protocol: Document 09/03/23 16:45 DCW (Rec: 09/04/23 09:35 DCW [id number]) Lumbar Spine Range of Motion Lumbar Spine Active Degrees Testing Position Standing Flexion 40 Extension 5 Lateral Flexion Left 47 Lateral Flexion Right 52 Comments Lateral flexion measured in cm from fingertip to floor PT-OP-L Special Tests Start: 09/03/23 17:34 Freq: Status: Active Protocol: Document 09/03/23 16:45 DCW (Rec: 09/04/23 09:35 DCW [id number]) Special Tests Lumbar Spine Special Tests Vertical Spine Loading Test Results Negative Straight Leg Raise Test Results Negative Compression Test Results Negative A-P Shearing Test Results Negative Hip Special Tests Piriformis Test Results C/o tightness RALPH Test Results Negative PT-OP-M Strength Start: 09/03/23 17:34 Freq: Status: Active Protocol: Document 09/03/23 16:45 DCW (Rec: 09/04/23 09:35 DCW [id number]) Trunk Strength Trunk Manual Muscle Testing Core Stabilization 4-/5: Good TrA contraction, difficulty holding longer than 5 PT-OP-Q Treatments Start: 09/03/23 17:34 Freq: Status: Active Protocol: Document 10/02/23 13:51 SW (Rec: 10/02/23 14:30 SW [id number]) Therapeutic Exercises Supine Exercises glute med activation Supine Exercise Name hooklying hip abduction with band Side bilateral Resistance level 3 green band Reps/Minutes one minute X 1 Comments Verbal cues for one minute hold for activation bent knee fall out Side bilateral Resistance level 3 green band Reps/Minutes X10 Comments Verbal cues to brace as LE moves away from core abdominal bracing with LE extension Side bilateral Reps/Minutes X10 Comments VC to brace as LE moves away from core lower trunk rotation Side bilateral Reps/Minutes 2 min Comments warm up, ROM Sitting Exercises glute med activation Sitting Exercise Name seated hip abduction with band Side bilateral Resistance level 3 light green band Reps/Minutes one minute X 1 Comments Verbal cues, compensation in trunk Other Exercises squats Side bilateral Reps/Minutes x 10 Comments improved post hip hinge training, but increased cues required. Manual Therapy Treatment Soft Tissue Mobilization hip flexor at groin Body Location bilateral hips Mobilization Type Cross-Friction,Rolling Body Position Hooklying Comments superficial, monitored for pain piriformis/glute Body Location bilateral Mobilization Type Cross-Friction,Rolling Intensity/Depth Moderate Body Position Sidelying Comments monitored for pain Lumbar Body Location Lumbar paraspinals Mobilization Type Sustained Pressure,Other Intensity/Depth Moderate Body Position Sidelying Comments left and right side PT-OP-T Assessment and Plan Start: 09/03/23 17:34 Freq: Status: Active Protocol: Document 10/02/23 13:51 (Rec: 10/02/23 14:30 [id number]) Physical Therapy Assessment Goals Three Impairment Pt unable to stand for 15+' secondary to low back pain Charging Crane Operator Goal (LTG) Pt to exhibit ability to stand for longer than 30 minutes without increased back pain in order to improve ability to prepare and cook meals. LTG Duration 12/02/23 Two Impairment Pt experiences interrupted sleep secondary to hip pain Usp Goal (LTG) Pt to report ability to sleep with waking up fewer than 3 times throughout the night secondary to hip pain over one full week. LTG Duration 12/02/23 One Impairment Pt does not have an appropriate home exercise program Short Term Goal (STG) Pt to be independent and compliant with an appropriate HEP STG Duration 10/02/23 Assessment Summary Assessment Continued hip hinge training with squats, improved with repetition and verbal cues though pt may benefit from continued focus for improved mechanics. Continued seated/ supine strengthening exercises initiated last session, d/t pt increased dizziness over the last few days, for safety. Physical Therapy Plan Frequency and Duration Frequency of Treatment 2x/Week Plan of Care Start Date 09/03/23 Plan of Care End Date 12/02/23 Therapeutic Interventions Therapeutic Interventions Balance Training,Gait Training ,Home Exercise Program,Joint Mobilizations,Manual Therapy, Neuromuscular Re-education, Patient/Caregiver Education, Self-Care/Home Management,Soft Tissue Mobilization, Therapeutic Activities, Therapeutic Exercises Modalities Cold Pack/Ice Massage,Electric Stimulation,Hot Packs, Ultrasound Next Visit Focus/Plan Next Note Type Treatment Note Next Visit Plan STM, stretching (trial of seated hip flexor stretch vs hip extension), core/hip strengthening. Possibly side sit to upright to increase core strength for sidelying to sit. Revisit hip hinge.
--- NOTE | 2023-10-14 14:29 | PT.OTN ---
Current Diagnoses Other chronic pain (10/14/23) Stiffness of right hip, not elsewhere classified (10/14/23) Stiffness of other specified joint, not elsewhere classified (10/14/23) Scoliosis, unspecified (10/14/23) Low back pain, unspecified (10/14/23) Physical Therapy Treatment Note PT-OP-A Visit Information Start: 09/03/23 17:34 Freq: Status: Active Protocol: Document 10/14/23 13:45 DCW (Rec: 10/14/23 14:29 DCW [id number]) Out-Patient Physical Therapy Visit Information Visit Information Visit Type Treatment Note Visit Start Time 13:45 Visit Stop Time 14:30 Visit Number 9 Number of TRIAL MANAGEMENT ASSOCIATE Visits 0 Evaluation Information Evaluation Date 09/03/23 PT-OP-B Current Condition Start: 09/03/23 17:34 Freq: Status: Active Protocol: Document 09/03/23 16:45 DCW (Rec: 09/03/23 17:42 DCW [id number]) Current Condition History of Current Condition Onset Date Long-standing history Current Complaints Low back pain, scoliosis, right hip and leg pain History of Current Condition Pt is an 83 year old female presenting with a long- standing history of low back pain, secondary to scoliosis and degenerative changes. Pt has been previously been treated for this same complaint at this clinic many years ago, which helped at the time, however has slowly continued to get worse, to the point now where she is no longer able to ignore it. OMT in the past has been helpful, but pt admits she has not been noticing any improvement recently. Admits pain is worse at night, tried to sleep on her side, but can only tolerate it for so long before needing to roll over to the other side due to hip and back pain. Also notes worsening pain when standing longer than 10-15 minutes. Notes difficulty with stairs, cannot tolerate using her stationary bike due to pain. PT-OP-C Subjective Start: 09/03/23 17:34 Freq: Status: Active Protocol: Document 10/14/23 13:45 DCW (Rec: 10/14/23 14:29 DCW [id number]) OP-PT Subjective Patient Comments Patient Comments Pt reports she was having some eye problems last week so she canceled her appointments. Notes her back is really really sore today. PT-OP-F Manual Assessment Start: 09/03/23 17:34 Freq: Status: Active Protocol: Document 09/03/23 16:45 DCW (Rec: 09/03/23 17:57 DCW [id number]) Manual Assessments Soft Tissue Assessment Soft Tissue Mobility Assessment increased R-sided lumbar tone, increased left-sided thoracic tone Joint Mobility Assessment Joint Mobility Assessment reverse S-curve scoliosis PT-OP-J Posture/Palpation/Skin Start: 09/03/23 17:34 Freq: Status: Active Protocol: Document 09/03/23 16:45 DCW (Rec: 09/04/23 09:35 DCW [id number]) Posture Evaluation Position Standing Evaluation View Posterior T-Spine Posture Fixed Scoliosis on (L) L-Spine Posture Fixed Scoliosis on (R) PT-OP-K Range of Motion Start: 09/03/23 17:34 Freq: Status: Active Protocol: Document 09/03/23 16:45 DCW (Rec: 09/04/23 09:35 DCW [id number]) Lumbar Spine Range of Motion Lumbar Spine Active Degrees Testing Position Standing Flexion 40 Extension 5 Lateral Flexion Left 47 Lateral Flexion Right 52 Comments Lateral flexion measured in cm from fingertip to floor PT-OP-L Special Tests Start: 09/03/23 17:34 Freq: Status: Active Protocol: Document 09/03/23 16:45 DCW (Rec: 09/04/23 09:35 DCW [id number]) Special Tests Lumbar Spine Special Tests Vertical Spine Loading Test Results Negative Straight Leg Raise Test Results Negative Compression Test Results Negative A-P Shearing Test Results Negative Hip Special Tests Piriformis Test Results C/o tightness RALPH Test Results Negative PT-OP-M Strength Start: 09/03/23 17:34 Freq: Status: Active Protocol: Document 09/03/23 16:45 DCW (Rec: 09/04/23 09:35 DCW [id number]) Trunk Strength Trunk Manual Muscle Testing Core Stabilization 4-/5: Good TrA contraction, difficulty holding longer than 5 PT-OP-Q Treatments Start: 09/03/23 17:34 Freq: Status: Active Protocol: Document 10/14/23 13:45 DCW (Rec: 10/14/23 14:29 DCW [id number]) Cardio Equipment Recumbent Stepper (Sci-Fit) Duration (Minutes) 5 Resistance 2 Seat Position 6 Gym Equipment Therapeutic Ball Pelvic Circles Exercise Details Pelvic circles/tilts Ball Size/Color Red - 55 cm Body Position Sitting LTR Exercise Details LTR Ball Size/Color Red - 55 cm Body Position Supine Therapeutic Exercises Standing Exercises Pallof PRess Standing Exercise Name Pallof Press Resistance Green T-band Manual Therapy Treatment Soft Tissue Mobilization piriformis/glute Body Location bilateral Mobilization Type Cross-Friction,Rolling Intensity/Depth Moderate Body Position Sidelying Comments monitored for pain Lumbar Body Location Lumbar paraspinals Mobilization Type Sustained Pressure,Other Intensity/Depth Moderate Body Position Sidelying Comments left and right side PT-OP-T Assessment and Plan Start: 09/03/23 17:34 Freq: Status: Active Protocol: Document 10/14/23 13:45 DCW (Rec: 10/14/23 14:29 DCW [id number]) Physical Therapy Assessment Impairments Impairments Functional Activities, Functional Mobility,Pain, Posture,ROM,Soft Tissue Mobility,Strength,Tone Goals Three Impairment Pt unable to stand for 15+' secondary to low back pain Duct Cleaner Goal (LTG) Pt to exhibit ability to stand for longer than 30 minutes without increased back pain in order to improve ability to prepare and cook meals. LTG Duration 12/02/23 Two Impairment Pt experiences interrupted sleep secondary to hip pain Longterm Goal (LTG) Pt to report ability to sleep with waking up fewer than 3 times throughout the night secondary to hip pain over one full week. LTG Duration 12/02/23 One Impairment Pt does not have an appropriate home exercise program Short Term Goal (STG) Pt to be independent and compliant with an appropriate HEP STG Duration 10/02/23 Assessment Summary Assessment Pt increased tone through right piriformis, admits she may have over done resisted clamshells. Good response today to gentle lumbar mobility and STM, continue to focus on improving lumbar and hip ROM, strengthening, and flexibility. Physical Therapy Plan Frequency and Duration Frequency of Treatment 2x/Week Plan of Care Start Date 09/03/23 Plan of Care End Date 12/02/23 Therapeutic Interventions Therapeutic Interventions Balance Training,Gait Training ,Home Exercise Program,Joint Mobilizations,Manual Therapy, Neuromuscular Re-education, Patient/Caregiver Education, Self-Care/Home Management,Soft Tissue Mobilization, Therapeutic Activities, Therapeutic Exercises Modalities Cold Pack/Ice Massage,Electric Stimulation,Hot Packs, Ultrasound Next Visit Focus/Plan Next Note Type Treatment Note Next Visit Plan STM, stretching (trial of seated hip flexor stretch vs hip extension), core/hip strengthening. Possibly side sit to upright to increase core strength for sidelying to sit. Revisit hip hinge.
--- NOTE | 2023-10-16 16:14 | PT.OTN ---
Current Diagnoses Other chronic pain (10/16/23) Stiffness of right hip, not elsewhere classified (10/16/23) Stiffness of other specified joint, not elsewhere classified (10/16/23) Scoliosis, unspecified (10/16/23) Low back pain, unspecified (10/16/23) Physical Therapy Treatment Note PT-OP-A Visit Information Start: 09/03/23 17:34 Freq: Status: Active Protocol: Document 10/16/23 15:20 SW (Rec: 10/16/23 16:14 SW [id number]) Out-Patient Physical Therapy Visit Information Visit Information Visit Type Treatment Note Visit Start Time 15:18 Visit Stop Time 16:58 Visit Number 10 Number of VARIOUS EXCEPTIONALITIES TEACHER Visits 1 PT-OP-B Current Condition Start: 09/03/23 17:34 Freq: Status: Active Protocol: Document 09/03/23 16:45 DCW (Rec: 09/03/23 17:42 DCW [id number]) Current Condition History of Current Condition Onset Date Long-standing history Current Complaints Low back pain, scoliosis, right hip and leg pain History of Current Condition Pt is an 83 year old female presenting with a long- standing history of low back pain, secondary to scoliosis and degenerative changes. Pt has been previously been treated for this same complaint at this clinic many years ago, which helped at the time, however has slowly continued to get worse, to the point now where she is no longer able to ignore it. OMT in the past has been helpful, but pt admits she has not been noticing any improvement recently. Admits pain is worse at night, tried to sleep on her side, but can only tolerate it for so long before needing to roll over to the other side due to hip and back pain. Also notes worsening pain when standing longer than 10-15 minutes. Notes difficulty with stairs, cannot tolerate using her stationary bike due to pain. PT-OP-C Subjective Start: 09/03/23 17:34 Freq: Status: Active Protocol: Document 10/16/23 15:20 SW (Rec: 10/16/23 16:14 SW [id number]) OP-PT Subjective Patient Comments Patient Comments Pt reports low back back pain level 6/10. Pt reports woke up with dizziness today, not as bad as it was this morning. PT-OP-F Manual Assessment Start: 09/03/23 17:34 Freq: Status: Active Protocol: Document 09/03/23 16:45 DCW (Rec: 09/03/23 17:57 DCW [id number]) Manual Assessments Soft Tissue Assessment Soft Tissue Mobility Assessment increased R-sided lumbar tone, increased left-sided thoracic tone Joint Mobility Assessment Joint Mobility Assessment reverse S-curve scoliosis PT-OP-J Posture/Palpation/Skin Start: 09/03/23 17:34 Freq: Status: Active Protocol: Document 09/03/23 16:45 DCW (Rec: 09/04/23 09:35 DCW [id number]) Posture Evaluation Position Standing Evaluation View Posterior T-Spine Posture Fixed Scoliosis on (L) L-Spine Posture Fixed Scoliosis on (R) PT-OP-K Range of Motion Start: 09/03/23 17:34 Freq: Status: Active Protocol: Document 09/03/23 16:45 DCW (Rec: 09/04/23 09:35 DCW [id number]) Lumbar Spine Range of Motion Lumbar Spine Active Degrees Testing Position Standing Flexion 40 Extension 5 Lateral Flexion Left 47 Lateral Flexion Right 52 Comments Lateral flexion measured in cm from fingertip to floor PT-OP-L Special Tests Start: 09/03/23 17:34 Freq: Status: Active Protocol: Document 09/03/23 16:45 DCW (Rec: 09/04/23 09:35 DCW [id number]) Special Tests Lumbar Spine Special Tests Vertical Spine Loading Test Results Negative Straight Leg Raise Test Results Negative Compression Test Results Negative A-P Shearing Test Results Negative Hip Special Tests Piriformis Test Results C/o tightness RALPH Test Results Negative PT-OP-M Strength Start: 09/03/23 17:34 Freq: Status: Active Protocol: Document 09/03/23 16:45 DCW (Rec: 09/04/23 09:35 DCW [id number]) Trunk Strength Trunk Manual Muscle Testing Core Stabilization 4-/5: Good TrA contraction, difficulty holding longer than 5 PT-OP-Q Treatments Start: 09/03/23 17:34 Freq: Status: Active Protocol: Document 10/16/23 15:20 SW (Rec: 10/16/23 16:14 SW [id number]) Therapeutic Exercises Sitting Exercises Hip IR/ER Sitting Exercise Name Hip IR/ER Side bilateral Reps/Minutes 2x10 Comments pt reported fatigue Standing Exercises Hip Flexor Stretch Standing Exercise Name Hip flexor stretch (issued HEP ) Side bilateral Equipment Used @ counter Reps/Minutes 3 x 30 Pallof PRess Standing Exercise Name Pallof Press Resistance Green T-band Hip Ext Standing Exercise Name Hip ext Side bilateral Reps/Minutes 2x15 Hip Abd Standing Exercise Name Hip abd Side bilateral Reps/Minutes 2x15 ea Comments vc for eccentric control, correct execution PT-OP-T Assessment and Plan Start: 09/03/23 17:34 Freq: Status: Active Protocol: Document 10/16/23 15:20 (Rec: 10/16/23 16:14 [id number]) Physical Therapy Assessment Goals Three Impairment Pt unable to stand for 15+' secondary to low back pain Assisted Goal (LTG) Pt to exhibit ability to stand for longer than 30 minutes without increased back pain in order to improve ability to prepare and cook meals. LTG Duration 12/02/23 Two Impairment Pt experiences interrupted sleep secondary to hip pain Assisted Goal (LTG) Pt to report ability to sleep with waking up fewer than 3 times throughout the night secondary to hip pain over one full week. LTG Duration 12/02/23 One Impairment Pt does not have an appropriate home exercise program Short Term Goal (STG) Pt to be independent and compliant with an appropriate HEP STG Duration 10/02/23 Assessment Summary Assessment Progressed pt with increased reps during hip strengthening exercises this session, instructed pt to increase reps at home for HEP, trialed level 1 band though pt unable to perform without lateral trunk lean compensation. Pt overall tolerated session well , reports pain level 6/10 at beginning of session decreased to 4/10 at EOS post therapeutic exercises. Physical Therapy Plan Frequency and Duration Frequency of Treatment 2x/Week Plan of Care Start Date 09/03/23 Plan of Care End Date 12/02/23 Therapeutic Interventions Therapeutic Interventions Balance Training,Gait Training ,Home Exercise Program,Joint Mobilizations,Manual Therapy, Neuromuscular Re-education, Patient/Caregiver Education, Self-Care/Home Management,Soft Tissue Mobilization, Therapeutic Activities, Therapeutic Exercises Modalities Cold Pack/Ice Massage,Electric Stimulation,Hot Packs, Ultrasound Next Visit Focus/Plan Next Note Type Treatment Note Next Visit Plan STM, stretching (trial of seated hip flexor stretch vs hip extension), core/hip strengthening. Possibly side sit to upright to increase core strength for sidelying to sit. Revisit hip hinge.
--- NOTE | 2023-10-21 16:11 | PT.OTN ---
Current Diagnoses Other chronic pain (10/21/23) Stiffness of right hip, not elsewhere classified (10/21/23) Stiffness of other specified joint, not elsewhere classified (10/21/23) Scoliosis, unspecified (10/21/23) Low back pain, unspecified (10/21/23) Physical Therapy Treatment Note PT-OP-A Visit Information Start: 09/03/23 17:34 Freq: Status: Active Protocol: Document 10/21/23 15:21 SW (Rec: 10/21/23 16:10 SW [id number]) Out-Patient Physical Therapy Visit Information Visit Information Visit Type Treatment Note Visit Start Time 15:18 Visit Stop Time 16:00 Visit Number 11 Number of ELECTRICAL SIGN WIRER HELPER Visits 2 PT-OP-B Current Condition Start: 09/03/23 17:34 Freq: Status: Active Protocol: Document 09/03/23 16:45 DCW (Rec: 09/03/23 17:42 DCW [id number]) Current Condition History of Current Condition Onset Date Long-standing history Current Complaints Low back pain, scoliosis, right hip and leg pain History of Current Condition Pt is an 83 year old female presenting with a long- standing history of low back pain, secondary to scoliosis and degenerative changes. Pt has been previously been treated for this same complaint at this clinic many years ago, which helped at the time, however has slowly continued to get worse, to the point now where she is no longer able to ignore it. OMT in the past has been helpful, but pt admits she has not been noticing any improvement recently. Admits pain is worse at night, tried to sleep on her side, but can only tolerate it for so long before needing to roll over to the other side due to hip and back pain. Also notes worsening pain when standing longer than 10-15 minutes. Notes difficulty with stairs, cannot tolerate using her stationary bike due to pain. PT-OP-C Subjective Start: 09/03/23 17:34 Freq: Status: Active Protocol: Document 10/21/23 15:21 SW (Rec: 10/21/23 16:10 SW [id number]) OP-PT Subjective Patient Comments Patient Comments Pt reports pain in UE post last session, attributes it to palloff press, states waiting on referral for OT for UEs. PT-OP-F Manual Assessment Start: 09/03/23 17:34 Freq: Status: Active Protocol: Document 09/03/23 16:45 DCW (Rec: 09/03/23 17:57 DCW [id number]) Manual Assessments Soft Tissue Assessment Soft Tissue Mobility Assessment increased R-sided lumbar tone, increased left-sided thoracic tone Joint Mobility Assessment Joint Mobility Assessment reverse S-curve scoliosis PT-OP-J Posture/Palpation/Skin Start: 09/03/23 17:34 Freq: Status: Active Protocol: Document 09/03/23 16:45 DCW (Rec: 09/04/23 09:35 DCW [id number]) Posture Evaluation Position Standing Evaluation View Posterior T-Spine Posture Fixed Scoliosis on (L) L-Spine Posture Fixed Scoliosis on (R) PT-OP-K Range of Motion Start: 09/03/23 17:34 Freq: Status: Active Protocol: Document 09/03/23 16:45 DCW (Rec: 09/04/23 09:35 DCW [id number]) Lumbar Spine Range of Motion Lumbar Spine Active Degrees Testing Position Standing Flexion 40 Extension 5 Lateral Flexion Left 47 Lateral Flexion Right 52 Comments Lateral flexion measured in cm from fingertip to floor PT-OP-L Special Tests Start: 09/03/23 17:34 Freq: Status: Active Protocol: Document 09/03/23 16:45 DCW (Rec: 09/04/23 09:35 DCW [id number]) Special Tests Lumbar Spine Special Tests Vertical Spine Loading Test Results Negative Straight Leg Raise Test Results Negative Compression Test Results Negative A-P Shearing Test Results Negative Hip Special Tests Piriformis Test Results C/o tightness RALPH Test Results Negative PT-OP-M Strength Start: 09/03/23 17:34 Freq: Status: Active Protocol: Document 09/03/23 16:45 DCW (Rec: 09/04/23 09:35 DCW [id number]) Trunk Strength Trunk Manual Muscle Testing Core Stabilization 4-/5: Good TrA contraction, difficulty holding longer than 5 PT-OP-Q Treatments Start: 09/03/23 17:34 Freq: Status: Active Protocol: Document 10/21/23 15:21 SW (Rec: 10/21/23 16:10 SW [id number]) Therapeutic Exercises Supine Exercises Bridge Supine Exercise Name Bridge Side bilateral Reps/Minutes 2x10 SLR Supine Exercise Name PPT /c SLR Side bilateral Reps/Minutes 5 hold Standing Exercises Hip Hinge Standing Exercise Name Hip hinge Side bilateral Equipment Used @ ballet bar Comments cues for movement from hips, spinal stablization, and soft knees Hip Flexor Stretch Standing Exercise Name Hip flexor stretch (issued HEP ) Side bilateral Equipment Used @ counter Reps/Minutes 3 x 30 Heel raises Standing Exercise Name Heel raises Side bilateral Resistance 2# Hip Ext Standing Exercise Name Hip ext Side bilateral Resistance 2# Reps/Minutes 2x15 Hip Abd Standing Exercise Name Hip abd Side bilateral Resistance 2# Reps/Minutes 2x15 ea Comments vc for eccentric control, correct execution Manual Therapy Treatment Soft Tissue Mobilization piriformis/glute Body Location bilateral Mobilization Type Cross-Friction,Rolling Intensity/Depth Moderate Body Position Sidelying Comments monitored for pain Lumbar Body Location Lumbar paraspinals Mobilization Type Sustained Pressure,Other Intensity/Depth Moderate Body Position Sidelying Comments left and right side Manual Techniques Self STM Type Self STM Body Location R glute/piriformis Body Position Standing Reps/Duration ~2' Comments Therapist teach STM, pt demonstration PT-OP-T Assessment and Plan Start: 09/03/23 17:34 Freq: Status: Active Protocol: Document 10/21/23 15:21 (Rec: 10/21/23 16:10 [id number]) Physical Therapy Assessment Goals Three Impairment Pt unable to stand for 15+' secondary to low back pain Candy Puller Goal (LTG) Pt to exhibit ability to stand for longer than 30 minutes without increased back pain in order to improve ability to prepare and cook meals. LTG Duration 12/02/23 Two Impairment Pt experiences interrupted sleep secondary to hip pain Snf Goal (LTG) Pt to report ability to sleep with waking up fewer than 3 times throughout the night secondary to hip pain over one full week. LTG Duration 12/02/23 One Impairment Pt does not have an appropriate home exercise program Short Term Goal (STG) Pt to be independent and compliant with an appropriate HEP STG Duration 10/02/23 Assessment Summary Assessment Started session with manual therapy to decrease pain and mm tension, instructed patient in self applied STM at wall for HEP, good response. Progressed pt with 2# weight during hip strengthening this session. Pt tolerated session well with no increase in symptoms, pt fatigued at EOS. Cued pt throughout session for correct mechanics to decrease compensations with exercises. Physical Therapy Plan Frequency and Duration Frequency of Treatment 2x/Week Plan of Care Start Date 09/03/23 Plan of Care End Date 12/02/23 Therapeutic Interventions Therapeutic Interventions Balance Training,Gait Training ,Home Exercise Program,Joint Mobilizations,Manual Therapy, Neuromuscular Re-education, Patient/Caregiver Education, Self-Care/Home Management,Soft Tissue Mobilization, Therapeutic Activities, Therapeutic Exercises Modalities Cold Pack/Ice Massage,Electric Stimulation,Hot Packs, Ultrasound Next Visit Focus/Plan Next Note Type Treatment Note Next Visit Plan STM, stretching (trial of seated hip flexor stretch vs hip extension), core/hip strengthening. Possibly side sit to upright to increase core strength for sidelying to sit. Revisit hip hinge.
--- NOTE | 2023-10-23 16:34 | PT.OTN ---
Current Diagnoses Other chronic pain (10/23/23) Stiffness of right hip, not elsewhere classified (10/23/23) Stiffness of other specified joint, not elsewhere classified (10/23/23) Scoliosis, unspecified (10/23/23) Low back pain, unspecified (10/23/23) Physical Therapy Treatment Note PT-OP-A Visit Information Start: 09/03/23 17:34 Freq: Status: Active Protocol: Document 10/23/23 15:19 SW (Rec: 10/23/23 16:34 SW [id number]) Out-Patient Physical Therapy Visit Information Visit Information Visit Type Treatment Note Visit Start Time 15:18 Visit Stop Time 15:56 Visit Number 12 Number of WATERSHED COORDINATOR Visits 3 PT-OP-B Current Condition Start: 09/03/23 17:34 Freq: Status: Active Protocol: Document 09/03/23 16:45 DCW (Rec: 09/03/23 17:42 DCW [id number]) Current Condition History of Current Condition Onset Date Long-standing history Current Complaints Low back pain, scoliosis, right hip and leg pain History of Current Condition Pt is an 83 year old female presenting with a long- standing history of low back pain, secondary to scoliosis and degenerative changes. Pt has been previously been treated for this same complaint at this clinic many years ago, which helped at the time, however has slowly continued to get worse, to the point now where she is no longer able to ignore it. OMT in the past has been helpful, but pt admits she has not been noticing any improvement recently. Admits pain is worse at night, tried to sleep on her side, but can only tolerate it for so long before needing to roll over to the other side due to hip and back pain. Also notes worsening pain when standing longer than 10-15 minutes. Notes difficulty with stairs, cannot tolerate using her stationary bike due to pain. PT-OP-C Subjective Start: 09/03/23 17:34 Freq: Status: Active Protocol: Document 10/23/23 15:19 SW (Rec: 10/23/23 16:34 SW [id number]) OP-PT Subjective Patient Comments Patient Comments Pt reports no new changes this session. PT-OP-F Manual Assessment Start: 09/03/23 17:34 Freq: Status: Active Protocol: Document 09/03/23 16:45 DCW (Rec: 09/03/23 17:57 DCW [id number]) Manual Assessments Soft Tissue Assessment Soft Tissue Mobility Assessment increased R-sided lumbar tone, increased left-sided thoracic tone Joint Mobility Assessment Joint Mobility Assessment reverse S-curve scoliosis PT-OP-J Posture/Palpation/Skin Start: 09/03/23 17:34 Freq: Status: Active Protocol: Document 09/03/23 16:45 DCW (Rec: 09/04/23 09:35 DCW [id number]) Posture Evaluation Position Standing Evaluation View Posterior T-Spine Posture Fixed Scoliosis on (L) L-Spine Posture Fixed Scoliosis on (R) PT-OP-K Range of Motion Start: 09/03/23 17:34 Freq: Status: Active Protocol: Document 09/03/23 16:45 DCW (Rec: 09/04/23 09:35 DCW [id number]) Lumbar Spine Range of Motion Lumbar Spine Active Degrees Testing Position Standing Flexion 40 Extension 5 Lateral Flexion Left 47 Lateral Flexion Right 52 Comments Lateral flexion measured in cm from fingertip to floor PT-OP-L Special Tests Start: 09/03/23 17:34 Freq: Status: Active Protocol: Document 09/03/23 16:45 DCW (Rec: 09/04/23 09:35 DCW [id number]) Special Tests Lumbar Spine Special Tests Vertical Spine Loading Test Results Negative Straight Leg Raise Test Results Negative Compression Test Results Negative A-P Shearing Test Results Negative Hip Special Tests Piriformis Test Results C/o tightness RALPH Test Results Negative PT-OP-M Strength Start: 09/03/23 17:34 Freq: Status: Active Protocol: Document 09/03/23 16:45 DCW (Rec: 09/04/23 09:35 DCW [id number]) Trunk Strength Trunk Manual Muscle Testing Core Stabilization 4-/5: Good TrA contraction, difficulty holding longer than 5 PT-OP-Q Treatments Start: 09/03/23 17:34 Freq: Status: Active Protocol: Document 10/23/23 15:19 SW (Rec: 10/23/23 16:34 SW [id number]) Cardio Equipment Recumbent Elliptical ([employer]) Duration (Minutes) 5 Resistance 5 Seat Position 7 Gym Equipment Shuttle Recovery SL press Details single leg press Resistance 25# (old band) Reps/Time 2x10 ea DL press Details double leg press Resistance 50# (old bands) Reps/Time 2x15 Therapeutic Exercises Supine Exercises Marching Supine Exercise Name Core stabilization Side bilateral Reps/Minutes 2 x 10 Comments Quick to fatigue cues for core control Sidelying Exercises Hip Abduction Sidelying Exercise Name Trialed in PT Comments minimal lift, cues for core stabilization Sitting Exercises Hip IR/ER Sitting Exercise Name Hip IR/ER Side bilateral Reps/Minutes 2x10 Comments pt reported fatigue Standing Exercises Hip Hinge Standing Exercise Name Hip hinge Side bilateral Equipment Used @ ballet bar Comments cues for movement from hips, spinal stablization, and soft knees Hip Flexor Stretch Standing Exercise Name Doorway stretch Side bilateral Equipment Used Doorway Reps/Minutes 2x30 Hip Abd Standing Exercise Name Hip abd Side bilateral Resistance 2# Reps/Minutes 2x15 ea Comments vc for eccentric control, correct execution PT-OP-T Assessment and Plan Start: 09/03/23 17:34 Freq: Status: Active Protocol: Document 10/23/23 15:19 SW (Rec: 10/23/23 16:34 SW [id number]) Physical Therapy Assessment Goals Three Impairment Pt unable to stand for 15+' secondary to low back pain Jail Goal (LTG) Pt to exhibit ability to stand for longer than 30 minutes without increased back pain in order to improve ability to prepare and cook meals. LTG Duration 12/02/23 Two Impairment Pt experiences interrupted sleep secondary to hip pain Heating Engineer Goal (LTG) Pt to report ability to sleep with waking up fewer than 3 times throughout the night secondary to hip pain over one full week. LTG Duration 12/02/23 One Impairment Pt does not have an appropriate home exercise program Short Term Goal (STG) Pt to be independent and compliant with an appropriate HEP STG Duration 10/02/23 Assessment Summary Assessment Pt quick to fatigue this session. Trialed progression to sidelying hip abduction for strengthening this session, minimal lift, continued in standing. Continued supine core stabilization, pt would benefit from continued focus and carryover at home for progression. Physical Therapy Plan Frequency and Duration Frequency of Treatment 2x/Week Plan of Care Start Date 09/03/23 Plan of Care End Date 12/02/23 Therapeutic Interventions Therapeutic Interventions Balance Training,Gait Training ,Home Exercise Program,Joint Mobilizations,Manual Therapy, Neuromuscular Re-education, Patient/Caregiver Education, Self-Care/Home Management,Soft Tissue Mobilization, Therapeutic Activities, Therapeutic Exercises Modalities Cold Pack/Ice Massage,Electric Stimulation,Hot Packs, Ultrasound Next Visit Focus/Plan Next Note Type Treatment Note Next Visit Plan STM, stretching (trial of seated hip flexor stretch vs hip extension), core/hip strengthening. Possibly side sit to upright to increase core strength for sidelying to sit. Revisit hip hinge.
--- NOTE | 2023-10-30 15:16 | PT.OTN ---
Current Diagnoses Other chronic pain (10/30/23) Stiffness of right hip, not elsewhere classified (10/30/23) Stiffness of other specified joint, not elsewhere classified (10/30/23) Scoliosis, unspecified (10/30/23) Low back pain, unspecified (10/30/23) Physical Therapy Treatment Note PT-OP-A Visit Information Start: 09/03/23 17:34 Freq: Status: Active Protocol: Document 10/30/23 14:33 SP (Rec: 10/30/23 15:45 SP [id number]) Out-Patient Physical Therapy Visit Information Visit Information Visit Type Treatment Note Visit Start Time 14:33 Visit Stop Time 15:16 Visit Number 13 Number of ENTRY LEVEL ACCOUNT REPRESENTATIVE Visits 4 Evaluation Information Evaluation Date 09/03/23 PT-OP-B Current Condition Start: 09/03/23 17:34 Freq: Status: Active Protocol: Document 09/03/23 16:45 DCW (Rec: 09/03/23 17:42 DCW [id number]) Current Condition History of Current Condition Onset Date Long-standing history Current Complaints Low back pain, scoliosis, right hip and leg pain History of Current Condition Pt is an 83 year old female presenting with a long- standing history of low back pain, secondary to scoliosis and degenerative changes. Pt has been previously been treated for this same complaint at this clinic many years ago, which helped at the time, however has slowly continued to get worse, to the point now where she is no longer able to ignore it. OMT in the past has been helpful, but pt admits she has not been noticing any improvement recently. Admits pain is worse at night, tried to sleep on her side, but can only tolerate it for so long before needing to roll over to the other side due to hip and back pain. Also notes worsening pain when standing longer than 10-15 minutes. Notes difficulty with stairs, cannot tolerate using her stationary bike due to pain. PT-OP-C Subjective Start: 09/03/23 17:34 Freq: Status: Active Protocol: Document 10/30/23 14:33 SP (Rec: 10/30/23 15:45 SP [id number]) OP-PT Subjective Patient Comments Patient Comments Pt reports back doing better, still hard for her to get up into high trunk step, WB into R more than L LE to boost herself up. PT-OP-F Manual Assessment Start: 09/03/23 17:34 Freq: Status: Active Protocol: Document 09/03/23 16:45 DCW (Rec: 09/03/23 17:57 DCW [id number]) Manual Assessments Soft Tissue Assessment Soft Tissue Mobility Assessment increased R-sided lumbar tone, increased left-sided thoracic tone Joint Mobility Assessment Joint Mobility Assessment reverse S-curve scoliosis PT-OP-J Posture/Palpation/Skin Start: 09/03/23 17:34 Freq: Status: Active Protocol: Document 09/03/23 16:45 DCW (Rec: 09/04/23 09:35 DCW [id number]) Posture Evaluation Position Standing Evaluation View Posterior T-Spine Posture Fixed Scoliosis on (L) L-Spine Posture Fixed Scoliosis on (R) PT-OP-K Range of Motion Start: 09/03/23 17:34 Freq: Status: Active Protocol: Document 09/03/23 16:45 DCW (Rec: 09/04/23 09:35 DCW [id number]) Lumbar Spine Range of Motion Lumbar Spine Active Degrees Testing Position Standing Flexion 40 Extension 5 Lateral Flexion Left 47 Lateral Flexion Right 52 Comments Lateral flexion measured in cm from fingertip to floor PT-OP-L Special Tests Start: 09/03/23 17:34 Freq: Status: Active Protocol: Document 09/03/23 16:45 DCW (Rec: 09/04/23 09:35 DCW [id number]) Special Tests Lumbar Spine Special Tests Vertical Spine Loading Test Results Negative Straight Leg Raise Test Results Negative Compression Test Results Negative A-P Shearing Test Results Negative Hip Special Tests Piriformis Test Results C/o tightness RALPH Test Results Negative PT-OP-M Strength Start: 09/03/23 17:34 Freq: Status: Active Protocol: Document 09/03/23 16:45 DCW (Rec: 09/04/23 09:35 DCW [id number]) Trunk Strength Trunk Manual Muscle Testing Core Stabilization 4-/5: Good TrA contraction, difficulty holding longer than 5 PT-OP-Q Treatments Start: 09/03/23 17:34 Freq: Status: Active Protocol: Document 10/30/23 14:33 SP (Rec: 10/30/23 15:45 SP [id number]) Cardio Equipment Recumbent Stepper ([employer]) Duration (Minutes) 5 Resistance 2 Seat Position 8 irritates knees if closer Other cued slow 51 RPM Therapeutic Exercises Sidelying Exercises clamshell Sidelying Exercise Name AROM /c manual MWM Side right Reps/Minutes 2x10 Comments pnfree, tiring with less tension noted posterior R hip Standing Exercises Pallof PRess Standing Exercise Name pt reports had shld pain in past tx- doesn't want to continue this Equipment Used 10/29 verbal review Hip Ext Standing Exercise Name Hip ext- HEP reviewed Side bilateral Resistance TB 2# Equipment Used rail Reps/Minutes 3x15 Comments vc for eccentric control, correct execution Hip Abd Standing Exercise Name Hip abd- HEP reviewed Side bilateral Resistance TB 2# Reps/Minutes 3x15 ea Comments vc for eccentric control, correct execution Other Exercises bird dog Other Exercise Name trialed: pt request- good challenged pnfree Side bilateral Reps/Minutes 5 reps each side Comments cued hand under shld, knees under hips, contact table impr form/stab-tiring Manual Therapy Treatment Soft Tissue Mobilization piriformis/glute Body Location R distal att at greater trochanter glut med, piriformis Mobilization Type Rolling,Sustained Pressure, Other Intensity/Depth Moderate Body Position L Sidelying Comments rolling STMs, MWM during clamshell Manual Traction manual hip traction Details long axis best relief vs short axis /c strap Body Position Hooklying Comments good hip stretch response long leg pull Manual Techniques manual hip IR/ER stretch Type slight stretch R ER, good FROM IR Vipul and R IR Body Position prone over pillows Reps/Duration 30 x2 each Neuro Re-Education Treatment Balance Activities hurdles stepping Details trialed: 10/29 reciprocal stepping Surface floor, 6 hurdles, Moderate rail vs [place] GUIDE support Comments challenged SLS on RLE due to pain into R hip, pre manual PT-OP-T Assessment and Plan Start: 09/03/23 17:34 Freq: Status: Active Protocol: Document 10/30/23 14:33 SP (Rec: 10/30/23 15:45 SP [id number]) Physical Therapy Assessment Goals Three Impairment Pt unable to stand for 15+' secondary to low back pain Production Expediter Goal (LTG) Pt to exhibit ability to stand for longer than 30 minutes without increased back pain in order to improve ability to prepare and cook meals. LTG Duration 12/02/23 Two Impairment Pt experiences interrupted sleep secondary to hip pain Assisted Goal (LTG) Pt to report ability to sleep with waking up fewer than 3 times throughout the night secondary to hip pain over one full week. LTG Duration 12/02/23 One Impairment Pt does not have an appropriate home exercise program Short Term Goal (STG) Pt to be independent and compliant with an appropriate HEP STG Duration 10/02/23 Assessment Summary Assessment Pt able to increase sets during resisted standing ther ex, R hip fatigues quickly during abd while L SLS, continued TB #2. Decreased R hip discomfort after manual STMs and long axis distraction . Demonstrates heavy WB into R hip and almost locking out R knee leaving. She would benefit from continued R hip abd, IR, ER and glut strengthening to progress ease and less compensating effort high step into trunk. Trial resisted hip IR/ ER seated next tx. Physical Therapy Plan Frequency and Duration Frequency of Treatment 2x/Week Plan of Care Start Date 09/03/23 Plan of Care End Date 12/02/23 Therapeutic Interventions Therapeutic Interventions Balance Training,Gait Training ,Home Exercise Program,Joint Mobilizations,Manual Therapy, Neuromuscular Re-education, Patient/Caregiver Education, Self-Care/Home Management,Soft Tissue Mobilization, Therapeutic Activities, Therapeutic Exercises Modalities Cold Pack/Ice Massage,Electric Stimulation,Hot Packs, Ultrasound Next Visit Focus/Plan Next Note Type Treatment Note Next Visit Plan Continue: core/R hip strengthening: supine october/ side hip abd/seated hip IR& ER , funcitonal hip hinge activities glut drive, monitor knee pain. REcheck: Possibly side sit to upright to increase core strength for sidelying to sit.
--- NOTE | 2023-11-06 15:14 | PT.OTN ---
Current Diagnoses Other chronic pain (11/06/23) Stiffness of right hip, not elsewhere classified (11/06/23) Stiffness of other specified joint, not elsewhere classified (11/06/23) Scoliosis, unspecified (11/06/23) Low back pain, unspecified (11/06/23) Physical Therapy Treatment Note PT-OP-A Visit Information Start: 09/03/23 17:34 Freq: Status: Active Protocol: Document 11/06/23 14:34 DCW (Rec: 11/06/23 15:14 DCW [id number]) Out-Patient Physical Therapy Visit Information Visit Information Visit Type Treatment Note Visit Start Time 14:34 Visit Stop Time 15:15 Visit Number 14 Number of SYSTEM ARCHITECT Visits 0 Evaluation Information Evaluation Date 09/03/23 PT-OP-B Current Condition Start: 09/03/23 17:34 Freq: Status: Active Protocol: Document 09/03/23 16:45 DCW (Rec: 09/03/23 17:42 DCW [id number]) Current Condition History of Current Condition Onset Date Long-standing history Current Complaints Low back pain, scoliosis, right hip and leg pain History of Current Condition Pt is an 83 year old female presenting with a long- standing history of low back pain, secondary to scoliosis and degenerative changes. Pt has been previously been treated for this same complaint at this clinic many years ago, which helped at the time, however has slowly continued to get worse, to the point now where she is no longer able to ignore it. OMT in the past has been helpful, but pt admits she has not been noticing any improvement recently. Admits pain is worse at night, tried to sleep on her side, but can only tolerate it for so long before needing to roll over to the other side due to hip and back pain. Also notes worsening pain when standing longer than 10-15 minutes. Notes difficulty with stairs, cannot tolerate using her stationary bike due to pain. PT-OP-C Subjective Start: 09/03/23 17:34 Freq: Status: Active Protocol: Document 11/06/23 14:34 DCW (Rec: 11/06/23 15:14 DCW [id number]) OP-PT Subjective Patient Comments Patient Comments I'm having a harder time breathing recently. PT-OP-F Manual Assessment Start: 09/03/23 17:34 Freq: Status: Active Protocol: Document 09/03/23 16:45 DCW (Rec: 09/03/23 17:57 DCW [id number]) Manual Assessments Soft Tissue Assessment Soft Tissue Mobility Assessment increased R-sided lumbar tone, increased left-sided thoracic tone Joint Mobility Assessment Joint Mobility Assessment reverse S-curve scoliosis PT-OP-J Posture/Palpation/Skin Start: 09/03/23 17:34 Freq: Status: Active Protocol: Document 09/03/23 16:45 DCW (Rec: 09/04/23 09:35 DCW [id number]) Posture Evaluation Position Standing Evaluation View Posterior T-Spine Posture Fixed Scoliosis on (L) L-Spine Posture Fixed Scoliosis on (R) PT-OP-K Range of Motion Start: 09/03/23 17:34 Freq: Status: Active Protocol: Document 09/03/23 16:45 DCW (Rec: 09/04/23 09:35 DCW [id number]) Lumbar Spine Range of Motion Lumbar Spine Active Degrees Testing Position Standing Flexion 40 Extension 5 Lateral Flexion Left 47 Lateral Flexion Right 52 Comments Lateral flexion measured in cm from fingertip to floor PT-OP-L Special Tests Start: 09/03/23 17:34 Freq: Status: Active Protocol: Document 09/03/23 16:45 DCW (Rec: 09/04/23 09:35 DCW [id number]) Special Tests Lumbar Spine Special Tests Vertical Spine Loading Test Results Negative Straight Leg Raise Test Results Negative Compression Test Results Negative A-P Shearing Test Results Negative Hip Special Tests Piriformis Test Results C/o tightness RALPH Test Results Negative PT-OP-M Strength Start: 09/03/23 17:34 Freq: Status: Active Protocol: Document 09/03/23 16:45 DCW (Rec: 09/04/23 09:35 DCW [id number]) Trunk Strength Trunk Manual Muscle Testing Core Stabilization 4-/5: Good TrA contraction, difficulty holding longer than 5 PT-OP-Q Treatments Start: 09/03/23 17:34 Freq: Status: Active Protocol: Document 11/06/23 14:34 DCW (Rec: 11/06/23 15:14 DCW [id number]) Cardio Equipment Recumbent Elliptical ([employer]) Duration (Minutes) 5 Resistance 5 Seat Position 7 Gym Equipment Shuttle Recovery SL press Details single leg press Resistance 25# (old band) Reps/Time 2x10 ea DL press Details double leg press Resistance 50# (old bands) Reps/Time 2x15 Therapeutic Ball LTR Exercise Details LTR Ball Size/Color Red - 55 cm Body Position Supine Manual Therapy Treatment Soft Tissue Mobilization piriformis/glute Body Location R distal att at greater trochanter glut med, piriformis Mobilization Type Rolling,Sustained Pressure, Other Intensity/Depth Moderate Body Position L Sidelying Comments rolling STMs, MWM during clamshell Manual Traction manual hip traction Details long axis Body Position Hooklying Comments good hip stretch response long leg pull PT-OP-T Assessment and Plan Start: 09/03/23 17:34 Freq: Status: Active Protocol: Document 11/06/23 14:34 DCW (Rec: 11/06/23 15:14 DCW [id number]) Physical Therapy Assessment Impairments Impairments Functional Activities, Functional Mobility,Pain, Posture,ROM,Soft Tissue Mobility,Strength,Tone Goals Three Impairment Pt unable to stand for 15+' secondary to low back pain Senior Living Goal (LTG) Pt to exhibit ability to stand for longer than 30 minutes without increased back pain in order to improve ability to prepare and cook meals. LTG Duration 12/02/23 Two Impairment Pt experiences interrupted sleep secondary to hip pain Senior Living Goal (LTG) Pt to report ability to sleep with waking up fewer than 3 times throughout the night secondary to hip pain over one full week. LTG Duration 12/02/23 One Impairment Pt does not have an appropriate home exercise program Short Term Goal (STG) Pt to be independent and compliant with an appropriate HEP STG Duration 10/02/23 Assessment Summary Assessment Pt feeling pretty good overall , still increased stiffness in piriformis, but feels improvement in gait. Physical Therapy Plan Frequency and Duration Frequency of Treatment 2x/Week Plan of Care Start Date 09/03/23 Plan of Care End Date 12/02/23 Therapeutic Interventions Therapeutic Interventions Balance Training,Gait Training ,Home Exercise Program,Joint Mobilizations,Manual Therapy, Neuromuscular Re-education, Patient/Caregiver Education, Self-Care/Home Management,Soft Tissue Mobilization, Therapeutic Activities, Therapeutic Exercises Modalities Cold Pack/Ice Massage,Electric Stimulation,Hot Packs, Ultrasound Next Visit Focus/Plan Next Note Type Treatment Note Next Visit Plan Continue: core/R hip strengthening: supine october/ side hip abd/seated hip IR& ER , funcitonal hip hinge activities glut drive, monitor knee pain. REcheck: Possibly side sit to upright to increase core strength for sidelying to sit.
--- NOTE | 2023-11-17 12:44 | PT.OTN ---
Current Diagnoses Other chronic pain (11/17/23) Stiffness of right hip, not elsewhere classified (11/17/23) Stiffness of other specified joint, not elsewhere classified (11/17/23) Scoliosis, unspecified (11/17/23) Low back pain, unspecified (11/17/23) Physical Therapy Treatment Note PT-OP-A Visit Information Start: 09/03/23 17:34 Freq: Status: Active Protocol: Document 11/17/23 12:00 DCW (Rec: 11/17/23 12:44 DCW [id number]) Out-Patient Physical Therapy Visit Information Visit Information Visit Type Treatment Note Visit Start Time 12:00 Visit Stop Time 12:45 Visit Number 15 Number of CROWN IRONER Visits 0 Evaluation Information Evaluation Date 09/03/23 PT-OP-B Current Condition Start: 09/03/23 17:34 Freq: Status: Active Protocol: Document 09/03/23 16:45 DCW (Rec: 09/03/23 17:42 DCW [id number]) Current Condition History of Current Condition Onset Date Long-standing history Current Complaints Low back pain, scoliosis, right hip and leg pain History of Current Condition Pt is an 83 year old female presenting with a long- standing history of low back pain, secondary to scoliosis and degenerative changes. Pt has been previously been treated for this same complaint at this clinic many years ago, which helped at the time, however has slowly continued to get worse, to the point now where she is no longer able to ignore it. OMT in the past has been helpful, but pt admits she has not been noticing any improvement recently. Admits pain is worse at night, tried to sleep on her side, but can only tolerate it for so long before needing to roll over to the other side due to hip and back pain. Also notes worsening pain when standing longer than 10-15 minutes. Notes difficulty with stairs, cannot tolerate using her stationary bike due to pain. PT-OP-C Subjective Start: 09/03/23 17:34 Freq: Status: Active Protocol: Document 11/17/23 12:00 DCW (Rec: 11/17/23 12:44 DCW [id number]) OP-PT Subjective Patient Comments Patient Comments Pt having an easier time ascending stairs, but still having difficulty with descending due to knee pain. PT-OP-F Manual Assessment Start: 09/03/23 17:34 Freq: Status: Active Protocol: Document 09/03/23 16:45 DCW (Rec: 09/03/23 17:57 DCW [id number]) Manual Assessments Soft Tissue Assessment Soft Tissue Mobility Assessment increased R-sided lumbar tone, increased left-sided thoracic tone Joint Mobility Assessment Joint Mobility Assessment reverse S-curve scoliosis PT-OP-J Posture/Palpation/Skin Start: 09/03/23 17:34 Freq: Status: Active Protocol: Document 09/03/23 16:45 DCW (Rec: 09/04/23 09:35 DCW [place] [id number]) Posture Evaluation Position Standing Evaluation View Posterior T-Spine Posture Fixed Scoliosis on (L) L-Spine Posture Fixed Scoliosis on (R) PT-OP-K Range of Motion Start: 09/03/23 17:34 Freq: Status: Active Protocol: Document 09/03/23 16:45 DCW (Rec: 09/04/23 09:35 DCW [id number]) Lumbar Spine Range of Motion Lumbar Spine Active Degrees Testing Position Standing Flexion 40 Extension 5 Lateral Flexion Left 47 Lateral Flexion Right 52 Comments Lateral flexion measured in cm from fingertip to floor PT-OP-L Special Tests Start: 09/03/23 17:34 Freq: Status: Active Protocol: Document 09/03/23 16:45 DCW (Rec: 09/04/23 09:35 DCW [place] [id number]) Special Tests Lumbar Spine Special Tests Vertical Spine Loading Test Results Negative Straight Leg Raise Test Results Negative Compression Test Results Negative A-P Shearing Test Results Negative Hip Special Tests Piriformis Test Results C/o tightness RALPH Test Results Negative PT-OP-M Strength Start: 09/03/23 17:34 Freq: Status: Active Protocol: Document 09/03/23 16:45 DCW (Rec: 09/04/23 09:35 DCW [id number]) Trunk Strength Trunk Manual Muscle Testing Core Stabilization 4-/5: Good TrA contraction, difficulty holding longer than 5 PT-OP-Q Treatments Start: 09/03/23 17:34 Freq: Status: Active Protocol: Document 11/17/23 12:00 DCW (Rec: 11/17/23 12:44 DCW [id number]) Cardio Equipment Recumbent Elliptical ([employer]) Duration (Minutes) 5 Resistance 5 Seat Position 7 Gym Equipment Shuttle Recovery SL press Details single leg press Resistance 25# (old band) Reps/Time 2x10 ea DL press Details double leg press Resistance 50# (new bands) Reps/Time 2x15 Therapeutic Exercises Other Exercises Step-downs Other Exercise Name Step-downs Side bilateral Equipment Used 4 steps Manual Therapy Treatment Soft Tissue Mobilization piriformis/glute Body Location R distal att at greater trochanter glut med, piriformis Mobilization Type Rolling,Sustained Pressure, Other Intensity/Depth Moderate Body Position L Sidelying Comments rolling STMs, MWM during clamshell Manual Traction manual hip traction Details long axis Body Position Hooklying Comments good hip stretch response long leg pull PT-OP-T Assessment and Plan Start: 09/03/23 17:34 Freq: Status: Active Protocol: Document 11/17/23 12:00 DCW (Rec: 11/17/23 12:44 DCW [id number]) Physical Therapy Assessment Impairments Impairments Functional Activities, Functional Mobility,Pain, Posture,ROM,Soft Tissue Mobility,Strength,Tone Goals Three Impairment Pt unable to stand for 15+' secondary to low back pain Detention Goal (LTG) Pt to exhibit ability to stand for longer than 30 minutes without increased back pain in order to improve ability to prepare and cook meals. LTG Duration 12/02/23 Two Impairment Pt experiences interrupted sleep secondary to hip pain Complex Human Resources Manager Goal (LTG) Pt to report ability to sleep with waking up fewer than 3 times throughout the night secondary to hip pain over one full week. LTG Duration 12/02/23 One Impairment Pt does not have an appropriate home exercise program Short Term Goal (STG) Pt to be independent and compliant with an appropriate HEP STG Duration 10/02/23 Assessment Summary Assessment Struggled with descending stairs, will focus on increasing activities at home. Good response to STM today. Physical Therapy Plan Frequency and Duration Frequency of Treatment 2x/Week Plan of Care Start Date 09/03/23 Plan of Care End Date 12/02/23 Therapeutic Interventions Therapeutic Interventions Balance Training,Gait Training ,Home Exercise Program,Joint Mobilizations,Manual Therapy, Neuromuscular Re-education, Patient/Caregiver Education, Self-Care/Home Management,Soft Tissue Mobilization, Therapeutic Activities, Therapeutic Exercises Modalities Cold Pack/Ice Massage,Electric Stimulation,Hot Packs, Ultrasound Next Visit Focus/Plan Next Note Type Treatment Note Next Visit Plan Continue: core/R hip strengthening: supine march/ side hip abd/seated hip IR& ER , funcitonal hip hinge activities glut drive, monitor knee pain. REcheck: Possibly side sit to upright to increase core strength for sidelying to sit.
--- NOTE | 2023-11-25 16:39 | PT.OTN ---
Current Diagnoses Other chronic pain (11/25/23) Stiffness of right hip, not elsewhere classified (11/25/23) Stiffness of other specified joint, not elsewhere classified (11/25/23) Scoliosis, unspecified (11/25/23) Low back pain, unspecified (11/25/23) Physical Therapy Treatment Note PT-OP-A Visit Information Start: 09/03/23 17:34 Freq: Status: Active Protocol: Document 11/25/23 14:37 SW (Rec: 11/25/23 15:18 SW [id number]) Out-Patient Physical Therapy Visit Information Visit Information Visit Type Treatment Note Visit Start Time 14:34 Visit Stop Time 15:14 Visit Number 16 Number of CYBER INCIDENT RESPONDER Visits 1 PT-OP-B Current Condition Start: 09/03/23 17:34 Freq: Status: Active Protocol: Document 09/03/23 16:45 DCW (Rec: 09/03/23 17:42 DCW [id number]) Current Condition History of Current Condition Onset Date Long-standing history Current Complaints Low back pain, scoliosis, right hip and leg pain History of Current Condition Pt is an 83 year old female presenting with a long- standing history of low back pain, secondary to scoliosis and degenerative changes. Pt has been previously been treated for this same complaint at this clinic many years ago, which helped at the time, however has slowly continued to get worse, to the point now where she is no longer able to ignore it. OMT in the past has been helpful, but pt admits she has not been noticing any improvement recently. Admits pain is worse at night, tried to sleep on her side, but can only tolerate it for so long before needing to roll over to the other side due to hip and back pain. Also notes worsening pain when standing longer than 10-15 minutes. Notes difficulty with stairs, cannot tolerate using her stationary bike due to pain. PT-OP-C Subjective Start: 09/03/23 17:34 Freq: Status: Active Protocol: Document 11/25/23 14:37 SW (Rec: 11/25/23 15:18 SW [id number]) OP-PT Subjective Patient Comments Patient Comments Pt reports no changes this session. Pt reports getting bike going, able to do 20 min, though harder on her knees. PT-OP-F Manual Assessment Start: 09/03/23 17:34 Freq: Status: Active Protocol: Document 09/03/23 16:45 DCW (Rec: 09/03/23 17:57 DCW [id number]) Manual Assessments Soft Tissue Assessment Soft Tissue Mobility Assessment increased R-sided lumbar tone, increased left-sided thoracic tone Joint Mobility Assessment Joint Mobility Assessment reverse S-curve scoliosis PT-OP-J Posture/Palpation/Skin Start: 09/03/23 17:34 Freq: Status: Active Protocol: Document 09/03/23 16:45 DCW (Rec: 09/04/23 09:35 DCW [id number]) Posture Evaluation Position Standing Evaluation View Posterior T-Spine Posture Fixed Scoliosis on (L) L-Spine Posture Fixed Scoliosis on (R) PT-OP-K Range of Motion Start: 09/03/23 17:34 Freq: Status: Active Protocol: Document 09/03/23 16:45 DCW (Rec: 09/04/23 09:35 DCW [id number]) Lumbar Spine Range of Motion Lumbar Spine Active Degrees Testing Position Standing Flexion 40 Extension 5 Lateral Flexion Left 47 Lateral Flexion Right 52 Comments Lateral flexion measured in cm from fingertip to floor PT-OP-L Special Tests Start: 09/03/23 17:34 Freq: Status: Active Protocol: Document 09/03/23 16:45 DCW (Rec: 09/04/23 09:35 DCW [id number]) Special Tests Lumbar Spine Special Tests Vertical Spine Loading Test Results Negative Straight Leg Raise Test Results Negative Compression Test Results Negative A-P Shearing Test Results Negative Hip Special Tests Piriformis Test Results C/o tightness RALPH Test Results Negative PT-OP-M Strength Start: 09/03/23 17:34 Freq: Status: Active Protocol: Document 09/03/23 16:45 DCW (Rec: 09/04/23 09:35 DCW [id number]) Trunk Strength Trunk Manual Muscle Testing Core Stabilization 4-/5: Good TrA contraction, difficulty holding longer than 5 PT-OP-Q Treatments Start: 09/03/23 17:34 Freq: Status: Active Protocol: Document 11/25/23 14:37 SW (Rec: 11/25/23 15:18 SW [id number]) Cardio Equipment Recumbent Elliptical ([employer]) Duration (Minutes) 5 Resistance 5 Seat Position 7 Gym Equipment Shuttle Recovery SL press Details single leg press Resistance 25# (new band) Reps/Time 2x15 ea DL press Details double leg press Resistance 50# (new bands) Reps/Time 2x15 Therapeutic Exercises Supine Exercises Hip Abd Supine Exercise Name Hip Abd Side right Resistance AROM Reps/Minutes 2 x 10 Comments cues for correct execution, pain free range Bridge Supine Exercise Name Bridge Reps/Minutes x10, x10 w/3 hold Comments quick to fatigue Marching Supine Exercise Name March progressed to 90/90 Comments cues for slower controlled movement Sidelying Exercises Hip Abduction Sidelying Exercise Name Trialed in PT Side right Resistance AROM Comments unable to lift agains gravity Sitting Exercises Hip IR/ER Sitting Exercise Name Hip IR/ER Side bilateral Reps/Minutes 2x10 Comments pt reported fatigue Standing Exercises Hip Ext Standing Exercise Name Hip ext- HEP reviewed Side bilateral Resistance AROM Equipment Used rail Reps/Minutes 3x15 Comments vc for eccentric control Hip Abd Standing Exercise Name Hip abd Side bilateral Resistance AROM Reps/Minutes 3x15 ea Comments vc for eccentric control, minimal lift on R hip Other Exercises Step-downs Other Exercise Name Step-downs Side bilateral Equipment Used 4 steps Manual Therapy Treatment Soft Tissue Mobilization piriformis/glute Body Location R distal att at greater trochanter glut med, piriformis Mobilization Type Rolling,Sustained Pressure, Other Intensity/Depth Moderate Body Position L Sidelying Comments rolling STMs, MWM during clamshell PT-OP-T Assessment and Plan Start: 09/03/23 17:34 Freq: Status: Active Protocol: Document 11/25/23 14:37 (Rec: 11/25/23 15:18 [id number]) Physical Therapy Assessment Goals Three Impairment Pt unable to stand for 15+' secondary to low back pain Deputy Clerk Of Court Goal (LTG) Pt to exhibit ability to stand for longer than 30 minutes without increased back pain in order to improve ability to prepare and cook meals. LTG Duration 12/02/23 Two Impairment Pt experiences interrupted sleep secondary to hip pain [facility] Goal (LTG) Pt to report ability to sleep with waking up fewer than 3 times throughout the night secondary to hip pain over one full week. LTG Duration 12/02/23 One Impairment Pt does not have an appropriate home exercise program Short Term Goal (STG) Pt to be independent and compliant with an appropriate HEP STG Duration 10/02/23 Assessment Summary Assessment Trialed progression to sidelying R hip Abd, unable to lift against gravity, regressed to supine, pt reported pain in full range, instructed patient in pain free range. Ended session with STM to relax hip musculature and decrease pt discomfort. Physical Therapy Plan Frequency and Duration Frequency of Treatment 2x/Week Plan of Care Start Date 09/03/23 Plan of Care End Date 12/02/23 Therapeutic Interventions Therapeutic Interventions Balance Training,Gait Training ,Home Exercise Program,Joint Mobilizations,Manual Therapy, Neuromuscular Re-education, Patient/Caregiver Education, Self-Care/Home Management,Soft Tissue Mobilization, Therapeutic Activities, Therapeutic Exercises Modalities Cold Pack/Ice Massage,Electric Stimulation,Hot Packs, Ultrasound Next Visit Focus/Plan Next Note Type Treatment Note Next Visit Plan Continue: core/R hip strengthening: supine october/ side hip abd/seated hip IR& ER , funcitonal hip hinge activities glut drive, monitor knee pain. REcheck: Possibly side sit to upright to increase core strength for sidelying to sit.
--- NOTE | 2023-11-27 16:42 | PT.OTN ---
Current Diagnoses Other chronic pain (11/27/23) Stiffness of right hip, not elsewhere classified (11/27/23) Stiffness of other specified joint, not elsewhere classified (11/27/23) Scoliosis, unspecified (11/27/23) Low back pain, unspecified (11/27/23) Physical Therapy Treatment Note PT-OP-A Visit Information Start: 09/03/23 17:34 Freq: Status: Active Protocol: Document 11/27/23 14:40 SW (Rec: 11/27/23 16:32 SW [id number]) Out-Patient Physical Therapy Visit Information Visit Information Visit Type Treatment Note Visit Start Time 14:31 Visit Stop Time 15:11 Visit Number 17 Number of FUNCTIONAL CONSULTANT Visits 2 PT-OP-B Current Condition Start: 09/03/23 17:34 Freq: Status: Active Protocol: Document 09/03/23 16:45 DCW (Rec: 09/03/23 17:42 DCW [id number]) Current Condition History of Current Condition Onset Date Long-standing history Current Complaints Low back pain, scoliosis, right hip and leg pain History of Current Condition Pt is an 83 year old female presenting with a long- standing history of low back pain, secondary to scoliosis and degenerative changes. Pt has been previously been treated for this same complaint at this clinic many years ago, which helped at the time, however has slowly continued to get worse, to the point now where she is no longer able to ignore it. OMT in the past has been helpful, but pt admits she has not been noticing any improvement recently. Admits pain is worse at night, tried to sleep on her side, but can only tolerate it for so long before needing to roll over to the other side due to hip and back pain. Also notes worsening pain when standing longer than 10-15 minutes. Notes difficulty with stairs, cannot tolerate using her stationary bike due to pain. PT-OP-C Subjective Start: 09/03/23 17:34 Freq: Status: Active Protocol: Document 11/27/23 14:40 SW (Rec: 11/27/23 16:32 SW [id number]) OP-PT Subjective Patient Comments Patient Comments Pt reports able to ride bike for 20 min today. PT-OP-F Manual Assessment Start: 09/03/23 17:34 Freq: Status: Active Protocol: Document 09/03/23 16:45 DCW (Rec: 09/03/23 17:57 DCW [id number]) Manual Assessments Soft Tissue Assessment Soft Tissue Mobility Assessment increased R-sided lumbar tone, increased left-sided thoracic tone Joint Mobility Assessment Joint Mobility Assessment reverse S-curve scoliosis PT-OP-J Posture/Palpation/Skin Start: 09/03/23 17:34 Freq: Status: Active Protocol: Document 09/03/23 16:45 DCW (Rec: 09/04/23 09:35 DCW [id number]) Posture Evaluation Position Standing Evaluation View Posterior T-Spine Posture Fixed Scoliosis on (L) L-Spine Posture Fixed Scoliosis on (R) PT-OP-K Range of Motion Start: 09/03/23 17:34 Freq: Status: Active Protocol: Document 09/03/23 16:45 DCW (Rec: 09/04/23 09:35 DCW [id number]) Lumbar Spine Range of Motion Lumbar Spine Active Degrees Testing Position Standing Flexion 40 Extension 5 Lateral Flexion Left 47 Lateral Flexion Right 52 Comments Lateral flexion measured in cm from fingertip to floor PT-OP-L Special Tests Start: 09/03/23 17:34 Freq: Status: Active Protocol: Document 09/03/23 16:45 DCW (Rec: 09/04/23 09:35 DCW [id number]) Special Tests Lumbar Spine Special Tests Vertical Spine Loading Test Results Negative Straight Leg Raise Test Results Negative Compression Test Results Negative A-P Shearing Test Results Negative Hip Special Tests Piriformis Test Results C/o tightness RALPH Test Results Negative PT-OP-M Strength Start: 09/03/23 17:34 Freq: Status: Active Protocol: Document 09/03/23 16:45 DCW (Rec: 09/04/23 09:35 DCW [id number]) Trunk Strength Trunk Manual Muscle Testing Core Stabilization 4-/5: Good TrA contraction, difficulty holding longer than 5 PT-OP-Q Treatments Start: 09/03/23 17:34 Freq: Status: Active Protocol: Document 11/27/23 14:40 SW (Rec: 11/27/23 15:16 SW [id number]) Cardio Equipment Recumbent Elliptical (Biodex) Duration (Minutes) 5 Resistance 5 Seat Position 7 Gym Equipment Shuttle Recovery SL press Details single leg press Resistance 25# (new band) Reps/Time 2x15 ea DL press Details double leg press Resistance 50# (new bands) Reps/Time 3x15 Therapeutic Exercises Supine Exercises bugs Supine Exercise Name LE only Side bilateral Comments cues for core stabilization, slow controlled movement Sitting Exercises Hip IR/ER Sitting Exercise Name Hip IR/ER Side bilateral Resistance level 2 TB Reps/Minutes 2x10 Comments pt reported fatigue Other Exercises Step-downs Other Exercise Name Step-downs, step-ups Side bilateral Equipment Used 4 steps Comments heavy reliance w/ BUE, pn in L knee descending PT-OP-T Assessment and Plan Start: 09/03/23 17:34 Freq: Status: Active Protocol: Document 11/27/23 14:40 SW (Rec: 11/27/23 15:16 SW [id number]) Physical Therapy Assessment Goals Three Impairment Pt unable to stand for 15+' secondary to low back pain Labor Crew Supervisor Goal (LTG) Pt to exhibit ability to stand for longer than 30 minutes without increased back pain in order to improve ability to prepare and cook meals. LTG Duration 12/02/23 Two Impairment Pt experiences interrupted sleep secondary to hip pain Labor Crew Supervisor Goal (LTG) Pt to report ability to sleep with waking up fewer than 3 times throughout the night secondary to hip pain over one full week. LTG Duration 12/02/23 One Impairment Pt does not have an appropriate home exercise program Short Term Goal (STG) Pt to be independent and compliant with an appropriate HEP STG Duration 10/02/23 Assessment Summary Assessment Progressed pt with increased resistance on shuttle recovery . Trialed descending stairs today, pt pain in L knee, heavy reliance on bilateral UE support d/t pain. Initiated resisted lateral ambulation for hip strength, pt tolerated well, cued pt to keep soft bend in knees and for tall upright posture. Physical Therapy Plan Frequency and Duration Frequency of Treatment 2x/Week Plan of Care Start Date 09/03/23 Plan of Care End Date 12/02/23 Therapeutic Interventions Therapeutic Interventions Balance Training,Gait Training ,Home Exercise Program,Joint Mobilizations,Manual Therapy, Neuromuscular Re-education, Patient/Caregiver Education, Self-Care/Home Management,Soft Tissue Mobilization, Therapeutic Activities, Therapeutic Exercises Modalities Cold Pack/Ice Massage,Electric Stimulation,Hot Packs, Ultrasound Next Visit Focus/Plan Next Note Type Progress Note Next Visit Plan Progress note next session? Continue: core/R hip strengthening: supine october/ side hip abd/seated hip IR& ER , funcitonal hip hinge activities glut drive, monitor knee pain. REcheck: Possibly side sit to upright to increase core strength for sidelying to sit.
--- NOTE | 2023-12-01 17:19 | PT.OTN ---
Current Diagnoses Other chronic pain (12/01/23) Stiffness of right hip, not elsewhere classified (12/01/23) Stiffness of other specified joint, not elsewhere classified (12/01/23) Scoliosis, unspecified (12/01/23) Low back pain, unspecified (12/01/23) Physical Therapy Treatment Note PT-OP-A Visit Information Start: 09/03/23 17:34 Freq: Status: Active Protocol: Document 12/01/23 16:45 DCW (Rec: 12/01/23 17:19 DCW [id number]) Out-Patient Physical Therapy Visit Information Visit Information Visit Type Discharge Summary Visit Start Time 16:45 Visit Stop Time 17:15 Visit Number 18 Number of CPA TAX Visits 0 Evaluation Information Evaluation Date 09/03/23 PT-OP-B Current Condition Start: 09/03/23 17:34 Freq: Status: Active Protocol: Document 09/03/23 16:45 DCW (Rec: 09/03/23 17:42 DCW [id number]) Current Condition History of Current Condition Onset Date Long-standing history Current Complaints Low back pain, scoliosis, right hip and leg pain History of Current Condition Pt is an 83 year old female presenting with a long- standing history of low back pain, secondary to scoliosis and degenerative changes. Pt has been previously been treated for this same complaint at this clinic many years ago, which helped at the time, however has slowly continued to get worse, to the point now where she is no longer able to ignore it. OMT in the past has been helpful, but pt admits she has not been noticing any improvement recently. Admits pain is worse at night, tried to sleep on her side, but can only tolerate it for so long before needing to roll over to the other side due to hip and back pain. Also notes worsening pain when standing longer than 10-15 minutes. Notes difficulty with stairs, cannot tolerate using her stationary bike due to pain. PT-OP-C Subjective Start: 09/03/23 17:34 Freq: Status: Active Protocol: Document 12/01/23 16:45 DCW (Rec: 12/01/23 17:19 DCW [id number]) OP-PT Subjective Patient Comments Patient Comments I feel like I've gotten a lot out of this. PT-OP-F Manual Assessment Start: 09/03/23 17:34 Freq: Status: Active Protocol: Document 12/01/23 16:45 DCW (Rec: 12/01/23 16:52 DCW [id number]) Manual Assessments Soft Tissue Assessment Soft Tissue Mobility Assessment increased R-sided lumbar tone, increased left-sided thoracic tone Joint Mobility Assessment Joint Mobility Assessment reverse S-curve scoliosis PT-OP-J Posture/Palpation/Skin Start: 09/03/23 17:34 Freq: Status: Active Protocol: Document 12/01/23 16:45 DCW (Rec: 12/01/23 16:52 DCW [id number]) Posture Evaluation Position Standing Evaluation View Posterior T-Spine Posture Fixed Scoliosis on (L) L-Spine Posture Fixed Scoliosis on (R) PT-OP-K Range of Motion Start: 09/03/23 17:34 Freq: Status: Active Protocol: Document 12/01/23 16:45 DCW (Rec: 12/01/23 16:52 DCW [id number]) Lumbar Spine Range of Motion Lumbar Spine Active Degrees Testing Position Standing Flexion 53 Extension 10 Lateral Flexion Left 46 Lateral Flexion Right 48 PT-OP-L Special Tests Start: 09/03/23 17:34 Freq: Status: Active Protocol: Document 09/03/23 16:45 DCW (Rec: 09/04/23 09:35 DCW [id number]) Special Tests Lumbar Spine Special Tests Vertical Spine Loading Test Results Negative Straight Leg Raise Test Results Negative Compression Test Results Negative A-P Shearing Test Results Negative Hip Special Tests Piriformis Test Results C/o tightness RALPH Test Results Negative PT-OP-M Strength Start: 09/03/23 17:34 Freq: Status: Active Protocol: Document 09/03/23 16:45 DCW (Rec: 09/04/23 09:35 DCW [id number]) Trunk Strength Trunk Manual Muscle Testing Core Stabilization 4-/5: Good TrA contraction, difficulty holding longer than 5 PT-OP-Q Treatments Start: 09/03/23 17:34 Freq: Status: Active Protocol: Document 12/01/23 16:45 DCW (Rec: 12/01/23 17:19 DCW [id number]) Manual Therapy Treatment Soft Tissue Mobilization piriformis/glute Body Location R distal att at greater trochanter glut med, piriformis Mobilization Type Rolling,Sustained Pressure, Other Intensity/Depth Moderate Body Position L Sidelying Comments rolling STMs, MWM during clamshell Lumbar Body Location Lumbar paraspinals Mobilization Type Sustained Pressure,Other Intensity/Depth Moderate Body Position Sidelying Comments left and right side PT-OP-T Assessment and Plan Start: 09/03/23 17:34 Freq: Status: Active Protocol: Document 12/01/23 16:45 DCW (Rec: 12/01/23 17:19 DCW [id number]) Physical Therapy Assessment Goals Three Impairment Pt unable to stand for 15+' secondary to low back pain Impairment 12/01/23: Pt able to stand for 45' without pain Care Home Goal (LTG) Pt to exhibit ability to stand for longer than 30 minutes without increased back pain in order to improve ability to prepare and cook meals. LTG Duration Met Two Impairment Pt experiences interrupted sleep secondary to hip pain Impairment 12/01/23: Pt does not wake up with pain at any point during the night Practicing Urologist Goal (LTG) Pt to report ability to sleep with waking up fewer than 3 times throughout the night secondary to hip pain over one full week. LTG Duration Met One Impairment Pt does not have an appropriate home exercise program Short Term Goal (STG) Pt to be independent and compliant with an appropriate HEP STG Duration Met Assessment Summary Assessment Pt doing very well overall, has met all goals. Pt is no longer woken up during the night due to pain. Additionally, has tripled the amount of time she can stand without pain, improving from 15 minutes to 45 minutes. Pt doing well with HEP, understands the need to continue independently in order to maintain her current functional level. Pt understands she will require a new referral in order to return to skilled PT in the future if needed. Pt will be discharged from skilled therapy at this time. Physical Therapy Plan Frequency and Duration Frequency of Treatment 2x/Week Plan of Care Start Date 09/03/23 Plan of Care End Date 12/02/23 Therapeutic Interventions Therapeutic Interventions Balance Training,Gait Training ,Home Exercise Program,Joint Mobilizations,Manual Therapy, Neuromuscular Re-education, Patient/Caregiver Education, Self-Care/Home Management,Soft Tissue Mobilization, Therapeutic Activities, Therapeutic Exercises Modalities Cold Pack/Ice Massage,Electric Stimulation,Hot Packs, Ultrasound Discharge Physical Therapy Discharge Reasons Goals Met Next Visit Focus/Plan Next Note Type Discharge Summary
== END 2024-02-23 10:51 ==
LOC: PHYS 16:45
PROVIDERS: Referring Provider Family Medicine; Visit Provider Family Medicine
DX: M54.50 Low back pain, unspecified (principal); G89.29 Other chronic pain; M25.69 Stiffness of other specified joint, not elsewhere classified; M25.651 Stiffness of right hip, not elsewhere classified; M41.9 Scoliosis, unspecified
CPT/HCPCS: 97110; 97140; 97162; 97530

== ENCOUNTER → 2024-01-09 06:59 | Outpatient (CLI) | payer OTHER, MEDICAID, SELFPAY ==
[2024-01-09 08:48] LABS: TSH w/ Reflex to FT4 4.05 uIU/mL (0.47-4.68)
== END ==
PROVIDERS: Referring Provider Family Medicine; Visit Provider Family Medicine
DX: E03.9 Hypothyroidism, unspecified (principal)
CPT/HCPCS: 36415; 84443

== ENCOUNTER 2024-02-24 11:15 | Outpatient (RCR) | payer OTHER, MEDICAID, SELFPAY ==
--- NOTE | 2024-01-13 12:52 | OT.OP.EVAL ---
Visit Care Team Role Provider Type Doctor MD Sang Family Provider Non-Staff Primary Care Provider Specialty: Medical Address: Phone: Fax: Email: Eliseo Mendoza DO Attending Provider Non-Staff Referring Provider Specialty: Medical Address: [address] [place] [address], [id number] Email: Occupational Therapy Initial Evaluation OT Outpatient Adult Evaluation Start: 01/13/24 12:09 Freq: Status: Active Protocol: Document 01/13/24 12:09 AMS (Rec: 01/13/24 12:52 AMS [id number]) General Information - Adult Visit Number 08/15 Plan of Care Dates 01/13/24 - 02/24/24 Insurance Information [employer]; x 12 visits -> than auth needed Visit Start Time 09:00 Visit Stop Time 09:40 Referring Physician Eliseo Mendoza DO Reason for Referral Pain in bilateral wrists Identification Confirmed Yes Identification Confirmed By Self Goals Short Term Goals 1. 0-35 degrees active R wrist flexion. 2. Ashleigh will demonstrate improvements with bilateral wrist strength; this will be evidenced by the followina. 4/5 MMT R wrist ext vs initial 3+/5 MMT R wrist ext 2b. 4/5 MMT L wrist ext vs initial 4-/5 MMT L wrist ext. 2c. 4+/5 MMT L wrist flex vs initial 4/5 MMT L wrist flex. 2d. 4/[address] vs initial 3+/[address] 2e. 4/[address] vs initial 3+/[address] 2f. 4/5 MMT R wrist UD vs initial 3+/5 MMT R wrist UD. 2g. 4/5 MMT L wrist UD vs initial 3+/5 MMT L wrist UD. [facility] Goals 1. Ashleigh will be modified independent with home exercise program utilizing provided written and visual instructions as needed. 2. Ashleigh will be able to verbally identify 3 to 4 different compensatory strategies and/or pieces of adaptive equipment that she can use in the home to support her functional independence (e.g. use of 2- handed approach for transporting of heavier items) . Assessment/Plan Treatment Assessment Ashleigh is 83 y.o.; she is right hand dominant; she was referred to outpatient OT secondary to bilateral wrist pain. Medical history is significant for scoliosis, LBP , R hip stiffness, GERD, HTN, ischemic cardiomyopathy, arterial disease, cancer (skin ), CHF, heart attack, osteopenia, gall bladder surgery, L hiatal hernia repair w/ mesh, IBS. She reports residing on the main floor of a 2-story home with one of her children residing on the 2nd floor w/ their family. 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 She sleeps on her side; she has bilateral wrist braces but does not wear them. She uses heating pad for pain management, as well as ice. She reports home exercise program includes execution of x 45 squats; she reports inability to use hand DB in the last couple of years . She has hand squeeze exercise balls (in the shape of eggs). Nodule present dorsal medial R 5th PIPJ which leads to ulnar shift/ directionality of finger at PIPJ. Nodule present dorsal medial L 4th PIPJ which leads to ulnar shift/direction of finger PIPJ. QuickDASH UE Outcome Measure Score = 86.36. Report of use of modification techniques including transportation of milk bottle w/ 2 hands and using a farmer tree fruit and nut crops device to help open the jug of milk. Able to oppose thumbs bilaterally to each digit pad. 0-62 degrees active R wrist ext vs 0-61 degrees active L wrist ext. 0-30 degrees active R wrist flex vs 0-40 degrees active L wrist flex. 0-30 degrees active R wrist UD vs 0-25 degrees active L wrist UD . 0-38 degrees active R thumb radial abd vs 0-35 degrees active L thumb radial abd; 0- 37 degrees active R radial palmar thumb abd vs 0-48 degrees active L radial palmar thumb abd. 9.0# of force R aviation technical systems specialist (compared to 75+ y.o. female norm 42.6 +/- 11.0) vs 11.0# of force L aviation technical systems specialist (compared to 75+ y.o. female norm 37.6 +/- 8.9); dynamometer II aviation technical systems specialist strength testing results w/ elbows in 90 degrees flexion. Pinchometer strength testing results: 3.0# of force right lateral krishnamurthy pinch (compared to 75+ y.o. female norm 12.6 +/- 2.3) vs 3.0# of force left lateral krishnamurthy pinch (compared to 75+ y.o. female norm 11.4 +/- 2.6). 2.0# of force right tip pinch (compared to 75+ y.o. female norm 9.6 +/- 2.8) vs 1. 0# of force left tip pinch ( compared to 75+ y.o. female norm 9.3 +/- 2.4). 2.5# of force R 3-jaw pinch (compared to 75+ y.o. female norm 12.0 + /- 2.6) vs 2.0# of force L 3- jaw pinch (compared to 75+ y.o . female norm 11.5 +/- 2.6). MMT Testin+/5 MMT R wrist ext vs 4-/5 MMT L wrist ext. 5/5 MMT R wrist flex vs 4/5 MMT L wrist flex. 3+/[address] vs 3+/[address] 3+/5 MMT R wrist UD vs 3+/5 MMT L wrist UD. Outpatient OT recommended to address wrist ROM, wrist strength, and to discuss compensatory strategies, adaptive equipment and body mechanics. Length of treatment (weeks) 6 Plan of Care Start Date 01/13/24 Plan of Care End Date 02/24/24 Treatment Frequency Once a Week Therapeutic Contents Active Range of Motion, Adaptive Equipment Education, Client Education,Functional Activities,Home Exercise Program,Joint Protection, Manual Therapy,Education, Neurodevelopment Treatment, Neuromuscular Re-Education, Self-Care,Stretching/ Flexibility Activities, Therapeutic Activities, Therapeutic Exercises, Modalities Modalities As Needed,As Prescribed Additional Types of Modalities Heat/Ice/Contrast baths/ Paraffin/Ultrasound
--- NOTE | 2024-01-13 13:02 | OT.OP.EVAL ---
Visit Care Team Role Provider Type Doctor MD [facility] Family Provider Non-Staff Primary Care Provider Specialty: Medical Address: Phone: Fax: Email: Eliseo Mendoza DO Attending Provider Non-Staff Referring Provider Specialty: Medical Address: [address] [place] [address], [id number] Email: Occupational Therapy Initial Evaluation OT Outpatient Adult Evaluation Start: 01/13/24 12:09 Freq: Status: Active Protocol: Document 01/13/24 12:09 AMS (Rec: 01/13/24 12:52 AMS [id number]) General Information - Adult Visit Number [id number] Plan of Care Dates 01/13/24 - 02/24/24 Insurance Information [employer]; x 12 visits -> than auth needed Visit Start Time 09:00 Visit Stop Time 09:40 Referring Physician Eliseo Mendoza DO Reason for Referral Pain in bilateral wrists Identification Confirmed Yes Identification Confirmed By Self Goals Short Term Goals 1. 0-35 degrees active R wrist flexion. 2. Ashleigh will demonstrate improvements with bilateral wrist strength; this will be evidenced by the followina. 4/5 MMT R wrist ext vs initial 3+/5 MMT R wrist ext 2b. 4/5 MMT L wrist ext vs initial 4-/5 MMT L wrist ext. 2c. 4+/5 MMT L wrist flex vs initial 4/5 MMT L wrist flex. 2d. 4/[address] vs initial 3+/[address] 2e. 4/[address] vs initial 3+/[address] 2f. 4/5 MMT R wrist UD vs initial 3+/5 MMT R wrist UD. 2g. 4/5 MMT L wrist UD vs initial 3+/5 MMT L wrist UD. Intermediate Goals 1. Ashleigh will be modified independent with home exercise program utilizing provided written and visual instructions as needed. 2. Ashleigh will be able to verbally identify 3 to 4 different compensatory strategies and/or pieces of adaptive equipment that she can use in the home to support her functional independence (e.g. use of 2- handed approach for transporting of heavier items) . Assessment/Plan Treatment Assessment Ashleigh is 83 y.o.; she is right hand dominant; she was referred to outpatient OT secondary to bilateral wrist pain. Medical history is significant for scoliosis, LBP , R hip stiffness, GERD, HTN, ischemic cardiomyopathy, arterial disease, cancer (skin ), CHF, heart attack, osteopenia, gall bladder surgery, L hiatal hernia repair w/ mesh, IBS. Most recent MD note suggests MD suspects age-related arthritic pain vs tendinitis; nightly brace recommended and bilateral hand x-ray was ordered as well. MD also rec rest and avoidance of any repetitive or intricate hand movements. She reports residing on the main floor of a 2-story home with her daughter and 3 grandchildren residing on the second floor. 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 Hobbies included sewing and crocheting; which she has been doing in the last 2 years. She sleeps on her side; she has bilateral wrist braces but does not wear them. She uses heating pad for pain management, as well as ice. She reports home exercise program includes execution of x 45 squats; she reports inability to use hand DB in the last couple of years. She has hand squeeze exercise balls (in the shape of eggs). Nodule present dorsal medial R 5th PIPJ which leads to ulnar shift/directionality of finger at PIPJ. Nodule present dorsal medial L 4th PIPJ which leads to ulnar shift/ direction of finger PIPJ. QuickDASH UE Outcome Measure Score = 86.36. Report of use of modification techniques including transportation of milk bottle w/ 2 hands and using a dairy nutrition specialist device to help open the jug of milk. Able to oppose thumbs bilaterally to each digit pad. 0-62 degrees active R wrist ext vs 0-61 degrees active L wrist ext. 0-30 degrees active R wrist flex vs 0-40 degrees active L wrist flex. 0-30 degrees active R wrist UD vs 0-25 degrees active L wrist UD . 0-38 degrees active R thumb radial abd vs 0-35 degrees active L thumb radial abd; 0- 37 degrees active R radial palmar thumb abd vs 0-48 degrees active L radial palmar thumb abd. 9.0# of force R cell tuber machine (compared to 75+ y.o. female norm 42.6 +/- 11.0) vs 11.0# of force L cell tuber machine (compared to 75+ y.o. female norm 37.6 +/- 8.9); dynamometer II cell tuber machine strength testing results w/ elbows in 90 degrees flexion. Pinchometer strength testing results: 3.0# of force right lateral krishnamurthy pinch (compared to 75+ y.o. female norm 12.6 +/- 2.3) vs 3.0# of force left lateral krishnamurthy pinch (compared to 75+ y.o. female norm 11.4 +/- 2.6). 2.0# of force right tip pinch (compared to 75+ y.o. female norm 9.6 +/- 2.8) vs 1. 0# of force left tip pinch ( compared to 75+ y.o. female norm 9.3 +/- 2.4). 2.5# of force R 3-jaw pinch (compared to 75+ y.o. female norm 12.0 + /- 2.6) vs 2.0# of force L 3- jaw pinch (compared to 75+ y.o . female norm 11.5 +/- 2.6). MMT Testin+/5 MMT R wrist ext vs 4-/5 MMT L wrist ext. 5/5 MMT R wrist flex vs 4/5 MMT L wrist flex. 3+/[address] vs 3+/[address] 3+/5 MMT R wrist UD vs 3+/5 MMT L wrist UD. Outpatient OT recommended to address wrist ROM, wrist strength, and to discuss compensatory strategies, adaptive equipment and body mechanics. Length of treatment (weeks) 6 Plan of Care Start Date 01/13/24 Plan of Care End Date 02/24/24 Treatment Frequency Once a Week Therapeutic Contents Active Range of Motion, Adaptive Equipment Education, Client Education,Functional Activities,Home Exercise Program,Joint Protection, Manual Therapy,Education, Neurodevelopment Treatment, Neuromuscular Re-Education, Self-Care,Stretching/ Flexibility Activities, Therapeutic Activities, Therapeutic Exercises, Modalities Modalities As Needed,As Prescribed Additional Types of Modalities Heat/Ice/Contrast baths/ Paraffin/Ultrasound Other Suggested Referrals Consider PT for R sh pain; consider CHT for custom splints 4th/5th digits
--- NOTE | 2024-01-19 15:40 | OT.OP.TRT ---
Visit Care Team Role Provider Type Doctor MD [facility] Family Provider Non-Staff Primary Care Provider Specialty: Medical Address: Phone: Fax: Email: Eliseo Mendoza DO Attending Provider Non-Staff Referring Provider Specialty: Medical Address: [address] [place] [address], [phone] Email: Occupational Therapy Treatment Note OT Outpatient Treatment Note - Adult Start: 01/13/24 12:09 Freq: Status: Active Protocol: Document 01/19/24 15:27 AMS (Rec: 01/19/24 15:40 AMS [id number]) OT Outpatient Adult Treatment Note Session Time Visit Start Time 13:00 Visit Stop Time 13:40 Visit Information Visit Number [id number] Plan of Care Dates 01/13/24 - 02/24/24 Insurance Information [employer]; x 12 visits -> than auth needed Setting Treatment Setting Outpatient Care Visit Type Note Type Treatment Note General Information General Information Ashleigh is 83 y.o.; she is right hand dominant; she was referred to outpatient OT secondary to bilateral wrist pain. Medical history is significant for scoliosis, LBP , R hip stiffness, GERD, HTN, ischemic cardiomyopathy, arterial disease, cancer (skin ), CHF, heart attack, osteopenia, gall bladder surgery, L hiatal hernia repair w/ mesh, IBS. Most recent MD note suggests MD suspects age-related arthritic pain vs tendinitis; nightly brace recommended and bilateral hand x-ray was ordered as well. MD also rec rest and avoidance of any repetitive or intricate hand movements. Has 6 kids; 17 grandkids; 5 great grandchildren. - Subjective Identification Type Name Observations (+) execution of 45 squats. Report of recent decline in stationary bike use from 30 min to 15 minutes; hopes to increase time back to 30 minutes. - Objective Objective Measurements Please refer to below for progress towards meeting established OT goals: AROM: R wrist RD 0-5; L wrist RD 0-15 Short Term Goals 1. Ashleigh will demonstrate improvements with right wrist active range of motion: 1a. 0-35 degrees active R wrist flexion. 2. Ashleigh will demonstrate improvements with bilateral wrist strength; this will be evidenced by the followina. 4/5 MMT R wrist ext vs initial 3+/5 MMT R wrist ext 2b. 4/5 MMT L wrist ext vs initial 4-/5 MMT L wrist ext. 2c. 4+/5 MMT L wrist flex vs initial 4/5 MMT L wrist flex. 2d. 4/[address] vs initial 3+/[address] 2e. 4/[address] vs initial 3+/[address] 2f. 4/5 MMT R wrist UD vs initial 3+/5 MMT R wrist UD. 2g. 4/5 MMT L wrist UD vs initial 3+/5 MMT L wrist UD. Weighmaster Lead Goals 1. Ashleigh will be modified independent with home exercise program utilizing provided written and visual instructions as needed. 2. Ashleigh will be able to verbally identify 3 to 4 different compensatory strategies and/or pieces of adaptive equipment that she can use in the home to support her functional independence (e.g. use of 2- handed approach for transporting of heavier items) . - Treatment 1 Descriptor Paraffin bath. Skin intact pre - and post- treatment. Distal B UEs. x 10 min. Exercises 1 Descriptor Wrist PROM. Instructed in passive wrist flex. Hold for 20-30 sec. Bilaterally. Instructed in passive wrist UD . Hold for 20-30 sec. Bilaterally. Instructed in passive wrist RD . Hold for 20-30 sec. Bilaterally. Instructed in modified prayer pose for passive wrist ext. Hold for 20-30 sec. Instructed in modified prayer pose w/ passive addition of ext stretch at MPJs as tolerated. Hold for 20-30 sec. - Assessment Assessment of Improvement Decreased active R wrist RD vs active L wrist RD. (+) response to paraffin bath. (+) tolerance of passive wrist ROM exercises; see below for details. Rec consideration of home paraffin unit. Outpatient OT recommended to address wrist ROM, wrist strength, and to discuss compensatory strategies, adaptive equipment and body mechanics. Home Exercise Program 01/19/24 = Wrist PROM. Instructed in passive wrist flex bilateral; passive wrist UD bilateral; passive wrist RD bilateral; modified prayer pose/passive wrist ext; modified prayer pose w/ passive addition of ext stretch at MPJs as tolerated. Hold for 20-30 sec. - Plan Therapy Recommendations Advance per Rehabilitation Protocol
--- NOTE | 2024-01-26 15:34 | OT.OP.TRT ---
Visit Care Team Role Provider Type Doctor MD Sang Family Provider Non-Staff Primary Care Provider Specialty: Medical Address: Phone: Fax: Email: Eliseo Mendoza DO Attending Provider Non-Staff Referring Provider Specialty: Medical Address: [address] [place] [address], [id number] Email: Occupational Therapy Treatment Note OT Outpatient Treatment Note - Adult Start: 01/13/24 12:09 Freq: Status: Active Protocol: Document 01/26/24 15:26 AMS (Rec: 01/26/24 15:32 AMS [id number]) OT Outpatient Adult Treatment Note Session Time Visit Start Time 13:00 Visit Stop Time 13:35 Visit Information Visit Number [id number] Plan of Care Dates 01/13/24 - 02/24/24 Insurance Information [employer]; x 12 visits -> than auth needed Setting Treatment Setting Outpatient Care Visit Type Note Type Treatment Note General Information General Information Ashleigh is 83 y.o.; she is right hand dominant; she was referred to outpatient OT secondary to bilateral wrist pain. Medical history is significant for scoliosis, LBP , R hip stiffness, GERD, HTN, ischemic cardiomyopathy, arterial disease, cancer (skin ), CHF, heart attack, osteopenia, gall bladder surgery, L hiatal hernia repair w/ mesh, IBS. Most recent MD note suggests MD suspects age-related arthritic pain vs tendinitis; nightly brace recommended and bilateral hand x-ray was ordered as well. MD also rec rest and avoidance of any repetitive or intricate hand movements. Has 6 kids; 17 grandkids; 5 great grandchildren. - Subjective Identification Type Name Observations (+) execution of 45 squats. Report of recent decline in stationary bike use from 30 min to 15 minutes; hopes to increase time back to 30 minutes. Report of remembering to execute prayer stretch w/ forearm pronation and w/ forearm supination. Patient/Caregiver Compliance with Home Good Exercise Program - Objective Objective Measurements Please refer to below for progress towards meeting established OT goals: AROM: R wrist RD 0-5; L wrist RD 0-15 Short Term Goals 1. Ashleigh will demonstrate improvements with right wrist active range of motion: 1a. 0-35 degrees active R wrist flexion. 2. Ashleigh will demonstrate improvements with bilateral wrist strength; this will be evidenced by the followina. 4/5 MMT R wrist ext vs initial 3+/5 MMT R wrist ext 2b. 4/5 MMT L wrist ext vs initial 4-/5 MMT L wrist ext. 2c. 4+/5 MMT L wrist flex vs initial 4/5 MMT L wrist flex. 2d. 4/[address] vs initial 3+/[address] 2e. 4/[address] vs initial 3+/[address] 2f. 4/5 MMT R wrist UD vs initial 3+/5 MMT R wrist UD. 2g. 4/5 MMT L wrist UD vs initial 3+/5 MMT L wrist UD. Director Of Managed Care Goals 1. Ashleigh will be modified independent with home exercise program utilizing provided written and visual instructions as needed. 2. Ashleigh will be able to verbally identify 3 to 4 different compensatory strategies and/or pieces of adaptive equipment that she can use in the home to support her functional independence (e.g. use of 2- handed approach for transporting of heavier items) . - Treatment 1 Descriptor Paraffin bath. Skin intact pre - and post- treatment. Distal B UEs. x 10 min. Exercises 1 Descriptor Wrist PROM. Instructed in passive wrist flex. Hold for 20-30 sec. Bilaterally. Instructed in passive wrist UD . Hold for 20-30 sec. Bilaterally. Instructed in passive wrist RD . Hold for 20-30 sec. Bilaterally. Instructed in modified prayer pose for passive wrist ext. Hold for 20-30 sec. Forearm pronation. Forearm supination. Instructed in modified prayer pose w/ passive addition of ext stretch at MPJs as tolerated. Hold for 20-30 sec. - Assessment Assessment of Improvement Report of recall and carry- over of modified prayer stretch; rec to execute w/ forearm pronation and supination as demonstrated in treatment session. Ashleigh verbalized preference for modified prayer stretches vs range of motion w/ utilization of TT and/or wall. Rec consideration of home paraffin unit. Outpatient OT recommended to address wrist ROM, wrist strength, and to discuss compensatory strategies, adaptive equipment and body mechanics. Home Exercise Program 01/26/24 = (+) rec to cont w/ modified prayer stretch w/ forearm pronation and forearm supination; hold for 20-30 sec each stretch. Ashleigh verbalized that she preferred the modified prayer stretches to use of TT and/or wall. 01/19/24 = Wrist PROM. Instructed in passive wrist flex bilateral; passive wrist UD bilateral; passive wrist RD bilateral; modified prayer pose/passive wrist ext; modified prayer pose w/ passive addition of ext stretch at MPJs as tolerated. Hold for 20-30 sec. - Plan Therapy Recommendations Advance per Rehabilitation Protocol
--- NOTE | 2024-02-03 14:47 | OT.OP.TRT ---
Visit Care Team Role Provider Type Doctor MD Sang Family Provider Non-Staff Primary Care Provider Specialty: Medical Address: Phone: Fax: Email: Eliseo Mendoza DO Attending Provider Non-Staff Referring Provider Specialty: Medical Address: [address] [place] [address], [phone] Email: Occupational Therapy Treatment Note OT Outpatient Treatment Note - Adult Start: 01/13/24 12:09 Freq: Status: Active Protocol: Document 02/03/24 14:39 AMS (Rec: 02/03/24 14:47 AMS [id number]) OT Outpatient Adult Treatment Note Session Time Visit Start Time 13:00 Visit Stop Time 13:35 Visit Information Visit Number [id number] Plan of Care Dates 01/13/24 - 02/24/24 Insurance Information [employer]; x 12 visits -> than auth needed Setting Treatment Setting Outpatient Care Visit Type Note Type Treatment Note General Information General Information Ashleigh is 83 y.o.; she is right hand dominant; she was referred to outpatient OT secondary to bilateral wrist pain. Medical history is significant for scoliosis, LBP , R hip stiffness, GERD, HTN, ischemic cardiomyopathy, arterial disease, cancer (skin ), CHF, heart attack, osteopenia, gall bladder surgery, L hiatal hernia repair w/ mesh, IBS. Most recent MD note suggests MD suspects age-related arthritic pain vs tendinitis; nightly brace recommended and bilateral hand x-ray was ordered as well. MD also rec rest and avoidance of any repetitive or intricate hand movements. Has 6 kids; 17 grandkids; 5 great grandchildren. - Subjective Identification Type Name Observations (+) execution of 45 squats. Report of recent decline in stationary bike use from 30 min to 15 minutes; hopes to increase time back to 30 minutes. Report of using 3# DB weights in the home. Patient/Caregiver Compliance with Home Good Exercise Program - Objective Objective Measurements Please refer to below for progress towards meeting established OT goals: 02/03/24 = 0-45 degrees R wrist flex (vs initial 0-30 degrees) ; 0-70 degrees L wrist flex ( vs initial 0-40 degrees); 0-67 degrees R wrist ext (vs initial 0-67 degrees); 0-73 degrees L wrist ext (vs initial 0-61 degrees) 01/19/24 = AROM: R wrist RD 0- 5; L wrist RD 0-15 Short Term Goals 1. Ashleigh will demonstrate improvements with bilateral wrist strength; this will be evidenced by the followina. 4/5 MMT R wrist ext vs initial 3+/5 MMT R wrist ext 1b. 4/5 MMT L wrist ext vs initial 4-/5 MMT L wrist ext. 1c. 4+/5 MMT L wrist flex vs initial 4/5 MMT L wrist flex. 1d. 4/[address] vs initial 3+/[address] 1e. 4/[address] vs initial 3+/[address] 1f. 4/5 MMT R wrist UD vs initial 3+/5 MMT R wrist UD. 1g. 4/5 MMT L wrist UD vs initial 3+/5 MMT L wrist UD. GOALS MET 0-35 degrees active R wrist flexion. *MET 02/03/24 (0-45 degrees vs initial 0-30 degrees). Teacher Vocal Goals 1. Ashleigh will be modified independent with home exercise program utilizing provided written and visual instructions as needed. 2. Ashleigh will be able to verbally identify 3 to 4 different compensatory strategies and/or pieces of adaptive equipment that she can use in the home to support her functional independence (e.g. use of 2- handed approach for transporting of heavier items) . 02/03/24 = aware of arthritis/ spring loaded scissors, as well as rolling fabric normalizer - Treatment 1 Descriptor Paraffin bath. Skin intact pre - and post- treatment. Distal B UEs. x 10 min. Exercises 1 Descriptor Wrist PROM. Instructed in passive wrist flex. Hold for 20-30 sec. Bilaterally. Instructed in passive wrist UD . Hold for 20-30 sec. Bilaterally. Instructed in passive wrist RD . Hold for 20-30 sec. Bilaterally. Instructed in modified prayer pose for passive wrist ext. Hold for 20-30 sec. Forearm pronation. Forearm supination. Instructed in modified prayer pose w/ passive addition of ext stretch at MPJs as tolerated. Hold for 20-30 sec. - Assessment Assessment of Improvement Reports return to use of 3# DB weights in the home. Improved bilateral active wrist range of motion compared to initial evaluation; met short term goal specific to improved active R wrist flex. Rec consideration of home paraffin unit. Outpatient OT recommended to address wrist ROM, wrist strength, and to discuss compensatory strategies, adaptive equipment and body mechanics. Home Exercise Program 01/26/24 = (+) rec to cont w/ modified prayer stretch w/ forearm pronation and forearm supination; hold for 20-30 sec each stretch. Ashleigh verbalized that she preferred the modified prayer stretches to use of TT and/or wall. 01/19/24 = Wrist PROM. Instructed in passive wrist flex bilateral; passive wrist UD bilateral; passive wrist RD bilateral; modified prayer pose/passive wrist ext; modified prayer pose w/ passive addition of ext stretch at MPJs as tolerated. Hold for 20-30 sec. - Plan Therapy Recommendations Advance per Rehabilitation Protocol
--- NOTE | 2024-02-13 12:48 | OT.OP.TRT ---
Visit Care Team Role Provider Type Doctor MD Sang Family Provider Non-Staff Primary Care Provider Specialty: Medical Address: Phone: Fax: Email: Eliseo Mendoza DO Attending Provider Non-Staff Referring Provider Specialty: Medical Address: [address] [place] [address], [id number] Email: Occupational Therapy Treatment Note OT Outpatient Treatment Note - Adult Start: 01/13/24 12:09 Freq: Status: Active Protocol: Document 02/13/24 12:45 AMS (Rec: 02/13/24 12:48 AMS [id number]) OT Outpatient Adult Treatment Note Session Time Visit Start Time 09:05 Visit Stop Time 09:35 Visit Information Visit Number [id number] Plan of Care Dates 01/13/24 - 02/24/24 Insurance Information [employer] Advantage; x 12 visits -> than auth needed Setting Treatment Setting Outpatient Care Visit Type Note Type Treatment Note General Information General Information Ashleigh is 83 y.o.; she is right hand dominant; she was referred to outpatient OT secondary to bilateral wrist pain. Medical history is significant for scoliosis, LBP , R hip stiffness, GERD, HTN, ischemic cardiomyopathy, arterial disease, cancer (skin ), CHF, heart attack, osteopenia, gall bladder surgery, L hiatal hernia repair w/ mesh, IBS. Most recent MD note suggests MD suspects age-related arthritic pain vs tendinitis; nightly brace recommended and bilateral hand x-ray was ordered as well. MD also rec rest and avoidance of any repetitive or intricate hand movements. Has 6 kids; 17 grandkids; 5 great grandchildren. - Subjective Identification Type Name Observations (+) execution of 45 squats. Report of recent decline in stationary bike use from 30 min to 15 minutes; hopes to increase time back to 30 minutes. Report of using 3# DB weights in the home. Patient/Caregiver Compliance with Home Good Exercise Program - Objective Objective Measurements Please refer to below for progress towards meeting established OT goals: 02/03/24 = 0-45 degrees R wrist flex (vs initial 0-30 degrees) ; 0-70 degrees L wrist flex ( vs initial 0-40 degrees); 0-67 degrees R wrist ext (vs initial 0-67 degrees); 0-73 degrees L wrist ext (vs initial 0-61 degrees) 01/19/24 = AROM: R wrist RD 0- 5; L wrist RD 0-15 Short Term Goals 1. Ashleigh will demonstrate improvements with bilateral wrist strength; this will be evidenced by the followina. 4/5 MMT R wrist ext vs initial 3+/5 MMT R wrist ext 1b. 4/5 MMT L wrist ext vs initial 4-/5 MMT L wrist ext. 1c. 4+/5 MMT L wrist flex vs initial 4/5 MMT L wrist flex. 1d. 4/[address] vs initial 3+/[address] 1e. 4/[address] vs initial 3+/[address] 1f. 4/5 MMT R wrist UD vs initial 3+/5 MMT R wrist UD. 1g. 4/5 MMT L wrist UD vs initial 3+/5 MMT L wrist UD. GOALS MET 0-35 degrees active R wrist flexion. *MET 02/03/24 (0-45 degrees vs initial 0-30 degrees). 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 Ashleigh will be modified independent with home exercise program utilizing provided written and visual instructions as needed. 2. Ashleigh will be able to verbally identify 3 to 4 different compensatory strategies and/or pieces of adaptive equipment that she can use in the home to support her functional independence (e.g. use of 2- handed approach for transporting of heavier items) . 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 Skin intact pre - and post- treatment. Distal B UEs. x 10 min. Exercises 1 Descriptor Wrist PROM. Instructed in passive wrist flex. Hold for 20-30 sec. Bilaterally. Instructed in passive wrist UD . Hold for 20-30 sec. Bilaterally. Instructed in passive wrist RD . Hold for 20-30 sec. Bilaterally. Instructed in modified prayer pose for passive wrist ext. Hold for 20-30 sec. Forearm pronation. Forearm supination. Instructed in modified prayer pose w/ passive addition of ext stretch at MPJs as tolerated. Hold for 20-30 sec. - Assessment Assessment of Improvement Introduced bilateral thumb extension w/ wrist range of motion exercises given that hands are in prayer pose. Cont to rec consideration of home paraffin unit. Outpatient OT recommended to address wrist ROM, wrist strength, and to discuss compensatory strategies, adaptive equipment and body mechanics. Home Exercise Program 01/26/24 = (+) rec to cont w/ modified prayer stretch w/ forearm pronation and forearm supination; hold for 20-30 sec each stretch. Ashleigh verbalized that she preferred the modified prayer stretches to use of TT and/or wall. 01/19/24 = Wrist PROM. Instructed in passive wrist flex bilateral; passive wrist UD bilateral; passive wrist RD bilateral; modified prayer pose/passive wrist ext; modified prayer pose w/ passive addition of ext stretch at MPJs as tolerated. Hold for 20-30 sec. - Plan Therapy Recommendations Advance per Rehabilitation Protocol
--- NOTE | 2024-02-17 14:03 | OT.OP.TRT ---
Visit Care Team Role Provider Type Doctor MD Sang Family Provider Non-Staff Primary Care Provider Specialty: Medical Address: Phone: Fax: Email: Eliseo Mendoza DO Attending Provider Non-Staff Referring Provider Specialty: Medical Address: [address] [place] [address], [id number] Email: Occupational Therapy Treatment Note OT Outpatient Treatment Note - Adult Start: 01/13/24 12:09 Freq: Status: Active Protocol: Document 02/17/24 13:57 AMS (Rec: 02/17/24 14:03 AMS [id number]) OT Outpatient Adult Treatment Note Session Time Visit Start Time 13:05 Visit Stop Time 13:35 Visit Information Visit Number [id number] Plan of Care Dates 01/13/24 - 02/24/24 Insurance Information [facility] [employer]; x 12 visits -> than auth needed Setting Treatment Setting Outpatient Care Visit Type Note Type Treatment Note General Information General Information Ashleigh is 83 y.o.; she is right hand dominant; she was referred to outpatient OT secondary to bilateral wrist pain. Medical history is significant for scoliosis, LBP , R hip stiffness, GERD, HTN, ischemic cardiomyopathy, arterial disease, cancer (skin ), CHF, heart attack, osteopenia, gall bladder surgery, L hiatal hernia repair w/ mesh, IBS. Most recent MD note suggests MD suspects age-related arthritic pain vs tendinitis; nightly brace recommended and bilateral hand x-ray was ordered as well. MD also rec rest and avoidance of any repetitive or intricate hand movements. Has 6 kids; 17 grandkids; 5 great grandchildren. - Subjective Identification Type Name Observations (+) execution of 45 squats. Report of returning to stationary bike use x 30 min ( vs most recent decline to 15 min). Report of ability to walk x 4 minutes before tiring and needing a rest. Report of using 3# DB weights in the home. Patient/Caregiver Compliance with Home Good Exercise Program - Objective Objective Measurements Please refer to below for progress towards meeting established OT goals: 02/03/24 = 0-45 degrees R wrist flex (vs initial 0-30 degrees) ; 0-70 degrees L wrist flex ( vs initial 0-40 degrees); 0-67 degrees R wrist ext (vs initial 0-67 degrees); 0-73 degrees L wrist ext (vs initial 0-61 degrees) 01/19/24 = AROM: R wrist RD 0- 5; L wrist RD 0-15 Short Term Goals 1. Ashleigh will demonstrate improvements with bilateral wrist strength; this will be evidenced by the followina. 4/5 MMT R wrist ext vs initial 3+/5 MMT R wrist ext 1b. 4/5 MMT L wrist ext vs initial 4-/5 MMT L wrist ext. 1c. 4+/5 MMT L wrist flex vs initial 4/5 MMT L wrist flex. 1d. 4/[address] vs initial 3+/[address] 1e. 4/[address] vs initial 3+/[address] 1f. 4/5 MMT R wrist UD vs initial 3+/5 MMT R wrist UD. 1g. 4/5 MMT L wrist UD vs initial 3+/5 MMT L wrist UD. GOALS MET 0-35 degrees active R wrist flexion. *MET 02/03/24 (0-45 degrees vs initial 0-30 degrees). 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 Ashleigh will be modified independent with home exercise program utilizing provided written and visual instructions as needed. 2. Ashleigh will be able to verbally identify 3 to 4 different compensatory strategies and/or pieces of adaptive equipment that she can use in the home to support her functional independence (e.g. use of 2- handed approach for transporting of heavier items) . 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 Skin intact pre - and post- treatment. Distal B UEs. x 10 min. Exercises 1 Descriptor Wrist PROM. Instructed in passive wrist flex. Hold for 20-30 sec. Bilaterally. Instructed in passive wrist UD . Hold for 20-30 sec. Bilaterally. Instructed in passive wrist RD . Hold for 20-30 sec. Bilaterally. Instructed in modified prayer pose for passive wrist ext. Hold for 20-30 sec. Forearm pronation. Forearm supination. Instructed in modified prayer pose w/ passive addition of ext stretch at MPJs as tolerated. Hold for 20-30 sec. - Assessment Assessment of Improvement Introduced bilateral thumb flex w/ thumb ext given tolerance of wrist stretches w / hands positioned in prayer pose. Cont to rec consideration of home paraffin unit. Outpatient OT recommended to address wrist ROM, wrist strength, and to discuss compensatory strategies, adaptive equipment and body mechanics. Home Exercise Program 02/17/24 = Active thumb flex/ ext w/ mod prayer stretch; hold at end range for 20 sec. Active abd/add w/ hands positioned on TT. x 20 reps. Mod prayer stretch w/ wrist ext w/ forearm pronation x 20 sec. Mod prayer stretch w/ wrist ext w/ forearms in supination x [address]/UD w/ bilateral forearms in neutral x 20 reps. 01/26/24 = (+) rec to cont w/ modified prayer stretch w/ forearm pronation and forearm supination; hold for 20-30 sec each stretch. Ashleigh verbalized that she preferred the modified prayer stretches to use of TT and/or wall. 01/19/24 = Wrist PROM. Instructed in passive wrist flex bilateral; passive wrist UD bilateral; passive wrist RD bilateral; modified prayer pose/passive wrist ext; modified prayer pose w/ passive addition of ext stretch at MPJs as tolerated. Hold for 20-30 sec. - Plan Therapy Recommendations Advance per Rehabilitation Protocol
--- NOTE | 2024-02-24 12:15 | OT.OP.DC ---
Visit Care Team Role Provider Type Doctor MD Sang Family Provider Non-Staff Primary Care Provider Address: Phone: Fax: Email: Eliseo Mendoza DO Attending Provider Non-Staff Referring Provider Address: [address] [place] [address], [place], [address] Email: OT Outpatient OT Outpatient Adult Evaluation Start: 01/13/24 12:09 Freq: Status: Active Protocol: Document 01/13/24 12:09 AMS (Rec: 01/13/24 12:52 AMS [id number]) General Information - Adult Visit Information Visit Number 08/[id number] Plan of Care Dates 01/13/24 - 02/24/24 Insurance Information [facility]; x 12 visits -> than auth needed Session Time Visit Start Time 09:00 Visit Stop Time 09:40 Referral Referring Physician Eliseo Mendoza DO Reason for Referral Pain in bilateral wrists Identification Identification Confirmed Yes Identification Confirmed By Self Goals Short Term Goals Short Term Goals 1. 0-35 degrees active R wrist flexion. 2. Ashleigh will demonstrate improvements with bilateral wrist strength; this will be evidenced by the followina. 4/5 MMT R wrist ext vs initial 3+/5 MMT R wrist ext 2b. 4/5 MMT L wrist ext vs initial 4-/5 MMT L wrist ext. 2c. 4+/5 MMT L wrist flex vs initial 4/5 MMT L wrist flex. 2d. 4/[address] vs initial 3+/[address] 2e. 4/[address] vs initial 3+/[address] 2f. 4/5 MMT R wrist UD vs initial 3+/5 MMT R wrist UD. 2g. 4/5 MMT L wrist UD vs initial 3+/5 MMT L wrist UD. 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 Ashleigh will be modified independent with home exercise program utilizing provided written and visual instructions as needed. 2. Ashleigh will be able to verbally identify 3 to 4 different compensatory strategies and/or pieces of adaptive equipment that she can use in the home to support her functional independence (e.g. use of 2- handed approach for transporting of heavier items) . Assessment/Plan Assessment Treatment Assessment Ashleigh is 83 y.o.; she is right hand dominant; she was referred to outpatient OT secondary to bilateral wrist pain. Medical history is significant for scoliosis, LBP , R hip stiffness, GERD, HTN, ischemic cardiomyopathy, arterial disease, cancer (skin ), CHF, heart attack, osteopenia, gall bladder surgery, L hiatal hernia repair w/ mesh, IBS. Most recent MD note suggests MD suspects age-related arthritic pain vs tendinitis; nightly brace recommended and bilateral hand x-ray was ordered as well. MD also rec rest and avoidance of any repetitive or intricate hand movements. She reports residing on the main floor of a 2-story home with her daughter and 3 grandchildren residing on the second floor. 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 Hobbies included sewing and crocheting; which she has been doing in the last 2 years. She sleeps on her side; she has bilateral wrist braces but does not wear them. She uses heating pad for pain management, as well as ice. She reports home exercise program includes execution of x 45 squats; she reports inability to use hand DB in the last couple of years. She has hand squeeze exercise balls (in the shape of eggs). Nodule present dorsal medial R 5th PIPJ which leads to ulnar shift/directionality of finger at PIPJ. Nodule present dorsal medial L 4th PIPJ which leads to ulnar shift/ direction of finger PIPJ. QuickDASH UE Outcome Measure Score = 86.36. Report of use of modification techniques including transportation of milk bottle w/ 2 hands and using a nut sorter device to help open the jug of milk. Able to oppose thumbs bilaterally to each digit pad. 0-62 degrees active R wrist ext vs 0-61 degrees active L wrist ext. 0-30 degrees active R wrist flex vs 0-40 degrees active L wrist flex. 0-30 degrees active R wrist UD vs 0-25 degrees active L wrist UD . 0-38 degrees active R thumb radial abd vs 0-35 degrees active L thumb radial abd; 0- 37 degrees active R radial palmar thumb abd vs 0-48 degrees active L radial palmar thumb abd. 9.0# of force R air chief marshal (compared to 75+ y.o. female norm 42.6 +/- 11.0) vs 11.0# of force L air chief marshal (compared to 75+ y.o. female norm 37.6 +/- 8.9); dynamometer II air chief marshal strength testing results w/ elbows in 90 degrees flexion. Pinchometer strength testing results: 3.0# of force right lateral krishnamurthy pinch (compared to 75+ y.o. female norm 12.6 +/- 2.3) vs 3.0# of force left lateral krishnamurthy pinch (compared to 75+ y.o. female norm 11.4 +/- 2.6). 2.0# of force right tip pinch (compared to 75+ y.o. female norm 9.6 +/- 2.8) vs 1. 0# of force left tip pinch ( compared to 75+ y.o. female norm 9.3 +/- 2.4). 2.5# of force R 3-jaw pinch (compared to 75+ y.o. female norm 12.0 + /- 2.6) vs 2.0# of force L 3- jaw pinch (compared to 75+ y.o . female norm 11.5 +/- 2.6). MMT Testin+/5 MMT R wrist ext vs 4-/5 MMT L wrist ext. 5/5 MMT R wrist flex vs 4/5 MMT L wrist flex. 3+/[address] vs 3+/[address] 3+/5 MMT R wrist UD vs 3+/5 MMT L wrist UD. Outpatient OT recommended to address wrist ROM, wrist strength, and to discuss compensatory strategies, adaptive equipment and body mechanics. Plan Length of treatment (weeks) 6 Plan of Care Start Date 01/13/24 Plan of Care End Date 02/24/24 Treatment Frequency Once a Week Therapeutic Contents Active Range of Motion, Adaptive Equipment Education, Client Education,Functional Activities,Home Exercise Program,Joint Protection, Manual Therapy,Education, Neurodevelopment Treatment, Neuromuscular Re-Education, Self-Care,Stretching/ Flexibility Activities, Therapeutic Activities, Therapeutic Exercises, Modalities Modalities As Needed,As Prescribed Additional Types of Modalities Heat/Ice/Contrast baths/ Paraffin/Ultrasound Other Suggested Referrals Consider PT for R sh pain; consider CHT for custom splints 4th/5th digits Functional Wrist/Hand Scan Hand Side Sensory Assessment Sensory Profile2 OT Outpatient Treatment Note - Adult Start: 01/13/24 12:09 Freq: Status: Active Protocol: Document 02/24/24 12:09 AMS (Rec: 02/24/24 12:15 AMS [id number]) OT Outpatient Adult Treatment Note Session Time Visit Start Time 11:15 Visit Stop Time 11:45 Visit Information Visit Number 02/12 Plan of Care Dates 01/13/24 - 02/24/24 Insurance Information [facility] Medicare Advantage; x 12 visits -> than auth needed Setting Treatment Setting Outpatient Care Visit Type Note Type Treatment Note General Information General Information Ashleigh is 83 y.o.; she is right hand dominant; she was referred to outpatient OT secondary to bilateral wrist pain. Medical history is significant for scoliosis, LBP , R hip stiffness, GERD, HTN, ischemic cardiomyopathy, arterial disease, cancer (skin ), CHF, heart attack, osteopenia, gall bladder surgery, L hiatal hernia repair w/ mesh, IBS. Most recent MD note suggests MD suspects age-related arthritic pain vs tendinitis; nightly brace recommended and bilateral hand x-ray was ordered as well. MD also rec rest and avoidance of any repetitive or intricate hand movements. Has 6 kids; 17 grandkids; 5 great grandchildren. - Subjective Identification Type Name Observations (+) execution of 45 squats. Report of returning to stationary bike use x 20 min ( vs most recent decline to 15 min and goal to return to 30 min). Report of ability to walk x 4 minutes before tiring and needing a rest. Report of intent on returning to outpatient PT d/t neck pain/ discomfort. Report of completing exercises in the home. Patient/Caregiver Compliance with Home Good Exercise Program - Objective Objective Measurements Please refer to below for progress towards meeting established OT goals: 02/03/24 = 0-45 degrees R wrist flex (vs initial 0-30 degrees) ; 0-70 degrees L wrist flex ( vs initial 0-40 degrees); 0-67 degrees R wrist ext (vs initial 0-67 degrees); 0-73 degrees L wrist ext (vs initial 0-61 degrees) 01/19/24 = AROM: R wrist RD 0- 5; L wrist RD 0-15 Short Term Goals GOALS MET 0-35 degrees active R wrist flexion. *MET 02/03/24 (0-45 degrees vs initial 0-30 degrees). GOALS D/C 02/24/24 1. Ashleigh will demonstrate improvements with bilateral wrist strength; this will be evidenced by the followina. 4/5 MMT R wrist ext vs initial 3+/5 MMT R wrist ext 1b. 4/5 MMT L wrist ext vs initial 4-/5 MMT L wrist ext. 1c. 4+/5 MMT L wrist flex vs initial 4/5 MMT L wrist flex. 1d. 4/[address] vs initial 3+/[address] 1e. 4/[address] vs initial 3+/[address] 1f. 4/5 MMT R wrist UD vs initial 3+/5 MMT R wrist UD. 1g. 4/5 MMT L wrist UD vs initial 3+/5 MMT L wrist UD. Mcc Goals GOALS MET 02/24/24 Ashleigh will be modified independent with home exercise program utilizing provided written and visual instructions as needed. Ashleigh will be able to verbally identify 3 to 4 different compensatory strategies and/or pieces of adaptive equipment that she can use in the home to support her functional independence (e.g. use of 2 -handed approach for transporting of heavier items) . - Treatment 1 Descriptor Paraffin bath. Skin intact pre - and post- treatment. Distal B UEs. x 10 min. Exercises 1 Descriptor Wrist PROM. Instructed in passive wrist flex. Hold for 20-30 sec. Bilaterally. Instructed in passive wrist UD . Hold for 20-30 sec. Bilaterally. Instructed in passive wrist RD . Hold for 20-30 sec. Bilaterally. Instructed in modified prayer pose for passive wrist ext. Hold for 20-30 sec. Forearm pronation. Forearm supination. Instructed in modified prayer pose w/ passive addition of ext stretch at MPJs as tolerated. Hold for 20-30 sec. - Assessment Assessment of Improvement Ashleigh reports carry-over of home exercises w/ focus on distal UE active range of motion. She reports that she will be resuming outpatient PT to address neck pain/ discomfort in the near future. She reports using stationary bike x 20 minutes (w/ goal to return to 30 min use). She denied any questions regarding home exercise program. Rec d/ c from outpatient OT at this time. Rec consideration of home paraffin unit. Home Exercise Program 02/17/24 = Active thumb flex/ ext w/ mod prayer stretch; hold at end range for 20 sec. Active abd/add w/ hands positioned on TT. x 20 reps. Mod prayer stretch w/ wrist ext w/ forearm pronation x 20 sec. Mod prayer stretch w/ wrist ext w/ forearms in supination x [address]/UD w/ bilateral forearms in neutral x 20 reps. 01/26/24 = (+) rec to cont w/ modified prayer stretch w/ forearm pronation and forearm supination; hold for 20-30 sec each stretch. Ashleigh verbalized that she preferred the modified prayer stretches to use of TT and/or wall. 01/19/24 = Wrist PROM. Instructed in passive wrist flex bilateral; passive wrist UD bilateral; passive wrist RD bilateral; modified prayer pose/passive wrist ext; modified prayer pose w/ passive addition of ext stretch at MPJs as tolerated. Hold for 20-30 sec. - Plan Therapy Recommendations Discharge from Occupational Therapy
== END 2024-02-26 10:24 | disposition home or self-care (01) ==
LOC: OT 11:15
PROVIDERS: Referring Provider Neuromusculoskeletal Medicine & OMM; Visit Provider Neuromusculoskeletal Medicine & OMM
DX: M25.531 Pain in right wrist (principal); M25.532 Pain in left wrist
CPT/HCPCS: 97018; 97110; 97165

== ENCOUNTER 2024-04-15 13:45 | Outpatient (RCR) | payer OTHER, MEDICAID, SELFPAY ==
--- NOTE | 2024-04-12 14:30 | PT.OTN ---
Current Diagnoses Stiffness of right shoulder, not elsewhere classified (04/12/24) Stiffness of left shoulder, not elsewhere classified (04/12/24) Stiffness of other specified joint, not elsewhere classified (04/12/24) Segmental and somatic dysfunction of cervical region (04/12/24) Segmental and somatic dysfunction of upper extremity (04/12/24) Physical Therapy Treatment Note PT-OP-A Visit Information Start: 04/12/24 16:37 Freq: Status: Active Protocol: Document 04/12/24 13:50 DCW (Rec: 04/12/24 16:41 DCW [id number]) Out-Patient Physical Therapy Visit Information Visit Information Visit Type Initial Evaluation Visit Start Time 13:50 Visit Stop Time 14:30 Visit Number 1 Number of INTELLECTUAL PROPERTY LAWYER Visits 0 Evaluation Information Evaluation Date 04/12/24 PT-OP-B Current Condition Start: 04/12/24 16:37 Freq: Status: Active Protocol: Document 04/12/24 13:50 DCW (Rec: 04/13/24 09:54 DCW [id number]) Current Condition History of Current Condition Onset Date Two month history Current Complaints Thoracic and cervical pain and stiffness, bilateral shoulder pain History of Current Condition Pt is an 84 year old female presenting with a recent flare -up of neck and mid-back pain. Pt has an extensive history at this clinic for various other injuries, most recently seen earlier this year due to lumbar/hip pain. Pt reports that about two months ago, she woke up with a spasm in her mid-back, and couldn't get out of bed. Has since noticed increased tone in her mid back and neck, and limited mobility of her shoulders. Notes increased neck pain and fatigue after reading a book or spending time on a computer . Pt reports difficulty doffing her shirt, and limitations with right cervical rotation. Additionally notes that she is unable to reach up far enough to fasten her bra. Denies any radiating pain into her arms. Has tried a lidocaine patch with no benefit, reports ice and heat provide momentary decrease in pain. PT-OP-C Subjective Start: 04/12/24 16:37 Freq: Status: Active Protocol: Document 04/12/24 13:50 DCW (Rec: 04/12/24 16:41 DCW [id number]) OP-PT Subjective Patient Comments Patient Comments I woke up with a mid-back spasm a few months ago, I couldn't get out of bed. Patient Reported Progress Improving PT-OP-F Manual Assessment Start: 04/12/24 16:37 Freq: Status: Active Protocol: Document 04/12/24 13:50 DCW (Rec: 04/13/24 09:54 DCW [id number]) Manual Assessments Soft Tissue Assessment Soft Tissue Mobility Assessment Moderate tone R>>L Upper trap, scalenes, C/T paraspinals PT-OP-J Posture/Palpation/Skin Start: 04/12/24 16:37 Freq: Status: Active Protocol: Document 04/12/24 13:50 DCW (Rec: 04/13/24 09:54 DCW [id number]) Posture Evaluation Position Standing Evaluation View Posterior T-Spine Posture Fixed Scoliosis on (L) L-Spine Posture Fixed Scoliosis on (R) PT-OP-K Range of Motion Start: 04/12/24 16:37 Freq: Status: Active Protocol: Document 04/12/24 13:50 DCW (Rec: 04/13/24 09:54 DCW [id number]) Cervical Spine Range of Motion Cervical Spine Active Degrees Testing Position Sitting Flexion 35 Extension 20 Rotation Left 60 Rotation Right 43 Lateral Flexion Left 15 Lateral Flexion Right 25 ROM Limitations Soft Tissue Tightness,Muscle Tone,Pain Shoulder Goniometric Range of Motion Shoulder Right Passive Testing Position Supine Flexion 160 Abduction 154 Right Active Shoulder ROM WFL No Testing Position Sitting Flexion 104 Abduction 76 External Rotation at 0 degrees Abduction 48 Internal Rotation Behind Back (text) T10 Left Passive Testing Position Supine Flexion 160 Abduction 164 Left Active Shoulder ROM WFL No Testing Position Sitting Flexion 105 Abduction 77 External Rotation at 0 degrees Abduction 57 Internal Rotation Behind Back (text) T8 PT-OP-L Special Tests Start: 04/12/24 16:37 Freq: Status: Active Protocol: Document 04/12/24 13:50 DCW (Rec: 04/13/24 09:54 DCW [id number]) Special Tests Cervical Spine Special Tests Spurling's Test Test Results Negative Passive Neck Flexion Test Results Positive for posterior neck pain Foraminal Compression Test Results Negative PT-OP-M Strength Start: 04/12/24 16:37 Freq: Status: Active Protocol: Document 04/12/24 13:50 DCW (Rec: 04/13/24 09:54 DCW [id number]) Shoulder Strength Shoulder Manual Muscle Testing Right Flexion 3- Fair- Abduction (C5) 3- Fair- External Rotation 4 Good Internal Rotation 4 Good Left Flexion 3- Fair- Abduction (C5) 3- Fair- External Rotation 4 Good Internal Rotation 4 Good PT-OP-Q Treatments Start: 04/12/24 16:37 Freq: Status: Active Protocol: Document 04/12/24 13:50 DCW (Rec: 04/12/24 16:41 DCW [id number]) Manual Therapy Treatment Consent Patient gave verbal consent for manual Yes treatment Soft Tissue Mobilization Upper Trap Body Location R>L Upper Trap, Scalenes Mobilization Type Sustained Pressure,Trigger Point Release Intensity/Depth Moderate Body Position Hooklying PT-OP-T Assessment and Plan Start: 04/12/24 16:37 Freq: Status: Active Protocol: Document 04/12/24 13:50 DCW (Rec: 04/13/24 10:19 DCW [id number]) Physical Therapy Assessment Rehab Potential Rehabilitation Potential Good Evaluation Complexity Number of Personal Factors/Comorbidities 3 or More Number of Body Systems Impaired 4 or More Clinical Presentation at Evaluation Evolving Impairments Impairments Functional Activities, Functional Mobility,Pain, Posture,ROM,Soft Tissue Mobility,Strength,Tone Goals One Impairment Pt does not have an appropriate home exercise program Short Term Goal (STG) Pt to be independent and compliant with an appropriate HEP STG Duration 05/12/24 Three Impairment Limited shoulder flexion and abduction ROM bilaterally Impairment . Sales Representative Jewelry Goal (LTG) Pt to improve AROM of bilateral shoulder flexion and abduction to >120? in order to improve ability to doff her shirt when changing LTG Duration 06/12/24 Two Impairment Limited cervical ROM, especially L side-bending (15? ) and R rotation (43?) Impairment . Sales Representative Jewelry Goal (LTG) Pt to demonstrate improvement in cervical ROM, with lateral flexion >30? bilaterally and rotation >60? bilaterally, in order to improve ability to look for cross traffic while driving LTG Duration 06/12/24 Assessment Summary Assessment Pt presents with signs and symptoms consistent with referring diagnosis. Pt demonstrating increased tone and stiffness throughout cervical spine, thoracic spine , and bilateral shoulders. Pt likely negatively affected secondary to life-long scoliosis causing increased tone. No indication of radicular symptoms or nerve involvement at this time. Pt does show limitations with cervical and shoulder ROM. Pt should benefit from skilled therapy focusing on decreased tone, shoulder strengthening, STM, flexibility, and functional mobility. Physical Therapy Plan Frequency and Duration Frequency of Treatment 2x/Week Plan of Care Start Date 04/12/24 Plan of Care End Date 06/12/24 Therapeutic Interventions Therapeutic Interventions Home Exercise Program,Joint Mobilizations,Manual Therapy, Neuromuscular Re-education, Patient/Caregiver Education, Self-Care/Home Management,Soft Tissue Mobilization, Therapeutic Activities, Therapeutic Exercises Modalities Cold Pack/Ice Massage,Electric Stimulation,Hot Packs, Ultrasound Next Visit Focus/Plan Next Note Type Treatment Note Next Visit Plan STM, flexibility, shoulder strengthening
--- NOTE | 2024-04-12 14:30 | PT.OPPOC ---
Physical, Occupational & Speech Therapy At [facility] Current Diagnoses Stiffness of right shoulder, not elsewhere classified (04/12/24) Stiffness of left shoulder, not elsewhere classified (04/12/24) Stiffness of other specified joint, not elsewhere classified (04/12/24) Segmental and somatic dysfunction of cervical region (04/12/24) Segmental and somatic dysfunction of upper extremity (04/12/24) Visit Care Team Role Provider Type Doctor MD Sang Family Provider Non-Staff Primary Care Provider Specialty: Medical Address: Phone: Fax: Email: Renato Stein MD Attending Provider Non-Staff Referring Provider Specialty: Medical Address: [address] [place] [address], [id number] Email: Plan Of Care PT-OP-B Current Condition Start: 04/12/24 16:37 Freq: Status: Active Protocol: Document 04/12/24 13:50 DCW (Rec: 04/13/24 09:54 DCW [id number]) Current Condition History of Current Condition Onset Date Two month history Current Complaints Thoracic and cervical pain and stiffness, bilateral shoulder pain History of Current Condition Pt is an 84 year old female presenting with a recent flare -up of neck and mid-back pain. Pt has an extensive history at this clinic for various other injuries, most recently seen earlier this year due to lumbar/hip pain. Pt reports that about two months ago, she woke up with a spasm in her mid-back, and couldn't get out of bed. Has since noticed increased tone in her mid back and neck, and limited mobility of her shoulders. Notes increased neck pain and fatigue after reading a book or spending time on a computer . Pt reports difficulty doffing her shirt, and limitations with right cervical rotation. Additionally notes that she is unable to reach up far enough to fasten her bra. Denies any radiating pain into her arms. Has tried a lidocaine patch with no benefit, reports ice and heat provide momentary decrease in pain. PT-OP-T Assessment and Plan Start: 04/12/24 16:37 Freq: Status: Active Protocol: Document 04/12/24 13:50 DCW (Rec: 04/13/24 10:19 DCW [id number]) Physical Therapy Assessment Rehab Potential Rehabilitation Potential Good Evaluation Complexity Number of Personal Factors/Comorbidities 3 or More Number of Body Systems Impaired 4 or More Clinical Presentation at Evaluation Evolving Impairments Impairments Functional Activities, Functional Mobility,Pain, Posture,ROM,Soft Tissue Mobility,Strength,Tone Goals One Impairment Pt does not have an appropriate home exercise program Short Term Goal (STG) Pt to be independent and compliant with an appropriate HEP STG Duration 05/12/24 Three Impairment Limited shoulder flexion and abduction ROM bilaterally Impairment . Electrocardiogram Technician Goal (LTG) Pt to improve AROM of bilateral shoulder flexion and abduction to >120? in order to improve ability to doff her shirt when changing LTG Duration 06/12/24 Two Impairment Limited cervical ROM, especially L side-bending (15? ) and R rotation (43?) Impairment . [facility] Goal (LTG) Pt to demonstrate improvement in cervical ROM, with lateral flexion >30? bilaterally and rotation >60? bilaterally, in order to improve ability to look for cross traffic while driving LTG Duration 06/12/24 Assessment Summary Assessment Pt presents with signs and symptoms consistent with referring diagnosis. Pt demonstrating increased tone and stiffness throughout cervical spine, thoracic spine , and bilateral shoulders. Pt likely negatively affected secondary to life-long scoliosis causing increased tone. No indication of radicular symptoms or nerve involvement at this time. Pt does show limitations with cervical and shoulder ROM. Pt should benefit from skilled therapy focusing on decreased tone, shoulder strengthening, STM, flexibility, and functional mobility. Physical Therapy Plan Frequency and Duration Frequency of Treatment 2x/Week Plan of Care Start Date 04/12/24 Plan of Care End Date 06/12/24 Therapeutic Interventions Therapeutic Interventions Home Exercise Program,Joint Mobilizations,Manual Therapy, Neuromuscular Re-education, Patient/Caregiver Education, Self-Care/Home Management,Soft Tissue Mobilization, Therapeutic Activities, Therapeutic Exercises Modalities Cold Pack/Ice Massage,Electric Stimulation,Hot Packs, Ultrasound Next Visit Focus/Plan Next Note Type Treatment Note Next Visit Plan STM, flexibility, shoulder strengthening Plan of Care Dates Plan of Care Start Date 04/12/24 Plan of Care End Date 06/12/24 Electronically Signed by: Bam Huizar, PT 04/13/24 1020 If you are in agreement with this Plan of Care, please return a signed and dated copy. I have reviewed this Plan of Care and certify that the skilled therapy services above are required to meet the patient?s needs. Physician Signature Date Printed Name and Credentials Clinical Instructor Signature Printed Name and Credentials
--- NOTE | 2024-04-15 14:29 | PT.OTN ---
Current Diagnoses Stiffness of right shoulder, not elsewhere classified (04/15/24) Stiffness of left shoulder, not elsewhere classified (04/15/24) Stiffness of other specified joint, not elsewhere classified (04/15/24) Segmental and somatic dysfunction of cervical region (04/15/24) Segmental and somatic dysfunction of upper extremity (04/15/24) Physical Therapy Treatment Note PT-OP-A Visit Information Start: 04/12/24 16:37 Freq: Status: Active Protocol: Document 04/15/24 13:45 DCW (Rec: 04/15/24 14:29 DCW [id number]) Out-Patient Physical Therapy Visit Information Visit Information Visit Type Treatment Note Visit Start Time 13:45 Visit Stop Time 14:30 Visit Number 2 Number of AUTOMOBILE PAINTER Visits 0 Evaluation Information Evaluation Date 04/12/24 PT-OP-B Current Condition Start: 04/12/24 16:37 Freq: Status: Active Protocol: Document 04/12/24 13:50 DCW (Rec: 04/13/24 09:54 DCW [id number]) Current Condition History of Current Condition Onset Date Two month history Current Complaints Thoracic and cervical pain and stiffness, bilateral shoulder pain History of Current Condition Pt is an 84 year old female presenting with a recent flare -up of neck and mid-back pain. Pt has an extensive history at this clinic for various other injuries, most recently seen earlier this year due to lumbar/hip pain. Pt reports that about two months ago, she woke up with a spasm in her mid-back, and couldn't get out of bed. Has since noticed increased tone in her mid back and neck, and limited mobility of her shoulders. Notes increased neck pain and fatigue after reading a book or spending time on a computer . Pt reports difficulty doffing her shirt, and limitations with right cervical rotation. Additionally notes that she is unable to reach up far enough to fasten her bra. Denies any radiating pain into her arms. Has tried a lidocaine patch with no benefit, reports ice and heat provide momentary decrease in pain. PT-OP-C Subjective Start: 04/12/24 16:37 Freq: Status: Active Protocol: Document 04/15/24 13:45 DCW (Rec: 04/15/24 14:29 DCW [id number]) OP-PT Subjective Patient Comments Patient Comments Pt notes her allergies are bothering her. Notes her neck is turning better, and didn't wake up with pain today. PT-OP-F Manual Assessment Start: 04/12/24 16:37 Freq: Status: Active Protocol: Document 04/12/24 13:50 DCW (Rec: 04/13/24 09:54 DCW [id number]) Manual Assessments Soft Tissue Assessment Soft Tissue Mobility Assessment Moderate tone R>>L Upper trap, scalenes, C/T paraspinals PT-OP-J Posture/Palpation/Skin Start: 04/12/24 16:37 Freq: Status: Active Protocol: Document 04/12/24 13:50 DCW (Rec: 04/13/24 09:54 DCW [id number]) Posture Evaluation Position Standing Evaluation View Posterior T-Spine Posture Fixed Scoliosis on (L) L-Spine Posture Fixed Scoliosis on (R) PT-OP-K Range of Motion Start: 04/12/24 16:37 Freq: Status: Active Protocol: Document 04/12/24 13:50 DCW (Rec: 04/13/24 09:54 DCW [id number]) Cervical Spine Range of Motion Cervical Spine Active Degrees Testing Position Sitting Flexion 35 Extension 20 Rotation Left 60 Rotation Right 43 Lateral Flexion Left 15 Lateral Flexion Right 25 ROM Limitations Soft Tissue Tightness,Muscle Tone,Pain Shoulder Goniometric Range of Motion Shoulder Right Passive Testing Position Supine Flexion 160 Abduction 154 Right Active Shoulder ROM WFL No Testing Position Sitting Flexion 104 Abduction 76 External Rotation at 0 degrees Abduction 48 Internal Rotation Behind Back (text) T10 Left Passive Testing Position Supine Flexion 160 Abduction 164 Left Active Shoulder ROM WFL No Testing Position Sitting Flexion 105 Abduction 77 External Rotation at 0 degrees Abduction 57 Internal Rotation Behind Back (text) T8 PT-OP-L Special Tests Start: 04/12/24 16:37 Freq: Status: Active Protocol: Document 04/12/24 13:50 DCW (Rec: 04/13/24 09:54 DCW [id number]) Special Tests Cervical Spine Special Tests Spurling's Test Test Results Negative Passive Neck Flexion Test Results Positive for posterior neck pain Foraminal Compression Test Results Negative PT-OP-M Strength Start: 04/12/24 16:37 Freq: Status: Active Protocol: Document 04/12/24 13:50 DCW (Rec: 04/13/24 09:54 DCW [id number]) Shoulder Strength Shoulder Manual Muscle Testing Right Flexion 3- Fair- Abduction (C5) 3- Fair- External Rotation 4 Good Internal Rotation 4 Good Left Flexion 3- Fair- Abduction (C5) 3- Fair- External Rotation 4 Good Internal Rotation 4 Good PT-OP-Q Treatments Start: 04/12/24 16:37 Freq: Status: Active Protocol: Document 04/15/24 13:45 DCW (Rec: 04/15/24 14:29 DCW [id number]) Therapeutic Exercises Sitting Exercises Isometrics Sitting Exercise Name Cervical isometrics vs towel Reps/Minutes 5 x5 each direction Comments Extension, Lateral Flexion, Rotation Standing Exercises Rows Standing Exercise Name Rows Side bilateral Resistance Lv 3 Shoulder Extension Standing Exercise Name Shoulder Extension Side bilateral Resistance Lv 3 Manual Therapy Treatment Consent Patient gave verbal consent for manual Yes treatment Soft Tissue Mobilization Upper Trap Body Location R>L Upper Trap, Scalenes Mobilization Type Sustained Pressure,Trigger Point Release Intensity/Depth Moderate Body Position Hooklying PT-OP-T Assessment and Plan Start: 04/12/24 16:37 Freq: Status: Active Protocol: Document 04/15/24 13:45 DCW (Rec: 04/15/24 14:29 DCW [id number]) Physical Therapy Assessment Impairments Impairments Functional Activities, Functional Mobility,Pain, Posture,ROM,Soft Tissue Mobility,Strength,Tone Goals One Impairment Pt does not have an appropriate home exercise program Short Term Goal (STG) Pt to be independent and compliant with an appropriate HEP STG Duration 05/12/24 Three Impairment Limited shoulder flexion and abduction ROM bilaterally Impairment . [facility] Goal (LTG) Pt to improve AROM of bilateral shoulder flexion and abduction to >120? in order to improve ability to doff her shirt when changing LTG Duration 06/12/24 Two Impairment Limited cervical ROM, especially L side-bending (15? ) and R rotation (43?) Impairment . [facility]ci Goal (LTG) Pt to demonstrate improvement in cervical ROM, with lateral flexion >30? bilaterally and rotation >60? bilaterally, in order to improve ability to look for cross traffic while driving LTG Duration 06/12/24 Assessment Summary Assessment Good response today to new HEP and STM. Pt noted continued improvement in cervical mobility. Should focus next time on thoracic mobility, tone management, and standing tolerance. Physical Therapy Plan Frequency and Duration Frequency of Treatment 2x/Week Plan of Care Start Date 04/12/24 Plan of Care End Date 06/12/24 Therapeutic Interventions Therapeutic Interventions Home Exercise Program,Joint Mobilizations,Manual Therapy, Neuromuscular Re-education, Patient/Caregiver Education, Self-Care/Home Management,Soft Tissue Mobilization, Therapeutic Activities, Therapeutic Exercises Modalities Cold Pack/Ice Massage,Electric Stimulation,Hot Packs, Ultrasound Next Visit Focus/Plan Next Note Type Treatment Note Next Visit Plan STM, flexibility, shoulder strengthening
--- NOTE | 2024-07-12 10:34 | PT.OPDS ---
Current Diagnoses Stiffness of right shoulder, not elsewhere classified (04/15/24) Stiffness of left shoulder, not elsewhere classified (04/15/24) Stiffness of other specified joint, not elsewhere classified (04/15/24) Segmental and somatic dysfunction of cervical region (04/15/24) Segmental and somatic dysfunction of upper extremity (04/15/24) Visit Care Team Role Provider Type Doctor MD Sang Family Provider Non-Staff Primary Care Provider Specialty: Medical Address: Phone: Fax: Email: Renato Stein MD Attending Provider Non-Staff Referring Provider Specialty: Medical Address: [address] [place] [address], [id number] Email: Visit Number Visit Number 2 Discharge Summary PT-OP-B Current Condition Start: 04/12/24 16:37 Freq: Status: Active Protocol: Document 04/12/24 13:50 DCW (Rec: 04/13/24 09:54 DCW [id number]) Current Condition History of Current Condition Onset Date Two month history Current Complaints Thoracic and cervical pain and stiffness, bilateral shoulder pain History of Current Condition Pt is an 84 year old female presenting with a recent flare -up of neck and mid-back pain. Pt has an extensive history at this clinic for various other injuries, most recently seen earlier this year due to lumbar/hip pain. Pt reports that about two months ago, she woke up with a spasm in her mid-back, and couldn't get out of bed. Has since noticed increased tone in her mid back and neck, and limited mobility of her shoulders. Notes increased neck pain and fatigue after reading a book or spending time on a computer . Pt reports difficulty doffing her shirt, and limitations with right cervical rotation. Additionally notes that she is unable to reach up far enough to fasten her bra. Denies any radiating pain into her arms. Has tried a lidocaine patch with no benefit, reports ice and heat provide momentary decrease in pain. PT-OP-C Subjective Start: 04/12/24 16:37 Freq: Status: Active Protocol: Document 04/15/24 13:45 DCW (Rec: 04/15/24 14:29 DCW [id number]) OP-PT Subjective Patient Comments Patient Comments Pt notes her allergies are bothering her. Notes her neck is turning better, and didn't wake up with pain today. PT-OP-F Manual Assessment Start: 04/12/24 16:37 Freq: Status: Active Protocol: Document 04/12/24 13:50 DCW (Rec: 04/13/24 09:54 DCW [id number]) Manual Assessments Soft Tissue Assessment Soft Tissue Mobility Assessment Moderate tone R>>L Upper trap, scalenes, C/T paraspinals PT-OP-J Posture/Palpation/Skin Start: 04/12/24 16:37 Freq: Status: Active Protocol: Document 04/12/24 13:50 DCW (Rec: 04/13/24 09:54 DCW [id number]) Posture Evaluation Position Standing Evaluation View Posterior T-Spine Posture Fixed Scoliosis on (L) L-Spine Posture Fixed Scoliosis on (R) PT-OP-K Range of Motion Start: 04/12/24 16:37 Freq: Status: Active Protocol: Document 04/12/24 13:50 DCW (Rec: 04/13/24 09:54 DCW [id number]) Cervical Spine Range of Motion Cervical Spine Active Degrees Testing Position Sitting Flexion 35 Extension 20 Rotation Left 60 Rotation Right 43 Lateral Flexion Left 15 Lateral Flexion Right 25 ROM Limitations Soft Tissue Tightness,Muscle Tone,Pain Shoulder Goniometric Range of Motion Shoulder Right Passive Testing Position Supine Flexion 160 Abduction 154 Right Active Shoulder ROM WFL No Testing Position Sitting Flexion 104 Abduction 76 External Rotation at 0 degrees Abduction 48 Internal Rotation Behind Back (text) T10 Left Passive Testing Position Supine Flexion 160 Abduction 164 Left Active Shoulder ROM WFL No Testing Position Sitting Flexion 105 Abduction 77 External Rotation at 0 degrees Abduction 57 Internal Rotation Behind Back (text) T8 PT-OP-L Special Tests Start: 04/12/24 16:37 Freq: Status: Active Protocol: Document 04/12/24 13:50 DCW (Rec: 04/13/24 09:54 DCW [id number]) Special Tests Cervical Spine Special Tests Spurling's Test Test Results Negative Passive Neck Flexion Test Results Positive for posterior neck pain Foraminal Compression Test Results Negative PT-OP-M Strength Start: 04/12/24 16:37 Freq: Status: Active Protocol: Document 04/12/24 13:50 DCW (Rec: 04/13/24 09:54 DCW [id number]) Shoulder Strength Shoulder Manual Muscle Testing Right Flexion 3- Fair- Abduction (C5) 3- Fair- External Rotation 4 Good Internal Rotation 4 Good Left Flexion 3- Fair- Abduction (C5) 3- Fair- External Rotation 4 Good Internal Rotation 4 Good PT-OP-T Assessment and Plan Start: 04/12/24 16:37 Freq: Status: Active Protocol: Document 07/12/24 10:33 DCW (Rec: 07/12/24 10:34 DCW [id number]) Physical Therapy Assessment Assessment Summary Assessment Pt has not been seen in nearly three months, POC has . Pt will be returning to skilled therapy with new referral, this case will be discharged at this time. Physical Therapy Plan Discharge Physical Therapy Discharge Reasons No Longer Attending PT
== END 2024-07-12 10:44 | disposition home or self-care (01) ==
LOC: PHYS 13:45
PROVIDERS: Referring Provider Family Medicine; Visit Provider Family Medicine
DX: M99.01 Segmental and somatic dysfunction of cervical region (principal); M99.07 Segmental and somatic dysfunction of upper extremity; M25.69 Stiffness of other specified joint, not elsewhere classified; M25.612 Stiffness of left shoulder, not elsewhere classified; M25.611 Stiffness of right shoulder, not elsewhere classified
CPT/HCPCS: 97110; 97140; 97162

== ENCOUNTER → 2024-07-16 07:03 | Outpatient (CLI) | payer OTHER, MEDICAID, SELFPAY ==
[2024-07-16 08:24] LABS: Add Manual Diff / Slide Review NO; Basophils Absolute Auto 0 /uL (0-100); Basophils Percent Auto 0.4 % (0-2); Eosinophils Absolute Auto 100 /uL (0-450); Eosinophils Percent Auto 1.1 % (2-4); Hematocrit 39.6 % (36-46); Hemoglobin 13.6 g/dL (12.0-16.0); Lymphocytes Absolute Auto 2500 /uL (1100-4500); Lymphocytes Percent Auto 32.4 % (25-40); Mean Corpuscular HGB Conc 34.3 % (30-36); Mean Corpuscular Hemoglobin 32.9 PG (26-34); Monocytes Absolute Auto 500 /uL (0-900); Monocytes Percent Auto 6.6 % (3-14); Neutrophils Absolute Auto 4500 /uL (1500-7000); Neutrophils Percent Auto 59.5 % (50-75); Platelet Count 185 X10^3/uL (150-400); Red Blood Cell Count 4.13 X10^6/uL (4.0-5.2); Red Cell Distribution Width 12.4 % (11.6-14.8); White Blood Cell Count 7.6 X10^3/uL (4.5-11.0)
[2024-07-16 08:58] LABS: Alanine Aminotransferase 19 IU/L (<35); Albumin 3.7 g/dL (3.5-5.0); Albumin Globulin Ratio 1.3 (1.0-2.8); Alkaline Phosphatase 53 U/L (38-126); Aspartate Aminotransferase 23 IU/L (14-36); Blood Urea Nitrogen 20 mg/dL (7-17); Calcium 9.5 mg/dL (8.4-10.2); Carbon Dioxide 21 mmol/L (22-32); Chloride 103 mmol/L (98-107); Cholesterol 185 mg/dL (140-199); Estimated Glomerular Filt Rate > 60 mL/min (>60); Globulin 2.9 g/dL (1.7-4.1); Glucose 116 mg/dL (80-110); HDL Cholesterol 57 mg/dL (40-60); HEMOLYSIS < 15 (0-50); LDL Cholesterol Calculated 104 mg/dL (<100); Potassium 4.2 mmol/L (3.4-5.1); Sodium 131 mmol/L (137-145); Total Protein 6.6 g/dL (6.3-8.2); Triglycerides 118 mg/dL (35-150)
== END ==
PROVIDERS: Family Provider Student in an Organized Health Care Education/Training Program; PCP Student in an Organized Health Care Education/Training Program; Referring Provider Family Medicine; Visit Provider Family Medicine
DX: E78.5 Hyperlipidemia, unspecified (principal); I25.10 Atherosclerotic heart disease of native coronary artery without angina pectoris
CPT/HCPCS: 36415; 80053; 80061; 85025

== ENCOUNTER → 2024-09-15 | Outpatient (CLI) | payer OTHER, MEDICAID, SELFPAY ==
--- NOTE | 2024-09-15 08:32 | DI.ECHO.S_ITS ---
[facility] : : [address] : : [place] : : [id number] : : Phone: [phone] Echocardiogram Report + + :Name: KAY ANTUNEZ Study Date: 09/15/2024 Height: 59.5 in: :[facility] ReadingLocation: Weight: 160 lb : : Gender: Female BSA: 1.7 m2 : :: 1940 Age: 84 yrs BP: 119/80 mmHg: :Reason For Study: ISCHEMIC CARDIOMYOPATHY : :Ordering Physician: KIRK, : :KAMERON GRANDE Performed By: Roseanne Syed : :Referring: KAMERON BRADLEY : + + Interpretation Summary The left ventricle is severely dilated. The ejection fraction is estimated to be 25-30%. There has been no significant change in LVEF since the previous exam. 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 No significant change from the previous study. The right ventricle is normal in size and function. There is mild to moderate tricuspid regurgitation. Compared to the prior echo exam, there has been an increase in TR severity. The right ventricular systolic pressure is estimated to be at least 26 mmHg based on an estimated right atrial pressure of 3 mm Hg. Compared to the prior echo exam, there has been a decrease in the severity of pulmonary hypertension. Mild atherosclerotic plaque(s) in the aortic arch. Procedure: A two-dimensional transthoracic echocardiogram with color flow and Doppler was performed. The study quality was technically difficult. A contrast injection of Definity was performed to improve assessment of LV function. Comparison is made with the echocardiogram of 10/21/2021. The patient was in sinus rhythm with heart rates between 74-81 bpm during the exam. Left Ventricle: Proximal septal thickening is noted. The left ventricle is severely dilated. There is no thrombus. The ejection fraction is estimated to be 25-30%. There has been no significant change since the previous exam. 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 No significant change from the previous study. Diastolic parameters suggest probable normal left ventricular diastolic function and normal filling pressures. Right Ventricle: The right ventricle is normal in size and function. Atria: The left atrium is mildly dilated. The left atrium has mildly decreased in size since the prior echo exam. Right atrial size is normal. The atrial septum is aneurysmal. Mitral Valve: The mitral valve leaflets appear mildly thickened, but open well. There is trace mitral regurgitation. Aortic Valve: The aortic valve is trileaflet. The aortic valve opens well. There is no aortic valve stenosis. No aortic regurgitation is present. Tricuspid Valve: The tricuspid valve leaflets are thin and pliable. There is mild to moderate tricuspid regurgitation. The right ventricular systolic pressure is estimated to be at least 26 mmHg based on an estimated right atrial pressure of 3 mm Hg. Compared to the prior echo exam, there has been an increase in TR severity. Compared to the prior echo exam, there has been a decrease in the severity of pulmonary hypertension. Pulmonic Valve: The pulmonic valve leaflets are thin and pliable; valve motion is normal. There is mild pulmonic regurgitation. Great Vessels: The aortic root is normal size. The dimensions of the ascending aorta are normal. Mild atherosclerotic plaque(s) in the aortic arch. The IVC is of normal diameter and collapses greater than 50% with a sniff. This suggests a low right atrial pressure of 3 mm Hg. Pericardium/ Pleura There is no pericardial effusion. There is an anterior echo-free space consistent with a fat pad. There is no pleural effusion. MMode/2D Measurements & Calculations LVIDd: 6.0 cm LVOT diam: 2.2 cm LVIDs: 5.2 cm Ao root diam: 3.5 cm FS: 12.6 % asc Aorta Diam: 3.0 cm IVSd: 0.60 cm Ao Arch Diam (Prox Trans): 2.6 cm LVPWd: 0.66 cm LV mera. diameter/BSA (cm/m^2): 3.5 LV sys. diameter/BSA (cm/m^2): 3.1 LA A2 area: 19.5 cm2 RA long axis: 4.5 cm LA A4 area: 16.2 cm2 RA area: 12.8 cm2 LA length (vol): 4.8 cm RA vol: 31.4 ml LA vol: 55.2 ml RA : 18.6 ml/m2 LA vol index: 32.7 ml/m2 IVC diam: 1.8 cm RVD1 (basal): 3.5 cm RVD2 (mid): 2.4 cm TAPSE: 1.8 cm Doppler Measurements & Calculations Ao V2 max: 119.1 cm/sec LVOT Max Rahul: 93.6 cm/sec Ao V2 mean: 87.7 cm/sec LV V1 max P.5 mmHg Ao max P.7 mmHg LV V1 VTI: 17.7 cm Ao mean P.3 mmHg JUWAN(I,D): 2.6 cm2 Ao V2 VTI: 25.4 cm JUWAN(V,D): 2.9 cm2 sev ratio: 0.70 JUWAN indexed to BSA (cm^2/m^2): 1.5 MV E max rahul: 34.0 cm/sec TR max rahul: 238.3 cm/sec MV A max rahul: 102.2 cm/sec TR max P.7 mmHg MV E/A: 0.33 PA V2 max: 84.1 cm/sec Med Peak E' Rahul: 3.4 cm/sec PA V2 mean: 62.1 cm/sec E/E' med: 10.0 PA mean P.7 mmHg Lat Peak E' Rahul: 7.7 cm/sec E/E' lat: 4.4 E/e' average: 7.2 MV dec time: 0.18 sec SV(LVOT): 65.8 ml Reading Physician:01:16 PM
== END ==
PROVIDERS: Family Provider Student in an Organized Health Care Education/Training Program; PCP Student in an Organized Health Care Education/Training Program; Referring Provider Nurse Practitioner; Visit Provider Nurse Practitioner
DX: I07.1 Rheumatic tricuspid insufficiency (principal); I70.0 Atherosclerosis of aorta; I25.5 Ischemic cardiomyopathy
CPT/HCPCS: C8929; Q9957

== ENCOUNTER 2024-09-16 12:15 | Outpatient (RCR) | payer OTHER, MEDICAID, SELFPAY ==
--- NOTE | 2024-07-12 12:15 | PT.OIE ---
Current Diagnoses Other chronic pain (07/12/24) Low back pain, unspecified (07/12/24) Segmental and somatic dysfunction of cervical region (07/12/24) Segmental and somatic dysfunction of upper extremity (07/12/24) Past Medical History (Last Updated 04/10/22 @ 09:17 by Tahir Brown RN) GERD (gastroesophageal reflux disease) (11/04/11) Hypertension Menopause Polymyalgia rheumatica Uterine fibroid Past Surgical History (Last Updated 06/23/24 @ 11:03 by Navneet Hernandes MD) History of conization of cervix Status post surgery (10/02/09) Visit Care Team Role Provider Type Erin Raines DO Family Provider Non-Staff Primary Care Provider Specialty: Medical Address: [address] [place] [address], [id number] Email: Sarah Carrasquillo DO Attending Provider Non-Staff Referring Provider Specialty: Family Practice Address: [address] [place] [address], [id number] Email: Physical Therapy Initial Evaluation PT-OP-A Visit Information Start: 07/12/24 17:52 Freq: Status: Active Protocol: Document 07/12/24 11:30 DCW (Rec: 07/12/24 17:53 DCW [id number]) Out-Patient Physical Therapy Visit Information Visit Information Visit Type Initial Evaluation Visit Start Time 11:30 Visit Stop Time 12:10 Visit Number 1 Number of DUCT CLEANER Visits 0 Evaluation Information Evaluation Date 07/12/24 PT-OP-B Current Condition Start: 07/12/24 17:52 Freq: Status: Active Protocol: Document 07/12/24 11:30 DCW (Rec: 07/13/24 09:48 DCW [id number]) Current Condition History of Current Condition Onset Date Six month history History of Current Condition Pt is an 84 year old female presenting for a return to skilled physical therapy secondary to low back, cervical, and shoulder pain. Pt has an extensive history of rehab for various injuries. Pt was seen for these same complaints four months ago, but due to difficulties waiting for insurance authorization, was only seen for one follow-up. Returns today with continued complaints. Has been working on her prior HEP. Is trying to become more active, riding bike 20 minutes/day. Admits that she has difficulty donning/doffing her shirt. Her low back hurts when trying to bend over. Unable to find anything that really helps her pain. PT-OP-C Subjective Start: 07/12/24 17:52 Freq: Status: Active Protocol: Document 07/12/24 11:30 DCW (Rec: 07/13/24 09:36 DCW [id number]) OP-PT Subjective Patient Comments Patient Comments Some of my prior neck exercises seemd to make it worse, so I stopped doing them . I'm still doing the other stuff, though. PT-OP-F Manual Assessment Start: 07/12/24 17:52 Freq: Status: Active Protocol: Document 07/12/24 11:30 DCW (Rec: 07/13/24 09:36 DCW [id number]) Manual Assessments Soft Tissue Assessment Soft Tissue Mobility Assessment Moderate tone with tenderness to palpation: pain with wincing along SCM, scalenes, upper trap, cervical paraspinals, lumbar paraspinals, superior glutes PT-OP-K Range of Motion Start: 07/12/24 17:52 Freq: Status: Active Protocol: Document 07/12/24 11:30 DCW (Rec: 07/13/24 09:36 DCW [id number]) Cervical Spine Range of Motion Cervical Spine Active Degrees Testing Position Sitting Flexion 30 Extension 23 Rotation Left 55 Rotation Right 55 Lateral Flexion Left 30 Lateral Flexion Right 25 Comments Pain with lateral flexion Shoulder Goniometric Range of Motion Shoulder Right Active Testing Position Sitting Flexion 110 Abduction 76 External Rotation at 0 degrees Abduction 67 Internal Rotation Behind Back (text) T12 Left Active Testing Position Sitting Flexion 112 Abduction 86 External Rotation at 0 degrees Abduction 62 Internal Rotation Behind Back (text) T8 PT-OP-L Special Tests Start: 07/12/24 17:52 Freq: Status: Active Protocol: Document 07/12/24 11:30 DCW (Rec: 07/13/24 09:36 DCW [id number]) Special Tests Cervical Spine Special Tests Spurling's Test Test Results Negative Passive Neck Flexion Test Results Positive for posterior neck pain Foraminal Compression Test Results Negative Lumbar Spine Special Tests Vertical Spine Loading Test Results Negative Straight Leg Raise Test Results Negative Compression Test Results Negative A-P Shearing Test Results Negative Hip Special Tests Piriformis Test Results C/o tightness RALPH Test Results Negative PT-OP-Q Treatments Start: 07/12/24 17:52 Freq: Status: Active Protocol: Document 07/12/24 11:30 DCW (Rec: 07/13/24 09:38 DCW [id number]) Therapeutic Exercises Supine Exercises Elevated LRT Supine Exercise Name LTR in 90/90 LTR Supine Exercise Name LTR Side bilateral Single KtC Supine Exercise Name Single KtC Side bilateral PT-OP-T Assessment and Plan Start: 07/12/24 17:52 Freq: Status: Active Protocol: Document 07/12/24 11:30 DCW (Rec: 07/13/24 10:42 DCW [id number]) Physical Therapy Assessment Rehab Potential Rehabilitation Potential Good Evaluation Complexity Number of Personal Factors/Comorbidities 3 or More Number of Body Systems Impaired 4 or More Clinical Presentation at Evaluation Unstable Impairments Impairments Functional Activities, Functional Mobility,Pain, Posture,ROM,Soft Tissue Mobility,Strength,Tone Goals One Impairment Pt does not have an appropriate home exercise program Short Term Goal (STG) Pt to be independent and compliant with an appropriate HEP STG Duration 08/12/24 Three Impairment Limited shoulder ROM Residential Goal (LTG) Pt to demonstrate improvement of AROM of bilateral shoulder flexion and abduction to >120? in order to improve ability to don/doff her clothing. LTG Duration 09/12/24 Two Impairment Limited cervical ROM, specifically flexion (30?) and R lat flexion (25?) Completions Manager Goal (LTG) Pt to demonstrate improvement in cervical ROM, with right lateral flexion >30? and flexion >40? in order to improve ability to check for traffic while driving LTG Duration 09/12/24 Assessment Summary Assessment Pt presents with signs and symptoms consistent with referring diagnosis. Medical history impacted by life-long moderate-severe scoliosis. Limitations in cervical and shoulder ROM impacting functional mobility and iADLs. Pt should benefit from skilled therapy focusing on decreased tone, shoulder strengthening, STM, flexibility, and functional mobility. Physical Therapy Plan Frequency and Duration Frequency of Treatment 2x/Week Plan of Care Start Date 07/12/24 Plan of Care End Date 09/12/24 Therapeutic Interventions Therapeutic Interventions Home Exercise Program,Joint Mobilizations,Manual Therapy, Neuromuscular Re-education, Patient/Caregiver Education, Self-Care/Home Management,Soft Tissue Mobilization, Therapeutic Activities, Therapeutic Exercises Modalities Cold Pack/Ice Massage,Hot Packs Next Visit Focus/Plan Next Note Type Treatment Note Next Visit Plan STM, flexibility, shoulder strengthening
--- NOTE | 2024-07-12 12:15 | PT.OPPOC ---
Physical, Occupational & Speech Therapy At [facility] Current Diagnoses Other chronic pain (07/12/24) Low back pain, unspecified (07/12/24) Segmental and somatic dysfunction of cervical region (07/12/24) Segmental and somatic dysfunction of upper extremity (07/12/24) Visit Care Team Role Provider Type Erin Raines DO Family Provider Non-Staff Primary Care Provider Specialty: Medical Address: [address] [place], [address] Email: Sarah Carrasquillo DO Attending Provider Non-Staff Referring Provider Specialty: Family Practice Address: [address], [place], [address] Email: Plan Of Care PT-OP-B Current Condition Start: 07/12/24 17:52 Freq: Status: Active Protocol: Document 07/12/24 11:30 DCW (Rec: 07/13/24 09:48 DCW [id number]) Current Condition History of Current Condition Onset Date Six month history History of Current Condition Pt is an 84 year old female presenting for a return to skilled physical therapy secondary to low back, cervical, and shoulder pain. Pt has an extensive history of rehab for various injuries. Pt was seen for these same complaints four months ago, but due to difficulties waiting for insurance authorization, was only seen for one follow-up. Returns today with continued complaints. Has been working on her prior HEP. Is trying to become more active, riding bike 20 minutes/day. Admits that she has difficulty donning/doffing her shirt. Her low back hurts when trying to bend over. Unable to find anything that really helps her pain. PT-OP-T Assessment and Plan Start: 07/12/24 17:52 Freq: Status: Active Protocol: Document 07/12/24 11:30 DCW (Rec: 07/13/24 10:42 DCW [id number]) Physical Therapy Assessment Rehab Potential Rehabilitation Potential Good Evaluation Complexity Number of Personal Factors/Comorbidities 3 or More Number of Body Systems Impaired 4 or More Clinical Presentation at Evaluation Unstable Impairments Impairments Functional Activities, Functional Mobility,Pain, Posture,ROM,Soft Tissue Mobility,Strength,Tone Goals One Impairment Pt does not have an appropriate home exercise program Short Term Goal (STG) Pt to be independent and compliant with an appropriate HEP STG Duration 08/12/24 Three Impairment Limited shoulder ROM Assisted Goal (LTG) Pt to demonstrate improvement of AROM of bilateral shoulder flexion and abduction to >120? in order to improve ability to don/doff her clothing. LTG Duration 09/12/24 Two Impairment Limited cervical ROM, specifically flexion (30?) and R lat flexion (25?) Wastewater Plant Operator Goal (LTG) Pt to demonstrate improvement in cervical ROM, with right lateral flexion >30? and flexion >40? in order to improve ability to check for traffic while driving LTG Duration 09/12/24 Assessment Summary Assessment Pt presents with signs and symptoms consistent with referring diagnosis. Medical history impacted by life-long moderate-severe scoliosis. Limitations in cervical and shoulder ROM impacting functional mobility and iADLs. Pt should benefit from skilled therapy focusing on decreased tone, shoulder strengthening, STM, flexibility, and functional mobility. Physical Therapy Plan Frequency and Duration Frequency of Treatment 2x/Week Plan of Care Start Date 07/12/24 Plan of Care End Date 09/12/24 Therapeutic Interventions Therapeutic Interventions Home Exercise Program,Joint Mobilizations,Manual Therapy, Neuromuscular Re-education, Patient/Caregiver Education, Self-Care/Home Management,Soft Tissue Mobilization, Therapeutic Activities, Therapeutic Exercises Modalities Cold Pack/Ice Massage,Hot Packs Next Visit Focus/Plan Next Note Type Treatment Note Next Visit Plan STM, flexibility, shoulder strengthening Plan of Care Dates Plan of Care Start Date 07/12/24 Plan of Care End Date 09/12/24 Electronically Signed by: Bam Huizar, PT 07/13/24 1043 If you are in agreement with this Plan of Care, please return a signed and dated copy. I have reviewed this Plan of Care and certify that the skilled therapy services above are required to meet the patient?s needs. Physician Signature Date Printed Name and Credentials Clinical Instructor Signature Printed Name and Credentials
--- NOTE | 2024-07-14 12:15 | PT.OTN ---
Current Diagnoses Other chronic pain (07/14/24) Low back pain, unspecified (07/14/24) Segmental and somatic dysfunction of cervical region (07/14/24) Segmental and somatic dysfunction of upper extremity (07/14/24) Physical Therapy Treatment Note PT-OP-A Visit Information Start: 07/12/24 17:52 Freq: Status: Active Protocol: Document 07/14/24 11:30 DCW (Rec: 07/14/24 12:15 DCW [id number]) Out-Patient Physical Therapy Visit Information Visit Information Visit Type Treatment Note Visit Start Time 11:30 Visit Stop Time 12:15 Visit Number 2 Number of TELEPRINTER INSTALLER Visits 0 Evaluation Information Evaluation Date 07/12/24 PT-OP-B Current Condition Start: 07/12/24 17:52 Freq: Status: Active Protocol: Document 07/12/24 11:30 DCW (Rec: 07/13/24 09:48 DCW [id number]) Current Condition History of Current Condition Onset Date Six month history History of Current Condition Pt is an 84 year old female presenting for a return to skilled physical therapy secondary to low back, cervical, and shoulder pain. Pt has an extensive history of rehab for various injuries. Pt was seen for these same complaints four months ago, but due to difficulties waiting for insurance authorization, was only seen for one follow-up. Returns today with continued complaints. Has been working on her prior HEP. Is trying to become more active, riding bike 20 minutes/day. Admits that she has difficulty donning/doffing her shirt. Her low back hurts when trying to bend over. Unable to find anything that really helps her pain. PT-OP-C Subjective Start: 07/12/24 17:52 Freq: Status: Active Protocol: Document 07/14/24 11:30 DCW (Rec: 07/14/24 12:15 DCW [id number]) OP-PT Subjective Patient Comments Patient Comments My neck was a lot better after Friday. I did my new exercises, and they seemed to help. PT-OP-F Manual Assessment Start: 07/12/24 17:52 Freq: Status: Active Protocol: Document 07/12/24 11:30 DCW (Rec: 07/13/24 09:36 DCW [id number]) Manual Assessments Soft Tissue Assessment Soft Tissue Mobility Assessment Moderate tone with tenderness to palpation: pain with wincing along SCM, scalenes, upper trap, cervical paraspinals, lumbar paraspinals, superior glutes PT-OP-K Range of Motion Start: 07/12/24 17:52 Freq: Status: Active Protocol: Document 07/12/24 11:30 DCW (Rec: 07/13/24 09:36 DCW [id number]) Cervical Spine Range of Motion Cervical Spine Active Degrees Testing Position Sitting Flexion 30 Extension 23 Rotation Left 55 Rotation Right 55 Lateral Flexion Left 30 Lateral Flexion Right 25 Comments Pain with lateral flexion Shoulder Goniometric Range of Motion Shoulder Right Active Testing Position Sitting Flexion 110 Abduction 76 External Rotation at 0 degrees Abduction 67 Internal Rotation Behind Back (text) T12 Left Active Testing Position Sitting Flexion 112 Abduction 86 External Rotation at 0 degrees Abduction 62 Internal Rotation Behind Back (text) T8 PT-OP-L Special Tests Start: 07/12/24 17:52 Freq: Status: Active Protocol: Document 07/12/24 11:30 DCW (Rec: 07/13/24 09:36 DCW [id number]) Special Tests Cervical Spine Special Tests Spurling's Test Test Results Negative Passive Neck Flexion Test Results Positive for posterior neck pain Foraminal Compression Test Results Negative Lumbar Spine Special Tests Vertical Spine Loading Test Results Negative Straight Leg Raise Test Results Negative Compression Test Results Negative A-P Shearing Test Results Negative Hip Special Tests Piriformis Test Results C/o tightness RALPH Test Results Negative PT-OP-Q Treatments Start: 07/12/24 17:52 Freq: Status: Active Protocol: Document 07/14/24 11:30 DCW (Rec: 07/14/24 12:15 DCW [id number]) Gym Equipment Therapeutic Ball LTR Exercise Details LTR Ball Size/Color Red - 55 cm Body Position Supine Therapeutic Exercises Sidelying Exercises Hip Abduction Sidelying Exercise Name Hip Abduction Side bilateral Reverse Clamshell Sidelying Exercise Name Reverse Clamshell Side bilateral Clamshell Sidelying Exercise Name Clamshell Side bilateral Open Book Sidelying Exercise Name Open Book Side bilateral Manual Therapy Treatment Consent Patient gave verbal consent for manual Yes treatment Soft Tissue Mobilization Shoulders Body Location Bilateral parascapulars Mobilization Type Strumming,Sustained Pressure Body Position Supine Cervical Spine Body Location Upper trap, cervical paraspinals, Scalenes, SCM Mobilization Type Sustained Pressure,Trigger Point Release Body Position Supine Joint Mobilizations GH Joint B GH mobs Direction inferior Grade III Body Position Supine Manual Traction Cervical Details Cervical Traction Body Position Supine PT-OP-T Assessment and Plan Start: 07/12/24 17:52 Freq: Status: Active Protocol: Document 07/14/24 11:30 DCW (Rec: 07/14/24 12:15 DCW [id number]) Physical Therapy Assessment Impairments Impairments Functional Activities, Functional Mobility,Pain, Posture,ROM,Soft Tissue Mobility,Strength,Tone Goals One Impairment Pt does not have an appropriate home exercise program Short Term Goal (STG) Pt to be independent and compliant with an appropriate HEP STG Duration 08/12/24 Three Impairment Limited shoulder ROM Pack Room Operator Goal (LTG) Pt to demonstrate improvement of AROM of bilateral shoulder flexion and abduction to >120? in order to improve ability to don/doff her clothing. LTG Duration 09/12/24 Two Impairment Limited cervical ROM, specifically flexion (30?) and R lat flexion (25?) Snf Goal (LTG) Pt to demonstrate improvement in cervical ROM, with right lateral flexion >30? and flexion >40? in order to improve ability to check for traffic while driving LTG Duration 09/12/24 Assessment Summary Assessment Pt tolerated treatment well today, felt her back was loosening up by end of session . Agreeable to add clamshell, reverse clamshell, and hip abduction to HEP. Continue to work on tone management, shoulder/neck/lumbar mobility. Physical Therapy Plan Frequency and Duration Frequency of Treatment 2x/Week Plan of Care Start Date 07/12/24 Plan of Care End Date 09/12/24 Therapeutic Interventions Therapeutic Interventions Home Exercise Program,Joint Mobilizations,Manual Therapy, Neuromuscular Re-education, Patient/Caregiver Education, Self-Care/Home Management,Soft Tissue Mobilization, Therapeutic Activities, Therapeutic Exercises Modalities Cold Pack/Ice Massage,Hot Packs Next Visit Focus/Plan Next Note Type Treatment Note Next Visit Plan STM, flexibility, shoulder strengthening
--- NOTE | 2024-07-20 12:26 | PT.OTN ---
Current Diagnoses Other chronic pain (07/20/24) Low back pain, unspecified (07/20/24) Segmental and somatic dysfunction of cervical region (07/20/24) Segmental and somatic dysfunction of upper extremity (07/20/24) Physical Therapy Treatment Note PT-OP-A Visit Information Start: 07/12/24 17:52 Freq: Status: Active Protocol: Document 07/20/24 10:25 AB (Rec: 07/20/24 12:25 AB [id number]) Out-Patient Physical Therapy Visit Information Visit Information Visit Type Treatment Note Visit Start Time 11:35 Visit Stop Time 12:21 Visit Number 3 Number of PHARMACEUTICAL PHYSICIAN Visits 1 Evaluation Information Evaluation Date 07/12/24 PT-OP-B Current Condition Start: 07/12/24 17:52 Freq: Status: Active Protocol: Document 07/12/24 11:30 DCW (Rec: 07/13/24 09:48 DCW [id number]) Current Condition History of Current Condition Onset Date Six month history History of Current Condition Pt is an 84 year old female presenting for a return to skilled physical therapy secondary to low back, cervical, and shoulder pain. Pt has an extensive history of rehab for various injuries. Pt was seen for these same complaints four months ago, but due to difficulties waiting for insurance authorization, was only seen for one follow-up. Returns today with continued complaints. Has been working on her prior HEP. Is trying to become more active, riding bike 20 minutes/day. Admits that she has difficulty donning/doffing her shirt. Her low back hurts when trying to bend over. Unable to find anything that really helps her pain. PT-OP-C Subjective Start: 07/12/24 17:52 Freq: Status: Active Protocol: Document 07/20/24 10:25 AB (Rec: 07/20/24 12:25 AB [id number]) OP-PT Subjective Patient Comments Patient Comments Patient reports she is able to pull pants up more easily now that she is doing the exercises. Patient rates pain right side of back 5/10, and shoulders 5/10. Patient reports standing pain increases in about 15 min right LE. 94 deg right UE scaption pattern, CS rot decreased right> Left PT-OP-F Manual Assessment Start: 07/12/24 17:52 Freq: Status: Active Protocol: Document 07/12/24 11:30 DCW (Rec: 07/13/24 09:36 DCW [id number]) Manual Assessments Soft Tissue Assessment Soft Tissue Mobility Assessment Moderate tone with tenderness to palpation: pain with wincing along SCM, scalenes, upper trap, cervical paraspinals, lumbar paraspinals, superior glutes PT-OP-K Range of Motion Start: 07/12/24 17:52 Freq: Status: Active Protocol: Document 07/12/24 11:30 DCW (Rec: 07/13/24 09:36 DCW [id number]) Cervical Spine Range of Motion Cervical Spine Active Degrees Testing Position Sitting Flexion 30 Extension 23 Rotation Left 55 Rotation Right 55 Lateral Flexion Left 30 Lateral Flexion Right 25 Comments Pain with lateral flexion Shoulder Goniometric Range of Motion Shoulder Right Active Testing Position Sitting Flexion 110 Abduction 76 External Rotation at 0 degrees Abduction 67 Internal Rotation Behind Back (text) T12 Left Active Testing Position Sitting Flexion 112 Abduction 86 External Rotation at 0 degrees Abduction 62 Internal Rotation Behind Back (text) T8 PT-OP-L Special Tests Start: 07/12/24 17:52 Freq: Status: Active Protocol: Document 07/12/24 11:30 DCW (Rec: 07/13/24 09:36 DCW [id number]) Special Tests Cervical Spine Special Tests Spurling's Test Test Results Negative Passive Neck Flexion Test Results Positive for posterior neck pain Foraminal Compression Test Results Negative Lumbar Spine Special Tests Vertical Spine Loading Test Results Negative Straight Leg Raise Test Results Negative Compression Test Results Negative A-P Shearing Test Results Negative Hip Special Tests Piriformis Test Results C/o tightness RALPH Test Results Negative PT-OP-Q Treatments Start: 07/12/24 17:52 Freq: Status: Active Protocol: Document 07/20/24 10:25 AB (Rec: 07/20/24 12:25 AB [id number]) Therapeutic Exercises Supine Exercises piriformis stretch Supine Exercise Name from hooklying Side bilateral Equipment Used towel to hold LE Reps/Minutes 60 sec Comments verbal cues shoulder flexion Side bilateral Reps/Minutes X10 for 10 sec holds Comments verbal cues for direct of mvt and full 10 sec hold CS rotation Supine Exercise Name on occiptal float Side bilateral Reps/Minutes 2 min Comments verbal cues to perform slowly in pain free range Standing Exercises squat with band Standing Exercise Name HEP Side bilateral Resistance hyd[place] green band Reps/Minutes X10 X2 Comments verbal cues to keep tension on band wall slide flexion Side bilateral Reps/Minutes 8X Comments verbal cues to step to wall, then step back with full flex lower w/o wall Manual Therapy Treatment Soft Tissue Mobilization Cervical Spine Body Location Upper trap, cervical paraspinals, Scalenes, SCM Mobilization Type Cross-Friction,Rolling, Sustained Pressure Body Position Sitting Joint Mobilizations GH Joint B GH mobs Direction inf X10 AP 4X 10 Body Position Supine PT-OP-T Assessment and Plan Start: 07/12/24 17:52 Freq: Status: Active Protocol: Document 07/20/24 10:25 AB (Rec: 07/20/24 12:25 AB [id number]) Physical Therapy Assessment Goals One Impairment Pt does not have an appropriate home exercise program Short Term Goal (STG) Pt to be independent and compliant with an appropriate HEP STG Duration 08/12/24 Three Impairment Limited shoulder ROM Impairment . Custodial Goal (LTG) Pt to demonstrate improvement of AROM of bilateral shoulder flexion and abduction to >120? in order to improve ability to don/doff her clothing. LTG Duration 09/12/24 Two Impairment Limited cervical ROM, specifically flexion (30?) and R lat flexion (25?) Impairment . Line Up Machine Operator Goal (LTG) Pt to demonstrate improvement in cervical ROM, with right lateral flexion >30? and flexion >40? in order to improve ability to check for traffic while driving LTG Duration 09/12/24 Assessment Summary Assessment Patient rates pain 3/10 B shoulders 5/10 right back pain , reports back pain with wall slide, and required increased verbal cues to step back when lowering UE. AROM right shoulder flexion 118 deg standing 120 deg left UE end of session. Physical Therapy Plan Next Visit Focus/Plan Next Note Type Treatment Note Next Visit Plan STM, flexibility, shoulder strengthening Revisit wall slide/possibly add to HEP
--- NOTE | 2024-07-22 16:32 | PT.OTN ---
Current Diagnoses Other chronic pain (07/22/24) Low back pain, unspecified (07/22/24) Segmental and somatic dysfunction of cervical region (07/22/24) Segmental and somatic dysfunction of upper extremity (07/22/24) Physical Therapy Treatment Note PT-OP-A Visit Information Start: 07/12/24 17:52 Freq: Status: Active Protocol: Document 07/22/24 10:44 SW (Rec: 07/22/24 11:36 SW [id number]) Out-Patient Physical Therapy Visit Information Visit Information Visit Type Treatment Note Visit Start Time 10:45 Visit Stop Time 11:25 Visit Number 4 Number of DIGITAL TECHNICIAN Visits 2 PT-OP-B Current Condition Start: 07/12/24 17:52 Freq: Status: Active Protocol: Document 07/12/24 11:30 DCW (Rec: 07/13/24 09:48 DCW [id number]) Current Condition History of Current Condition Onset Date Six month history History of Current Condition Pt is an 84 year old female presenting for a return to skilled physical therapy secondary to low back, cervical, and shoulder pain. Pt has an extensive history of rehab for various injuries. Pt was seen for these same complaints four months ago, but due to difficulties waiting for insurance authorization, was only seen for one follow-up. Returns today with continued complaints. Has been working on her prior HEP. Is trying to become more active, riding bike 20 minutes/day. Admits that she has difficulty donning/doffing her shirt. Her low back hurts when trying to bend over. Unable to find anything that really helps her pain. PT-OP-C Subjective Start: 07/12/24 17:52 Freq: Status: Active Protocol: Document 07/22/24 10:44 SW (Rec: 07/22/24 11:36 SW [id number]) OP-PT Subjective Patient Comments Patient Comments Pt reports about the same, felt good after last session, pt reports did not do a whole lot, got on bike for 10-15 min , but did not do exercises. Pt reports did not have to use heating pad today for pain today. PT-OP-F Manual Assessment Start: 07/12/24 17:52 Freq: Status: Active Protocol: Document 07/12/24 11:30 DCW (Rec: 07/13/24 09:36 DCW [id number]) Manual Assessments Soft Tissue Assessment Soft Tissue Mobility Assessment Moderate tone with tenderness to palpation: pain with wincing along SCM, scalenes, upper trap, cervical paraspinals, lumbar paraspinals, superior glutes PT-OP-K Range of Motion Start: 07/12/24 17:52 Freq: Status: Active Protocol: Document 07/12/24 11:30 DCW (Rec: 07/13/24 09:36 DCW [id number]) Cervical Spine Range of Motion Cervical Spine Active Degrees Testing Position Sitting Flexion 30 Extension 23 Rotation Left 55 Rotation Right 55 Lateral Flexion Left 30 Lateral Flexion Right 25 Comments Pain with lateral flexion Shoulder Goniometric Range of Motion Shoulder Right Active Testing Position Sitting Flexion 110 Abduction 76 External Rotation at 0 degrees Abduction 67 Internal Rotation Behind Back (text) T12 Left Active Testing Position Sitting Flexion 112 Abduction 86 External Rotation at 0 degrees Abduction 62 Internal Rotation Behind Back (text) T8 PT-OP-L Special Tests Start: 07/12/24 17:52 Freq: Status: Active Protocol: Document 07/12/24 11:30 DCW (Rec: 07/13/24 09:36 DC [id number]) Special Tests Cervical Spine Special Tests Spurling's Test Test Results Negative Passive Neck Flexion Test Results Positive for posterior neck pain Foraminal Compression Test Results Negative Lumbar Spine Special Tests Vertical Spine Loading Test Results Negative Straight Leg Raise Test Results Negative Compression Test Results Negative A-P Shearing Test Results Negative Hip Special Tests Piriformis Test Results C/o tightness RALPH Test Results Negative PT-OP-Q Treatments Start: 07/12/24 17:52 Freq: Status: Active Protocol: Document 07/22/24 10:44 (Rec: 07/22/24 11:36 SW [id number]) Therapeutic Exercises Supine Exercises shoulder flexion Side bilateral Reps/Minutes X10 for 10 sec holds Comments verbal cues for direct of mvt and full 10 sec hold Sitting Exercises Cervical Nods Sitting Exercise Name Cervical nods Reps/Minutes 10 x 3 hold Comments cues for form and for gentle decreased tension Posture Sitting Exercise Name Sitting posture Equipment Used mesh chair Comments verbal/visual cues for postural alignment Cervical ROM Sitting Exercise Name Flex/rotation Reps/Minutes x10 ROM ea, x10 stretch w/5 stretch Comments comfortable range, pain free Pullies Sitting Exercise Name Shoulder flex/abd Comments cues for postural alignment prior to initiating Standing Exercises squat with band Standing Exercise Name HEP Side bilateral Resistance Latex free huslia green band Reps/Minutes X10 X2 Comments verbal cues to keep tension on band Manual Therapy Treatment Consent Patient gave verbal consent for manual Yes treatment Self-Care/Home Management Treatment Education Patient Education Home Exercise Program Other Education Pt education on Pullies, setup , and correct execution for ROM, Pt education on Sitting Posture for optimal alignment prior to initiating exercises. PT-OP-T Assessment and Plan Start: 07/12/24 17:52 Freq: Status: Active Protocol: Document 07/22/24 10:44 (Rec: 07/22/24 11:36 [id number]) Physical Therapy Assessment Goals One Impairment Pt does not have an appropriate home exercise program Short Term Goal (STG) Pt to be independent and compliant with an appropriate HEP STG Duration 08/12/24 Three Impairment Limited shoulder ROM Impairment . Alf Goal (LTG) Pt to demonstrate improvement of AROM of bilateral shoulder flexion and abduction to >120? in order to improve ability to don/doff her clothing. LTG Duration 09/12/24 Two Impairment Limited cervical ROM, specifically flexion (30?) and R lat flexion (25?) Impairment . Clinical Audiologist Goal (LTG) Pt to demonstrate improvement in cervical ROM, with right lateral flexion >30? and flexion >40? in order to improve ability to check for traffic while driving LTG Duration 09/12/24 Assessment Summary Assessment Pt reports feeling good today, session focused on exercises, no manual work performed today. Pt reports got a set of pullies, pt thought they were used for strengthening. Educated pt on correct use of pullies and HEP w/out HO for increased shoulder flex/abd ROM. Instructed pt with pullies for ROM and stretch with end range hold, cues for setup and postural alignment. Pt tolerated session well with no increase in symptoms throughout. Physical Therapy Plan Frequency and Duration Frequency of Treatment 2x/Week Plan of Care Start Date 07/12/24 Plan of Care End Date 09/12/24 Therapeutic Interventions Therapeutic Interventions Home Exercise Program,Joint Mobilizations,Manual Therapy, Neuromuscular Re-education, Patient/Caregiver Education, Self-Care/Home Management,Soft Tissue Mobilization, Therapeutic Activities, Therapeutic Exercises Modalities Cold Pack/Ice Massage,Hot Packs Next Visit Focus/Plan Next Note Type Treatment Note Next Visit Plan Assess pt carryover of pullies for shoulder ROM/stretch, inquire if pt was able to setup correctly at home. STM, flexibility, shoulder strengthening Revisit wall slide/possibly add to HEP
--- NOTE | 2024-08-06 11:49 | PT.OTN ---
Current Diagnoses Other chronic pain (08/06/24) Low back pain, unspecified (08/06/24) Segmental and somatic dysfunction of cervical region (08/06/24) Segmental and somatic dysfunction of upper extremity (08/06/24) Physical Therapy Treatment Note PT-OP-A Visit Information Start: 07/12/24 17:52 Freq: Status: Active Protocol: Document 08/06/24 10:45 AB (Rec: 08/06/24 11:48 AB [id number]) Out-Patient Physical Therapy Visit Information Visit Information Visit Type Treatment Note Visit Start Time 10:47 Visit Stop Time 11:40 Visit Number 5 Number of GENERAL OFFICE ASSOCIATE Visits 3 Evaluation Information Evaluation Date 07/12/24 PT-OP-B Current Condition Start: 07/12/24 17:52 Freq: Status: Active Protocol: Document 07/12/24 11:30 DCW (Rec: 07/13/24 09:48 DCW [id number]) Current Condition History of Current Condition Onset Date Six month history History of Current Condition Pt is an 84 year old female presenting for a return to skilled physical therapy secondary to low back, cervical, and shoulder pain. Pt has an extensive history of rehab for various injuries. Pt was seen for these same complaints four months ago, but due to difficulties waiting for insurance authorization, was only seen for one follow-up. Returns today with continued complaints. Has been working on her prior HEP. Is trying to become more active, riding bike 20 minutes/day. Admits that she has difficulty donning/doffing her shirt. Her low back hurts when trying to bend over. Unable to find anything that really helps her pain. PT-OP-C Subjective Start: 07/12/24 17:52 Freq: Status: Active Protocol: Document 08/06/24 10:45 AB (Rec: 08/06/24 11:48 AB [id number]) OP-PT Subjective Patient Comments Patient Comments Patient reports back and are sore, attributes to using computer in bed. Patient reports she thinks she knees a lift in her left foot. Patient rates back pain 4/10 seated, neck not painful when positioned with pillows. ( see ther act). Patient reports she hasn't set up her pulleys or bands yet. PT-OP-F Manual Assessment Start: 07/12/24 17:52 Freq: Status: Active Protocol: Document 07/12/24 11:30 DCW (Rec: 07/13/24 09:36 DCW [id number]) Manual Assessments Soft Tissue Assessment Soft Tissue Mobility Assessment Moderate tone with tenderness to palpation: pain with wincing along SCM, scalenes, upper trap, cervical paraspinals, lumbar paraspinals, superior glutes PT-OP-K Range of Motion Start: 07/12/24 17:52 Freq: Status: Active Protocol: Document 07/12/24 11:30 DCW (Rec: 07/13/24 09:36 DCW [id number]) Cervical Spine Range of Motion Cervical Spine Active Degrees Testing Position Sitting Flexion 30 Extension 23 Rotation Left 55 Rotation Right 55 Lateral Flexion Left 30 Lateral Flexion Right 25 Comments Pain with lateral flexion Shoulder Goniometric Range of Motion Shoulder Right Active Testing Position Sitting Flexion 110 Abduction 76 External Rotation at 0 degrees Abduction 67 Internal Rotation Behind Back (text) T12 Left Active Testing Position Sitting Flexion 112 Abduction 86 External Rotation at 0 degrees Abduction 62 Internal Rotation Behind Back (text) T8 PT-OP-L Special Tests Start: 07/12/24 17:52 Freq: Status: Active Protocol: Document 07/12/24 11:30 DCW (Rec: 07/13/24 09:36 DCW [id number]) Special Tests Cervical Spine Special Tests Spurling's Test Test Results Negative Passive Neck Flexion Test Results Positive for posterior neck pain Foraminal Compression Test Results Negative Lumbar Spine Special Tests Vertical Spine Loading Test Results Negative Straight Leg Raise Test Results Negative Compression Test Results Negative A-P Shearing Test Results Negative Hip Special Tests Piriformis Test Results C/o tightness RALPH Test Results Negative PT-OP-Q Treatments Start: 07/12/24 17:52 Freq: Status: Active Protocol: Document 08/06/24 10:45 AB (Rec: 08/06/24 11:48 AB [id number]) Therapeutic Exercises Supine Exercises CS rotation Supine Exercise Name on occiptal float Side bilateral Reps/Minutes 3 min Comments verbal cues to perform slowly in pain free range Sidelying Exercises Open Book Sidelying Exercise Name Open Book Side bilateral Reps/Minutes X10 each side Comments verbal cues to decrease velocity Sitting Exercises Pullies Sitting Exercise Name Shoulder flex/abd Reps/Minutes 1-2 min each Comments verbal cues to decrease velocity Therapeutic Activity Therapeutic Activity set up for pulleys and band Comments visual demonstration with band with knot to show how to secure jesika over door, and set up band on door handle for rows. Also demonstrated tying nots in rope to shorten jesika ropes as needed. seated in bed positioning Name towel roll and pillow behind neck and back, 2 pillows under UE's Comments rolled pillows under knees Verbal cues for breathing from diaphragm. Manual Therapy Treatment Soft Tissue Mobilization Shoulders Body Location post cuff, periscapluarl muscles, pec Mobilization Type Cross-Friction,Rolling, Strumming,Sustained Pressure Body Position Sidelying Comments and hooklying Cervical Spine Body Location Upper trap, cervical paraspinals, Scalenes, SCM Mobilization Type Cross-Friction,Rolling, Sustained Pressure Body Position Sitting Joint Mobilizations scapular mobilization Joint B into depression and adduction Grade III Reps/Duration X10 each direction each shoulder GH Joint B GH mobs Direction inf X10 AP 4X 10 Body Position Supine PT-OP-T Assessment and Plan Start: 07/12/24 17:52 Freq: Status: Active Protocol: Document 08/06/24 10:45 AB (Rec: 08/06/24 11:48 AB [id number]) Physical Therapy Assessment Goals One Impairment Pt does not have an appropriate home exercise program Short Term Goal (STG) Pt to be independent and compliant with an appropriate HEP STG Duration 08/12/24 Three Impairment Limited shoulder ROM Impairment . Fpc Goal (LTG) Pt to demonstrate improvement of AROM of bilateral shoulder flexion and abduction to >120? in order to improve ability to don/doff her clothing. LTG Duration 09/12/24 Two Impairment Limited cervical ROM, specifically flexion (30?) and R lat flexion (25?) Impairment . Trace Evidence Technician Goal (LTG) Pt to demonstrate improvement in cervical ROM, with right lateral flexion >30? and flexion >40? in order to improve ability to check for traffic while driving LTG Duration 09/12/24 Assessment Summary Assessment Patient reports neck feels better end of session, also reports no neck pain with positioning for using computer in bed. Physical Therapy Plan Frequency and Duration Frequency of Treatment 2x/Week Plan of Care Start Date 07/12/24 Plan of Care End Date 09/12/24 Next Visit Focus/Plan Next Note Type Treatment Note Next Visit Plan Assess pt carryover of pullies for shoulder ROM/stretch, inquire if pt was able to setup correctly at home. STM, flexibility, shoulder strengthening Revisit wall slide/possibly add to HEP
--- NOTE | 2024-08-10 12:14 | PT.OTN ---
Current Diagnoses Other chronic pain (08/10/24) Low back pain, unspecified (08/10/24) Segmental and somatic dysfunction of cervical region (08/10/24) Segmental and somatic dysfunction of upper extremity (08/10/24) Physical Therapy Treatment Note PT-OP-A Visit Information Start: 07/12/24 17:52 Freq: Status: Active Protocol: Document 08/10/24 11:30 DCW (Rec: 08/10/24 12:14 DCW [id number]) Out-Patient Physical Therapy Visit Information Visit Information Visit Type Treatment Note Visit Start Time 11:30 Visit Stop Time 12:15 Visit Number 6 Number of FERTILIZER SUPERVISOR Visits 0 Evaluation Information Evaluation Date 07/12/24 PT-OP-B Current Condition Start: 07/12/24 17:52 Freq: Status: Active Protocol: Document 07/12/24 11:30 DCW (Rec: 07/13/24 09:48 DCW [id number]) Current Condition History of Current Condition Onset Date Six month history History of Current Condition Pt is an 84 year old female presenting for a return to skilled physical therapy secondary to low back, cervical, and shoulder pain. Pt has an extensive history of rehab for various injuries. Pt was seen for these same complaints four months ago, but due to difficulties waiting for insurance authorization, was only seen for one follow-up. Returns today with continued complaints. Has been working on her prior HEP. Is trying to become more active, riding bike 20 minutes/day. Admits that she has difficulty donning/doffing her shirt. Her low back hurts when trying to bend over. Unable to find anything that really helps her pain. PT-OP-C Subjective Start: 07/12/24 17:52 Freq: Status: Active Protocol: Document 08/10/24 11:30 DCW (Rec: 08/10/24 12:14 DCW [id number]) OP-PT Subjective Patient Comments Patient Comments Pt notes feeling pretty good today. PT-OP-F Manual Assessment Start: 07/12/24 17:52 Freq: Status: Active Protocol: Document 07/12/24 11:30 DCW (Rec: 07/13/24 09:36 DCW [id number]) Manual Assessments Soft Tissue Assessment Soft Tissue Mobility Assessment Moderate tone with tenderness to palpation: pain with wincing along SCM, scalenes, upper trap, cervical paraspinals, lumbar paraspinals, superior glutes PT-OP-K Range of Motion Start: 07/12/24 17:52 Freq: Status: Active Protocol: Document 07/12/24 11:30 DCW (Rec: 07/13/24 09:36 DCW [id number]) Cervical Spine Range of Motion Cervical Spine Active Degrees Testing Position Sitting Flexion 30 Extension 23 Rotation Left 55 Rotation Right 55 Lateral Flexion Left 30 Lateral Flexion Right 25 Comments Pain with lateral flexion Shoulder Goniometric Range of Motion Shoulder Right Active Testing Position Sitting Flexion 110 Abduction 76 External Rotation at 0 degrees Abduction 67 Internal Rotation Behind Back (text) T12 Left Active Testing Position Sitting Flexion 112 Abduction 86 External Rotation at 0 degrees Abduction 62 Internal Rotation Behind Back (text) T8 PT-OP-L Special Tests Start: 07/12/24 17:52 Freq: Status: Active Protocol: Document 07/12/24 11:30 DCW (Rec: 07/13/24 09:36 DCW [id number]) Special Tests Cervical Spine Special Tests Spurling's Test Test Results Negative Passive Neck Flexion Test Results Positive for posterior neck pain Foraminal Compression Test Results Negative Lumbar Spine Special Tests Vertical Spine Loading Test Results Negative Straight Leg Raise Test Results Negative Compression Test Results Negative A-P Shearing Test Results Negative Hip Special Tests Piriformis Test Results C/o tightness RALPH Test Results Negative PT-OP-Q Treatments Start: 07/12/24 17:52 Freq: Status: Active Protocol: Document 08/10/24 11:30 DCW (Rec: 08/10/24 12:14 DCW [id number]) Therapeutic Exercises Supine Exercises piriformis stretch Supine Exercise Name Piriformis stretch Side bilateral Single KtC Supine Exercise Name Single KtC Side bilateral Standing Exercises Wall Posture Standing Exercise Name Wall posture->hold->step away Triceps Standing Exercise Name Tricep pull-downs Side bilateral Resistance Green Shoulder Extension Standing Exercise Name Shoulder Extension Side bilateral Resistance Green Manual Therapy Treatment Consent Patient gave verbal consent for manual Yes treatment Soft Tissue Mobilization Shoulders Body Location post cuff, periscapluarl muscles, pec Mobilization Type Cross-Friction,Rolling, Strumming,Sustained Pressure Body Position Sidelying Comments and hooklying Cervical Spine Body Location Upper trap, cervical paraspinals, Scalenes, SCM Mobilization Type Cross-Friction,Rolling, Sustained Pressure Body Position Sitting Joint Mobilizations GH Joint B GH mobs Direction inf x10 Body Position Supine PT-OP-T Assessment and Plan Start: 07/12/24 17:52 Freq: Status: Active Protocol: Document 08/10/24 11:30 DCW (Rec: 08/10/24 12:14 DCW [id number]) Physical Therapy Assessment Assessment Summary Assessment Good response to treatment today, continue to work on cervical/shoulder strength and mobility, as well as lumbar stabilization. Physical Therapy Plan Frequency and Duration Frequency of Treatment 2x/Week Plan of Care Start Date 07/12/24 Plan of Care End Date 09/12/24 Therapeutic Interventions Therapeutic Interventions Home Exercise Program,Joint Mobilizations,Manual Therapy, Neuromuscular Re-education, Patient/Caregiver Education, Self-Care/Home Management,Soft Tissue Mobilization, Therapeutic Activities, Therapeutic Exercises Modalities Cold Pack/Ice Massage,Hot Packs Next Visit Focus/Plan Next Note Type Treatment Note Next Visit Plan Assess pt carryover of pullies for shoulder ROM/stretch, inquire if pt was able to setup correctly at home. STM, flexibility, shoulder strengthening Revisit wall slide/possibly add to HEP
--- NOTE | 2024-08-12 12:28 | PT.OTN ---
Current Diagnoses Other chronic pain (08/12/24) Low back pain, unspecified (08/12/24) Segmental and somatic dysfunction of cervical region (08/12/24) Segmental and somatic dysfunction of upper extremity (08/12/24) Physical Therapy Treatment Note PT-OP-A Visit Information Start: 07/12/24 17:52 Freq: Status: Active Protocol: Document 08/12/24 11:30 AB (Rec: 08/12/24 12:27 AB [id number]) Out-Patient Physical Therapy Visit Information Visit Information Visit Type Treatment Note Visit Start Time 11:35 Visit Stop Time 12:21 Visit Number 7 Number of WOOL CLEANER Visits 1 Evaluation Information Evaluation Date 07/12/24 PT-OP-B Current Condition Start: 07/12/24 17:52 Freq: Status: Active Protocol: Document 07/12/24 11:30 DCW (Rec: 07/13/24 09:48 DCW [id number]) Current Condition History of Current Condition Onset Date Six month history History of Current Condition Pt is an 84 year old female presenting for a return to skilled physical therapy secondary to low back, cervical, and shoulder pain. Pt has an extensive history of rehab for various injuries. Pt was seen for these same complaints four months ago, but due to difficulties waiting for insurance authorization, was only seen for one follow-up. Returns today with continued complaints. Has been working on her prior HEP. Is trying to become more active, riding bike 20 minutes/day. Admits that she has difficulty donning/doffing her shirt. Her low back hurts when trying to bend over. Unable to find anything that really helps her pain. PT-OP-C Subjective Start: 07/12/24 17:52 Freq: Status: Active Protocol: Document 08/12/24 11:30 AB (Rec: 08/12/24 12:27 AB [id number]) OP-PT Subjective Patient Comments Patient Comments Patient reports she is better, but when she reaches across her body forward toward right foot with left UE, sharp pain in back persists. CS rotation AROM R<L comments is a lot better. AROM shoulder flexion right 105 left 121 deg. Pt reports able to set up bands at home, but not the pulleys. PT-OP-F Manual Assessment Start: 07/12/24 17:52 Freq: Status: Active Protocol: Document 07/12/24 11:30 DCW (Rec: 07/13/24 09:36 DCW [id number]) Manual Assessments Soft Tissue Assessment Soft Tissue Mobility Assessment Moderate tone with tenderness to palpation: pain with wincing along SCM, scalenes, upper trap, cervical paraspinals, lumbar paraspinals, superior glutes PT-OP-K Range of Motion Start: 07/12/24 17:52 Freq: Status: Active Protocol: Document 07/12/24 11:30 DCW (Rec: 07/13/24 09:36 DCW [id number]) Cervical Spine Range of Motion Cervical Spine Active Degrees Testing Position Sitting Flexion 30 Extension 23 Rotation Left 55 Rotation Right 55 Lateral Flexion Left 30 Lateral Flexion Right 25 Comments Pain with lateral flexion Shoulder Goniometric Range of Motion Shoulder Right Active Testing Position Sitting Flexion 110 Abduction 76 External Rotation at 0 degrees Abduction 67 Internal Rotation Behind Back (text) T12 Left Active Testing Position Sitting Flexion 112 Abduction 86 External Rotation at 0 degrees Abduction 62 Internal Rotation Behind Back (text) T8 PT-OP-L Special Tests Start: 07/12/24 17:52 Freq: Status: Active Protocol: Document 07/12/24 11:30 DCW (Rec: 07/13/24 09:36 DCW [id number]) Special Tests Cervical Spine Special Tests Spurling's Test Test Results Negative Passive Neck Flexion Test Results Positive for posterior neck pain Foraminal Compression Test Results Negative Lumbar Spine Special Tests Vertical Spine Loading Test Results Negative Straight Leg Raise Test Results Negative Compression Test Results Negative A-P Shearing Test Results Negative Hip Special Tests Piriformis Test Results C/o tightness RALPH Test Results Negative PT-OP-Q Treatments Start: 07/12/24 17:52 Freq: Status: Active Protocol: Document 08/12/24 11:30 AB (Rec: 08/12/24 12:27 AB [id number]) Therapeutic Exercises Supine Exercises shoulder flexion Supine Exercise Name HEP Side bilateral Reps/Minutes X10 for 10 sec holds Comments verbal cues for direct of mvt and full 10 sec hold CS rotation Supine Exercise Name on occiptal float Side bilateral Reps/Minutes 3 min Comments verbal cues to perform slowly in pain free range Standing Exercises CS rotation in counter plank position Standing Exercise Name HEP Side bilateral Reps/Minutes X10 Comments verbal cues to perform slowly in pain free range L Stretch Side bilateral Reps/Minutes X10 Comments verbal and visual cues Triceps Standing Exercise Name Tricep pull-downs Side bilateral Resistance Green Reps/Minutes X15 Shoulder Extension Standing Exercise Name Shoulder Extension Side bilateral Resistance Green Reps/Minutes X15 Manual Therapy Treatment Consent Patient gave verbal consent for manual Yes treatment Soft Tissue Mobilization Shoulders Body Location post cuff, periscapluarl muscles, pec Mobilization Type Cross-Friction,Rolling, Strumming,Sustained Pressure Body Position Sidelying Comments and hooklying Joint Mobilizations scapular mobilization Joint B into depression and adduction Grade III Reps/Duration X10 each direction each shoulder GH Joint B GH mobs Direction inf x10 Body Position Supine PT-OP-T Assessment and Plan Start: 07/12/24 17:52 Freq: Status: Active Protocol: Document 08/12/24 11:30 AB (Rec: 08/12/24 12:27 AB [id number]) Physical Therapy Assessment Goals One Impairment Pt does not have an appropriate home exercise program Short Term Goal (STG) Pt to be independent and compliant with an appropriate HEP STG Duration 08/12/24 Three Impairment Limited shoulder ROM Impairment . Financial Auditor Goal (LTG) Pt to demonstrate improvement of AROM of bilateral shoulder flexion and abduction to >120? in order to improve ability to don/doff her clothing. LTG Duration 09/12/24 Two Impairment Limited cervical ROM, specifically flexion (30?) and R lat flexion (25?) Impairment . Financial Auditor Goal (LTG) Pt to demonstrate improvement in cervical ROM, with right lateral flexion >30? and flexion >40? in order to improve ability to check for traffic while driving LTG Duration 09/12/24 Assessment Summary Assessment Patient reports left back pain reaching toward floor to right side with L UE end of session, reports still feels tightness in this area with reaching end of session. AROM left shoulder 111 deg right 125 deg flexion end of session . Physical Therapy Plan Frequency and Duration Frequency of Treatment 2x/Week Plan of Care Start Date 07/12/24 Plan of Care End Date 09/12/24 Next Visit Focus/Plan Next Note Type Treatment Note Next Visit Plan Assess pt carryover of pullies for shoulder ROM/stretch, inquire if pt was able to setup correctly at home. STM, flexibility, shoulder strengthening Revisit wall slide/possibly add to HEP
--- NOTE | 2024-08-17 12:29 | PT.OTN ---
Current Diagnoses Other chronic pain (08/17/24) Low back pain, unspecified (08/17/24) Segmental and somatic dysfunction of cervical region (08/17/24) Segmental and somatic dysfunction of upper extremity (08/17/24) Physical Therapy Treatment Note PT-OP-A Visit Information Start: 07/12/24 17:52 Freq: Status: Active Protocol: Document 08/17/24 08:11 AB (Rec: 08/17/24 12:28 AB [id number]) Out-Patient Physical Therapy Visit Information Visit Information Visit Type Treatment Note Visit Start Time 11:32 Visit Stop Time 12:18 Visit Number 8 Number of OUTSOLE SPLICER Visits 1 Evaluation Information Evaluation Date 07/12/24 PT-OP-B Current Condition Start: 07/12/24 17:52 Freq: Status: Active Protocol: Document 07/12/24 11:30 DCW (Rec: 07/13/24 09:48 DCW [id number]) Current Condition History of Current Condition Onset Date Six month history History of Current Condition Pt is an 84 year old female presenting for a return to skilled physical therapy secondary to low back, cervical, and shoulder pain. Pt has an extensive history of rehab for various injuries. Pt was seen for these same complaints four months ago, but due to difficulties waiting for insurance authorization, was only seen for one follow-up. Returns today with continued complaints. Has been working on her prior HEP. Is trying to become more active, riding bike 20 minutes/day. Admits that she has difficulty donning/doffing her shirt. Her low back hurts when trying to bend over. Unable to find anything that really helps her pain. PT-OP-C Subjective Start: 07/12/24 17:52 Freq: Status: Active Protocol: Document 08/17/24 08:11 AB (Rec: 08/17/24 12:28 AB [id number]) OP-PT Subjective Patient Comments Patient Comments Patient into session wearing a back brace, reports feeling pretty good after Homero pulled on her leg, but the pain returned around Friday. Patient rates pain 4/10 back, shoulders were sore/muscle pain from exercising, but now are better. Patient reports increased back pain reaching down and left left LE, with back stabilized reports she still feels it, but less. AROM right shoulder flexion 118 deg start of session. PT-OP-F Manual Assessment Start: 12/09/24 17:52 Freq: Status: Active Protocol: Document 07/12/24 11:30 DCW (Rec: 07/13/24 09:36 DCW [id number]) Manual Assessments Soft Tissue Assessment Soft Tissue Mobility Assessment Moderate tone with tenderness to palpation: pain with wincing along SCM, scalenes, upper trap, cervical paraspinals, lumbar paraspinals, superior glutes PT-OP-K Range of Motion Start: 07/12/24 17:52 Freq: Status: Active Protocol: Document 07/12/24 11:30 DCW (Rec: 07/13/24 09:36 DCW [id number]) Cervical Spine Range of Motion Cervical Spine Active Degrees Testing Position Sitting Flexion 30 Extension 23 Rotation Left 55 Rotation Right 55 Lateral Flexion Left 30 Lateral Flexion Right 25 Comments Pain with lateral flexion Shoulder Goniometric Range of Motion Shoulder Right Active Testing Position Sitting Flexion 110 Abduction 76 External Rotation at 0 degrees Abduction 67 Internal Rotation Behind Back (text) T12 Left Active Testing Position Sitting Flexion 112 Abduction 86 External Rotation at 0 degrees Abduction 62 Internal Rotation Behind Back (text) T8 PT-OP-L Special Tests Start: 07/12/24 17:52 Freq: Status: Active Protocol: Document 07/12/24 11:30 DCW (Rec: 07/13/24 09:36 DCW [id number]) Special Tests Cervical Spine Special Tests Spurling's Test Test Results Negative Passive Neck Flexion Test Results Positive for posterior neck pain Foraminal Compression Test Results Negative Lumbar Spine Special Tests Vertical Spine Loading Test Results Negative Straight Leg Raise Test Results Negative Compression Test Results Negative A-P Shearing Test Results Negative Hip Special Tests Piriformis Test Results C/o tightness RALPH Test Results Negative PT-OP-Q Treatments Start: 07/12/24 17:52 Freq: Status: Active Protocol: Document 08/17/24 08:11 AB (Rec: 08/17/24 12:28 AB [id number]) Therapeutic Exercises Supine Exercises piriformis stretch Supine Exercise Name Piriformis stretch Side bilateral Reps/Minutes 60 shoulder flexion Supine Exercise Name HEP Side bilateral Reps/Minutes X10 for 10 sec holds Comments review, VC to hold full 10 seconds for gravity assisted stretch CS rotation Supine Exercise Name on occiptal float chest rover tender position for UE's Side bilateral Reps/Minutes 3 min Comments verbal cues to perform slowly in pain free range Single KtC Supine Exercise Name Single KtC Side right Reps/Minutes trial with and without towel roll Comments limited by groin main Standing Exercises row Standing Exercise Name stagger stance position, single arm Side bilateral Reps/Minutes X15 X 2 Comments verbal cues wall slide flexion Side bilateral Reps/Minutes X10 Comments verbal cues to step to wall, then step back with full flex lower w/o wall Manual Therapy Treatment Consent Patient gave verbal consent for manual Yes treatment Soft Tissue Mobilization Shoulders Body Location post cuff, periscapluarl muscles, pec Mobilization Type Cross-Friction,Rolling, Strumming,Sustained Pressure Body Position Sidelying Comments and hooklying Cervical Spine Body Location Upper trap, cervical paraspinals, Scalenes, SCM Mobilization Type Cross-Friction,Rolling, Sustained Pressure Body Position Sitting Joint Mobilizations scapular mobilization Joint B into depression and adduction GH Joint B GH mobs Direction inf x10 Body Position Supine PT-OP-T Assessment and Plan Start: 07/12/24 17:52 Freq: Status: Active Protocol: Document 08/17/24 08:11 AB (Rec: 08/17/24 12:28 AB [id number]) Physical Therapy Assessment Goals One Impairment Pt does not have an appropriate home exercise program Short Term Goal (STG) Pt to be independent and compliant with an appropriate HEP STG Duration 08/12/24 Three Impairment Limited shoulder ROM Impairment . Senior Living Goal (LTG) Pt to demonstrate improvement of AROM of bilateral shoulder flexion and abduction to >120? in order to improve ability to don/doff her clothing. LTG Duration 09/12/24 Two Impairment Limited cervical ROM, specifically flexion (30?) and R lat flexion (25?) Impairment . Senior Living Goal (LTG) Pt to demonstrate improvement in cervical ROM, with right lateral flexion >30? and flexion >40? in order to improve ability to check for traffic while driving LTG Duration 09/12/24 Assessment Summary Assessment AROM right shoulder flexion 142 deg end of session. Reports back has no pain end of session. Physical Therapy Plan Frequency and Duration Frequency of Treatment 2x/Week Plan of Care Start Date 07/12/24 Plan of Care End Date 09/12/24 Next Visit Focus/Plan Next Note Type Treatment Note Next Visit Plan Assess pt carryover of pullies for shoulder ROM/stretch, inquire if pt was able to setup correctly at home. STM, flexibility, shoulder strengthening Revisit wall slide/possibly add to HEP
--- NOTE | 2024-08-19 12:58 | PT.OTN ---
Current Diagnoses Other chronic pain (08/19/24) Low back pain, unspecified (08/19/24) Segmental and somatic dysfunction of cervical region (08/19/24) Segmental and somatic dysfunction of upper extremity (08/19/24) Physical Therapy Treatment Note PT-OP-A Visit Information Start: 07/12/24 17:52 Freq: Status: Active Protocol: Document 08/19/24 12:15 DCW (Rec: 08/19/24 12:58 DCW [id number]) Out-Patient Physical Therapy Visit Information Visit Information Visit Type Treatment Note Visit Start Time 12:15 Visit Stop Time 13:00 Visit Number 9 Number of DIRECTOR OF INSTITUTIONAL GIVING Visits 0 Evaluation Information Evaluation Date 07/12/24 PT-OP-B Current Condition Start: 07/12/24 17:52 Freq: Status: Active Protocol: Document 07/12/24 11:30 DCW (Rec: 07/13/24 09:48 DCW [id number]) Current Condition History of Current Condition Onset Date Six month history History of Current Condition Pt is an 84 year old female presenting for a return to skilled physical therapy secondary to low back, cervical, and shoulder pain. Pt has an extensive history of rehab for various injuries. Pt was seen for these same complaints four months ago, but due to difficulties waiting for insurance authorization, was only seen for one follow-up. Returns today with continued complaints. Has been working on her prior HEP. Is trying to become more active, riding bike 20 minutes/day. Admits that she has difficulty donning/doffing her shirt. Her low back hurts when trying to bend over. Unable to find anything that really helps her pain. PT-OP-C Subjective Start: 07/12/24 17:52 Freq: Status: Active Protocol: Document 08/19/24 12:15 DCW (Rec: 08/19/24 12:58 DCW [id number]) OP-PT Subjective Patient Comments Patient Comments Pt continues to wear back brace, admits it doesn't seem to do much. PT-OP-F Manual Assessment Start: 07/12/24 17:52 Freq: Status: Active Protocol: Document 07/12/24 11:30 DCW (Rec: 07/13/24 09:36 DCW [id number]) Manual Assessments Soft Tissue Assessment Soft Tissue Mobility Assessment Moderate tone with tenderness to palpation: pain with wincing along SCM, scalenes, upper trap, cervical paraspinals, lumbar paraspinals, superior glutes PT-OP-K Range of Motion Start: 07/12/24 17:52 Freq: Status: Active Protocol: Document 07/12/24 11:30 DCW (Rec: 07/13/24 09:36 DCW [id number]) Cervical Spine Range of Motion Cervical Spine Active Degrees Testing Position Sitting Flexion 30 Extension 23 Rotation Left 55 Rotation Right 55 Lateral Flexion Left 30 Lateral Flexion Right 25 Comments Pain with lateral flexion Shoulder Goniometric Range of Motion Shoulder Right Active Testing Position Sitting Flexion 110 Abduction 76 External Rotation at 0 degrees Abduction 67 Internal Rotation Behind Back (text) T12 Left Active Testing Position Sitting Flexion 112 Abduction 86 External Rotation at 0 degrees Abduction 62 Internal Rotation Behind Back (text) T8 PT-OP-L Special Tests Start: 07/12/24 17:52 Freq: Status: Active Protocol: Document 07/12/24 11:30 DCW (Rec: 07/13/24 09:36 DCW [id number]) Special Tests Cervical Spine Special Tests Spurling's Test Test Results Negative Passive Neck Flexion Test Results Positive for posterior neck pain Foraminal Compression Test Results Negative Lumbar Spine Special Tests Vertical Spine Loading Test Results Negative Straight Leg Raise Test Results Negative Compression Test Results Negative A-P Shearing Test Results Negative Hip Special Tests Piriformis Test Results C/o tightness RALPH Test Results Negative PT-OP-Q Treatments Start: 07/12/24 17:52 Freq: Status: Active Protocol: Document 08/19/24 12:15 DCW (Rec: 08/19/24 12:58 DCW [id number]) Therapeutic Exercises Supine Exercises Horizontal Adduction Supine Exercise Name Horizontal Adduction Side bilateral Resistance 2# Serratus Punch Supine Exercise Name Serratus Punch Side bilateral Resistance 2# piriformis stretch Supine Exercise Name Piriformis stretch Side bilateral Single KtC Supine Exercise Name Single KtC Side bilateral Standing Exercises Wall push-ups Standing Exercise Name Wall Push-ups Reps/Minutes x10 each Comments <> and W hand positions wall slide flexion Standing Exercise Name Wall slides Side bilateral Equipment Used Towel Manual Therapy Treatment Consent Patient gave verbal consent for manual Yes treatment Soft Tissue Mobilization Shoulders Body Location post cuff, periscapluarl muscles, pec Mobilization Type Cross-Friction,Rolling, Strumming,Sustained Pressure Body Position Hooklying Joint Mobilizations GH Joint B GH mobs Direction inf x10 Body Position Supine Manual Traction Lower Extremity Details Long-axis traction Body Position Supine Other Other Manual Treatments MWM - Resisted L hip flexion and R hip extension - 10 second hold PT-OP-T Assessment and Plan Start: 07/12/24 17:52 Freq: Status: Active Protocol: Document 08/19/24 12:15 DCW (Rec: 08/19/24 12:58 DCW [id number]) Physical Therapy Assessment Impairments Impairments Functional Activities, Functional Mobility,Pain, Posture,ROM,Soft Tissue Mobility,Strength,Tone Goals One Impairment Pt does not have an appropriate home exercise program Short Term Goal (STG) Pt to be independent and compliant with an appropriate HEP STG Duration 08/12/24 Three Impairment Limited shoulder ROM Global Sourcing Manager Goal (LTG) Pt to demonstrate improvement of AROM of bilateral shoulder flexion and abduction to >120? in order to improve ability to don/doff her clothing. LTG Duration 09/12/24 Two Impairment Limited cervical ROM, specifically flexion (30?) and R lat flexion (25?) Assisted Goal (LTG) Pt to demonstrate improvement in cervical ROM, with right lateral flexion >30? and flexion >40? in order to improve ability to check for traffic while driving LTG Duration 09/12/24 Assessment Summary Assessment Pt showing slow but steady progress overall, feeling like she is seeing improvement with her shoulder mobility and pain. Continue to focus on shoulder/UE strength, spinal mobility, flexibility. Physical Therapy Plan Frequency and Duration Frequency of Treatment 2x/Week Plan of Care Start Date 07/12/24 Plan of Care End Date 09/12/24 Next Visit Focus/Plan Next Note Type Treatment Note Next Visit Plan Assess pt carryover of pullies for shoulder ROM/stretch, inquire if pt was able to setup correctly at home. STM, flexibility, shoulder strengthening Revisit wall slide/possibly add to HEP
--- NOTE | 2024-08-24 12:27 | PT.OTN ---
Current Diagnoses Other chronic pain (08/24/24) Low back pain, unspecified (08/24/24) Segmental and somatic dysfunction of cervical region (08/24/24) Segmental and somatic dysfunction of upper extremity (08/24/24) Physical Therapy Treatment Note PT-OP-A Visit Information Start: 07/12/24 17:52 Freq: Status: Active Protocol: Document 08/24/24 10:36 AB (Rec: 08/24/24 12:27 AB [id number]) Out-Patient Physical Therapy Visit Information Visit Information Visit Type Treatment Note Visit Start Time 10:48 Visit Stop Time 11:33 Visit Number 10 Number of CUSTOM BIKE BUILDER Visits 1 Evaluation Information Evaluation Date 07/12/24 PT-OP-B Current Condition Start: 07/12/24 17:52 Freq: Status: Active Protocol: Document 07/12/24 11:30 DCW (Rec: 07/13/24 09:48 DCW [id number]) Current Condition History of Current Condition Onset Date Six month history History of Current Condition Pt is an 84 year old female presenting for a return to skilled physical therapy secondary to low back, cervical, and shoulder pain. Pt has an extensive history of rehab for various injuries. Pt was seen for these same complaints four months ago, but due to difficulties waiting for insurance authorization, was only seen for one follow-up. Returns today with continued complaints. Has been working on her prior HEP. Is trying to become more active, riding bike 20 minutes/day. Admits that she has difficulty donning/doffing her shirt. Her low back hurts when trying to bend over. Unable to find anything that really helps her pain. PT-OP-C Subjective Start: 07/12/24 17:52 Freq: Status: Active Protocol: Document 08/24/24 10:36 AB (Rec: 08/24/24 12:27 AB [id number]) OP-PT Subjective Patient Comments Patient Comments Patient reports the shoulders are worse than back, comments she was good after using the weights for shoulders last session. AROM right shoulder flexion 122 deg start of session PT-OP-F Manual Assessment Start: 07/12/24 17:52 Freq: Status: Active Protocol: Document 07/12/24 11:30 DCW (Rec: 07/13/24 09:36 DCW [id number]) Manual Assessments Soft Tissue Assessment Soft Tissue Mobility Assessment Moderate tone with tenderness to palpation: pain with wincing along SCM, scalenes, upper trap, cervical paraspinals, lumbar paraspinals, superior glutes PT-OP-K Range of Motion Start: 07/12/24 17:52 Freq: Status: Active Protocol: Document 07/12/24 11:30 DCW (Rec: 07/13/24 09:36 DCW [id number]) Cervical Spine Range of Motion Cervical Spine Active Degrees Testing Position Sitting Flexion 30 Extension 23 Rotation Left 55 Rotation Right 55 Lateral Flexion Left 30 Lateral Flexion Right 25 Comments Pain with lateral flexion Shoulder Goniometric Range of Motion Shoulder Right Active Testing Position Sitting Flexion 110 Abduction 76 External Rotation at 0 degrees Abduction 67 Internal Rotation Behind Back (text) T12 Left Active Testing Position Sitting Flexion 112 Abduction 86 External Rotation at 0 degrees Abduction 62 Internal Rotation Behind Back (text) T8 PT-OP-L Special Tests Start: 07/12/24 17:52 Freq: Status: Active Protocol: Document 07/12/24 11:30 DCW (Rec: 07/13/24 09:36 DCW [id number]) Special Tests Cervical Spine Special Tests Spurling's Test Test Results Negative Passive Neck Flexion Test Results Positive for posterior neck pain Foraminal Compression Test Results Negative Lumbar Spine Special Tests Vertical Spine Loading Test Results Negative Straight Leg Raise Test Results Negative Compression Test Results Negative A-P Shearing Test Results Negative Hip Special Tests Piriformis Test Results C/o tightness RALPH Test Results Negative PT-OP-Q Treatments Start: 07/12/24 17:52 Freq: Status: Active Protocol: Document 08/24/24 10:36 AB (Rec: 08/24/24 12:27 AB [id number]) Therapeutic Exercises Supine Exercises Horizontal Adduction Supine Exercise Name Horizontal Adduction Side bilateral Resistance 2# Reps/Minutes X10 Serratus Punch Supine Exercise Name Serratus Punch Side bilateral Resistance 2# Reps/Minutes X10 CS rotation Supine Exercise Name on occiptal float chest motor and controls tester position for UE's Side bilateral Reps/Minutes 3 min Comments verbal cues to perform slowly in pain free range Sitting Exercises Pullies Sitting Exercise Name Seated and standing flexion and abduction Side bilateral Reps/Minutes 1-2 min each Comments Verbal cues for UE positioning , monitored for pain Manual Therapy Treatment Soft Tissue Mobilization Shoulders Body Location post cuff, periscapluarl muscles, pec Mobilization Type Cross-Friction,Rolling, Strumming,Sustained Pressure Body Position Hooklying Cervical Spine Body Location Upper trap, cervical paraspinals, Scalenes, SCM Joint Mobilizations scapular mobilization Joint B into depression and adduction GH Joint B GH mobs Direction inf and AP X10 S 2 each Body Position Supine PT-OP-T Assessment and Plan Start: 07/12/24 17:52 Freq: Status: Active Protocol: Document 08/24/24 10:36 AB (Rec: 08/24/24 12:27 AB [id number]) Physical Therapy Assessment Goals One Impairment Pt does not have an appropriate home exercise program Short Term Goal (STG) Pt to be independent and compliant with an appropriate HEP STG Duration 08/12/24 Three Impairment Limited shoulder ROM Impairment . Long-Term Goal (LTG) Pt to demonstrate improvement of AROM of bilateral shoulder flexion and abduction to >120? in order to improve ability to don/doff her clothing. 08/24/2024 AROM right shoulder flexion 122 deg start of session LTG Duration 09/12/24 Two Impairment Limited cervical ROM, specifically flexion (30?) and R lat flexion (25?) Impairment . Stopping Builder Goal (LTG) Pt to demonstrate improvement in cervical ROM, with right lateral flexion >30? and flexion >40? in order to improve ability to check for traffic while driving LTG Duration 09/12/24 Assessment Summary Assessment AROM right shoulder flexion 140 deg end of session, patient commenting she feels good. Physical Therapy Plan Frequency and Duration Frequency of Treatment 2x/Week Plan of Care Start Date 07/12/24 Plan of Care End Date 09/12/24 Next Visit Focus/Plan Next Note Type Treatment Note Next Visit Plan Assess pt carryover of pullies for shoulder ROM/stretch, inquire if pt was able to setup correctly at home. STM, flexibility, shoulder strengthening Revisit wall slide/possibly add to HEP
--- NOTE | 2024-08-26 12:30 | PT.OTN ---
Current Diagnoses Other chronic pain (08/26/24) Low back pain, unspecified (08/26/24) Segmental and somatic dysfunction of cervical region (08/26/24) Segmental and somatic dysfunction of upper extremity (08/26/24) Physical Therapy Treatment Note PT-OP-A Visit Information Start: 07/12/24 17:52 Freq: Status: Active Protocol: Document 08/26/24 10:39 AB (Rec: 08/26/24 12:29 AB [id number]) Out-Patient Physical Therapy Visit Information Visit Information Visit Type Treatment Note Visit Start Time 10:47 Visit Stop Time 11:33 Visit Number 11 Number of DEHYDRATOR OPERATOR Visits 2 Evaluation Information Evaluation Date 07/12/24 PT-OP-B Current Condition Start: 07/12/24 17:52 Freq: Status: Active Protocol: Document 07/12/24 11:30 DCW (Rec: 07/13/24 09:48 DCW [id number]) Current Condition History of Current Condition Onset Date Six month history History of Current Condition Pt is an 84 year old female presenting for a return to skilled physical therapy secondary to low back, cervical, and shoulder pain. Pt has an extensive history of rehab for various injuries. Pt was seen for these same complaints four months ago, but due to difficulties waiting for insurance authorization, was only seen for one follow-up. Returns today with continued complaints. Has been working on her prior HEP. Is trying to become more active, riding bike 20 minutes/day. Admits that she has difficulty donning/doffing her shirt. Her low back hurts when trying to bend over. Unable to find anything that really helps her pain. PT-OP-C Subjective Start: 07/12/24 17:52 Freq: Status: Active Protocol: Document 08/26/24 10:39 AB (Rec: 08/26/24 12:29 AB [id number]) OP-PT Subjective Patient Comments Patient Comments Patient reports shoulder is better. Patient reports the clothes are on the pulleys and and door hook. AROM right shuoulder flexion 122 deg start of session PT-OP-F Manual Assessment Start: 07/12/24 17:52 Freq: Status: Active Protocol: Document 07/12/24 11:30 DCW (Rec: 07/13/24 09:36 DCW [id number]) Manual Assessments Soft Tissue Assessment Soft Tissue Mobility Assessment Moderate tone with tenderness to palpation: pain with wincing along SCM, scalenes, upper trap, cervical paraspinals, lumbar paraspinals, superior glutes PT-OP-K Range of Motion Start: 07/12/24 17:52 Freq: Status: Active Protocol: Document 07/12/24 11:30 DCW (Rec: 07/13/24 09:36 DCW [id number]) Cervical Spine Range of Motion Cervical Spine Active Degrees Testing Position Sitting Flexion 30 Extension 23 Rotation Left 55 Rotation Right 55 Lateral Flexion Left 30 Lateral Flexion Right 25 Comments Pain with lateral flexion Shoulder Goniometric Range of Motion Shoulder Right Active Testing Position Sitting Flexion 110 Abduction 76 External Rotation at 0 degrees Abduction 67 Internal Rotation Behind Back (text) T12 Left Active Testing Position Sitting Flexion 112 Abduction 86 External Rotation at 0 degrees Abduction 62 Internal Rotation Behind Back (text) T8 PT-OP-L Special Tests Start: 07/12/24 17:52 Freq: Status: Active Protocol: Document 07/12/24 11:30 DCW (Rec: 07/13/24 09:36 DCW [id number]) Special Tests Cervical Spine Special Tests Spurling's Test Test Results Negative Passive Neck Flexion Test Results Positive for posterior neck pain Foraminal Compression Test Results Negative Lumbar Spine Special Tests Vertical Spine Loading Test Results Negative Straight Leg Raise Test Results Negative Compression Test Results Negative A-P Shearing Test Results Negative Hip Special Tests Piriformis Test Results C/o tightness RALPH Test Results Negative PT-OP-Q Treatments Start: 07/12/24 17:52 Freq: Status: Active Protocol: Document 08/26/24 10:39 AB (Rec: 08/26/24 12:29 AB [id number]) Cardio Equipment Upper Body Ergometer (UBE) Duration (Minutes) 2 RPM 120 Seat Position 11 Height 2 Other one retro one fwd Therapeutic Exercises Sidelying Exercises Shoulder AROM Sidelying Exercise Name ER and abd Side bilateral Reps/Minutes X10 each Comments Verbal and tactile cues Open Book Sidelying Exercise Name Open Book Side bilateral Reps/Minutes X10 each side Comments verbal cues to decrease velocity Standing Exercises Wall push-ups Standing Exercise Name Wall Push-ups ( plus) on counter Reps/Minutes x12 each Comments <> wall slide flexion Standing Exercise Name Wall slides Side bilateral Equipment Used Towel Reps/Minutes X10 Comments with lift off and lower without wall Manual Therapy Treatment Consent Patient gave verbal consent for manual Yes treatment Soft Tissue Mobilization Shoulders Body Location post cuff, periscapluarl muscles, pec Mobilization Type Cross-Friction,Rolling, Strumming,Sustained Pressure Body Position Hooklying Cervical Spine Body Location Upper trap, cervical paraspinals, Scalenes, SCM Mobilization Type Cross-Friction,Rolling, Sustained Pressure Body Position Sitting Joint Mobilizations scapular mobilization Joint B into depression and adduction GH Joint B GH mobs Direction inf and AP X10 S 2 each Body Position Supine PT-OP-T Assessment and Plan Start: 07/12/24 17:52 Freq: Status: Active Protocol: Document 08/26/24 10:39 AB (Rec: 08/26/24 12:29 AB [id number]) Physical Therapy Assessment Goals One Impairment Pt does not have an appropriate home exercise program Short Term Goal (STG) Pt to be independent and compliant with an appropriate HEP STG Duration 08/12/24 Three Impairment Limited shoulder ROM Impairment . Retirement Goal (LTG) Pt to demonstrate improvement of AROM of bilateral shoulder flexion and abduction to >120? in order to improve ability to don/doff her clothing. 08/24/2024 AROM right shoulder flexion 122 deg start of session LTG Duration 09/12/24 Two Impairment Limited cervical ROM, specifically flexion (30?) and R lat flexion (25?) Impairment . Retirement Goal (LTG) Pt to demonstrate improvement in cervical ROM, with right lateral flexion >30? and flexion >40? in order to improve ability to check for traffic while driving LTG Duration 09/12/24 Assessment Summary Assessment AROM right shoulder flexion 133 end of session, patient commenting she is good. Physical Therapy Plan Frequency and Duration Frequency of Treatment 2x/Week Plan of Care Start Date 07/12/24 Plan of Care End Date 09/12/24 Next Visit Focus/Plan Next Note Type Treatment Note Next Visit Plan Assess pt carryover of pullies for shoulder ROM/stretch, inquire if pt was able to setup correctly at home. STM, flexibility, shoulder strengthening Revisit wall slide/possibly add to HEP
--- NOTE | 2024-09-01 12:13 | PT.OTN ---
Current Diagnoses Other chronic pain (09/01/24) Low back pain, unspecified (09/01/24) Segmental and somatic dysfunction of cervical region (09/01/24) Segmental and somatic dysfunction of upper extremity (09/01/24) Physical Therapy Treatment Note PT-OP-A Visit Information Start: 07/12/24 17:52 Freq: Status: Active Protocol: Document 09/01/24 11:33 DCW (Rec: 09/01/24 12:13 DCW [id number]) Out-Patient Physical Therapy Visit Information Visit Information Visit Type Treatment Note Visit Start Time 11:33 Visit Stop Time 12:15 Visit Number 12 Number of ECG TECHNICIAN Visits 0 Evaluation Information Evaluation Date 07/12/24 PT-OP-B Current Condition Start: 07/12/24 17:52 Freq: Status: Active Protocol: Document 07/12/24 11:30 DCW (Rec: 07/13/24 09:48 DCW [id number]) Current Condition History of Current Condition Onset Date Six month history History of Current Condition Pt is an 84 year old female presenting for a return to skilled physical therapy secondary to low back, cervical, and shoulder pain. Pt has an extensive history of rehab for various injuries. Pt was seen for these same complaints four months ago, but due to difficulties waiting for insurance authorization, was only seen for one follow-up. Returns today with continued complaints. Has been working on her prior HEP. Is trying to become more active, riding bike 20 minutes/day. Admits that she has difficulty donning/doffing her shirt. Her low back hurts when trying to bend over. Unable to find anything that really helps her pain. PT-OP-C Subjective Start: 07/12/24 17:52 Freq: Status: Active Protocol: Document 09/01/24 11:33 DCW (Rec: 09/01/24 12:13 DCW [id number]) OP-PT Subjective Patient Comments Patient Comments Pt feels her right arm mobility is improving, but her left feels like it's stuck. Her neck continues to give her problems dueing the night, but feels better in the morning. PT-OP-F Manual Assessment Start: 07/12/24 17:52 Freq: Status: Active Protocol: Document 07/12/24 11:30 DCW (Rec: 07/13/24 09:36 DCW [id number]) Manual Assessments Soft Tissue Assessment Soft Tissue Mobility Assessment Moderate tone with tenderness to palpation: pain with wincing along SCM, scalenes, upper trap, cervical paraspinals, lumbar paraspinals, superior glutes PT-OP-K Range of Motion Start: 07/12/24 17:52 Freq: Status: Active Protocol: Document 07/12/24 11:30 DCW (Rec: 07/13/24 09:36 DCW [id number]) Cervical Spine Range of Motion Cervical Spine Active Degrees Testing Position Sitting Flexion 30 Extension 23 Rotation Left 55 Rotation Right 55 Lateral Flexion Left 30 Lateral Flexion Right 25 Comments Pain with lateral flexion Shoulder Goniometric Range of Motion Shoulder Right Active Testing Position Sitting Flexion 110 Abduction 76 External Rotation at 0 degrees Abduction 67 Internal Rotation Behind Back (text) T12 Left Active Testing Position Sitting Flexion 112 Abduction 86 External Rotation at 0 degrees Abduction 62 Internal Rotation Behind Back (text) T8 PT-OP-L Special Tests Start: 07/12/24 17:52 Freq: Status: Active Protocol: Document 07/12/24 11:30 DCW (Rec: 07/13/24 09:36 [facility] [id number]) Special Tests Cervical Spine Special Tests Spurling's Test Test Results Negative Passive Neck Flexion Test Results Positive for posterior neck pain Foraminal Compression Test Results Negative Lumbar Spine Special Tests Vertical Spine Loading Test Results Negative Straight Leg Raise Test Results Negative Compression Test Results Negative A-P Shearing Test Results Negative Hip Special Tests Piriformis Test Results C/o tightness RALPH Test Results Negative PT-OP-Q Treatments Start: 07/12/24 17:52 Freq: Status: Active Protocol: Document 09/01/24 11:33 DCW (Rec: 09/01/24 12:13 DCW [id number]) Therapeutic Exercises Supine Exercises piriformis stretch Supine Exercise Name Piriformis stretch Side bilateral shoulder flexion Supine Exercise Name Shoulder Flexion /c PVC Side bilateral Resistance 4# Reps/Minutes x10 for 5 sec holds Single KtC Supine Exercise Name Single KtC Side bilateral Standing Exercises Pallof Press Standing Exercise Name Pallof Press Side bilateral Resistance Green Wall push-ups Standing Exercise Name Wall Push-ups (plus) on counter Reps/Minutes x12 each Comments <> and W hand positions Wall Posture Standing Exercise Name Wall posture->hold->step away Triceps Standing Exercise Name Tricep pull-downs Side bilateral Resistance Green Reps/Minutes x15 Manual Therapy Treatment Consent Patient gave verbal consent for manual Yes treatment Soft Tissue Mobilization Shoulders Body Location post cuff, periscapluarl muscles, pec Mobilization Type Cross-Friction,Rolling, Strumming,Sustained Pressure Body Position Hooklying Cervical Spine Body Location Upper trap, cervical paraspinals, Scalenes, SCM Mobilization Type Cross-Friction,Rolling, Sustained Pressure Body Position Sitting Joint Mobilizations scapular mobilization Joint B into depression and adduction GH Joint B GH mobs Direction inf and AP X10 S 2 each Body Position Supine PT-OP-T Assessment and Plan Start: 07/12/24 17:52 Freq: Status: Active Protocol: Document 09/01/24 11:33 DCW (Rec: 09/01/24 12:13 DCW [id number]) Physical Therapy Assessment Goals One Impairment Pt does not have an appropriate home exercise program Short Term Goal (STG) Pt to be independent and compliant with an appropriate HEP STG Duration 08/12/24 Three Impairment Limited shoulder ROM Impairment . Retirement Goal (LTG) Pt to demonstrate improvement of AROM of bilateral shoulder flexion and abduction to >120? in order to improve ability to don/doff her clothing. 08/24/2024 AROM right shoulder flexion 122 deg start of session LTG Duration 09/12/24 Two Impairment Limited cervical ROM, specifically flexion (30?) and R lat flexion (25?) Impairment . Certified Composites Technician Goal (LTG) Pt to demonstrate improvement in cervical ROM, with right lateral flexion >30? and flexion >40? in order to improve ability to check for traffic while driving LTG Duration 09/12/24 Assessment Summary Assessment Pt demonstrating some improvement with posture, increasing shoulder mobility bilaterally. Continue to focus on spinal mobility, decreasing shoulder pain, and improving functional ability. Physical Therapy Plan Frequency and Duration Frequency of Treatment 2x/Week Plan of Care Start Date 07/12/24 Plan of Care End Date 09/12/24 Therapeutic Interventions Therapeutic Interventions Home Exercise Program,Joint Mobilizations,Manual Therapy, Neuromuscular Re-education, Patient/Caregiver Education, Self-Care/Home Management,Soft Tissue Mobilization, Therapeutic Activities, Therapeutic Exercises Modalities Cold Pack/Ice Massage,Hot Packs Next Visit Focus/Plan Next Note Type Treatment Note Next Visit Plan STM, flexibility, shoulder strengthening Revisit wall slide/possibly add to HEP
--- NOTE | 2024-09-09 12:51 | PT.OTN ---
Current Diagnoses Other chronic pain (09/09/24) Low back pain, unspecified (09/09/24) Segmental and somatic dysfunction of cervical region (09/09/24) Segmental and somatic dysfunction of upper extremity (09/09/24) Physical Therapy Treatment Note PT-OP-A Visit Information Start: 07/12/24 17:52 Freq: Status: Active Protocol: Document 09/09/24 10:05 AB (Rec: 09/09/24 12:51 AB [id number]) Out-Patient Physical Therapy Visit Information Visit Information Visit Type Treatment Note Visit Start Time 11:33 Visit Stop Time 12:19 Visit Number 14 Number of TAR WORKER Visits 2 Evaluation Information Evaluation Date 07/12/24 PT-OP-B Current Condition Start: 07/12/24 17:52 Freq: Status: Active Protocol: Document 07/12/24 11:30 DCW (Rec: 07/13/24 09:48 DCW [id number]) Current Condition History of Current Condition Onset Date Six month history History of Current Condition Pt is an 84 year old female presenting for a return to skilled physical therapy secondary to low back, cervical, and shoulder pain. Pt has an extensive history of rehab for various injuries. Pt was seen for these same complaints four months ago, but due to difficulties waiting for insurance authorization, was only seen for one follow-up. Returns today with continued complaints. Has been working on her prior HEP. Is trying to become more active, riding bike 20 minutes/day. Admits that she has difficulty donning/doffing her shirt. Her low back hurts when trying to bend over. Unable to find anything that really helps her pain. PT-OP-C Subjective Start: 07/12/24 17:52 Freq: Status: Active Protocol: Document 09/09/24 10:05 AB (Rec: 09/09/24 12:51 AB [id number]) OP-PT Subjective Patient Comments Patient Comments Patient reports she shoulders are good, is using the pulleys . AROM left shoulder flexion 125 deg start of session. PT-OP-F Manual Assessment Start: 07/12/24 17:52 Freq: Status: Active Protocol: Document 07/12/24 11:30 DCW (Rec: 07/13/24 09:36 DCW [id number]) Manual Assessments Soft Tissue Assessment Soft Tissue Mobility Assessment Moderate tone with tenderness to palpation: pain with wincing along SCM, scalenes, upper trap, cervical paraspinals, lumbar paraspinals, superior glutes PT-OP-K Range of Motion Start: 07/12/24 17:52 Freq: Status: Active Protocol: Document 07/12/24 11:30 DCW (Rec: 07/13/24 09:36 DCW [id number]) Cervical Spine Range of Motion Cervical Spine Active Degrees Testing Position Sitting Flexion 30 Extension 23 Rotation Left 55 Rotation Right 55 Lateral Flexion Left 30 Lateral Flexion Right 25 Comments Pain with lateral flexion Shoulder Goniometric Range of Motion Shoulder Right Active Testing Position Sitting Flexion 110 Abduction 76 External Rotation at 0 degrees Abduction 67 Internal Rotation Behind Back (text) T12 Left Active Testing Position Sitting Flexion 112 Abduction 86 External Rotation at 0 degrees Abduction 62 Internal Rotation Behind Back (text) T8 PT-OP-L Special Tests Start: 07/12/24 17:52 Freq: Status: Active Protocol: Document 07/12/24 11:30 DCW (Rec: 07/13/24 09:36 DCW [id number]) Special Tests Cervical Spine Special Tests Spurling's Test Test Results Negative Passive Neck Flexion Test Results Positive for posterior neck pain Foraminal Compression Test Results Negative Lumbar Spine Special Tests Vertical Spine Loading Test Results Negative Straight Leg Raise Test Results Negative Compression Test Results Negative A-P Shearing Test Results Negative Hip Special Tests Piriformis Test Results C/o tightness RALPH Test Results Negative PT-OP-Q Treatments Start: 07/12/24 17:52 Freq: Status: Active Protocol: Document 09/09/24 10:05 AB (Rec: 09/09/24 12:51 AB [id number]) Therapeutic Exercises Supine Exercises Serratus Punch Supine Exercise Name Serratus Punch Side bilateral Resistance 2# Reps/Minutes X10 piriformis stretch Supine Exercise Name Piriformis stretch Side bilateral CS rotation Supine Exercise Name on occiptal float chest collections attorney position for UE's Side bilateral Reps/Minutes 2 min Comments verbal cues to perform slowly in pain free range Sitting Exercises short sit to upright Side bilateral Reps/Minutes 8X Comments verbal and visual Standing Exercises Pallof Press Standing Exercise Name Pallof Press Side bilateral Resistance Green Comments X20 each side, VC for hands clasped row Standing Exercise Name bent row Side bilateral Resistance 3 # intiated with 2 on R Pt comments too easy Reps/Minutes X15 Comments verbal cues Therapeutic Activity Therapeutic Activity sidelying to sit Reps/Minutes from left sidelying, unable without Mod to max assist Comments verbal cues PT-OP-T Assessment and Plan Start: 07/12/24 17:52 Freq: Status: Active Protocol: Document 09/09/24 10:05 AB (Rec: 09/09/24 12:51 AB [id number]) Physical Therapy Assessment Goals One Impairment Pt does not have an appropriate home exercise program Short Term Goal (STG) Pt to be independent and compliant with an appropriate HEP STG Duration 08/12/24 Three Impairment Limited shoulder ROM Impairment . Residential Goal (LTG) Pt to demonstrate improvement of AROM of bilateral shoulder flexion and abduction to >120? in order to improve ability to don/doff her clothing. 08/24/2024 AROM right shoulder flexion 122 deg start of session LTG Duration 09/12/24 Two Impairment Limited cervical ROM, specifically flexion (30?) and R lat flexion (25?) Impairment . Residential Goal (LTG) Pt to demonstrate improvement in cervical ROM, with right lateral flexion >30? and flexion >40? in order to improve ability to check for traffic while driving LTG Duration 09/12/24 Assessment Summary Assessment AROM right shoulder flexion 116 deg end of session likely due to fatigue Physical Therapy Plan Frequency and Duration Frequency of Treatment 2x/Week Plan of Care Start Date 07/12/24 Plan of Care End Date 09/12/24 Next Visit Focus/Plan Next Note Type Treatment Note Next Visit Plan STM, flexibility, shoulder strengthening Revisit wall slide/possibly add to HEP
--- NOTE | 2024-09-14 12:56 | PT.OTN ---
Current Diagnoses Other chronic pain (09/14/24) Low back pain, unspecified (09/14/24) Segmental and somatic dysfunction of cervical region (09/14/24) Segmental and somatic dysfunction of upper extremity (09/14/24) Physical Therapy Treatment Note PT-OP-A Visit Information Start: 07/12/24 17:52 Freq: Status: Active Protocol: Document 09/14/24 12:18 DCW (Rec: 09/14/24 12:55 DCW [id number]) Out-Patient Physical Therapy Visit Information Visit Information Visit Type Progress Note Visit Start Time 12:18 Visit Stop Time 13:00 Visit Number 15 Number of HOME THEATER EXPERIENCE EXPERT Visits 0 Evaluation Information Evaluation Date 07/12/24 PT-OP-B Current Condition Start: 07/12/24 17:52 Freq: Status: Active Protocol: Document 07/12/24 11:30 DCW (Rec: 07/13/24 09:48 DCW [id number]) Current Condition History of Current Condition Onset Date Six month history History of Current Condition Pt is an 84 year old female presenting for a return to skilled physical therapy secondary to low back, cervical, and shoulder pain. Pt has an extensive history of rehab for various injuries. Pt was seen for these same complaints four months ago, but due to difficulties waiting for insurance authorization, was only seen for one follow-up. Returns today with continued complaints. Has been working on her prior HEP. Is trying to become more active, riding bike 20 minutes/day. Admits that she has difficulty donning/doffing her shirt. Her low back hurts when trying to bend over. Unable to find anything that really helps her pain. PT-OP-C Subjective Start: 07/12/24 17:52 Freq: Status: Active Protocol: Document 09/14/24 12:18 DCW (Rec: 09/14/24 12:55 DCW [id number]) OP-PT Subjective Patient Comments Patient Comments Pt feeling much better, both her neck and shoulders are much more mobile, feeling very comfortable with current HEP. PT-OP-F Manual Assessment Start: 07/12/24 17:52 Freq: Status: Active Protocol: Document 09/14/24 12:18 DCW (Rec: 09/14/24 12:27 DCW [id number]) Manual Assessments Soft Tissue Assessment Soft Tissue Mobility Assessment Mild tone with tenderness to palpation: pain with wincing along SCM, scalenes, upper trap, cervical paraspinals, lumbar paraspinals, superior glutes PT-OP-K Range of Motion Start: 07/12/24 17:52 Freq: Status: Active Protocol: Document 09/14/24 12:18 DCW (Rec: 09/14/24 12:27 DCW [id number]) Cervical Spine Range of Motion Cervical Spine Active Degrees Testing Position Sitting Flexion 60 Extension 20 Rotation Left 64 Rotation Right 59 Lateral Flexion Left 40 Lateral Flexion Right 40 Shoulder Goniometric Range of Motion Shoulder Right Active Testing Position Sitting Flexion 148 Abduction 102 External Rotation at 0 degrees Abduction 82 Internal Rotation Behind Back (text) T10 Left Active Testing Position Sitting Flexion 138 Abduction 104 External Rotation at 0 degrees Abduction 61 Internal Rotation Behind Back (text) T6 PT-OP-L Special Tests Start: 07/12/24 17:52 Freq: Status: Active Protocol: Document 09/14/24 12:18 DCW (Rec: 09/14/24 12:27 DCW [id number]) Special Tests Cervical Spine Special Tests Spurling's Test Test Results Negative Passive Neck Flexion Test Results Negative Foraminal Compression Test Results Negative Lumbar Spine Special Tests Vertical Spine Loading Test Results Negative Straight Leg Raise Test Results Negative Compression Test Results Negative A-P Shearing Test Results Negative PT-OP-Q Treatments Start: 07/12/24 17:52 Freq: Status: Active Protocol: Document 09/14/24 12:18 DCW (Rec: 09/14/24 12:55 DCW [id number]) Manual Therapy Treatment Consent Patient gave verbal consent for manual Yes treatment Soft Tissue Mobilization Shoulders Body Location post cuff, periscapluarl muscles, pec Mobilization Type Cross-Friction,Rolling, Strumming,Sustained Pressure Body Position Hooklying Cervical Spine Body Location Upper trap, cervical paraspinals, Scalenes, SCM Mobilization Type Cross-Friction,Rolling, Sustained Pressure Body Position Sitting Joint Mobilizations GH Joint B GH mobs Direction inf and AP x10 S 2 each Body Position Supine PT-OP-T Assessment and Plan Start: 07/12/24 17:52 Freq: Status: Active Protocol: Document 09/14/24 12:18 DCW (Rec: 09/14/24 12:55 DCW [id number]) Physical Therapy Assessment Impairments Impairments Functional Activities, Functional Mobility,Pain, Posture,ROM,Soft Tissue Mobility,Strength,Tone Goals One Impairment Pt does not have an appropriate home exercise program Short Term Goal (STG) Pt to be independent and compliant with an appropriate HEP STG Duration Met Three Impairment Limited shoulder ROM Impairment . Senior Living Goal (LTG) Pt to demonstrate improvement of AROM of bilateral shoulder flexion and abduction to >120? in order to improve ability to don/doff her clothing. 08/24/2024 AROM right shoulder flexion 122 deg start of session LTG Duration 09/23/24 - Improving Two Impairment Limited cervical ROM, specifically flexion (30?) and R lat flexion (25?) Impairment . Corporate Physical Security Supervisor Goal (LTG) Pt to demonstrate improvement in cervical ROM, with right lateral flexion >30? and flexion >40? in order to improve ability to check for traffic while driving LTG Duration Met Assessment Summary Assessment Pt making great progress, has met nearly all goals. Still limited with bilateral shoulder abduction <105?. Feels comfortable with most of HEP. Will return one more time for full review and to address questions, pt will then be discharged to independent HEP. Physical Therapy Plan Frequency and Duration Frequency of Treatment 2x/Week Plan of Care Start Date 09/14/24 Plan of Care End Date 09/23/24 Next Visit Focus/Plan Next Note Type Treatment Note Next Visit Plan STM, flexibility, shoulder strengthening Revisit wall slide/possibly add to HEP
--- NOTE | 2024-09-14 12:57 | PT.OPPOC ---
Physical, Occupational & Speech Therapy At [facility] Current Diagnoses Other chronic pain (09/14/24) Low back pain, unspecified (09/14/24) Segmental and somatic dysfunction of cervical region (09/14/24) Segmental and somatic dysfunction of upper extremity (09/14/24) Visit Care Team Role Provider Type Erin Raines DO Family Provider Non-Staff Primary Care Provider Specialty: Medical Address: [address] [place], [address] Email: Sarah Carrasquillo DO Attending Provider Non-Staff Referring Provider Specialty: Family Practice Address: [address], [place], [address] Email: Plan Of Care PT-OP-B Current Condition Start: 07/12/24 17:52 Freq: Status: Active Protocol: Document 07/12/24 11:30 DCW (Rec: 07/13/24 09:48 DCW [id number]) Current Condition History of Current Condition Onset Date Six month history History of Current Condition Pt is an 84 year old female presenting for a return to skilled physical therapy secondary to low back, cervical, and shoulder pain. Pt has an extensive history of rehab for various injuries. Pt was seen for these same complaints four months ago, but due to difficulties waiting for insurance authorization, was only seen for one follow-up. Returns today with continued complaints. Has been working on her prior HEP. Is trying to become more active, riding bike 20 minutes/day. Admits that she has difficulty donning/doffing her shirt. Her low back hurts when trying to bend over. Unable to find anything that really helps her pain. PT-OP-T Assessment and Plan Start: 07/12/24 17:52 Freq: Status: Active Protocol: Document 09/14/24 12:18 DCW (Rec: 09/14/24 12:55 DCW [id number]) Physical Therapy Assessment Impairments Impairments Functional Activities, Functional Mobility,Pain, Posture,ROM,Soft Tissue Mobility,Strength,Tone Goals One Impairment Pt does not have an appropriate home exercise program Short Term Goal (STG) Pt to be independent and compliant with an appropriate HEP STG Duration Met Three Impairment Limited shoulder ROM Impairment . Senior Care Goal (LTG) Pt to demonstrate improvement of AROM of bilateral shoulder flexion and abduction to >120? in order to improve ability to don/doff her clothing. 08/24/2024 AROM right shoulder flexion 122 deg start of session LTG Duration 09/23/24 - Improving Two Impairment Limited cervical ROM, specifically flexion (30?) and R lat flexion (25?) Impairment . Saw Sharpener Goal (LTG) Pt to demonstrate improvement in cervical ROM, with right lateral flexion >30? and flexion >40? in order to improve ability to check for traffic while driving LTG Duration Met Assessment Summary Assessment Pt making great progress, has met nearly all goals. Still limited with bilateral shoulder abduction <105?. Feels comfortable with most of HEP. Will return one more time for full review and to address questions, pt will then be discharged to independent HEP. Physical Therapy Plan Frequency and Duration Frequency of Treatment 2x/Week Plan of Care Start Date 09/14/24 Plan of Care End Date 09/23/24 Next Visit Focus/Plan Next Note Type Treatment Note Next Visit Plan STM, flexibility, shoulder strengthening Revisit wall slide/possibly add to HEP Plan of Care Dates Plan of Care Start Date 09/14/24 Plan of Care End Date 09/23/24 Electronically Signed by: Bam Huizar, PT 09/14/24 1257 If you are in agreement with this Plan of Care, please return a signed and dated copy. I have reviewed this Plan of Care and certify that the skilled therapy services above are required to meet the patient?s needs. Physician Signature Date Printed Name and Credentials Clinical Instructor Signature Printed Name and Credentials
--- NOTE | 2024-09-16 12:48 | PT.OTN ---
Current Diagnoses Other chronic pain (09/16/24) Low back pain, unspecified (09/16/24) Segmental and somatic dysfunction of cervical region (09/16/24) Segmental and somatic dysfunction of upper extremity (09/16/24) Physical Therapy Treatment Note PT-OP-A Visit Information Start: 07/12/24 17:52 Freq: Status: Active Protocol: Document 09/16/24 12:15 DCW (Rec: 09/16/24 12:48 DCW [id number]) Out-Patient Physical Therapy Visit Information Visit Information Visit Type Discharge Summary Visit Start Time 12:15 Visit Stop Time 12:40 Visit Number 16 Number of OIL DIPPER Visits 0 Evaluation Information Evaluation Date 07/12/24 PT-OP-B Current Condition Start: 07/12/24 17:52 Freq: Status: Active Protocol: Document 07/12/24 11:30 DCW (Rec: 07/13/24 09:48 DCW [id number]) Current Condition History of Current Condition Onset Date Six month history History of Current Condition Pt is an 84 year old female presenting for a return to skilled physical therapy secondary to low back, cervical, and shoulder pain. Pt has an extensive history of rehab for various injuries. Pt was seen for these same complaints four months ago, but due to difficulties waiting for insurance authorization, was only seen for one follow-up. Returns today with continued complaints. Has been working on her prior HEP. Is trying to become more active, riding bike 20 minutes/day. Admits that she has difficulty donning/doffing her shirt. Her low back hurts when trying to bend over. Unable to find anything that really helps her pain. PT-OP-C Subjective Start: 07/12/24 17:52 Freq: Status: Active Protocol: Document 09/16/24 12:15 DCW (Rec: 09/16/24 12:48 DCW [id number]) OP-PT Subjective Patient Comments Patient Comments Pt notes her back has been killing her all day. PT-OP-F Manual Assessment Start: 07/12/24 17:52 Freq: Status: Active Protocol: Document 09/14/24 12:18 DCW (Rec: 09/14/24 12:27 DCW [id number]) Manual Assessments Soft Tissue Assessment Soft Tissue Mobility Assessment Mild tone with tenderness to palpation: pain with wincing along SCM, scalenes, upper trap, cervical paraspinals, lumbar paraspinals, superior glutes PT-OP-K Range of Motion Start: 07/12/24 17:52 Freq: Status: Active Protocol: Document 09/14/24 12:18 DCW (Rec: 09/14/24 12:27 DCW [id number]) Cervical Spine Range of Motion Cervical Spine Active Degrees Testing Position Sitting Flexion 60 Extension 20 Rotation Left 64 Rotation Right 59 Lateral Flexion Left 40 Lateral Flexion Right 40 Shoulder Goniometric Range of Motion Shoulder Right Active Testing Position Sitting Flexion 148 Abduction 102 External Rotation at 0 degrees Abduction 82 Internal Rotation Behind Back (text) T10 Left Active Testing Position Sitting Flexion 138 Abduction 104 External Rotation at 0 degrees Abduction 61 Internal Rotation Behind Back (text) T6 PT-OP-L Special Tests Start: 07/12/24 17:52 Freq: Status: Active Protocol: Document 09/14/24 12:18 DCW (Rec: 09/14/24 12:27 DCW [id number]) Special Tests Cervical Spine Special Tests Spurling's Test Test Results Negative Passive Neck Flexion Test Results Negative Foraminal Compression Test Results Negative Lumbar Spine Special Tests Vertical Spine Loading Test Results Negative Straight Leg Raise Test Results Negative Compression Test Results Negative A-P Shearing Test Results Negative PT-OP-Q Treatments Start: 07/12/24 17:52 Freq: Status: Active Protocol: Document 09/16/24 12:15 DCW (Rec: 09/16/24 12:48 DCW [id number]) Gym Equipment Therapeutic Ball Bridging Exercise Details Bridging /c feet on ball Ball Size/Color Blue - 45 cm LTR Exercise Details LTR Ball Size/Color Blue - 45 cm Body Position Supine PT-OP-T Assessment and Plan Start: 07/12/24 17:52 Freq: Status: Active Protocol: Document 09/16/24 12:15 DCW (Rec: 09/16/24 12:48 DCW [id number]) Physical Therapy Assessment Impairments Impairments Functional Activities, Functional Mobility,Pain, Posture,ROM,Soft Tissue Mobility,Strength,Tone Goals One Impairment Pt does not have an appropriate home exercise program Short Term Goal (STG) Pt to be independent and compliant with an appropriate HEP STG Duration Met Three Impairment Limited shoulder ROM Plaster Applicator Goal (LTG) Pt to demonstrate improvement of AROM of bilateral shoulder flexion and abduction to >120? in order to improve ability to don/doff her clothing. 08/24/2024 AROM right shoulder flexion 122 deg start of session LTG Duration 09/23/24 - Improving Two Impairment Limited cervical ROM, specifically flexion (30?) and R lat flexion (25?) Plaster Applicator Goal (LTG) Pt to demonstrate improvement in cervical ROM, with right lateral flexion >30? and flexion >40? in order to improve ability to check for traffic while driving LTG Duration Met Assessment Summary Assessment Added more core exercises to HEP, provided handout. Pt happy with plan to discharge to independent HEP. Understands she will require a new referral to return in the future. Pt to be discharged from skilled PT at this time. Physical Therapy Plan Frequency and Duration Frequency of Treatment 2x/Week Plan of Care Start Date 09/14/24 Plan of Care End Date 09/23/24 Next Visit Focus/Plan Next Note Type Treatment Note Next Visit Plan STM, flexibility, shoulder strengthening Revisit wall slide/possibly add to HEP
== END 2024-09-20 11:16 | disposition home or self-care (01) ==
LOC: PHYS 12:15
PROVIDERS: Family Provider Student in an Organized Health Care Education/Training Program; PCP Student in an Organized Health Care Education/Training Program; Referring Provider Family Medicine; Visit Provider Family Medicine
DX: M54.50 Low back pain, unspecified (principal); G89.29 Other chronic pain; M99.01 Segmental and somatic dysfunction of cervical region; M99.07 Segmental and somatic dysfunction of upper extremity
CPT/HCPCS: 97110; 97140; 97162; 97530; 97535

== ENCOUNTER → 2025-05-13 07:09 | Outpatient (CLI) | payer OTHER, MEDICAID, SELFPAY ==
[2025-05-13 08:00] LABS: Add Manual Diff / Slide Review NO; Hematocrit 40.7 % (36-46); Hemoglobin 14.0 g/dL (12.0-16.0); Lymphocytes Absolute Auto 2500 /uL (1100-4500); Mean Corpuscular HGB Conc 34.4 % (30-36); Mean Corpuscular Hemoglobin 32.2 PG (26-34); Mean Corpuscular Volume 93.5 fL (80-100); Platelet Count 202 X10^3/uL (150-400)
[2025-05-13 08:20] LABS: Alanine Aminotransferase 15 IU/L (<35); Albumin 3.8 g/dL (3.5-5.0); Albumin Globulin Ratio 1.3 (1.0-2.8); Alkaline Phosphatase 56 U/L (38-126); Blood Urea Nitrogen 14 mg/dL (7-17); Calcium 9.5 mg/dL (8.4-10.2); Carbon Dioxide 22 mmol/L (22-32); Chloride 103 mmol/L (98-107); Cholesterol 201 mg/dL (140-199); Estimated Glomerular Filt Rate > 60 mL/min (>60); Globulin 2.9 g/dL (1.7-4.1); Glucose 124 mg/dL (70-99); HDL Cholesterol 61 mg/dL (40-60); HEMOLYSIS < 15 (0-50); Potassium 4.3 mmol/L (3.4-5.1); Sodium 132 mmol/L (137-145); Total Protein 6.7 g/dL (6.3-8.2); Triglycerides 144 mg/dL (35-150)
== END ==
PROVIDERS: Family Provider Student in an Organized Health Care Education/Training Program; PCP Student in an Organized Health Care Education/Training Program; Referring Provider Nurse Practitioner; Visit Provider Nurse Practitioner
DX: E78.5 Hyperlipidemia, unspecified (principal); I25.5 Ischemic cardiomyopathy
CPT/HCPCS: 36415; 80053; 80061; 85025